=== PATIENT | female | born 1955 | race African-American/Black ===

== ENCOUNTER 2019-01-25 20:52 | Observation (INO) | payer OTHER ==
--- OUTSIDE RECORDS SUMMARY | 2019-01-25 20:55 | XMS REPORT | Clinical Summary ---
:1954 Author Organization [facility] Address [address] [place] [address] Care Team Providers Name Role Phone Yo Carrasco MD Primary Care Provider Allergies Active Allergy Reactions Severity Noted Date Comments Cephalexin Other (See Comments) 07/31/2016 Dry cough Meloxicam Other (See Comments) 07/31/2016 Sick of the stomach Promethazine Itching 07/31/2016 Medications Medication Sig Dispensed Refills Start Date End Date Status bisoprolol-hydrochlorothiazide 0 07/21/2016 Active (ZIAC) 5-6.25 mg per tablet losartan (COZAAR) 50 MG tablet 0 07/21/2016 Active mycophenolate (CELLCEPT) 500 mg 0 06/27/2016 Active tablet gabapentin (NEURONTIN) 400 MG 0 07/14/2016 Active capsule Active Problems No known active problems Social History Tobacco Use Types Packs/Day Years Used Date Current Every Day Smoker Cigarettes Smokeless Tobacco: Never Used Comments: a pack every 2 days Alcohol Use Drinks/Week oz/Week Comments Yes Sex Assigned at Date Recorded Not on file Job Start Date Occupation Industry Not on file Not on file Not on file Travel History Travel Start Travel End No recent travel history available. Last Filed Vital Signs Not on file Plan of Treatment Health Maintenance Due Date Last Done Comments CERVICAL CANCER SCREENING 1976 BREAST CANCER SCREENING 2005 COLON CANCER SCREENING 2005 SHINGLES VACCINES (#1) 2005 INFLUENZA VACCINE 04/22/2019 Results Not on fileafter 01/24/2018 Insurance Payer Benefit Plan / Group Subscriber ID Type Phone Address [facility] CHOICE/CHOICE + xxxxxxxxx HMO/PPO Advance Directives Patient has advance care planning documents on file. For more information, please contact:Mauricio Chino[address] [place] [address]
[2019-01-25 22:32] LABS: Absolute Lymphocytes (CBC) 2.1 K/uL (0.7-4.9); Absolute Monocytes 0.7 K/uL (0.1-1.3); Absolute Neutrophil 2.3 K/uL (1.8-8.0); Basophils % 0.6 % (0-1.3); Eosinophils % 2.3 % (0-4.4); Hematocrit 37.3 % (36.0-45.0); MPV 8.6 fL (7.6-11.3); Monocytes % 12.6 % (3.3-12.3); Protime INR 1.13; RBC Red Blood Cell Count 3.85 M/uL (3.86-4.86)
[2019-01-25] MEDS ORDERED: LIDOCAINE VISCOUS 2% SOLN 15 ML UDC ONE (22:33)
[2019-01-25] MEDS ORDERED: MAGNE/ALUM HYDROXD 30 ML UCUP ONE (22:33)
[2019-01-25 22:55] LABS: ALT/SGPT 36 U/L (12-78); AST/SGOT 45 U/L (15-37); Albumin 3.1 g/dL (3.4-5.0); Alkaline Phosphatase 71 U/L (45-117); BUN Blood Urea Nitrogen 22 mg/dL (7-18); Bicarbonate 24 mmol/L (21-32); Bilirubin Direct 0.2 mg/dL (0-0.2); Bilirubin Total 0.6 mg/dL (0.2-1.0); Glucose Level 81 mg/dL (74-106); NT PRO-BNP 179 pg/mL (<125); Potassium 3.3 mmol/L (3.5-5.1); Protein, Total 7.7 g/dL (6.4-8.2); Sodium Level 142 mmol/L (136-145); Troponin (Emerg Dept Use Only) < 0.02 ng/mL (0.0-0.045)
[2019-01-25 22:56] LABS: Magnesium 0.7 mg/dL (1.8-2.4)
[2019-01-25] MEDS ORDERED: FENTANYL CITR 100 MCG/2 ML ONE (23:43)
[2019-01-25] MEDS ORDERED: Magnesium Sulfate 2gm IVPB 2 G/50 ML BAG IV ONE (23:43)
--- NOTE | 2019-01-26 00:11 | ER ---
Nurse's Notes [facility] Name: Brandy Perez Age: 63 yrs Sex: Female : 1955 Arrival Date: 01/25/2019 Time: 20:56 Bed 17 Private MD: Yo Carrasco V Diagnosis: Chest pain, unspecified;Hypomagnesemia Presentation: 01/25 21:18 Presenting complaint: Patient states: she had just finished dinner and began to have aa1 indigestion and then she could physically palpate a knot on her chest so she was concerned. States, "I feel like if I could just belch it would feel better.". Transition of care: patient was not received from another setting of care. Onset of symptoms was January 25, 2019. Risk Assessment: Do you want to hurt yourself or someone else? Patient reports no desire to harm self or others. Initial Sepsis Screen: Does the patient meet any 2 criteria? No. Patient's initial sepsis screen is negative. Does the patient have a suspected source of infection? No. Patient's initial sepsis screen is negative. Care prior to arrival: None. 21:18 Method Of Arrival: Ambulatory aa1 21:18 Acuity: LEONARDO 3 aa1 Triage Assessment: 21:23 General: Appears in no apparent distress. comfortable, Behavior is calm, cooperative, aa1 appropriate for age. Historical: - Allergies: 21:23 Keflex; aa1 21:23 Mobic; aa1 21:23 Phenergan; aa1 - Home Meds: 21:23 acetaminophen-codeine 300-30 mg Oral tab as needed [Active]; aspirin 81 mg Oral TbEC 1 aa1 tab once daily [Active]; CellCept 500 mg Oral tab daily [Active]; Centrum Oral daily [Active]; losartan 100 mg oral tab 1 tab once daily [Active]; Plaquenil 200 mg Oral tab once daily [Active]; Protonix 40 mg Oral TbEC 1 tab once daily [Active]; carvedilol 25 mg oral tab 1 tab 2 times per day [Active]; nifedipine 30 mg Oral tr24 1 tab once daily [Active]; - PMHx: 21:23 Arthritis; GERD; Hypertension; Lupus; Osteoporosis; RIGHT LEG NERVE PAIN; SCOLEOSIS; aa1 - PSHx: 21:23 R nephrectomy; aa1 - Immunization history:: Flu vaccine is not up to date. - Social history:: Smoking status: Patient uses tobacco products, smokes one-half pack cigarettes per day, Patient uses. - Ebola Screening: : No symptoms or risks identified at this time. Screenin:42 Abuse screen: Denies threats or abuse. Nutritional screening: No deficits noted. jd3 Tuberculosis screening: No symptoms or risk factors identified. Fall Risk Ambulatory Aid- None/Bed Rest/Nurse Assist (0 pts). Gait- Normal/Bed Rest/Wheelchair (0 pts) Mental Status- Oriented to own ability (0 pts). Total Baez Fall Scale indicates No Risk (0-24 pts). Assessment: 21:40 General: Appears in no apparent distress. uncomfortable, Behavior is calm, cooperative, jd3 appropriate for age. Pain: Complains of pain in chest Quality of pain is described as aching, pressure. Neuro: Level of Consciousness is awake, alert, obeys commands, Oriented to person, place, time, situation, Appropriate for age. Cardiovascular: Heart tones present Capillary refill < 3 seconds Patient's skin is warm and dry. Respiratory: Airway is patent Respiratory effort is even, unlabored, Respiratory pattern is regular, symmetrical, Breath sounds are clear bilaterally. Denies shortness of breath. GI: Abdomen is non-distended, Bowel sounds present X 4 quads. Abd is soft and non tender X 4 quads. Patient currently denies diarrhea, nausea, vomiting. : No signs and/or symptoms were reported regarding the genitourinary system. EENT: No signs and/or symptoms were reported regarding the EENT system. Derm: Skin is intact, Skin is dry, Skin is normal, Skin temperature is warm. Musculoskeletal: Circulation, motion, and sensation intact. Range of motion: intact in all extremities. 23:03 Reassessment: Patient appears in no apparent distress at this time. Patient and/or jd3 family updated on plan of care and expected duration. Pain level reassessed. Patient is alert, oriented x 3, equal unlabored respirations, skin warm/dry/pink. 01/26 00:20 Reassessment: Patient appears in no apparent distress at this time. Patient and/or jd3 family updated on plan of care and expected duration. Pain level reassessed. Patient is alert, oriented x 3, equal unlabored respirations, skin warm/dry/pink. Patient states feeling better. 01:30 Reassessment: Patient appears in no apparent distress at this time. Patient and/or jd3 family updated on plan of care and expected duration. Pain level reassessed. Patient is alert, oriented x 3, equal unlabored respirations, skin warm/dry/pink. Vital Signs: 01/25 21:23 BP 134 / 83; Pulse 70; Resp 18; Temp 97.0; Pulse Ox 98% on R/A; Weight 70.76 kg (R); aa1 Height 5 ft. 3 in. (160.02 cm); Pain 8/10; 23:03 BP 154 / 98; Pulse 64; Resp 17 S; Pulse Ox 98% on R/A; Pain 5/10; jd3 01/26 00:20 BP 140 / 94; Pulse 70; Resp 17 S; Pulse Ox 95% on R/A; jd3 01:29 BP 140 / 95; Pulse 79; Resp 17 S; Pulse Ox 95% on R/A; Pain 3/10; jd3 01/25 21:23 Body Mass Index 27.63 (70.76 kg, 160.02 cm) aa1 ED Course: 01/25 20:56 Patient arrived in ED. ds1 20:56 Yo Carrasco MD is Private Physician. ds1 21:20 Triage completed. aa1 21:23 Arm band placed on left wrist. aa1 21:40 Oz Jha, LENARD is Primary Nurse. jd3 21:42 Patient has correct armband on for positive identification. Placed in gown. Bed in low jd3 position. Call light in reach. Side rails up X 1. Adult w/ patient. 21:44 Marcus Lau PA is PHCP. jr8 21:44 Esteban Rae MD is Attending Physician. jr8 22:15 Inserted saline lock: 20 gauge in right antecubital area, using aseptic technique. jd3 Blood collected. 22:36 XRAY Chest (1 view) In Process Unspecified. EDMS 01/26 00:10 Yo Carrasco MD is Hospitalizing Provider. jr8 01:31 No provider procedures requiring assistance completed. Patient admitted, IV remains in jd3 place. Administered Medications: 01/25 22:24 Drug: GI Cocktail without - (Maalox Suspension 30 ml, Lidocaine Liquid 2 % 15 jd3 ml) Route: PO; 23:20 Follow up: Response: No adverse reaction jd3 23:37 Drug: Magnesium Sulfate 2 grams Route: IVPB; Infused Over: 2 hrs; Site: right jd3 antecubital; 01/26 01:09 Follow up: Response: No adverse reaction; IV Status: Completed infusion; IV Intake: [id number] 01/25 23:37 Drug: fentaNYL (PF) 25 mcg Route: IVP; Site: right antecubital; jd3 01/26 00:21 Follow up: Response: No adverse reaction jd3 Intake: 01:09 IV: 50ml; Total: 50ml. jd3 Outcome: 00:10 Decision to Hospitalize by Provider. jrDoug 01:31 Admitted to Tele accompanied by tech, via wheelchair, room 219, with chart, Report jd3 called to Amber WEINBERG 01:31 Condition: stable 01:31 Instructed on the need for admit, Demonstrated understanding of instructions. 01:41 Patient left the ED. jd3 Signatures: Dispatcher [employer] EDMS Aixa Mahajan, RN RN aa1 Carlene Brown ds1 Marcus Lau PA PA jr8 Oz Jha RN RN jd3 Corrections: (The following items were deleted from the chart) 01/25 23:07 23:03 BP 154 / 98; Pulse 64bpm; Resp 17bpm; Spontaneous; Pulse Ox 98% RA; jd3 jd3
--- NOTE | 2019-01-26 00:12 | EDPHYS ---
Physician Documentation [facility] Name: Brandy Perez Age: 63 yrs Sex: Female : 1955 Arrival Date: 01/25/2019 Time: 20:56 Bed 17 Private MD: Yo Carrasco V ED Physician Esteban Rae HPI: 01/26 00:13 This 63 yrs old Black Female presents to ER via Ambulatory with complaints of jr8 Indigestion. 00:13 The patient or guardian reports chest pain that is located primarily in the substernal jr8 area. Onset: acutely, today. The pain does not radiate. Associated signs and symptoms: The patient has no apparent associated signs or symptoms. The chest pain is described as causing indigestion, knot like feeling. Duration: The patient or guardian reports a single episode, that is still ongoing. Modifying factors: The symptoms are alleviated by nothing. the symptoms are aggravated by nothing. Severity of pain: At its worst the pain was moderate in the emergency department the pain is unchanged. The patient has not experienced similar symptoms in the past. The patient has not recently seen a physician. Patient stated that she has history of indigestion. On Protonix twice daily. Stated that after eating tonight started to feel indigestion but with a knot substernally in chest which she has not had in past. Historical: - Allergies: 01/25 21:23 Keflex; aa1 21:23 Mobic; aa1 21:23 Phenergan; aa1 - Home Meds: 21:23 acetaminophen-codeine 300-30 mg Oral tab as needed [Active]; aspirin 81 mg Oral TbEC 1 aa1 tab once daily [Active]; CellCept 500 mg Oral tab daily [Active]; Centrum Oral daily [Active]; losartan 100 mg oral tab 1 tab once daily [Active]; Plaquenil 200 mg Oral tab once daily [Active]; Protonix 40 mg Oral TbEC 1 tab once daily [Active]; carvedilol 25 mg oral tab 1 tab 2 times per day [Active]; nifedipine 30 mg Oral tr24 1 tab once daily [Active]; - PMHx: 21:23 Arthritis; GERD; Hypertension; Lupus; Osteoporosis; RIGHT LEG NERVE PAIN; SCOLEOSIS; aa1 - PSHx: 21:23 R nephrectomy; aa1 - Immunization history:: Flu vaccine is not up to date. - Social history:: Smoking status: Patient uses tobacco products, smokes one-half pack cigarettes per day, Patient uses. - Ebola Screening: : No symptoms or risks identified at this time. ROS: 01/26 00:13 Eyes: Negative for injury, pain, redness, and discharge, ENT: Negative for injury, jr8 pain, and discharge, Neck: Negative for injury, pain, and swelling, Respiratory: Negative for shortness of breath, cough, wheezing, and pleuritic chest pain, Abdomen/GI: Negative for abdominal pain, nausea, vomiting, diarrhea, and constipation, Back: Negative for injury and pain, MS/Extremity: Negative for injury and deformity, Skin: Negative for injury, rash, and discoloration, Neuro: Negative for headache, weakness, numbness, tingling, and seizure. Cardiovascular: Positive for chest pain, Negative for edema, orthopnea, palpitations, paroxysmal nocturnal dyspnea. Exam: 00:13 Eyes: Pupils equal round and reactive to light, extra-ocular motions intact. Lids and jr8 lashes normal. Conjunctiva and sclera are non-icteric and not injected. Cornea within normal limits. Periorbital areas with no swelling, redness, or edema. ENT: Nares patent. No nasal discharge, no septal abnormalities noted. Tympanic membranes are normal and external auditory canals are clear. Oropharynx with no redness, swelling, or masses, exudates, or evidence of obstruction, uvula midline. Mucous membranes moist. Neck: Trachea midline, no thyromegaly or masses palpated, and no cervical lymphadenopathy. Supple, full range of motion without nuchal rigidity, or vertebral point tenderness. No Meningismus. Cardiovascular: Regular rate and rhythm with a normal S1 and S2. No gallops, murmurs, or rubs. Normal PMI, no JVD. No pulse deficits. Respiratory: Lungs have equal breath sounds bilaterally, clear to auscultation and percussion. No rales, rhonchi or wheezes noted. No increased work of breathing, no retractions or nasal flaring. Abdomen/GI: Soft, non-tender, with normal bowel sounds. No distension or tympany. No guarding or rebound. No evidence of tenderness throughout. Back: No spinal tenderness. No costovertebral tenderness. Full range of motion. Skin: Warm, dry with normal turgor. Normal color with no rashes, no lesions, and no evidence of cellulitis. MS/ Extremity: Pulses equal, no cyanosis. Neurovascular intact. Full, normal range of motion. Neuro: Awake and alert, GCS 15, oriented to person, place, time, and situation. Cranial nerves II-XII grossly intact. Motor strength 5/5 in all extremities. Sensory grossly intact. Cerebellar exam normal. Normal gait. 02:00 ECG was reviewed by the Attending Physician. [facility] Vital Signs: 01/25 21:23 BP 134 / 83; Pulse 70; Resp 18; Temp 97.0; Pulse Ox 98% on R/A; Weight 70.76 kg (R); aa1 Height 5 ft. 3 in. (160.02 cm); Pain 8/10; 23:03 BP 154 / 98; Pulse 64; Resp 17 S; Pulse Ox 98% on R/A; Pain 5/10; jd3 01/26 00:20 BP 140 / 94; Pulse 70; Resp 17 S; Pulse Ox 95% on R/A; jd3 01:29 BP 140 / 95; Pulse 79; Resp 17 S; Pulse Ox 95% on R/A; Pain 3/10; jd3 01/25 21:23 Body Mass Index 27.63 (70.76 kg, 160.02 cm) aa1 MDM: 01/25 21:51 Patient medically screened. [facility] 23:58 Data reviewed: vital signs, nurses notes, lab test result(s), EKG. Data interpreted: [facility] Pulse oximetry: on room air is 98 %. Interpretation: normal. Counseling: I had a detailed discussion with the patient and/or guardian regarding: the historical points, exam findings, and any diagnostic results supporting the discharge/admit diagnosis, lab results, radiology results, the need for further work-up and treatment in the hospital. 01/26 00:10 Physician consultation: Yo Carrasco MD was called at 00:10, was contacted at 00:10, jr8 regarding admission, to the telemetry unit. consult, patient's condition, and will see patient. 01/25 22:05 Order name: Basic Metabolic Panel; Complete Time: 23:17 [facility] 01/25 22:05 Order name: CBC with Diff; Complete Time: 23:17 01/25 22:05 Order name: LFT's; Complete Time: 23:17 01/25 22:05 Order name: Magnesium; Complete Time: 23:17 01/25 22:05 Order name: NT PRO-BNP; Complete Time: 23:17 01/25 22:05 Order name: PT-INR; Complete Time: 23:17 01/25 22:05 Order name: Troponin (emerg Dept Use Only); Complete Time: 23:17 01/25 22:05 Order name: XRAY Chest (1 view) 01/25 22:05 Order name: EKG; Complete Time: 22:06 01/25 22:05 Order name: Cardiac monitoring; Complete Time: 22:42 01/25 22:05 Order name: EKG - Nurse/Tech; Complete Time: 22:42 01/25 22:05 Order name: IV Saline Lock; Complete Time: 22:18 01/25 22:05 Order name: Labs collected and sent; Complete Time: 22:18 01/25 22:05 Order name: O2 Per Protocol; Complete Time: 22:18 01/25 22:05 Order name: O2 Sat Monitoring; Complete Time: 22:18 EC:00 Rate is 71 beats/min. Rhythm is regular, Normal Sinus Rhythm. QRS [place] is Normal. [place] jr8 interval is normal at 130 msec. QRS interval is normal at 74 msec. QT interval is normal at 439 msec. No Q waves. T waves are Normal. No ST changes noted. Clinical impression: Normal ECG and No evidence of ischemia. Interpreted by me. Reviewed by me. Administered Medications: 01/25 22:24 Drug: GI Cocktail without - (Maalox Suspension 30 ml, Lidocaine Liquid 2 % 15 jd3 ml) Route: PO; 23:20 Follow up: Response: No adverse reaction jd3 23:37 Drug: Magnesium Sulfate 2 grams Route: IVPB; Infused Over: 2 hrs; Site: right jd3 antecubital; 01/26 01:09 Follow up: Response: No adverse reaction; IV Status: Completed infusion; IV Intake: [id number] 01/25 23:37 Drug: fentaNYL (PF) 25 mcg Route: IVP; Site: right antecubital; jd3 01/26 00:21 Follow up: Response: No adverse reaction jd3 Disposition: 10:29 Co-signature as Attending Physician, Esteban Rae MD. Disposition: 01/26/19 00:10 Hospitalization ordered by Yo Carrasco for Observation. Preliminary diagnosis are Chest pain, unspecified, Hypomagnesemia. - Bed requested for Telemetry/MedSurg (observation). - Status is Observation. jd3 - Condition is Stable. - Problem is new. - Symptoms have improved. UTI on Admission? No Signatures: Dispatcher [employer] EDMS Aixa Mahajan RN RN aa1 Marcus Lau PA PA jr8 Jie Sauceda RN RN Esteban Rae MD MD gs Davies, Jonathon, RN RN jd3 Corrections: (The following items were deleted from the chart) 01:00 00:10 Hospitalization Ordered by Yo Carrasco MD for Observation. Preliminary diagnosis cg is Chest pain, unspecified; Hypomagnesemia. Bed requested for Telemetry/MedSurg (observation). Status is Observation. Condition is Stable. Problem is new. Symptoms have improved. UTI on Admission? No. jr8 01:41 01:00 01/26/2019 00:10 Hospitalization Ordered by Yo Carrasco MD for Observation. jd3 Preliminary diagnosis is Chest pain, unspecified; Hypomagnesemia. Bed requested for Telemetry/MedSurg (observation). Status is Observation. Condition is Stable. Problem is new. Symptoms have improved. UTI on Admission? No. cg
[2019-01-26] MEDS ORDERED: MORPHINE 4 MG/ML SYR IV PRN (01:25)
[2019-01-26] MEDS ORDERED: ONDANSETRON 4 MG/2 ML VIAL IV PRN (01:25)
[2019-01-26 02:19] VITALS: BMI 27.0
--- NOTE | 2019-01-26 06:06 | EKG ---
Test Date: 2019-01-25 Test Time: 22:39:03 Shipping And Receiving Material Handler: [id number] MEASUREMENT RESULTS: Intervals: Rate: 71 KS: 130 QRSD: 74 QT: 404 QTc: 439 Jackman: P: 72 KS: 130 QRS: 70 T: 77 INTERPRETIVE STATEMENTS: Normal sinus rhythm Normal ECG Compared to ECG 05/25/2013 02:36:31 No significant changes Electronically Signed On 01-26-19 06:05:30 CDT by Harrison Adan
--- NOTE | 2019-01-26 07:13 | RAD REPORT ---
EXAM DESCRIPTION: RAD - Chest Single View - 01/25/2019 10:35 pm CLINICAL HISTORY: Chest pain COMPARISON: November 2016 TECHNIQUE: AP portable chest image was obtained 2230 hours . FINDINGS: No new mass, infiltrate or failure finding. Patient has prominent emphysematous changes wi th bullous cavities in the upper lung diop. Lung parenchymal findings are stable. Heart and vascula ture are normal. No measurable pleural effusion and no pneumothorax. No acute bony abnormality seen. Scoliosis juan remains in place. No acute aortic finding. IMPRESSION: No acute cardiopulmonary process. 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
--- NOTE | 2019-01-26 08:26 | RAD REPORT ---
EXAM DESCRIPTION: US - Abdomen Exam Complete - 01/26/2019 8:09 am CLINICAL HISTORY: Abdominal pain, abdominal distention COMPARISON: Ultrasound July 2017 FINDINGS: Gallbladder size is normal. No gallstones, wall thickening or pericholecystic fluid. Commo n bile duct is upper normal at 7-8 mm with no common duct stone identified. Liver is 14 cm in maximum dimension. No focal liver parenchymal lesions seen. Capsule has a slight nodular contour. This can b e indirect evidence for cirrhosis or hepatic parenchymal disease. Spleen is 7 cm in maximum dimension with no focal splenic finding. The pancreas is normal. No hydronephrosis or suspicious mass of the left kidney. Patient is status post right nephrectomy. Mi ld left-sided hydronephrosis matches the 2017 study. Small cyst of the left kidney measures slightly smaller than 2017. Aorta and IVC show no suspicious findings. No ascites or bulky lymphadenopathy. IMPRESSION: No gallbladder abnormality. Biliary tree is upper normal in size without stone or other focal abnormality. Liver is normal size with no focal parenchymal lesion. Capsule does show slight nodular contour which can be indirect evidence for hepatic parenchymal disease. Mild left-sided hydronephrosis similar to 2017. Patient is status post right nephrectomy.
[2019-01-26] MEDS ORDERED: ASPIRIN EC 81 MG TAB PO SCH (09:00)
[2019-01-26] MEDS ORDERED: POTASSIUM CL SA 10 MEQ TAB PO ONE (09:00)
[2019-01-26] MEDS ORDERED: LOSARTAN POTASSIUM 200 MG PO SCH (09:00)
[2019-01-26] MEDS: MYCOPHENOLATE MOFETIL PO SCH (09:00)
[2019-01-26] MEDS: CARVEDILOL 25 MG TAB PO SCH ×2 (10:01→20:49)
[2019-01-26] MEDS: ASPIRIN EC 81 MG TAB PO SCH (10:01)
[2019-01-26] MEDS: PANTOPRAZOLE 40MG TABLET PO SCH ×2 (10:01→20:49)
[2019-01-26] MEDS: HYDROXYCHLOROQUINE 200MG TAB PO SCH (10:02)
[2019-01-26] MEDS: NIFEDIPINE XL 30 MG TABLET PO SCH (10:02)
[2019-01-26] MEDS ORDERED: MAGNESIUM SULFATE 1 gm IVPB 1 GM/100 ML BAG IV ONE (11:00)
--- NOTE | 2019-01-26 12:46 | P.HP ---
Certification for Inpatient Patient admitted to: Observation With expected LOS: <2 Midnights Practitioner: I am a practitioner with admitting privileges, knowledge of patient current condition, hospital course, and medical plan of care. Services: Services provided to patient in accordance with Admission requirements found in Title 42 Section 412.3 of the Code of Federal Regulations Patient History Date of Service: 01/27/19 Reason for admission: CHEST PAIN History of Present Illness: MS. MCMANUS HAS HTN, SARCOIDOSIS AND LUPUS. SHE COMES WITH CHEST PAIN TODAY. MORE THAN CHEST PAIN IT IS DYSPHAGIA. SHE SAYS FOOD GETS STUCK. I ASKED IF DR WANG DID EGD. SHE SAID SHE IS ONCE AGAIN POSITIVE FOR HEP C, THEY CAN'T DO EGD FOR NOW. I CALLED DR. WANG AND HE SAYS HE WILL DO EGD INPATIENT. Allergies promethazine HCl [From Phenergan] Allergy (Mild, Verified 03/02/13 12:46) ITCH meloxicam [From Mobic] Adverse Reaction (Intermediate, Verified 03/02/13 12:46) NAUSEA cephalexin monohydrate [From Keflex] Adverse Reaction (Mild, Verified 03/02/13 12:46) DRY COUGH Home Medications: Aspirin [Aspir-Low] 1 tab PO DAILY 01/26/19 Carvedilol 1 tab PO BID 01/26/19 Hydroxychloroquine [Plaquenil*] 1 tab PO DAILY 01/26/19 Losartan Potassium 100 mg PO DAILY 01/26/19 Mycophenolate Mofetil 1 tab PO DAILY 01/26/19 Nifedipine [Nifedipine ER] 1 tab PO DAILY 01/26/19 Pantoprazole [Protonix Tab*] 1 tab PO BID 01/26/19 - Past Medical/Surgical History Has patient received pneumonia vaccine in the past: No Diabetic: No -: HTN -: Scoliosis -: lupus -: osteoporosis -: kidney cancer -: Back -Barbara Adolfo -: R Kidney removal -: Bone spur R foot - Family History Mother -: Heart disease, Kidney disease - Social History Smoking Status: Current every day smoker Alcohol use: No CD- Drugs: Yes Caffeine use: Yes Place of Residence: Home Review of Systems 10-point ROS is otherwise unremarkable Respiratory: Pleuritic Pain, As per HPI Physical Examination - Vital Signs Temperature: 97.1 F Blood Pressure: 139/90 Pulse: 71 Respirations: 15 Pulse Ox (%): 98 - Physical Exam General: Alert, Mild distress HEENT: Atraumatic, PERRLA, Mucous membr. moist/pink, EOMI, Sclerae nonicteric Neck: Supple, 2+ carotid pulse no bruit, No LAD, Without JVD or thyroid abnormality Respiratory: Clear to auscultation bilaterally, Normal air movement Cardiovascular: Regular rate/rhythm, Normal S1 S2 Gastrointestinal: Normal bowel sounds, No tenderness Musculoskeletal: No tenderness Integumentary: No rashes Neurological: Normal gait, Normal speech, Normal strength at 5/5 x4 extr, Normal tone, Normal affect Lymphatics: No axilla or inguinal lymphadenopathy - Studies Laboratory Data (last 24 hrs) 01/25/19 22:15: PT 13.3 H, INR 1.13 01/25/19 22:15: WBC 5.2, Hgb 13.1, Hct 37.3, Plt Count 202 01/25/19 22:15: Sodium 142, Potassium 3.3 L, BUN 22 H, Creatinine 1.79 H, Glucose 81, Magnesium 0.7 L*, Total Bilirubin 0.6, AST 45 H, ALT 36, Alkaline Phosphatase 71 Assessment and Plan - Problems (Diagnosis) (1) Chest pain Current Visit: Yes Status: Acute Plan: EGD TO BE DONE WHILE HERE. PROTONIX IV DIALUDID IV PAIN SEEMS NONCARDIAC IN ORIGIN. CHECK FOR COMPLEMENT AND SED RATE. (2) HTN (hypertension) Current Visit: Yes Status: Chronic Qualifiers: Hypertension type: essential hypertension Qualified Code(s): I10 - Essential (primary) hypertension (3) SLE (systemic lupus erythematosus related syndrome) Current Visit: Yes Status: Chronic Plan: STABLE FOR YEARS. HAS BEEN TO DR. CHEN LOCALLY NOW. - Advance Directives Does patient have a Living Will: No Does patient have a Durable POA for Healthcare: No
[2019-01-26 13:11] LABS: MPV 9.2 fL (7.6-11.3)
[2019-01-26 13:24] LABS: Platelet Estimate ADEQ
[2019-01-26 13:42] LABS: Potassium 4.1 mmol/L (3.5-5.1)
--- NOTE | 2019-01-26 14:49 | RAD REPORT ---
EXAM DESCRIPTION: CT - Chest Angio - 01/26/2019 2:39 pm CLINICAL HISTORY: Chest pain, shortness of breath COMPARISON: Chest film January 25 TECHNIQUE: Dynamically enhanced 3 mm thick images of the chest were obtained during administration o f approximately 150mL Isovue 370 IV contrast. Coronal and oblique MIP reconstruction images were gene rated and reviewed. Exam utilizes a protocol to evaluate the pulmonary arterial tree. All CT scans are performed using dose optimization technique as appropriate and may include automated exposure control or mA/KV adjustment according to patient size. FINDINGS: No pulmonary emboli are identified. The aorta as imaged shows no acute or suspicious finding. No pericardial thickening or effusion. Patient has prominent emphysematous lung change. Numerous large bulla and bleb noted in the upper josé g diop. No pleural effusion or pleural thickening. In the medial right apex (image 16/102) there is a 2.2 centimeter pleural abutting soft tissue mass. Scattered scarring changes are present elsewhere in the lung diop. No additional suspicious mass or nodularity. No mediastinal or hilar suspicious masses. No chest wall masses or abnormal axillary lymphadenopathy. IMPRESSION: No pulmonary emboli identified. A 2.2 centimeter pleural abutting mass in the medial right apex is identified. No comparable imaging to allow all assessment of stability. Severe fibroemphysematous lung change matching prior imaging. The medial right apex mass cannot be excluded as a malignant process. No comparable study for compara tive purposes. PET-CT imaging may be helpful to assess metabolic activity.
[2019-01-26] MEDS ORDERED: PROMETHAZINE 25 MG/ML VIAL IV PRN (15:12)
[2019-01-26] MEDS: LOSARTAN POTASSIUM 50 MG TABLET PO SCH (16:16)
[2019-01-26] MEDS ORDERED: HYDROMORPHONE HCL 1 MG/ML INJ IV ONE (16:30)
[2019-01-27 06:08] LABS: Absolute Lymphocytes (CBC) 1.7 K/uL (0.7-4.9); Absolute Monocytes 0.5 K/uL (0.1-1.3); Basophils % 0.7 % (0-1.3); Eosinophils % 2.7 % (0-4.4); Hematocrit 37.1 % (36.0-45.0); Lymphocytes % 37.9 % (15.3-44.8); MPV 8.9 fL (7.6-11.3); Monocytes % 12.4 % (3.3-12.3)
[2019-01-27 06:12] LABS: Magnesium 1.8 mg/dL (1.8-2.4); Potassium 4.1 mmol/L (3.5-5.1)
--- NOTE | 2019-01-27 08:53 | P.CNS ---
Date of Consult: 01/27/19 Chief Complaint: Right upper lobe lung mass History of Present Illness: Patient is 63 years of age admitted with chest pain patient is an active smoker he smokes 1 pack every 2 days does have some shortness of breath on exertion denies any fever chills history of kidney cancer that was resected in 2003 and was found to have a right upper lobe paraspinal lung mass denies any fever chills no chest pain now schedule for endoscopy history of GERD. Allergies promethazine HCl [From Phenergan] Allergy (Mild, Verified 03/02/13 12:46) ITCH meloxicam [From Mobic] Adverse Reaction (Intermediate, Verified 03/02/13 12:46) NAUSEA cephalexin monohydrate [From Keflex] Adverse Reaction (Mild, Verified 03/02/13 12:46) DRY COUGH Home Medications: Aspirin [Aspir-Low] 1 tab PO DAILY 01/26/19 Carvedilol 1 tab PO BID 01/26/19 Hydroxychloroquine [Plaquenil*] 1 tab PO DAILY 01/26/19 Losartan Potassium 100 mg PO DAILY 01/26/19 Mycophenolate Mofetil 1 tab PO DAILY 01/26/19 Nifedipine [Nifedipine ER] 1 tab PO DAILY 01/26/19 Pantoprazole [Protonix Tab*] 1 tab PO BID 01/26/19 Fluticasone/Salmeterol [Advair 250-50 Diskus] 1 each IH BID #1 blst.w.dev - Past Medical/Surgical History Diabetic: No -: HTN -: Scoliosis -: lupus -: osteoporosis -: kidney cancer -: Back -Barbara Adolfo -: R Kidney removal -: Bone spur R foot - Family History Mother Medical History: Heart disease, Kidney disease - Social History Smoking Status: Current every day smoker Alcohol use: No CD- Drugs: Yes Caffeine use: Yes Place of Residence: Home Review of Systems 10-point ROS is otherwise unremarkable Physical Examination Temp Pulse Resp BP Pulse Ox 97.1 F 71 15 139/90 98 01/27/19 06:37 01/27/19 06:37 01/27/19 06:37 01/27/19 06:37 01/27/19 06:37 General: Alert, Oriented x3 HEENT: Normocephalic Neck: Supple Respiratory: Clear to auscultation bilaterally Cardiovascular: No edema, Regular rate/rhythm, Normal S1 S2 Gastrointestinal: Soft and benign - Problems (1) Lung mass Current Visit: Yes Status: Acute Plan: Patient is 63 years of age admitted with chest pain incidentally was found to have a right upper lobe apical paraspinal 2.2 cm mass with paraseptal emphysema does changes patient is an active smoker prior history of renal cancer that was resected in 2003 complains of dyspnea on exertion I suspect that she has underlying COPD patient is scheduled for endoscopy chemistries unremarkable patient will need a bronchodilator outpatient follow up with pulmonary function testing possible PET scan console to stops smoking I have informed the patient to follow with me in a couple of weeks
[2019-01-27] MEDS ORDERED: MAGNESIUM SULFATE 1 gm IVPB 1 GM/100 ML BAG IV ONE (09:00)
[2019-01-27] MEDS: MYCOPHENOLATE MOFETIL PO SCH (09:00)
[2019-01-27] MEDS ORDERED: ENOXAPARIN 30 MG/0.3 ML SQ SCH (09:00)
[2019-01-27] MEDS: ASPIRIN EC 81 MG TAB PO SCH (09:34)
[2019-01-27] MEDS ORDERED: Ringers Lactate 1,000 ML IV ONE (10:24)
[2019-01-27] MEDS ORDERED: LIDOCAINE 1% MPF 2 ML AMPULE ONE (10:30)
[2019-01-27] MEDS ORDERED: PROPOFOL 200 MG/20 ML VIAL IV ONE (10:30)
--- NOTE | 2019-01-27 10:39 | EKG ---
Test Date: 2019-01-27 Test Time: 07:33:04 Architectural Drafter: KAYLYNN MEASUREMENT RESULTS: Intervals: Rate: 61 WA: 114 QRSD: 68 QT: 426 QTc: 428 [place]: P: 72 WA: 114 QRS: 75 T: 76 INTERPRETIVE STATEMENTS: Normal sinus rhythm Normal ECG Compared to ECG 01/25/2019 22:39:03 No significant changes Electronically Signed On 01-27-19 10:39:01 CDT by Kvng Guerra
--- NOTE | 2019-01-27 11:05 | ENDO RPT ---
[address], [address] EGD WITH DILATION PROCEDURE REPORT EXAM DATE: 01/27/2019 PATIENT NAME: Brandy Perez MR#: [id number] BIRTHDATE: 1955 ATTENDING: Roberto Armstrong Dr STATUS: inpatient - 7 OUTSIDE CONTRACTOR SALES: Niels Chen RN, Christi Mitchell RN, and Alyse Devlin INDICATIONS: The patient is a 63 yr old Female here for an EGD with dilation due to GERD and dysphagia PROCEDURE PERFORMED: EGD with biopsy MEDICATIONS: Per Anesthesia. TOPICAL ANESTHETIC: none CONSENT: The patient understands the risks and benefits of the procedure and understands that these risks include, but are not limited to: sedation, allergic reaction, infection, perforation and/or bleeding. Alternative means of evaluation and treatment include, among others: physical exam, x-rays, and/or surgical intervention. The patient elects to proceed with this endoscopic procedure. DESCRIPTION OF PROCEDURE: During intra-op preparation period all mechanical medical equipment was checked for proper function. Hand hygiene and appropriate measures for infection prevention was taken. After the risks, benefits and alternatives of the procedure were thoroughly explained, Informed consent was verified, confirmed and timeout was successfully executed by the treatment team. The patient was anesthetized with topical anesthesia and the Pentax EG-[id number] ([id number]) endoscope was introduced through the mouth and advanced to the third portion of the duodenum. The instrument was slowly withdrawn as the mucosa was fully examined. A moderate sized hiatal hernia was found Mild gastritis was found in the body and the antrum of the stomach. Multiple biopsies were obtained and sent to pathology. Dilation was performed at upper esophagus. DILATOR: SIZE(S): RESISTANCE: HEME: APPEARANCE: Dilator: Savary over guidewire Size(s): 14,15,16 mm Resistance: minimal Heme: none Appearance: adequate COMMENT: subsequent esophageal biopsies to rule out eosinophilic esophagitis Retroflexed views revealed a moderate sized hiatal hernia. ADVERSE EVENTS: There were no complications. IMPRESSIONS: 1. Non-obstructive dysphagia, s/p 14/15/16 mm Savary esophagitis 2. Moderate sized hiatal hernia 3. Mild gastritis in the body and the antrum of the stomach, s/p biopsies RECOMMENDATIONS: 1. await biopsy results 2. acid suppression therapy REPEAT EXAM: Roberto Armstrong Dr eSigned: Roberto Armstrong Dr 01/27/2019 11:04 AM cc: Yo Carrasco CPT CODES: ICD9 CODES: PATIENT NAME: Brandy PerezAlireza MR#: [id number]
[2019-01-27] MEDS: CARVEDILOL 25 MG TAB PO SCH (11:56)
[2019-01-27] MEDS: PANTOPRAZOLE 40MG TABLET PO SCH (11:57)
[2019-01-27] MEDS: HYDROXYCHLOROQUINE 200MG TAB PO SCH (11:57)
[2019-01-27] MEDS: LOSARTAN POTASSIUM 50 MG TABLET PO SCH (11:57)
[2019-01-27] MEDS: NIFEDIPINE XL 30 MG TABLET PO SCH (11:57)
[2019-01-27 14:17] VITALS: O2SAT 98
[2019-01-27 14:25] VITALS: BP 160/82; TEMP 97.9
--- NOTE | 2019-01-27 14:29 | RAD REPORT ---
EXAM DESCRIPTION: RAD - Barium Swallow Modified - 01/27/2019 2:21 pm CLINICAL HISTORY: Coughing and choking FINDINGS: No aspiration. No supraglottic penetration No pooling of contrast within the valleculae/piriform sinus Oropharyngeal phase of swallowing is normal ILD ESOPHAGEAL STASIS WITH PUREE , CLEARED WITH LIQUID WASH Fluoroscopy time 1.4 minutes. Nine fluoroscopic spot series obtained
--- NOTE | 2019-01-27 14:56 | RAD REPORT ---
EXAM DESCRIPTION: RAD - Esophagram Only - 01/27/2019 2:21 pm CLINICAL HISTORY: Dysphagia, coughing COMPARISON: None FINDINGS: Twelve fluoroscopic spot images obtained. Fluoroscopy time 0.4 minutes Mucosal folds of the esophagus appear normal. No permanent filling defects, obstructing or constricting lesions seen. GE reflux was not visualized IMPRESSION: Unremarkable exam
--- NOTE | 2019-01-27 21:39 | P.DS ---
Admission Date: 01/26/19 Discharge Date: 01/27/19 Disposition: ROUTINE DISCHARGE Reason for Admission: Right upper lobe lung mass - Problems (1) Chest pain Status: Acute (2) HTN (hypertension) Status: Chronic Qualifiers: Hypertension type: essential hypertension Qualified Code(s): I10 - Essential (primary) hypertension (3) SLE (systemic lupus erythematosus related syndrome) Status: Chronic Brief History of Present Illness: MS. MCMANUS HAS HTN, SARCOIDOSIS AND LUPUS. SHE COMES WITH CHEST PAIN TODAY. MORE THAN CHEST PAIN IT IS DYSPHAGIA. SHE SAYS FOOD GETS STUCK. I ASKED IF DR WANG DID EGD. SHE SAID SHE IS ONCE AGAIN POSITIVE FOR HEP C, THEY CAN'T DO EGD FOR NOW. I CALLED DR. WANG AND HE SAYS HE WILL DO EGD INPATIENT. MRS. MCMANUS HAD DYSPHAGIA MORE THAN PAIN. SHE HAD EGD BY DR WANG AND FOUND TO HAVE HIATLA HERNIA. SHE WILL CONTINUE PROTONIX. GO TO DR GUERRA, DR. ANDERSON AND DR WANG FOR FU. Vital Signs/Physical Exam: Temp Pulse Resp BP Pulse Ox 97.9 F 62 18 160/82 H 97 01/27/19 12:00 01/27/19 12:00 01/27/19 12:00 01/27/19 12:00 01/27/19 12:00 Laboratory Data at Discharge: WBC 4.4 K/uL (4.3-10.9) D 01/27/19 05:16 Hgb 13.1 g/dL (12.0-15.0) 01/27/19 05:16 Hct 37.1 % (36.0-45.0) 01/27/19 05:16 Plt Count 197 K/uL (152-406) 01/27/19 05:16 PT 13.3 SECONDS (9.5-12.5) H 01/25/19 22:15 INR 1.13 01/25/19 22:15 Sodium 145 mmol/L (136-145) 01/27/19 05:16 Potassium 4.1 mmol/L (3.5-5.1) 01/27/19 05:16 BUN 15 mg/dL (7-18) 01/27/19 05:16 Creatinine 1.20 mg/dL (0.55-1.3) 01/27/19 05:16 Glucose 88 mg/dL (74-106) 01/27/19 05:16 Magnesium 1.8 mg/dL (1.8-2.4) 01/27/19 05:16 Total Bilirubin 0.6 mg/dL (0.2-1.0) 01/25/19 22:15 AST 45 U/L (15-37) H 01/25/19 22:15 ALT 36 U/L (12-78) 01/25/19 22:15 Alkaline Phosphatase 71 U/L (45-117) 01/25/19 22:15 Troponin I < 0.02 ng/mL (0.0-0.045) 01/26/19 07:25 Home Medications: Aspirin [Aspir-Low] 1 tab PO DAILY 01/26/19 Carvedilol 1 tab PO BID 01/26/19 Hydroxychloroquine [Plaquenil*] 1 tab PO DAILY 01/26/19 Losartan Potassium 100 mg PO DAILY 01/26/19 Mycophenolate Mofetil 1 tab PO DAILY 01/26/19 Nifedipine [Nifedipine ER] 1 tab PO DAILY 01/26/19 Pantoprazole [Protonix Tab*] 1 tab PO BID 01/26/19 Fluticasone/Salmeterol [Advair 250-50 Diskus] 1 each IH BID #1 blst.w.dev New Medications: Fluticasone/Salmeterol [Advair 250-50 Diskus] 1 each IH BID #1 blst.w.dev Patient Discharge Instructions: VISIT DR. TAYLOR FOR NODULE. DR. CARRASCO RTN VISIT. DR. GUERRA FOR FOLLOW UP. Followup: Keenan Boo MD [ACTIVE - CAN ADMIT] - Yo Carrasco MD [Primary Care Provider] - Kvng Guerra MD [ACTIVE - CAN ADMIT] -
[2019-01-30 10:52] LABS: Complement (CH50), Total 11 U/mL (31-60)
== END 2019-01-27 17:00 | disposition home or self-care (01) ==
LOC: ER 20:52 → ERHOLD 01-26 01:04 → 2ND 01-26 01:31
PROVIDERS: ADMIT Internal Medicine; ATTEND Internal Medicine
PROC: 0DB68ZX Excision of Stomach, Via Natural or Artificial Opening Endoscopic, Diagnostic (ICD-10-PCS; 2019-01-27)
PROC: 0D718ZZ Dilation of Upper Esophagus, Via Natural or Artificial Opening Endoscopic (ICD-10-PCS; 2019-01-27)
PROC: 0DB58ZX Excision of Esophagus, Via Natural or Artificial Opening Endoscopic, Diagnostic (ICD-10-PCS; principal; 2019-01-27 11:00)
DX: K44.9 Diaphragmatic hernia without obstruction or gangrene (principal); R13.10 Dysphagia, unspecified; M32.9 Systemic lupus erythematosus, unspecified; K29.70 Gastritis, unspecified, without bleeding; I10 Essential (primary) hypertension; R91.8 Other nonspecific abnormal finding of lung field; F17.210 Nicotine dependence, cigarettes, uncomplicated; Z85.528 Personal history of other malignant neoplasm of kidney; D86.9 Sarcoidosis, unspecified
CPT/HCPCS: 36415; 71045; 71275; 74220; 74230; 76700; 80048; 80076; 83735; 83880; 84484; 85025; 85049; 85610; 85652; 86140; 86160; 86162; 88305; 88312; 88313; 92611; 93005; 96365; 96366; 96375; 99285; G0378; J1170; J1650; J2001; J2405; J2550; J2704; J3010; J3475; Q9967

== ENCOUNTER 2019-02-28 14:01 | Emergency (ER) | payer OTHER ==
--- OUTSIDE RECORDS SUMMARY | 2019-02-28 14:04 | XMS REPORT | Clinical Summary ---
:1954 Author Organization [facility] Address [address] [place] [address] Care Team Providers Name Role Phone Yo [...] Health Maintenance Due Date Last Done Comments BREAST CANCER SCREENING 2005 COLON CANCER SCREENING 2005 SHINGLES VACCINES (#1) 2005 INFLUENZA VACCINE 04/22/2019 Results Not on fileafter 02/27/2018 Advance Directives Patient has advance care planning documents on file. For more information, please contact:Mauricio Vance[address] [place] [address]
[2019-02-28 15:20] LABS: Absolute Lymphocytes (CBC) 1.4 K/uL (0.7-4.9); Absolute Monocytes 0.4 K/uL (0.1-1.3); Absolute Neutrophil 3.3 K/uL (1.8-8.0); Basophils % 0.7 % (0-1.3); Eosinophils % 1.6 % (0-4.4); Hematocrit 39.8 % (36.0-45.0); MPV 8.2 fL (7.6-11.3); Monocytes % 7.5 % (3.3-12.3); RBC Red Blood Cell Count 4.15 M/uL (3.86-4.86)
[2019-02-28] MEDS ORDERED: NA CHLORIDE 0.9% 1,000 ML ONE (15:39)
[2019-02-28 15:40] LABS: ALT/SGPT 35 U/L (12-78); AST/SGOT 43 U/L (15-37); Albumin 2.9 g/dL (3.4-5.0); Alkaline Phosphatase 63 U/L (45-117); BUN Blood Urea Nitrogen 17 mg/dL (7-18); Bicarbonate 23 mmol/L (21-32); Bilirubin Direct 0.3 mg/dL (0-0.2); Bilirubin Total 0.6 mg/dL (0.2-1.0); Glucose Level 114 mg/dL (74-106); Lipase 449 U/L (73-393); Potassium 3.4 mmol/L (3.5-5.1); Protein, Total 8.4 g/dL (6.4-8.2); Sodium Level 146 mmol/L (136-145); Troponin (Emerg Dept Use Only) < 0.02 ng/mL (0.0-0.045)
[2019-02-28 15:44] LABS: Magnesium 0.4 mg/dL (1.8-2.4)
[2019-02-28] MEDS ORDERED: POTASSIUM 25 MEQ EFFERV TAB ONE (16:25)
[2019-02-28] MEDS ORDERED: Magnesium Sulfate 2gm IVPB 2 G/50 ML BAG IV ONE (16:25)
[2019-02-28] MEDS ORDERED: CALCIUM GLUCONATE 1gm/100 ML NS (4.65 mEq/100mL) IV ONE ×2 (17:00)
[2019-02-28 17:09] LABS: Urine Bacteria >50 /HPF (<20); Urine RBC <5 /HPF (NONE SEEN)
[2019-02-28 17:10] LABS: Urine Culture Reflex Order REFLEXED
[2019-02-28 17:12] LABS: Urine Blood TRACE (NEG); Urine Glucose NEGATIVE (NEG); Urine Protein 2+ (NEG); Urine Specific Gravity 1.015 (1.005-1.030)
--- NOTE | 2019-02-28 17:13 | RAD REPORT ---
EXAM DESCRIPTION: US - Abdomen Exam Limited - 02/28/2019 5:09 pm CLINICAL HISTORY: Right upper quadrant pain COMPARISON: None. FINDINGS: No gallstones, sludge or other abnormalities within the gallbladder lumen. There is no wal l thickening or pericholecystic fluid. No common duct stone or biliary tree dilatation identified. IMPRESSION: Normal gallbladder and biliary tree ultrasound.
--- NOTE | 2019-02-28 18:01 | ER ---
Nurse's Notes [facility] Name: Brandy Perez Age: 63 yrs Sex: Female : 1955 Arrival Date: 02/28/2019 Time: 14:04 Bed 25 Private MD: Yo Carrasco V Diagnosis: Nausea;Hypomagnesemia;Hypocalcemia;Urinary tract infection, site not specified Presentation: 02/28 14:13 Presenting complaint: Nausea today, vomit x 1 in triage. Denies pain/fever/cough. hb Transition of care: patient was not received from another setting of care. Onset of symptoms was February 28, 2019. Risk Assessment: Do you want to hurt yourself or someone else? Patient reports no desire to harm self or others. Care prior to arrival: None. 14:13 Method Of Arrival: Ambulatory hb 14:13 Acuity: LEONARDO 3 hb 15:51 Initial Sepsis Screen: Does the patient meet any 2 criteria? No. Patient's initial rv sepsis screen is negative. Does the patient have a suspected source of infection? No. Patient's initial sepsis screen is negative. Triage Assessment: 15:51 General: Appears in no apparent distress. comfortable. GI: Reports lower abdominal pain.rv Historical: - Allergies: 14:14 Keflex; hb 14:14 Mobic; hb 14:14 Phenergan; hb - PMHx: 14:14 GERD; Lupus; Osteoporosis; RIGHT LEG NERVE PAIN; Hypertension; SCOLEOSIS; Arthritis; hb - PSHx: 14:14 R nephrectomy; hb - Immunization history:: Adult Immunizations up to date. - Social history:: Smoking status: Patient/guardian denies using tobacco. - Ebola Screening: : No symptoms or risks identified at this time. Screenin:50 Abuse screen: Denies threats or abuse. Denies injuries from another. Nutritional rv screening: No deficits noted. Tuberculosis screening: No symptoms or risk factors identified. Fall Risk None identified. Assessment: 15:49 General: Appears in no apparent distress. comfortable, Behavior is calm, cooperative. rv Pain: Complains of pain in abdomen Quality of pain is described as crampy, Is intermittent. Neuro: Level of Consciousness is awake, alert, obeys commands, Oriented to person, place, time, situation. Cardiovascular: Patient's skin is warm and dry. Respiratory: Airway is patent. GI: Abdomen is round. : No signs and/or symptoms were reported regarding the genitourinary system. EENT: No signs and/or symptoms were reported regarding the EENT system. Derm: Skin is intact. Musculoskeletal: No signs and/or symptoms reported regarding the musculoskeletal system. Vital Signs: 14:14 BP 106 / 81; Pulse 89; Resp 20; Temp 97.4; Pulse Ox 100% on R/A; Weight 70.31 kg; hb Height 5 ft. 3 in. (160.02 cm); Pain 4/10; 15:24 BP 120 / 89 LA (auto/reg); Pulse 82; Resp 14 S; Temp 98.9; Pulse Ox 98% on R/A; jp3 16:27 BP 126 / 88; Pulse 77; Resp 20; Temp 98.2; Pulse Ox 99% ; rv 17:00 BP 132 / 89; Pulse 73; Resp 19; Pulse Ox 99% ; rv 18:00 BP 124 / 85; Pulse 80; Resp 15; Temp 97.9; Pulse Ox 100% ; rv 14:14 Body Mass Index 27.46 (70.31 kg, 160.02 cm) hb ED Course: 14:04 Patient arrived in ED. mr 14:04 Yo Carrasco MD is Private Physician. mr 14:14 Triage completed. hb 14:14 Arm band placed on. hb 14:45 Papito Rivera PA is PHCP. cp 14:45 Castillo Pastrana MD is Attending Physician. cp 14:50 Edgar Soliz RN is Primary Nurse. rv 15:10 Inserted saline lock: 22 gauge in right antecubital area, using aseptic technique. jp3 Blood collected. 15:10 Initial lab(s) drawn, by co, sent to lab. EKG done, by ED staff, reviewed by Papito Rivera jp3 PA. Patient maintains SpO2 saturation greater than 95% on room air. 15:29 Lipase Sent. jp3 15:29 Basic Metabolic Panel Sent. jp3 15:29 Troponin (emerg Dept Use Only) Sent. jp3 15:29 Magnesium Sent. jp3 15:29 LFT's Sent. jp3 15:30 Placed in gown. Bed in low position. Call light in reach. Side rails up X 1. Side rails jp3 up X2. Warm blanket given. Pillow given. Verbal reassurance given. sales engagement manager on. Pulse ox on. NIBP on. 15:30 Basic Metabolic Panel Sent. jp3 15:30 CBC with Diff Sent. jp3 16:35 Ultrasound completed. Patient tolerated well. Notified BUSINESS MANAGEMENT MANAGER/PA page. sg3 17:09 US Abdomen Limited: RUQ/epigastric In Process Unspecified. EDMS 18:06 No provider procedures requiring assistance completed. IV discontinued, intact, rv bleeding controlled, No redness/swelling at site. Pressure dressing applied. Administered Medications: 15:43 Drug: NS 0.9% 500 ml Route: IV; Rate: bolus; Site: right antecubital; rv 16:26 Follow up: IV Status: Completed infusion; IV Intake: 500ml rv 16:26 Drug: Magnesium Sulfate 2 grams Route: IVPB; Infused Over: 2 hrs; Site: right rv antecubital; 17:53 Follow up: IV Status: Completed infusion; IV Intake: 50ml rv 16:26 Drug: Calcium Gluconate 1 grams Route: IVPB; Infused Over: 60 mins; Site: right rv antecubital; 17:53 Follow up: IV Status: Completed infusion; IV Intake: 100ml rv 16:26 Drug: NS 0.9% 500 ml Route: IV; Rate: bolus; Site: right antecubital; rv 17:53 Follow up: IV Status: Completed infusion; IV Intake: 500ml rv 16:26 Drug: Potassium Effervescent Tablet 25 mEq Route: PO; rv 17:19 Follow up: Response: No adverse reaction rv Intake: 16:26 IV: 500ml; Total: 500ml. rv 17:53 IV: 50ml; Total: 550ml. rv 17:53 IV: 100ml; Total: 650ml. rv 17:53 IV: 500ml; Total: 1150ml. rv Outcome: 17:59 Discharge ordered by . cp 18:07 Discharged to home ambulatory. rv 18:07 Condition: good 18:07 Discharge instructions given to patient, family, Instructed on discharge instructions, follow up and referral plans. medication usage, Demonstrated understanding of instructions, follow-up care, medications, Prescriptions given X 1. 18:10 Patient left the ED. rv Addendum: 03/02/2019 17:20 Addendum: Culture Results: Positive urine culture. Bacteria is resistant to, has i w intermediate sensitivity, or is not tested against prescribed antibiotics. Report given to ADRIANO for further evaluation and then to high school social studies teacher for follow up with patient. Phone call Attempt #1 pt symptoms improved, has f/u appt with PCP on . Signatures: Dispatcher [employer] NANCYEmily LaiTootie, RN RN iw Papito Rivera PA PA cp Baxter, Heather, LENARD RN Saira Aquino sg3 Edgar Soliz, RN RN rv Nirmal Preciado jp3
--- NOTE | 2019-02-28 18:02 | EDPHYS ---
Physician Documentation [facility] Name: Brandy Perez Age: 63 yrs Sex: Female : 1955 Arrival Date: 02/28/2019 Time: 14:04 Bed 25 Private MD: Yo Carrasco V ED Physician Castillo Pastrana HPI: 02/28 15:00 This 63 yrs old Black Female presents to ER via Ambulatory with complaints of Nausea. cp 15:00 The patient presents to the emergency department with nausea, that is mild, vomiting, 1 cp times today. 15:00 Onset: The symptoms/episode began/occurred today. Possible causes: bad food exposure, cp started after eating 2 sausage croissants from local donut shop. 15:00 Associated signs and symptoms: Pertinent negatives: constipation, diarrhea, fever, GI cp bleeding. Severity of symptoms: in the emergency department the symptoms have improved mildly. 15:05 Patient reports history of low magnesia levels in the past and reports not taking cp prescribed magnesium supplement. Historical: - Allergies: 14:14 Keflex; hb 14:14 Mobic; hb 14:14 Phenergan; hb - PMHx: 14:14 GERD; Lupus; Osteoporosis; RIGHT LEG NERVE PAIN; Hypertension; SCOLEOSIS; Arthritis; hb - PSHx: 14:14 R nephrectomy; hb - Immunization history:: Adult Immunizations up to date. - Social history:: Smoking status: Patient/guardian denies using tobacco. - Ebola Screening: : No symptoms or risks identified at this time. ROS: 15:10 Constitutional: Negative for body aches, chills, fever, poor PO intake. cp 15:10 Eyes: Negative for injury, pain, redness, and discharge. cp 15:10 ENT: Negative for drainage from ear(s), ear pain, sore throat, difficulty swallowing, difficulty handling secretions. 15:10 Cardiovascular: Negative for chest pain, edema, palpitations. 15:10 Respiratory: Negative for cough, dyspnea on exertion, shortness of breath, wheezing. 15:10 Abdomen/GI: Positive for nausea, vomiting, Negative for abdominal pain, diarrhea, constipation, anorexia, black/tarry stool, rectal bleeding. 15:10 Back: Negative for pain at rest, pain with movement. 15:10 : Negative for urinary symptoms, vaginal bleeding. 15:10 Skin: Negative for cellulitis, rash. 15:10 Neuro: Negative for altered mental status, dizziness, headache, weakness. 15:10 All other systems are negative. Exam: 15:17 Constitutional: The patient appears in no acute distress, alert, awake, cp non-diaphoretic, non-toxic, well developed, well nourished. 15:17 Head/Face: Normocephalic, atraumatic. cp 15:17 Eyes: Periorbital structures: appear normal, Conjunctiva: normal, Sclera: no appreciated abnormality, Lids and lashes: appear normal, bilaterally. 15:17 ENT: External ear(s): are unremarkable, Nose: is normal, Mouth: Lips: moist, Oral mucosa: pink and intact, moist, Posterior pharynx: is normal, airway is patent, no erythema, no exudate. 15:17 Neck: ROM/movement: is normal, is supple, without pain, no range of motions limitations, no nuchal rigidity. 15:17 Chest/axilla: Inspection: normal, Palpation: is normal, no crepitus, no tenderness. 15:17 Cardiovascular: Rate: normal, Rhythm: regular. 15:17 Respiratory: the patient does not display signs of respiratory distress, Respirations: normal, no use of accessory muscles, no retractions, no splinting, no tachypnea, labored breathing, is not present, Breath sounds: are clear throughout, no decreased breath sounds, no stridor, no wheezing. 15:17 Abdomen/GI: Inspection: abdomen appears normal, Bowel sounds: active, all quadrants, Palpation: soft, in all quadrants, mild abdominal tenderness, in the epigastric area and left upper quadrant, rebound tenderness, is not appreciated, voluntary guarding, is not appreciated, involuntary guarding, is not appreciated. 15:17 Back: pain, is absent, ROM is normal. 15:17 Skin: no rash present. 15:17 Neuro: Orientation: to person, place \T\ time. Mentation: is normal, Cerebellar function: is grossly normal, Motor: moves all fours, strength is normal, Sensation: is normal. 15:29 ECG was reviewed by the Attending Physician. cp Vital Signs: 14:14 BP 106 / 81; Pulse 89; Resp 20; Temp 97.4; Pulse Ox 100% on R/A; Weight 70.31 kg; hb Height 5 ft. 3 in. (160.02 cm); Pain 4/10; 15:24 BP 120 / 89 LA (auto/reg); Pulse 82; Resp 14 S; Temp 98.9; Pulse Ox 98% on R/A; jp3 16:27 BP 126 / 88; Pulse 77; Resp 20; Temp 98.2; Pulse Ox 99% ; rv 17:00 BP 132 / 89; Pulse 73; Resp 19; Pulse Ox 99% ; rv 18:00 BP 124 / 85; Pulse 80; Resp 15; Temp 97.9; Pulse Ox 100% ; rv 14:14 Body Mass Index 27.46 (70.31 kg, 160.02 cm) hb MDM: 14:50 Patient medically screened. cp 15:00 Differential diagnosis: gastritis, cholecystitis, pancreatitis, viral gastroenteritis, cp gastroenteritis. 17:58 Data reviewed: vital signs, nurses notes, lab test result(s), EKG, radiologic studies, cp ultrasound. 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 Response to treatment: the patient's symptoms have markedly improved after treatment, VSS. Nausea improved. No vomiting observed in ED. Patient reports feeling better. Discussed need for magnesium supplement and f/u with primary care physician. Will discharge to home for continued monitoring. 02/28 14:57 Order name: Basic Metabolic Panel cp 02/28 14:57 Order name: CBC with Diff cp 02/28 14:57 Order name: LFT's cp 02/28 14:57 Order name: Magnesium; Complete Time: 15:48 cp 02/28 14:57 Order name: Troponin (emerg Dept Use Only); Complete Time: 15:48 cp 02/28 14:57 Order name: Lipase; Complete Time: 15:48 cp 02/28 15:48 Interpretation: Abnormal: LIP 449. cp 02/28 14:57 Order name: Urine Microscopic Only; Complete Time: 17:32 cp 02/28 17:32 Interpretation: Normal except: UWBC >50; UBACT >50; SQEPI 5-10. cp 02/28 14:58 Order name: Basic Metabolic Panel; Complete Time: 15:48 EDMS 02/28 17:52 Interpretation: Normal except: NA 146; K 3.4; CL 112; GLUC 114; CRE 1.43; GFR 45; CA cp 6.8. 02/28 14:58 Order name: CBC with Automated Diff; Complete Time: 15:48 EDMS 02/28 14:58 Order name: Liver (Hepatic) Function; Complete Time: 15:48 EDMS 02/28 15:49 Order name: US Abdomen Limited: RUQ/epigastric; Complete Time: 17:32 cp 02/28 17:32 Interpretation: Report reviewed. cp 02/28 16:48 Order name: Urine Dipstick--Ancillary (enter results) ag 02/28 17:13 Order name: Urine Culture EDKY 02/28 14:57 Order name: EKG; Complete Time: 14:59 cp 02/28 14:57 Order name: Cardiac monitoring; Complete Time: 15:29 cp 02/28 14:57 Order name: EKG - Nurse/Tech; Complete Time: 15:29 cp 02/28 14:57 Order name: IV Saline Lock; Complete Time: 15:30 cp 02/28 14:57 Order name: Labs collected and sent; Complete Time: 15:30 cp 02/28 14:57 Order name: O2 Per Protocol; Complete Time: 15:30 cp 02/28 14:57 Order name: O2 Sat Monitoring; Complete Time: 15:30 cp 02/28 14:57 Order name: Urine Dipstick-Ancillary (obtain specimen); Complete Time: 17:54 cp 02/28 17:32 Order name: PO challenge; Complete Time: 17:44 cp EC:29 Rate is 75 beats/min. Rhythm is regular. WA interval is normal. QRS interval is normal. cp QT interval is normal. Interpreted by me. Administered Medications: 15:43 Drug: NS 0.9% 500 ml Route: IV; Rate: bolus; Site: right antecubital; rv 16:26 Follow up: IV Status: Completed infusion; IV Intake: 500ml rv 16:26 Drug: Magnesium Sulfate 2 grams Route: IVPB; Infused Over: 2 hrs; Site: right rv antecubital; 17:53 Follow up: IV Status: Completed infusion; IV Intake: 50ml rv 16:26 Drug: Calcium Gluconate 1 grams Route: IVPB; Infused Over: 60 mins; Site: right rv antecubital; 17:53 Follow up: IV Status: Completed infusion; IV Intake: 100ml rv 16:26 Drug: NS 0.9% 500 ml Route: IV; Rate: bolus; Site: right antecubital; rv 17:53 Follow up: IV Status: Completed infusion; IV Intake: 500ml rv 16:26 Drug: Potassium Effervescent Tablet 25 mEq Route: PO; rv 17:19 Follow up: Response: No adverse reaction rv Disposition: 18:36 Co-signature as Attending Physician, Castillo Pastrana MD. rn Disposition: 02/28/19 17:59 Discharged to Home. Impression: Nausea, Hypomagnesemia, Hypocalcemia, Urinary tract infection, site not specified. - Condition is Stable. - Discharge Instructions: Hypomagnesemia, Nausea, Adult, Urinary Tract Infection, Adult, Hypocalcemia, Adult. - Prescriptions for Augmentin 875- 125 mg Oral Tablet - take 1 tablet by ORAL route every 12 hours for 7 days; 14 tablet. - Medication Reconciliation Form, Thank You Letter, Antibiotic Education, Prescription Opioid Use form. - Follow up: Private Physician; When: 1 - 2 days; Reason: Recheck today's complaints. - Problem is an ongoing problem. - Symptoms have improved. - Notes: take multivitamin daily Signatures: Dispatcher [employer] EDMS aCstillo Pastrana MD MD rn Page, Corey, PA PA cp Raissa Olivares RN RN hb Vicente, Ronaldo, RN RN rv Corrections: (The following items were deleted from the chart) 18:02 17:59 02/28/2019 17:59 Discharged to Home. Impression: Nausea; Hypomagnesemia; cp Hypocalcemia. Condition is Stable. Forms are Medication Reconciliation Form, Thank You Letter, Antibiotic Education, Prescription Opioid Use. Follow up: Private Physician; When: 1 - 2 days; Reason: Recheck today's complaints. Problem is an ongoing problem. Symptoms have improved. cp 18:10 18:02 02/28/2019 17:59 Discharged to Home. Impression: Nausea; Hypomagnesemia; rv Hypocalcemia; Urinary tract infection, site not specified. Condition is Stable. Discharge Instructions: Hypomagnesemia, Nausea, Adult, Hypocalcemia, Adult. Forms are Medication Reconciliation Form, Thank You Letter, Antibiotic Education, Prescription Opioid Use. Follow up: Private Physician; When: 1 - 2 days; Reason: Recheck today's complaints. Problem is an ongoing problem. Symptoms have improved. cp
[2019-02-28 18:29] VITALS: BP 124/85; TEMP 97.9; O2SAT 100
--- NOTE | 2019-03-01 09:55 | EKG ---
Test Date: 2019-02-28 Test Time: 15:20:15 Watermaster: ORALIA MEASUREMENT RESULTS: Intervals: Rate: 75 WV: 106 QRSD: 70 QT: 386 QTc: 431 Calvin: P: 79 WV: 106 QRS: 52 T: 64 INTERPRETIVE STATEMENTS: Sinus rhythm with short WV Otherwise normal ECG Compared to ECG 01/27/2019 07:33:04 Short WV interval now present Electronically Signed On 03-01-19 09:54:49 CDT by Kvng Guerra
== END 2019-02-28 18:10 | disposition home or self-care (01) ==
LOC: ER 14:01
DX: N39.0 Urinary tract infection, site not specified (principal); E83.42 Hypomagnesemia; E83.51 Hypocalcemia; I10 Essential (primary) hypertension; Z88.5 Allergy status to narcotic agent; Z88.8 Allergy status to other drugs, medicaments and biological substances
CPT/HCPCS: 36415; 76705; 80048; 80076; 81003; 81015; 83690; 83735; 84484; 85025; 87077; 87086; 87088; 87186; 93005; 96361; 96365; 96368; 99285; J0610; J3475; J7030

== ENCOUNTER 2020-11-10 09:42 | Emergency (ER) | payer BC ==
[2020-11-10] MEDS ORDERED: CYCLOBENZAPRINE 10 MG TAB ONE (10:44)
[2020-11-10] MEDS ORDERED: HYDROCODONE/APAP 7.5/325 MG TAB ONE (10:44)
--- NOTE | 2020-11-10 11:05 | EDPHYS ---
Physician Documentation [facility] Name: Brandy Perez Age: 65 yrs Sex: Female : 1955 Arrival Date: 11/10/2020 Time: 09:44 Bed 16 Private MD: Yo Carrasco V ED Physician Henry Dc HPI: 11/10 10:13 This 65 yrs old Black Female presents to ER via Ambulatory with complaints of Shoulder kb Pain, Arm Pain. 10:13 The patient or guardian complains of pain, that is chronic, tenderness. right kb trapezius. Onset: The symptoms/episode began/occurred 5 day(s) ago, and became worse 5 day(s) ago. Associated signs and symptoms: Pertinent positives: severe pain, Pertinent negatives: Numbness in right arm tingling. The patient has experienced a previous episode, last month. The patient has been recently seen by a physician: Dr. Carrasco 1 month(s) ago, with similar presenting complaints, and apparently given a diagnosis of pinched nerve. Patient reports scoliosis and spinal juan placement surgery in 1970s. No complaints or follow up with specialist since then. Was seen by her PCP last month for same issue and was told it was a pinched nerve, f/u with ortho, and order specialized pillow. Denies limitations of ADLs, CP, worsening SOB, or dizziness. . 10:57 Context: The problem was sustained at home, resulted from an unknown reason, The kb patient reports no decreased range of motion. The patient reports no obvious deformity. Modifying factors: the symptoms are alleviated by laying on back . Severity of symptoms: At their worst the symptoms were moderate, in the emergency department the symptoms are unchanged. Treatment prior to arrival includes: prescription medications, codeine. Historical: - Allergies: 10:08 Keflex; aa5 10:08 Mobic; aa5 10:08 Phenergan; aa5 - PMHx: 10:08 Arthritis; GERD; Hypertension; Lupus; Osteoporosis; RIGHT LEG NERVE PAIN; SCOLEOSIS; aa5 10:09 COPD; Scoliosis; aa5 - PSHx: 10:08 R nephrectomy; aa5 - Immunization history:: Adult Immunizations up to date. - Social history:: Smoking status: Patient denies any tobacco usage or history of. ROS: 10:18 Cardiovascular: Negative for chest pain, palpitations, and edema, Abdomen/GI: Negative kb for abdominal pain, nausea, vomiting, diarrhea, and constipation, MS/Extremity: Negative for injury and deformity, Skin: Negative for injury, rash, and discoloration, Neuro: Negative for headache, weakness, numbness, tingling, and seizure. 10:18 Respiratory: Positive for Hx of SOB and is at baseline SOB. 10:18 Back: Positive for injury or acute deformity, Hx of scoliosis. 10:18 MS/extremity: Positive for Numbness along right arm. Exam: 10:19 Cardiovascular: Regular rate and rhythm with a normal S1 and S2. No gallops, murmurs, kb or rubs. Normal PMI, no JVD. No pulse deficits. Respiratory: Lungs have equal breath sounds bilaterally, clear to auscultation and percussion. No rales, rhonchi or wheezes noted. No increased work of breathing, no retractions or nasal flaring. Skin: Warm, dry with normal turgor. Normal color with no rashes, no lesions, and no evidence of cellulitis. MS/ Extremity: Pulses equal, no cyanosis. Neurovascular intact. Full, normal range of motion. 10:19 Neuro: Awake and alert, GCS 15, oriented to person, place, time, and situation. Cranial nerves II-XII grossly intact. Motor strength 5/5 in all extremities. Sensory grossly intact. Cerebellar exam normal. Normal gait. 10:19 Back: Point tenderness present on R trapezius. Vertical scar along spine present along right side of spinal cord from surgery. . Vital Signs: 09:55 BP 93 / 65; Pulse 75; Resp 16; Temp 98; Pulse Ox 98% ; bp 11:55 BP 105 / 74; Pulse 56; Resp 17; Temp 98; Pulse Ox 97% ; bp MDM: 09:55 Patient medically screened. kb 10:21 Data reviewed: vital signs, nurses notes, Subjective response to pain meds. . Special kb discussion: Requested she contact for transport home. . ED course: Pain addressed in ED. Patient educated to use warm compressor heating pad in 15 min intervals and do not sleep on heating pad. Gentle ROM exercises advised. F/u with other and lupus MD that prescribes pain meds. Patient advised to return to ED if worsening pain, immobility, CP with dizziness, or loss of function of right side. Prescriptions provided for home:Steroids and muscle relaxers. . 10:58 Data interpreted: Pulse oximetry: on room air is 98 %. Interpretation: normal. kb Counseling: I had a detailed discussion with the patient and/or guardian regarding: the historical points, exam findings, and any diagnostic results supporting the discharge/admit diagnosis, the need for outpatient follow up, a family practitioner, to return to the emergency department if symptoms worsen or persist or if there are any questions or concerns that arise at home. ED course: Pt states she has muscle spasms frequently and normally takes flexeril, but has been out. Pt cannot take NSAIDS for inflammation. Will prescribe prednisone and flexeril for management. Discussed nonpharmacological symptom treatment as well. . 11:01 Response to treatment: the patient's symptoms have markedly improved after treatment. kb Administered Medications: 10:20 Drug: [place] (7.5 mg-325 mg) 1 tabs Route: PO; bp 11:56 Follow up: Response: Pain is decreased bp 10:20 Drug: Flexeril 10 mg Route: PO; bp 11:56 Follow up: Response: No adverse reaction; Pain is decreased bp Disposition: 12:26 Co-signature as Attending Physician, Henry Dc MD I agree with the assessment and kdr plan of care. Disposition: 11/10/20 11:05 Discharged to Home. Impression: Radiculopathy. - Condition is Stable. - Discharge Instructions: Radicular Pain. - Prescriptions for Prednisone 20 mg Oral Tablet - take 1 tablet by ORAL route once daily for 5 days; 5 tablet. Cyclobenzaprine 10 mg Oral Tablet - take 1 tablet by ORAL route every 8 hours As needed; 30 tablet. - Medication Reconciliation Form, Thank You Letter, Antibiotic Education, Prescription Opioid Use form. - Follow up: Emergency Department; When: As needed; Reason: Worsening of condition. Follow up: Yo Carrasco MD; When: 2 - 3 days; Reason: Recheck today's complaints, Continuance of care, Re-evaluation by your physician. Signatures: Muriel Fowler, AT RISK PARAPROFESSIONAL-C GARY-Henry Zamora MD MD kdr Yary Harmon, RN RN aa5 Arsalan Potter RN RN bp Corrections: (The following items were deleted from the chart) 10:58 10:13 Associated signs and symptoms: Pertinent positives: Numbness in right arm severe kb pain, tingling, kb 10:58 10:13 The patient has been recently seen by a physician: Dr. rashid 11:57 11:05 11/10/2020 11:05 Discharged to Home. Impression: Radiculopathy. Condition is bp Stable. Forms are Medication Reconciliation Form, Thank You Letter, Antibiotic Education, Prescription Opioid Use. Follow up: Emergency Department; When: As needed; Reason: Worsening of condition. Follow up: Yo Carrasco; When: 2 - 3 days; Reason: Recheck today's complaints, Continuance of care, Re-evaluation by your physician. kb
--- NOTE | 2020-11-10 11:05 | ER ---
Nurse's Notes [facility] Name: Brandy Perez Age: 65 yrs Sex: Female : 1955 Arrival Date: 11/10/2020 Time: 09:44 Bed 16 Private MD: Yo Carrasco V Diagnosis: Radiculopathy Presentation: 11/10 09:52 Chief complaint: Patient states: pain to right trapezius radiating down right arm that aa5 began September. Pt reports being seen by Dr. Carrasco in September and diagnosed with " a pinched nerve". Pt reports increased pain since Friday. 09:52 Onset of symptoms was September 2020. aa5 09:52 Acuity: LEONARDO 4 aa5 09:52 Method Of Arrival: Ambulatory aa5 09:55 Coronavirus screen: At this time, the client does not indicate any symptoms associated bp with coronavirus-19. Ebola Screen: No symptoms or risks identified at this time. Initial Sepsis Screen: Does the patient meet any 2 criteria? No. Patient's initial sepsis screen is negative. Does the patient have a suspected source of infection? No. Patient's initial sepsis screen is negative. Risk Assessment: Do you want to hurt yourself or someone else? Patient reports no desire to harm self or others. Triage Assessment: 09:55 General: Appears in no apparent distress. uncomfortable, Behavior is cooperative, bp appropriate for age, anxious. Pain: Complains of pain in right arm and right trapezius. EENT: No deficits noted. Neuro: No deficits noted. Cardiovascular: No deficits noted. Respiratory: No deficits noted. GI: No signs and/or symptoms were reported involving the gastrointestinal system. : No signs and/or symptoms were reported regarding the genitourinary system. Derm: No deficits noted. Musculoskeletal: No deficits noted. Historical: - Allergies: 10:08 Keflex; aa5 10:08 Mobic; aa5 10:08 Phenergan; aa5 - PMHx: 10:08 Arthritis; GERD; Hypertension; Lupus; Osteoporosis; RIGHT LEG NERVE PAIN; SCOLEOSIS; aa5 10:09 COPD; Scoliosis; aa5 - PSHx: 10:08 R nephrectomy; aa5 - Immunization history:: Adult Immunizations up to date. - Social history:: Smoking status: Patient denies any tobacco usage or history of. Screenin:55 Abuse screen: Denies threats or abuse. Denies injuries from another. Nutritional bp screening: No deficits noted. Tuberculosis screening: No symptoms or risk factors identified. Fall Risk None identified. Assessment: 09:55 General: SEE TRIAGE NOTE. bp 11:55 Reassessment: PT D/C HOME AMBULATORY, DX WITH RADICULOPATHY. bp Vital Signs: 09:55 BP 93 / 65; Pulse 75; Resp 16; Temp 98; Pulse Ox 98% ; bp 11:55 BP 105 / 74; Pulse 56; Resp 17; Temp 98; Pulse Ox 97% ; bp ED Course: 09:44 Patient arrived in ED. ag5 09:45 Yo Carrasco MD is Private Physician. ag5 09:52 Arm band placed on Patient placed in an exam room, on a stretcher. aa5 09:54 Muriel Fowler F[facility]-C [facility]. kb 09:55 Henry Dc MD is Attending Physician. kb 09:55 Patient has correct armband on for positive identification. Bed in low position. Call bp light in reach. Side rails up X2. 10:06 Arsalan Potter, RN is Primary Nurse. bp 10:08 Triage completed. aa5 11:02 Yo Carrasco MD is Referral Physician. kb 11:55 No provider procedures requiring assistance completed. Patient did not have IV access bp during this emergency room visit. Administered Medications: 10:20 Drug: [place] (7.5 mg-325 mg) 1 tabs Route: PO; bp 11:56 Follow up: Response: Pain is decreased bp 10:20 Drug: Flexeril 10 mg Route: PO; bp 11:56 Follow up: Response: No adverse reaction; Pain is decreased bp Outcome: 11:05 Discharge ordered by MD. kb 11:55 Discharged to home ambulatory. bp 11:55 Condition: stable 11:55 Discharge instructions given to patient, Instructed on discharge instructions, follow up and referral plans. medication usage, Demonstrated understanding of instructions, follow-up care, medications, Prescriptions given X 2. 11:57 Patient left the ED. bp Signatures: Muriel Fowler FNP-C FNP-Yary Luis RN RN aa Arsalan Potter, RN RN Charleen Rodgers ag5
[2020-11-10 12:01] VITALS: TEMP 98
[2020-11-10 12:02] VITALS: BP 105/74; O2SAT 97
== END 2020-11-10 11:57 | disposition home or self-care (01) ==
LOC: ER 09:42
DX: M54.10 Radiculopathy, site unspecified (principal); M41.9 Scoliosis, unspecified; Z88.1 Allergy status to other antibiotic agents; Z88.8 Allergy status to other drugs, medicaments and biological substances
CPT/HCPCS: 99283

== ENCOUNTER 2020-12-13 09:23 | Emergency (ER) | payer BC ==
--- OUTSIDE RECORDS SUMMARY | 2020-12-13 09:25 | XMS REPORT | Continuity of Care Document ---
:[address] [facility] t Address [address] [place] [address] Care Team Providers Name Role Phone Danilo GRACIA Primary Care Physician Negrito GRACIA, Sarah Attending Clinician Problems This patient has no known problems. Allergies, Adverse Reactions, Alerts Allergy Allergy Status Severity Reaction(s) Onset Inactive Treating Comm ents Source Name Type Date Date Clinician Cephalex Propensi Active Other (See 2015-09 Dry cough [place] in ty to Comments) 09-30 [facility] adverse 00:00: st reaction 00 s to drug Meloxica Propensi Active Other (See 2015-09 Sick of H molly cervantes ty to Comments) 09-30 the [facility] adverse 00:00: stomach st reaction 00 s to drug Prometha Propensi Active Itching 2015-09 [place] ty to 09-30 [facility] adverse 00:00: st reaction 00 s to drug Social History Social Habit Start Date Stop Date Quantity Comments Source History of Cigarette Smoker [facility] tobacco use Tobacco Comment 2016-07-31 2016-07-31 a pack every 2 [place] [facility] 00:00:00 00:00:00 days Tobacco use and 2016-07-31 2016-07-31 Never used [facility] exposure 00:00:00 00:00:00 Alcohol intake 2016-07-31 2016-07-31 Current drinker [place] [facility] 00:00:00 00:00:00 of alcohol (finding) Sex [birth year] Martínez M ethodist 00:00:00 00:00:00 Smoking Status Start Date Stop Date Source Current every day smoker 2016-07-31 00:00:00 [facility] Medications Ordered Filled Start Stop Current Ordering Indication Dosage Frequency Signature Comments Components Source Medication Medication Date Date Medication? Clinician (SIG) Name Name losartan 2015-09 Yes Mauricio (COZAAR) 50 0-30 [facility] MG tablet 00:00: st 00 bisoprolol- 2015-09 Yes Yemi armijo hydrochloro 0-30 [facility] thiazide 00:00: st (ZIAC) 00 5-6.25 mg per tablet gabapentin 2015-09 Yes Martínez (NEURONTIN) 0-23 [facility] 400 MG 00:00: st capsule 00 mycophenola 2015-09 Yes Yemi armijo te 0-06 [facility] (CELLCEPT) 00:00: st 500 mg 00 tablet Procedures This patient has no known procedures. Plan of Care Planned Activity Planned Date Details Comments Source Future Scheduled 2020-04-22 INFLUENZA VACCINE [facility] Test 00:00:00 [code = INFLUENZA VACCINE] Future Scheduled 2020 65+ PNEUMOCOCCAL [place] [facility] Test 00:00:00 VACCINE (1 of 1 - PPSV23) [code = 65+ PNEUMOCOCCAL VACCINE (1 of 1 - PPSV23)] Future Scheduled 2005 [facility] S[facility]ENING [code = BREAST CANCER SCREENING] Future Scheduled 2005 COLONOSCOPY SCREENING [facility] Test 00:00:00 [code = COLONOSCOPY SCREENING] Future Scheduled 2005 SHINGLES VACCINES (#1) [facility] Test 00:00:00 [code = SHINGLES VACCINES (#1)] Future Scheduled 1976 [facility]:00 malignant neoplasm of cervix (procedure) [code = 569285623] Future Scheduled 1971 COVID-19 VACCINE (1 of H ouisela [facility] Test 00:00:00 2) [code = COVID-19 VACCINE (1 of 2)] Encounters Start End Encounter Admission Attending Care Care Encounter Source Date/Time Date/Time Type Type Clinicians Facility Department ID 2020-10-04 2020-10-04 [facility] [id number] 13:26:02 23:59:00 Encounter Ricardo Smith [place] [id number] Surgical [id number] Special[facility] [id number] es 809 [place] 2020-10-04 2020-10-04 Office Negrito [facility] [id number] 13:02:43 13:37:47 Visit Ricardo Smith [place] [id number] Surgical [id number] Special[facility] [id number] es 198 [place] Results This patient has no known results.
--- NOTE | 2020-12-13 10:00 | ER ---
Nurse's Notes [facility] Name: Brandy Perez Age: 65 yrs Sex: Female : 1955 Arrival Date: 12/13/2020 Time: 09:27 Bed 25 Private MD: Diagnosis: Radiculopathy Presentation: 12/13 09:32 Chief complaint: Patient states: R shoulder pain x 1 month. Pt was told she has a ss pinched nerve and is supposed to see Dr. Mendenhall, but is waiting on a referral from her PCP. Pt states that she is needing help with pain relief now because the muscle relaxer she had does not help enough. Coronavirus screen: Client denies travel out of the [place] in the last 14 days. Ebola Screen: Patient denies exposure to infectious person. Patient denies travel to an Ebola-affected area in the 21 days before illness onset. Initial Sepsis Screen: Does the patient meet any 2 criteria? No. Patient's initial sepsis screen is negative. Does the patient have a suspected source of infection? No. Patient's initial sepsis screen is negative. Risk Assessment: Do you want to hurt yourself or someone else? Patient reports no desire to harm self or others. Onset of symptoms was November 14, 2020. 09:32 Method Of Arrival: Ambulatory 09:32 Acuity: LEONARDO 4 ss Historical: - Allergies: 09:35 Keflex; ss 09:35 Mobic; ss 09:35 Phenergan; ss - PMHx: 09:35 Arthritis; COPD; GERD; Hypertension; Lupus; Osteoporosis; RIGHT LEG NERVE PAIN; ss scoliosis; - PSHx: 09:35 R nephrectomy; ss - Immunization history:: Adult Immunizations up to date, Flu vaccine is not up to date. - Social history:: Smoking status: Patient denies any tobacco usage or history of. Screenin:32 Abuse screen: Denies threats or abuse. Denies injuries from another. Nutritional ss screening: No deficits noted. Tuberculosis screening: Never had TB. Fall Risk None identified. Assessment: 09:32 General: Appears uncomfortable, Behavior is calm, cooperative, Denies fever, feeling ss ill, fatigue, chills. Pain: Complains of pain in right arm and left scapular area and right shoulder Pain currently is 10 out of 10 on a pain scale. Quality of pain is described as aching, Pain began x 1 month Is continuous. Neuro: Level of Consciousness is awake, alert, obeys commands, Oriented to person, place, time, situation, Speech is normal, Facial symmetry appears normal. Cardiovascular: Capillary refill < 3 seconds is brisk in bilateral fingers Patient's skin is warm and dry. Pulses are palpable in right radial artery and left radial artery. Respiratory: Airway is patent Trachea midline Respiratory effort is even, unlabored, Respiratory pattern is regular, symmetrical. GI: No signs and/or symptoms were reported involving the gastrointestinal system. Patient currently denies nausea. EENT: Nares are clear Oral mucosa is moist. Derm: Skin is intact, is healthy with good turgor, Skin is dry, Skin is pink, warm \T\ dry. normal. Musculoskeletal: Circulation, motion, and sensation intact. Range of motion: intact in all extremities, Swelling absent. 10:00 Reassessment: Pt was able to maneuver with ease to take off jacket from affected ss shoulder. Vital Signs: 09:32 BP 108 / 74; Pulse 89; Resp 16; Temp 97.3(TE); Pulse Ox 95% on R/A; Weight 70.31 kg; ss Height 5 ft. 3 in. (160.02 cm); Pain 10; 09:32 Body Mass Index 27.46 (70.31 kg, 160.02 cm) ss ED Course: 09:27 Patient arrived in ED. as 09:32 Patient has correct armband on for positive identification. Bed in low position. Call ss light in reach. 09:34 Triage completed. ss 09:35 Arm band placed on right wrist. ss 09:37 Muriel Fowler FNP-C is PHCP. kb 09:37 Henry Dc MD is Attending Physician. kb 10:14 Diana Escamilla RN is Primary Nurse. ss 10:16 No provider procedures requiring assistance completed. Patient did not have IV access ss during this emergency room visit. Administered Medications: No medications were administered Outcome: 09:59 Discharge ordered by . kb 10:16 Discharged to home ambulatory. ss 10:16 Condition: good 10:16 Discharge instructions given to patient, Instructed on discharge instructions, follow up and referral plans. medication usage, Demonstrated understanding of instructions, follow-up care, medications, Prescriptions given X 1. 10:18 Patient left the ED. ss Signatures: Muriel Fowler, GARY-C GUITAR MAKER HAND-Beckie Doll Shelby, RN RN ss
--- NOTE | 2020-12-13 10:00 | EDPHYS ---
Physician Documentation [facility] Name: Brandy Perez Age: 65 yrs Sex: Female : 1955 Arrival Date: 12/13/2020 Time: 09:27 Bed 25 Private MD: ED Physician Henry Dc HPI: 12/13 10:09 This 65 yrs old Black Female presents to ER via Ambulatory with complaints of Shoulder kb Pain. 10:09 The patient or guardian complains of pain. right shoulder. Context: The problem was kb sustained at home, resulted from an unknown reason, The patient reports no decreased range of motion. The patient reports no obvious deformity. Onset: The symptoms/episode began/occurred 1 month(s) ago. Modifying factors: the symptoms are alleviated by The symptoms are aggravated by movement. Associated signs and symptoms: Pertinent positives: severe pain. Severity of symptoms: At their worst the symptoms were moderate, in the emergency department the symptoms are unchanged. Treatment prior to arrival includes: no previous treatment. The patient has not experienced similar symptoms in the past. The patient has been recently seen by a physician: the patient's primary care provider, 1 month(s) ago, with similar presenting complaints, The patient has been recently seen at the [facility] Emergency Department, a couple of weeks ago, for similar complaints. Pt states she has had pain to right scapular area that radiates to right shoulder and down right arm. States she was diagnosed with a pinched nerve one month ago. Pt has tylenol #3 and muscle relaxers at home that help the pain, but the pain comes back. Has tried two courses of steroids that helped, but the pain returned. Pt is waiting for referral to go through so she can see the neurologist. . Historical: - Allergies: 09:35 Keflex; ss 09:35 Mobic; ss 09:35 Phenergan; ss - PMHx: 09:35 Arthritis; COPD; GERD; Hypertension; Lupus; Osteoporosis; RIGHT LEG NERVE PAIN; ss scoliosis; - PSHx: 09:35 R nephrectomy; ss - Immunization history:: Adult Immunizations up to date, Flu vaccine is not up to date. - Social history:: Smoking status: Patient denies any tobacco usage or history of. ROS: 10:12 Constitutional: Negative for fever, chills, and weight loss, Cardiovascular: Negative kb for chest pain, palpitations, and edema, Respiratory: Negative for shortness of breath, cough, wheezing, and pleuritic chest pain, Abdomen/GI: Negative for abdominal pain, nausea, vomiting, diarrhea, and constipation, Skin: Negative for injury, rash, and discoloration, Neuro: Negative for headache, weakness, numbness, tingling, and seizure. 10:12 MS/extremity: Positive for pain. Exam: 10:11 Constitutional: This is a well developed, well nourished patient who is awake, alert, kb and in no acute distress. Head/Face: Normocephalic, atraumatic. Respiratory: Respirations even and unlabored. No increased work of breathing, no retractions or nasal flaring. Neuro: Awake and alert, GCS 15, oriented to person, place, time, and situation. Moves all extremities. Normal gait. 10:11 Back: pain, that is moderate, of the left scapular area, ROM is painful, raising right arm. normal spinal alignment noted, vertebral tenderness, is not appreciated. Vital Signs: 09:32 BP 108 / 74; Pulse 89; Resp 16; Temp 97.3(TE); Pulse Ox 95% on R/A; Weight 70.31 kg; ss Height 5 ft. 3 in. (160.02 cm); Pain 10; 09:32 Body Mass Index 27.46 (70.31 kg, 160.02 cm) ss MDM: 09:38 Patient medically screened. kb 10:08 Data reviewed: vital signs, nurses notes. Data interpreted: Pulse oximetry: on room air kb is 95 %. Interpretation: normal. Counseling: I had a detailed discussion with the patient and/or guardian regarding: the historical points, exam findings, and any diagnostic results supporting the discharge/admit diagnosis, the need for outpatient follow up, a family practitioner, a neurologist, to return to the emergency department if symptoms worsen or persist or if there are any questions or concerns that arise at home. 10:13 ED course: Discussed stretching and massage for pain relief. 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 Pt has tried gabapentin for neuropathy in the past without relief. Pt agrees to try gabapentin for this pain and see Dr Mendenhall. . Administered Medications: No medications were administered Disposition: 11:55 Co-signature as Attending Physician, Henry Dc MD I agree with the assessment and kdr plan of care. Disposition: 12/13/20 09:59 Discharged to Home. Impression: Radiculopathy. - Condition is Stable. - Discharge Instructions: Radicular Pain. - Prescriptions for Neurontin 300 mg Oral Capsule - take 1 capsule by ORAL route every 8 hours As needed; 21 capsule. - Medication Reconciliation Form, Thank You Letter, Antibiotic Education, Prescription Opioid Use form. - Follow up: Emergency Department; When: As needed; Reason: Worsening of condition. Follow up: Private Physician; When: 2 - 3 days; Reason: Recheck today's complaints, Continuance of care, Re-evaluation by your physician. Signatures: Muriel Fowler, GRAIN II FARMWORKER-C GRAIN II FARMWORKER-Henry Zamora MD MD [facility] Diana Escamilla RN RN ss Corrections: (The following items were deleted from the chart) 10:18 09:59 12/13/2020 09:59 Discharged to Home. Impression: Radiculopathy. Condition is ss Stable. Forms are Medication Reconciliation Form, Thank You Letter, Antibiotic Education, Prescription Opioid Use. Follow up: Emergency Department; When: As needed; Reason: Worsening of condition. Follow up: Private Physician; When: 2 - 3 days; Reason: Recheck today's complaints, Continuance of care, Re-evaluation by your physician. kb
[2020-12-13 10:21] VITALS: BP 108/74; TEMP 97.3; O2SAT 95
== END 2020-12-13 10:18 | disposition home or self-care (01) ==
LOC: ER 09:23
DX: M54.10 Radiculopathy, site unspecified (principal); M19.90 Unspecified osteoarthritis, unspecified site; J44.9 Chronic obstructive pulmonary disease, unspecified; K21.9 Gastro-esophageal reflux disease without esophagitis; I10 Essential (primary) hypertension; M32.9 Systemic lupus erythematosus, unspecified; M81.0 Age-related osteoporosis without current pathological fracture; M41.9 Scoliosis, unspecified
CPT/HCPCS: 99282

== ENCOUNTER 2021-07-19 08:32 | Emergency (ER) | payer BC ==
[2021-07-19] MEDS ORDERED: HYDROCODONE/APAP 5/325 MG TAB ONE (09:35)
[2021-07-19] MEDS ORDERED: dexAMETHasone 10 MG/ML VIAL ONE (09:35)
--- NOTE | 2021-07-19 11:04 | EDPHYS ---
Physician Documentation [facility] Name: Brandy Perez Age: 66 yrs Sex: Female : 1955 Arrival Date: 07/19/2021 Time: 08:35 Bed 13 Private MD: Yo Carrasco V ED Physician Castillo Pastrana HPI: 07/19 08:59 This 66 yrs old Black Female presents to ER via Ambulatory with complaints of Headache, pm1 Body Aches. 08:59 Presenting to the ER with complaints of headache, low back pain, body aches, and joint pm1 pain. Onset: The symptoms/episode began/occurred yesterday. Severity of symptoms: in the emergency department the symptoms are worse. The patient has experienced similar episodes in the past, multiple times, and the symptoms today are exactly the same, to previous Flare up of arthritic pain with weather changes, That happens usually once a year around this time of the year. The patient has not recently seen a physician. Patient reports onset of pain last night. She took Tylenol 3 at home with relief and went to bed. And woke up this morning with the same pain to her low back joints and headache. - Immunization history:: Adult Immunizations up to date, Client reports receiving the 2nd dose of the Covid vaccine. - Social history:: Smoking status: Patient denies any tobacco usage or history of. ROS: 08:59 Constitutional: Negative for fever, chills, and weight loss. pm1 08:59 Cardiovascular: Negative for chest pain, palpitations, and edema, Respiratory: Negative pm1 for shortness of breath, cough, wheezing, and pleuritic chest pain, Abdomen/GI: Negative for abdominal pain, nausea, vomiting, diarrhea, and constipation. 08:59 : Negative for injury, bleeding, discharge, and swelling. 08:59 Skin: Negative for injury, rash, and discoloration. 08:59 Back: Positive for Chronic low back pain due to scoliosis. 08:59 MS/extremity: Positive for pain, Joint pain to all extremities, Negative for decreased range of motion. 08:59 Neuro: Positive for headache, Negative for numbness, tingling, weakness. 08:59 All other systems are negative. Exam: 08:59 Constitutional: This is a well developed, well nourished patient who is awake, alert, pm1 and in no acute distress. Head/Face: Normocephalic, atraumatic. 08:59 Back: No spinal tenderness. No costovertebral tenderness. Full range of motion. Skin: Warm, dry with normal turgor. Normal color with no rashes, no lesions, and no evidence of cellulitis. MS/ Extremity: Pulses equal, no cyanosis. Neurovascular intact. Full, normal range of motion. 08:59 Eyes: Exam is negative for acute changes, Extraocular movements: no acute changes, Sclera: no acute changes, icterus, is not appreciated. 08:59 ENT: Exam is negative for acute changes, Mouth: no acute changes, Lips: normal, moist, Oral mucosa: normal, pink and intact, moist. 08:59 Neck: Exam negative for acute changes, External neck: no acute changes, C-spine: vertebral tenderness, is not appreciated, ROM/movement: no acute changes. 08:59 Cardiovascular: Exam negative for acute changes, Rate: normal, Rhythm: regular, Pulses: no pulse deficits are appreciated, Heart sounds: normal, normal S1and S2. 08:59 Respiratory: Exam negative for acute changes, respiratory distress, shortness of breath, Breath sounds: are clear throughout. 08:59 Abdomen/GI: Inspection: abdomen appears normal, Palpation: abdomen is soft and non-tender, in all quadrants. 08:59 Neuro: Exam negative for acute changes, Orientation: is normal, Motor: is normal, moves all fours, Sensation: no obvious gross deficits. Vital Signs: 08:36 BP 128 / 87; Pulse 105; Resp 20; Temp 98.8(TE); Pulse Ox 96% on R/A; Weight 70.76 kg; ch5 Height 5 ft. 3 in. (160.02 cm); Pain 10/10; 09:20 BP 131 / 98; Pulse 91; Resp 18; Pulse Ox 100% on R/A; jd3 11:04 BP 120 / 88; Pulse 82; Resp 17; Pulse Ox 96% on R/A; jd3 08:36 Body Mass Index 27.63 (70.76 kg, 160.02 cm) [facility] MDM: 08:44 Patient medically screened. pm1 09:16 Differential Diagnosis Headache, migraines, arthritis, SLE. pm1 10:48 Data reviewed: vital signs. Data interpreted: Pulse oximetry: on room air is 100 %. pm1 Interpretation: normal. Counseling: I had a detailed discussion with the patient and/or guardian regarding: the historical points, exam findings, and any diagnostic results supporting the discharge/admit diagnosis, the need for outpatient follow up, to return to the emergency department if symptoms worsen or persist or if there are any questions or concerns that arise at home. 07/19 08:57 Order name: IV Saline Lock; Complete Time: 09:16 pm1 Administered Medications: 09:16 Drug: Decadron - Dexamethasone 10 mg Route: IVP; Site: right antecubital; jd3 10:15 Follow up: Response: No adverse reaction jd3 09:16 Drug: HYDROcodone-acetaminophen 5 mg-325 mg 1 tabs Route: PO; jd3 10:15 Follow up: Response: Pain is decreased; RASS: Alert and Calm (0) jd3 Disposition: 18:33 Co-signature as Attending Physician, Castillo Pastrana MD I agree with the assessment and rn plan of care. Attestation: The patient's history, exam findings, diagnostics, and a summary of any interventions or procedures was reviewed in detail with Lázaro Richey NP. Disposition Summary: 07/19/21 11:03 Discharge Ordered Location: Home pm1 Problem: new pm1 Symptoms: have improved pm1 Condition: Stable pm1 Diagnosis - Pain in unspecified joint - athralgia, Lupus pm1 - Headache pm1 Followup: pm1 - With: Emergency Department - When: As needed - Reason: Worsening of condition Followup: pm1 - With: Private Physician - When: 2 - 3 days - Reason: Recheck today's complaints, Continuance of care, Re-evaluation by your physician Discharge Instructions: - Discharge Summary Sheet pm1 - Joint Pain pm1 - General Headache Without Cause pm1 - Systemic Lupus Erythematosus, Adult pm1 Forms: - Medication Reconciliation Form pm1 - Thank You Letter pm1 - Antibiotic Education pm1 - Prescription Opioid Use pm1 Prescriptions: - Prednisone 20 mg Oral Tablet - take 3 tablets by ORAL route once daily for 5 days; 15 tablet; Refills: 0, pm1 Product Selection Permitted Signatures: Castillo Pastrana MD MD rn Marinas, Patrick, NP LAND SURVEY TECHNICIAN pm1 Oz Jha RN RN jd3 Rohit Villatoro RN RN ch5
--- NOTE | 2021-07-19 11:04 | ER ---
Nurse's Notes [facility] Name: Brandy Perez Age: 66 yrs Sex: Female : 1955 Arrival Date: 07/19/2021 Time: 08:35 Bed 13 Private MD: Yo Carrasco V Diagnosis: Pain in unspecified joint-athralgia, Lupus;Headache Presentation: 07/19 08:36 Chief complaint: Patient states: Body aches and DIEZ with pain in lower part of back ch5 starting last night. Hx of Lupus. Coronavirus screen: Vaccine status: Patient reports receiving the 2nd dose of the covid vaccine. Client denies travel out of the [place] in the last 14 days. At this time, the client does not indicate any symptoms associated with coronavirus-19. Ebola Screen: Patient negative for fever greater than or equal to 101.5 degrees Fahrenheit, and additional compatible Ebola Virus Disease symptoms Patient denies exposure to infectious person. Patient denies travel to an Ebola-affected area in the 21 days before illness onset. No symptoms or risks identified at this time. Initial Sepsis Screen: Does the patient meet any 2 criteria? No. Patient's initial sepsis screen is negative. Does the patient have a suspected source of infection? No. Patient's initial sepsis screen is negative. Risk Assessment: Do you want to hurt yourself or someone else? Patient reports no desire to harm self or others. Onset of symptoms was July 18, 2021. 08:36 Method Of Arrival: Ambulatory 5 08:36 Acuity: LEONARDO 3 ch5 Triage Assessment: 08:40 Headache History: The patient has had previous headaches. General: Appears in no ch5 apparent distress. uncomfortable, Behavior is cooperative. Pain: Pain currently is 10 out of 10 on a pain scale. Pain began 1 day ago. Also complains of. - Immunization history:: Adult Immunizations up to date, Client reports receiving the 2nd dose of the Covid vaccine. - Social history:: Smoking status: Patient denies any tobacco usage or history of. Screenin:41 Abuse screen: Denies threats or abuse. Denies injuries from another. Nutritional ch5 screening: No deficits noted. Tuberculosis screening: No symptoms or risk factors identified. Fall Risk None identified. Assessment: 08:41 Reassessment: No changes from previously documented assessment. ch5 09:18 General: Appears in no apparent distress. uncomfortable, well nourished. Pain: jd3 Complains of pain in generalized pain. Neuro: Level of Consciousness is awake, alert, obeys commands, Oriented to person, place, time, situation, Reports headache. Cardiovascular: No deficits noted. Respiratory: No deficits noted. Airway is patent Respiratory effort is even, unlabored, Respiratory pattern is regular, symmetrical. 10:35 Reassessment: Patient and/or family updated on plan of care and expected duration. Pain jd3 level reassessed. Patient is alert, oriented x 3, equal unlabored respirations, skin warm/dry/pink. Patient states feeling better. Vital Signs: 08:36 BP 128 / 87; Pulse 105; Resp 20; Temp 98.8(TE); Pulse Ox 96% on R/A; Weight 70.76 kg; ch5 Height 5 ft. 3 in. (160.02 cm); Pain 10/10; 09:20 BP 131 / 98; Pulse 91; Resp 18; Pulse Ox 100% on R/A; jd3 11:04 BP 120 / 88; Pulse 82; Resp 17; Pulse Ox 96% on R/A; jd3 08:36 Body Mass Index 27.63 (70.76 kg, 160.02 cm) 5 ED Course: 08:35 Patient arrived in ED. mr 08:36 Yo Carrasco MD is Private Physician. mr 08:39 Lázaro Richey, BALTAZAR is PHCP. pm1 08:39 Castillo Pastrana MD is Attending Physician. pm1 08:40 Triage completed. ch5 08:41 Patient has correct armband on for positive identification. ch5 08:49 Oz Jha, LENARD is Primary Nurse. jd3 09:17 Inserted saline lock: 20 gauge in right antecubital area, using aseptic technique. jd3 11:12 No provider procedures requiring assistance completed. IV discontinued, intact, jd3 bleeding controlled, No redness/swelling at site. Pressure dressing applied. 11:15 Arm band placed on. jd3 Administered Medications: 09:16 Drug: Decadron - Dexamethasone 10 mg Route: IVP; Site: right antecubital; jd3 10:15 Follow up: Response: No adverse reaction jd3 09:16 Drug: HYDROcodone-acetaminophen 5 mg-325 mg 1 tabs Route: PO; jd3 10:15 Follow up: Response: Pain is decreased; RASS: Alert and Calm (0) jd3 Outcome: 11:03 Discharge ordered by . pm1 11:12 Discharged to home ambulatory, with family. jd3 11:12 Condition: stable 11:12 Discharge instructions given to patient, Instructed on discharge instructions, follow up and referral plans. medication usage, Demonstrated understanding of instructions, follow-up care, medications, Prescriptions given X 1. 11:18 Patient left the ED. jd3 Signatures: Emily Robert RossiLázaro, TIE LAYER TIE LAYER pm1 Oz Jha RN RN jd3 Rohit Villatoro RN RN ch5 Corrections: (The following items were deleted from the chart) 11:15 11:12 Discharged to home ambulatory, jd3 jd3 11:17 11:16 Response: Pain is decreased; RASS: Alert and Calm (0) jd3 jd3
[2021-07-19 11:24] VITALS: TEMP 98.8
[2021-07-19 11:27] VITALS: BP 120/88; O2SAT 96
== END 2021-07-19 11:18 | disposition home or self-care (01) ==
LOC: ER 08:32
DX: M25.50 Pain in unspecified joint (principal); M32.9 Systemic lupus erythematosus, unspecified
CPT/HCPCS: 96374; 99283; J1100

== ENCOUNTER 2021-07-23 10:35 | Inpatient (IN) | payer BC, OTHER ==
[2021-07-23 12:03] LABS: Protime INR 1.13
[2021-07-23 12:07] LABS: Absolute Lymphocytes (CBC) 0.8 K/uL (0.7-4.9); Basophils % 0.4 % (0-1.3); Hematocrit 42.7 % (36.0-45.0); Lymphocytes % 3.9 % (15.3-44.8); MPV 9.3 fL (7.6-11.3); RBC Red Blood Cell Count 4.43 M/uL (3.86-4.86)
[2021-07-23] MEDS ORDERED: NA CHLORIDE 0.9% 1,000 ML ONE ×2 (12:18→13:11)
[2021-07-23 12:30] LABS: Albumin 2.5 g/dL (3.4-5.0); Bilirubin Direct 0.9 mg/dL (0-0.2); Bilirubin Total 1.3 mg/dL (0.2-1.0); C-Reactive Protein 29.3 mg/L (<3.00); Potassium 3.5 mmol/L (3.5-5.1); Protein, Total 7.3 g/dL (6.4-8.2); Troponin (Emerg Dept Use Only) 0.02 ng/mL (0.0-0.045)
--- NOTE | 2021-07-23 12:31 | RAD REPORT ---
EXAM DESCRIPTION: RAD - Chest Single View - 07/23/2021 12:24 pm CLINICAL HISTORY: SOB COMPARISON: Chest Single View dated 01/25/2019; Chest Pa And Lat (2 Views) dated 12/10/2016; CHEST SING LE VIEW dated 06/19/2015; CHEST PA AND LAT 2 VIEW dated 12/23/2013 FINDINGS: Lines: None. Lungs: Linear opacities in the mid lung and lung bases bilaterally. This is chronic. Emphysema. Pleural: No significant pleural effusions or pneumothorax. Cardiac: The heart size is within normal limits. Bones: No acute fractures. Scoliosis with Hay juan. Other: IMPRESSION: Chronic changes without superimposed acute process identified.
[2021-07-23 12:33] LABS: Magnesium 1.1 mg/dL (1.8-2.4)
[2021-07-23 12:40] LABS: Blood Morphology Comment NOT SEEN (NOT SEEN); Platelet Estimate ADEQ
[2021-07-23] MEDS ORDERED: HYDROCORTISONE SUC 100 MG INJ ONE (13:11)
[2021-07-23] MEDS ORDERED: FAMOTIDINE 20 MG/2 ML VIAL IV ONE ×2 (13:11→13:50)
[2021-07-23] MEDS ORDERED: Levofloxacin500mg IV 500 MG/100 ML BAG IV ONE (13:12)
--- NOTE | 2021-07-23 13:23 | RAD REPORT ---
EXAM DESCRIPTION: CTChest Abd Pelvis Wo Con - 07/23/2021 1:00 pm CLINICAL HISTORY: Cough;Abdominal distention COMPARISON: Chest Angio dated 01/26/2019 TECHNIQUE: CT of the chest, abdomen, and pelvis was performed. All CT scans are performed using dose optimization technique as appropriate and may include automated exposure control or mA/KV adjustment according to patient size. FINDINGS: Thorax: Chest Wall: Enlarging low-density left thyroid nodule measuring 2.1 cm. Lungs: Advanced emphysema. Mass medially within the right lung apex measuring 3.4 cm, previously 2.2 cm has increased in size. The lesion may also extend into the adjacent neural foramen. Pleura: No effusions or pneumothorax. Jane/Mediastinum: No lymphadenopathy. Aorta/Pulmonary Arteries: Unremarkable Heart: Normal size. Small pericardial effusion. Coronary artery calcifications and/or stents. Abdomen/Pelvis: Liver: Low-density lesion in the right hepatic lobe measuring 8 mm is unchanged since 2019 and likely benign. Biliary: No biliary ductal dilatation. Stomach: Circumferential gastric wall thickening versus underdistention. Duodenum: No significant focal abnormality. Pancreas: No significant abnormality. Spleen: No significant abnormality. Adrenal: No suspicious lesions. Kidney/ureter: No hydronephrosis. Right nephrectomy Retroperitoneum: No retroperitoneal adenopathy. Vascular: No aneurysm. Atherosclerosis . Bowel: No significant focal abnormality. Peritoneum: No ascites or free air. Small fat containing inguinal hernias. Nonspecific thickening in the pelvis along the peritoneal reflection. See image 102, series 201. Bladder: Grossly unremarkable. Reproductive: No adnexal masses. Bones: No acute fracture. Scoliosis with Hay juan. Increased sclerosis of the T2 vertebral body . Other: n/a IMPRESSION: 1. No acute findings within the chest, abdomen, or pelvis. 2. Increasing soft tissue medially within the right upper lung as well as sclerosis of the adjacent T 2 vertebral bodies concerning for neoplastic process. This would be amenable to percutaneous biopsy. 3. Nonspecific soft tissue thickening in the pelvis along the left aspect of the peritoneal reflectio n. This may not be of clinical significance however given that the adjacent colon comes into close pr oximity, suggest nonemergent colonoscopy if 1 has not recently been obtained for further evaluation. 4. Enlarging left thyroid nodule which can be further evaluated with ultrasound if clinically indicat ed.
--- NOTE | 2021-07-23 14:01 | ER ---
Nurse's Notes [facility] Name: Brandy Perez Age: 66 yrs Sex: Female : 1955 Arrival Date: 07/23/2021 Time: 10:41 Bed 6 Private MD: Diagnosis: Weakness;Dehydration;Acute kidney failure, unspecified-on chronic;Bandemia;Hypomagnesemia;Elevated white blood cell count;Influenza due to identified novel influenza A virus with other respiratory manifestations Presentation: 07/23 10:43 Chief complaint: Patient states: Was seen in ED on 07/19/21 for shortness of vg1 breath and back pain. States was given prednisone and a pain medication. States was working but not anymore. Went to Dr Carrasco's office this morning for shortness of breath and back pain and pt states that Dr Carrasco was going to admit pt. Pt states NVD; Denies cough. Pt also states fell leaving doctors office. Denies hitting head or LOC. Coronavirus screen: Vaccine status: Patient reports receiving the 2nd dose of the covid vaccine. Client denies travel out of the [place] in the last 14 days. Ebola Screen: Patient negative for fever greater than or equal to 101.5 degrees Fahrenheit, and additional compatible Ebola Virus Disease symptoms. Initial Sepsis Screen: Does the patient meet any 2 criteria? Systolic BP < 90 mmHg. HR > 90 bpm. Does the patient have a suspected source of infection?. Risk Assessment: Do you want to hurt yourself or someone else? Patient reports no desire to harm self or others. Onset of symptoms was July 19, 2021. 10:43 Method Of Arrival: Wheelchair vg1 10:43 Acuity: LEONARDO 2 vg1 Triage Assessment: 10:52 General: Appears in no apparent distress. uncomfortable, Behavior is calm, cooperative. vg1 Pain: Complains of pain in back and right leg. Respiratory: Reports shortness of breath at rest Onset: The symptoms/episode began/occurred 07/19/21, the patient has moderate shortness of breath. Historical: - Allergies: 10:52 Keflex; vg1 10:52 Mobic; vg1 10:52 Phenergan; vg1 - Home Meds: 10:52 Aspirin Oral [Active]; CellCept Oral [Active]; Plaquenil Oral [Active]; vg1 - PMHx: 10:52 Arthritis; COPD; GERD; Hypertension; Lupus; Osteoporosis; RIGHT LEG NERVE PAIN; vg1 SCOLEOSIS; scoliosis; - Immunization history:: Adult Immunizations up to date, Client reports receiving the 2nd dose of the Covid vaccine. - Social history:: Smoking status: Patient denies any tobacco usage or history of. Screenin:10 Abuse screen: Denies threats or abuse. Denies injuries from another. Nutritional jl7 screening: No deficits noted. Tuberculosis screening: No symptoms or risk factors identified. Fall Risk IV access (20 points). Assessment: 11:00 General: Appears in no apparent distress. uncomfortable, Behavior is calm, cooperative, jl7 appropriate for age. Pain: Complains of pain in back Pain currently is 10 out of 10 on a pain scale. Neuro: Level of Consciousness is awake, alert, obeys commands, Oriented to person, place, time, situation. Cardiovascular: Denies chest pain, Patient's skin is warm and dry. Rhythm is sinus rhythm. Respiratory: Reports shortness of breath at rest Airway is patent Respiratory effort is even, unlabored, Respiratory pattern is symmetrical, tachypnea not auscultated. Derm: Skin is pink, warm \T\ dry. 12:00 Reassessment: Patient appears in no apparent distress at this time. No changes from jl7 previously documented assessment. Patient and/or family updated on plan of care and expected duration. Pain level reassessed. Patient is alert, oriented x 3, equal unlabored respirations, skin warm/dry/pink. 13:00 Reassessment: Patient appears in no apparent distress at this time. No changes from jl7 previously documented assessment. Patient and/or family updated on plan of care and expected duration. Pain level reassessed. Patient is alert, oriented x 3, equal unlabored respirations, skin warm/dry/pink. 14:00 Reassessment: Patient appears in no apparent distress at this time. No changes from jl7 previously documented assessment. Patient and/or family updated on plan of care and expected duration. Pain level reassessed. Patient is alert, oriented x 3, equal unlabored respirations, skin warm/dry/pink. 14:45 Reassessment: Pt reports back pain rated 10/10, requesting pain medicated, Dr. Shah jl7 notified, VO for 25 mcg Fentanyl IVP, pt medicated as ordered. 16:00 Reassessment: Patient appears in no apparent distress at this time. Patient and/or jl7 family updated on plan of care and expected duration. Pain level reassessed. Patient is alert, oriented x 3, equal unlabored respirations, skin warm/dry/pink. Patient states feeling better. Patient states symptoms have improved. 17:00 Reassessment: Patient appears in no apparent distress at this time. No changes from [facility] previously documented assessment. Patient and/or family updated on plan of care and expected duration. Pain level reassessed. Patient is alert, oriented x 3, equal unlabored respirations, skin warm/dry/pink. Vital Signs: 10:43 BP 74 / 55; Pulse 106; Resp 24; Temp 98.2(O); Pulse Ox 98% ; Weight 70.31 kg; Height 5 vg1 ft. 3 in. (160.02 cm); Pain 10/10; 11:17 BP 81 / 64; Pulse 102; Resp 19; Pulse Ox 99% ; jl7 12:08 BP 101 / 71; Pulse 100; Resp 22; Pulse Ox 100% ; 7 12:30 BP 94 / 73; Pulse 93; Resp 22; Pulse Ox 99% ; 7 13:00 BP 96 / 75; Pulse 81; Resp 21; Pulse Ox 98% ; 7 13:30 BP 91 / 70; Pulse 89; Resp 22; Pulse Ox 98% ; 7 14:00 BP 107 / 78; Pulse 84; Resp 20; Pulse Ox 99% ; 7 14:30 BP 104 / 77; Pulse 80; Resp 21; Pulse Ox 98% ; 7 15:00 BP 110 / 75; Pulse 80; Resp 21; Pulse Ox 98% ; 7 15:30 BP 122 / 81; Pulse 77; Resp 19; Pulse Ox 98% ; 7 16:30 BP 113 / 83; Pulse 78; Resp 15; Pulse Ox 99% ; 7 17:00 BP 119 / 93; Pulse 76; Resp 15; Pulse Ox 99% ; 7 19:16 BP 122 / 81; Pulse 71; Resp 19; Pulse Ox 99% on R/A; jt3 20:51 BP 122 / 83; Pulse 75; Resp 18; Temp 98.6; Pulse Ox 98% ; Pain 3/10; bs2 10:43 Body Mass Index 27.46 (70.31 kg, 160.02 cm) vg1 ED Course: 10:41 Patient arrived in ED. ds1 10:52 Triage completed. vg1 10:52 Arm band placed on. vg1 11:03 Jarad Izaguirre, RN is Primary Nurse. jl7 11:10 Patient has correct armband on for positive identification. Placed in gown. Bed in low jl7 position. Call light in reach. Side rails up X2. monitoring tech on. Pulse ox on. NIBP on. Warm blanket given. 11:13 Papito Shah MD is Attending Physician. cesario 11:20 Inserted saline lock: 20 gauge in right antecubital area, using aseptic technique. jl7 Blood collected. 11:20 Initial lab(s) drawn, sent to lab. First set of blood cultures drawn by me. jl7 11:37 Second set of blood cultures drawn by me, EKG done, by ED staff, reviewed by Papito Shah MD COVID swab sent to lab. Flu and/or RSV swab sent to lab. Inserted saline lock: 22 gauge in left antecubital area, using aseptic technique. Blood collected. 12:24 XRAY Chest (1 view) In Process Unspecified. EDMS 13:00 Chest Abdomen Pelvis Wo Con CT In Process Unspecified. EDMS 13:58 Yo Carrasco MD is Hospitalizing Provider. cesario 15:56 No provider procedures requiring assistance completed. Patient admitted, IV remains in jl7 place. intact, No redness/swelling at site. Administered Medications: 11:20 Drug: NS 0.9% 1000 ml Route: IV; Rate: 1 bolus; Site: right antecubital; jl7 12:20 Follow up: Response: No adverse reaction; IV Status: Completed infusion; IV Intake: jl7 1000ml 12:40 Drug: NS 0.9% 1000 ml Route: IV; Rate: 125 ml/hr; Site: right antecubital; jl7 14:11 Follow up: IV Status: Infusion continued upon admission jl7 12:42 Drug: Solu-CORTEF (hyrdoCORTISONE) 100 mg Route: IVP; Site: right antecubital; jl7 14:10 Follow up: Response: No adverse reaction jl7 12:45 Drug: levofloxacin 500 mg Volume: 100 ml; Route: IVPB; Infused Over: 60 mins; Site: jl7 right antecubital; 13:45 Follow up: Response: No adverse reaction; IV Status: Completed infusion jl7 12:50 Drug: Pepcid (famotidine) 20 mg Route: IVP; Site: right antecubital; jl7 14:11 Follow up: Response: No adverse reaction jl7 13:26 Drug: Magnesium Sulfate 1 grams Route: IVPB; Infused Over: 1 hrs; Site: Other; ll1 14:26 Follow up: Response: No adverse reaction; IV Status: Completed infusion jl7 13:48 Drug: Tamiflu (oseltamivir) 75 mg Route: PO; ll1 14:37 Follow up: Response: No adverse reaction jl7 14:45 Drug: fentaNYL (PF) 25 mcg Route: IVP; Site: left antecubital; jl7 15:00 Follow up: Response: No adverse reaction; Pain is decreased jl7 16:44 Drug: Lovenox (enoxaparin) 40 mg Route: Sub-Q; Site: abdomen; jl7 17:00 Follow up: Response: No adverse reaction jl7 19:29 Drug: fentaNYL (PF) 25 mcg Route: IVP; Site: right antecubital; bs2 20:47 Follow up: Response: No adverse reaction bs2 Intake: 12:20 IV: 1000ml; Total: 1000ml. jl7 Outcome: 14:00 Decision to Hospitalize by Provider. cesario 20:50 Admitted to Med/surg accompanied by nurse, via wheelchair, room 223, with chart, Report bs2 called to Floor nurse for 223 20:50 Condition: improved 20:50 Instructed on the need for admit. 20:51 Patient left the ED. bs2 Signatures: Dispatcher [employer] [facility]SC Papito Shah MD MD cha Sanford, Demi ds1 Jarad Izaguirre RN RN jl7 Christin Sauceda RN RN vg1 Otoniel Sinha RN RN ll1 Leticia Chappell RN RN bs2 Ed Chapa RN RN jt3 Corrections: (The following items were deleted from the chart) 10:55 10:43 Chief complaint: Patient states: Was seen in ED on 07/19/21 for vg1 shortness of breath and back pain. States was given prednisone and a pain medication. States was working but not anymore. Went to Dr Carrasco's office this morning for shortness of breath and back pain and pt states that Dr Carrasco was going to admit pt. Pt states NVD. Pt also states fell leaving doctors office. Denies hitting head or LOC. vg1 13:10 11:45 Pepcid (famotidine) 20 mg IVP in right antecubital [place] [id number] 13:10 11:40 NS 0.9% 1000 ml IV at 125 ml/hr in right antecubital [place] [id number] 13:10 11:45 levofloxacin 500 mg 100 ml IVPB in right antecubital over 60 mins 100 ml [place] [id number] 13:10 11:42 Solu-CORTEF (hyrdoCORTISONE) 100 mg IVP in right antecubital [place] [id number]
--- NOTE | 2021-07-23 14:01 | EDPHYS ---
Physician Documentation [facility] Name: Brandy Perez Age: 66 yrs Sex: Female : 1955 Arrival Date: 07/23/2021 Time: 10:41 Bed 6 Private MD: NANCY Physician Papito Shah HPI: 07/23 13:50 This 66 yrs old Black Female presents to ER via Wheelchair with complaints of Shortness cesario Of Breath, Fall. 13:50 The patient has shortness of breath at rest, with light activity. Onset: The cesario symptoms/episode began/occurred this morning, today. Duration: The symptoms are continuous, and are steadily getting worse. The patient's shortness of breath is aggravated by nothing. Associated signs and symptoms: Pertinent positives: non-productive cough, nausea. Severity of symptoms: At their worst the symptoms were moderate in the emergency department the symptoms are unchanged. The patient has not experienced similar symptoms in the past. Historical: - Allergies: 10:52 Keflex; vg1 10:52 Mobic; vg1 10:52 Phenergan; vg1 - Home Meds: 10:52 Aspirin Oral [Active]; CellCept Oral [Active]; Plaquenil Oral [Active]; vg1 - PMHx: 10:52 Arthritis; COPD; GERD; Hypertension; Lupus; Osteoporosis; RIGHT LEG NERVE PAIN; vg1 SCOLEOSIS; scoliosis; - Immunization history:: Adult Immunizations up to date, Client reports receiving the 2nd dose of the Covid vaccine. - Social history:: Smoking status: Patient denies any tobacco usage or history of. ROS: 13:53 Constitutional: Negative for fever, chills, and weight loss, Eyes: Negative for injury, cesario pain, redness, and discharge, ENT: Negative for injury, pain, and discharge, Neck: Negative for injury, pain, and swelling, Cardiovascular: Negative for chest pain, palpitations, and edema. Exam: 14:09 Constitutional: This is a well developed, well nourished patient who is awake, alert, cesario and in no acute distress. Head/Face: Normocephalic, atraumatic. Eyes: Pupils equal round and reactive to light, extra-ocular motions intact. Lids and lashes normal. Conjunctiva and sclera are non-icteric and not injected. Cornea within normal limits. Periorbital areas with no swelling, redness, or edema. ENT: Nares patent. No nasal discharge, no septal abnormalities noted. Tympanic membranes are normal and external auditory canals are clear. Oropharynx with no redness, swelling, or masses, exudates, or evidence of obstruction, uvula midline. Mucous membranes moist. Neck: Trachea midline, no thyromegaly or masses palpated, and no cervical lymphadenopathy. Supple, full range of motion without nuchal rigidity, or vertebral point tenderness. No Meningismus. Chest/axilla: Normal chest wall appearance and motion. Nontender with no deformity. No lesions are appreciated. Respiratory: Lungs have equal breath sounds bilaterally, clear to auscultation and percussion. No rales, rhonchi or wheezes noted. No increased work of breathing, no retractions or nasal flaring. Abdomen/GI: Soft, non-tender, with normal bowel sounds. No distension or tympany. No guarding or rebound. No evidence of tenderness throughout. Back: No spinal tenderness. No costovertebral tenderness. Full range of motion. Female : Normal external genitalia. Skin: Warm, dry with normal turgor. Normal color with no rashes, no lesions, and no evidence of cellulitis. MS/ Extremity: Pulses equal, no cyanosis. Neurovascular intact. Full, normal range of motion. Neuro: Awake and alert, GCS 15, oriented to person, place, time, and situation. Cranial nerves II-XII grossly intact. Motor strength 5/5 in all extremities. Sensory grossly intact. Cerebellar exam normal. Normal gait. Psych: Awake, alert, with orientation to person, place and time. Behavior, mood, and affect are within normal limits. 14:09 Cardiovascular: Rate: tachycardic, Rhythm: regular, Pulses: Pulses are 4+ in bilateral radial, brachial, femoral, popliteal, posterior tibial and and dorsalis pedis arteries.. Heart sounds: normal, Edema: is not appreciated, JVD: is not appreciated. 14:09 ECG was reviewed by the Attending Physician. Vital Signs: 10:43 BP 74 / 55; Pulse 106; Resp 24; Temp 98.2(O); Pulse Ox 98% ; Weight 70.31 kg; Height 5 vg1 ft. 3 in. (160.02 cm); Pain 10/10; 11:17 BP 81 / 64; Pulse 102; Resp 19; Pulse Ox 99% ; jl7 12:08 BP 101 / 71; Pulse 100; Resp 22; Pulse Ox 100% ; jl7 12:30 BP 94 / 73; Pulse 93; Resp 22; Pulse Ox 99% ; jl7 13:00 BP 96 / 75; Pulse 81; Resp 21; Pulse Ox 98% ; jl7 13:30 BP 91 / 70; Pulse 89; Resp 22; Pulse Ox 98% ; jl7 14:00 BP 107 / 78; Pulse 84; Resp 20; Pulse Ox 99% ; jl7 14:30 BP 104 / 77; Pulse 80; Resp 21; Pulse Ox 98% ; jl7 15:00 BP 110 / 75; Pulse 80; Resp 21; Pulse Ox 98% ; jl7 15:30 BP 122 / 81; Pulse 77; Resp 19; Pulse Ox 98% ; jl7 16:30 BP 113 / 83; Pulse 78; Resp 15; Pulse Ox 99% ; jl7 17:00 BP 119 / 93; Pulse 76; Resp 15; Pulse Ox 99% ; jl7 19:16 BP 122 / 81; Pulse 71; Resp 19; Pulse Ox 99% on R/A; jt3 20:51 BP 122 / 83; Pulse 75; Resp 18; Temp 98.6; Pulse Ox 98% ; Pain 3/10; bs2 10:43 Body Mass Index 27.46 (70.31 kg, 160.02 cm) vg1 MDM: 11:21 Patient medically screened. cesario 14:13 Differential diagnosis: Anemia Bronchitis CHF exacerbation, Chronic Obstructive cesario Pulmonary Disease pneumonia, Pneumothorax pulmonary edema, Pulmonary Embolism reactive airway disease, Sepsis Unstable Angina. Antibiotic administration: Levaquin given. Differential Diagnosis sepsis, flu. The patient's Wells Deep Vein Thrombosis Score was calculated as follows: Total Score: 0-2 Pts- Low Risk. The patient's pulmonary embolism risk score was calculated as follows: Total Score: 0-2 points. This patient was found to be at low risk for a pulmonary embolism by using the Well's assessment criteria. Immunization status: Pneumococcal vaccine: Influenza vaccine: Data reviewed: vital signs, nurses notes, EMS record, lab test result(s), EKG, radiologic studies, CT scan, plain films. Data interpreted: bus driver/monitor: rate is 84 beats/min, rhythm is regular, Pulse oximetry: on room air is 99 %. Test interpretation: by ED physician or midlevel provider: ECG, plain radiologic studies. Counseling: I had a detailed discussion with the patient and/or guardian regarding: the historical points, exam findings, and any diagnostic results supporting the discharge/admit diagnosis, lab results, radiology results, the need for further work-up and treatment in the hospital. 07/23 11:16 Order name: Basic Metabolic Panel [facility] 07/23 11:16 Order name: CBC with Diff [facility] 07/23 11:16 Order name: LFT's [facility] 07/23 11:16 Order name: Magnesium [facility] 07/23 11:16 Order name: NT PRO-BNP [facility] 07/23 11:16 Order name: PT-INR [facility] 07/23 11:16 Order name: Troponin (emerg Dept Use Only) [facility] 07/23 11:17 Order name: Basic Metabolic Panel [facility] 07/23 11:18 Order name: Basic Metabolic Panel [facility] 07/23 11:18 Order name: CBC with Diff [facility] 07/23 11:18 Order name: LFT's [facility] 07/23 11:18 Order name: Magnesium [facility] 07/23 11:18 Order name: NT PRO-BNP; Complete Time: 12:34 [facility] 07/23 11:18 Order name: PT-INR; Complete Time: 12:33 [facility] 07/23 11:16 Order name: XRAY Chest (1 view); Complete Time: 12:33 [facility] 07/23 11:18 Order name: Troponin (emerg Dept Use Only); Complete Time: 12:34 [facility] 07/23 11:18 Order name: Lipase; Complete Time: 12:34 [facility] 07/23 11:18 Order name: Blood Culture Adult (2) [facility] 07/23 11:18 Order name: Lactate; Complete Time: 12:33 [facility] 07/23 11:18 Order name: CRP; Complete Time: 12:34 [facility] 07/23 11:18 Order name: Urine Culture [facility] 07/23 11:19 Order name: Basic Metabolic Panel; Complete Time: 12:34 [facility] 07/23 11:19 Order name: CBC with Automated Diff; Complete Time: 13:42 [facility] 07/23 11:19 Order name: Liver (Hepatic) Function; Complete Time: 12:34 [facility] 07/23 11:19 Order name: Magnesium; Complete Time: 12:34 [facility] 07/23 11:20 Order name: Flu; Complete Time: 13:42 [facility] 07/23 11:20 Order name: SARS-COV-2 RT PCR (Document "Date of Onset" if Symptomatic); Complete Time: [facility] 13:42 07/23 12:40 Order name: Manual Differential; Complete Time: 13:42 [facility] 07/23 14:08 Order name: Troponin I [facility] 07/23 18:41 Order name: Lactate Sepsis 2 HR Follow-up [facility] 07/23 11:16 Order name: EKG; Complete Time: 11:17 [facility] 07/23 11:16 Order name: Cardiac monitoring; Complete Time: 11:17 [facility] 07/23 11:16 Order name: EKG - Nurse/Tech; Complete Time: 11:17 [facility] 07/23 11:16 Order name: IV Saline Lock; Complete Time: 11:17 [facility] 07/23 11:16 Order name: Labs collected and sent; Complete Time: 11:17 [facility] 07/23 11:16 Order name: O2 Per Protocol; Complete Time: 11: [facility] 07/23 11:16 Order name: O2 Sat Monitoring; Complete Time: 11:17 [facility] 07/23 11:18 Order name: EKG; Complete Time: 11:19 [facility] 07/23 11:18 Order name: Cardiac monitoring; Complete Time: 11:19 [facility] 07/23 11:18 Order name: EKG - Nurse/Tech; Complete Time: 11:19 [facility] 07/23 11:18 Order name: IV Saline Lock; Complete Time: 11:28 [facility] 07/23 11:18 Order name: Labs collected and sent; Complete Time: 11:28 [facility] 07/23 11:18 Order name: O2 Per Protocol; Complete Time: 11:19 [facility] 07/23 11:18 Order name: O2 Sat Monitoring; Complete Time: 11:20 [facility] 07/23 12:34 Order name: Chest Abdomen Pelvis Wo Con CT; Complete Time: 13:42 [facility] 07/23 14:08 Order name: EKG Electrocardiogram [facility] 07/23 14:08 Order name: EKG Electrocardiogram [facility] 07/23 14:08 Order name: EKG Electrocardiogram [facility] 07/23 14:08 Order name: EKG Electrocardiogram [facility] EC:09 Rate is 100 beats/min. Rhythm is regular. QRS [place] is Normal. UT interval is shortened cesario at 102 msec. QRS interval is normal. QT interval is normal. No Q waves. T waves are Normal. No ST changes noted. Clinical impression: NSR w/ Non-specific ST/T Changes and No evidence of ischemia. Interpreted by me. Reviewed by me. Administered Medications: 11:20 Drug: NS 0.9% 1000 ml Route: IV; Rate: 1 bolus; Site: right antecubital; jl7 12:20 Follow up: Response: No adverse reaction; IV Status: Completed infusion; IV Intake: jl7 1000ml 12:40 Drug: NS 0.9% 1000 ml Route: IV; Rate: 125 ml/hr; Site: right antecubital; jl7 14:11 Follow up: IV Status: Infusion continued upon admission jl7 12:42 Drug: Solu-CORTEF (hyrdoCORTISONE) 100 mg Route: IVP; Site: right antecubital; jl7 14:10 Follow up: Response: No adverse reaction jl7 12:45 Drug: levofloxacin 500 mg Volume: 100 ml; Route: IVPB; Infused Over: 60 mins; Site: jl7 right antecubital; 13:45 Follow up: Response: No adverse reaction; IV Status: Completed infusion jl7 12:50 Drug: Pepcid (famotidine) 20 mg Route: IVP; Site: right antecubital; jl7 14:11 Follow up: Response: No adverse reaction jl7 13:26 Drug: Magnesium Sulfate 1 grams Route: IVPB; Infused Over: 1 hrs; Site: Other; ll1 14:26 Follow up: Response: No adverse reaction; IV Status: Completed infusion jl7 13:48 Drug: Tamiflu (oseltamivir) 75 mg Route: PO; ll1 14:37 Follow up: Response: No adverse reaction jl7 14:45 Drug: fentaNYL (PF) 25 mcg Route: IVP; Site: left antecubital; jl7 15:00 Follow up: Response: No adverse reaction; Pain is decreased jl7 16:44 Drug: Lovenox (enoxaparin) 40 mg Route: Sub-Q; Site: abdomen; jl7 17:00 Follow up: Response: No adverse reaction jl7 19:29 Drug: fentaNYL (PF) 25 mcg Route: IVP; Site: right antecubital; bs2 20:47 Follow up: Response: No adverse reaction bs2 Disposition Summary: 07/23/21 14:00 Hospitalization Ordered Hospitalization Status: Observation cesario Provider: Yo Carrasco cha Condition: Fair cesario Problem: new cesario Symptoms: have improved cesario Bed/Room Type: Standard cesario Location: Telemetry/MedSurg (observation)(07/23/21 17:32) bd Room Assignment: 223(07/23/21 17:32) bd Diagnosis - Weakness cesario - Dehydration cesario - Acute kidney failure, unspecified - on chronic cesario - Bandemia cesario - Hypomagnesemia cesario - Elevated white blood cell count cesario - Influenza due to identified novel influenza A virus with other respiratory cesario manifestations Forms: - Medication Reconciliation Form cesario - SBAR form cesario Signatures: Dispatcher [employer] EDMS Roseann Mar Corey, MD MD cha Leal, Jahala, RN RN jl7 Christin Sauceda, RN RN vg1 Otoniel Sinha, RN RN ll1 Leticia Chappell, RN RN bs2 Corrections: (The following items were deleted from the chart) 11:57 11:19 Chest Single View+[email or web address] ordered. EDMS EDMS 17:07 14:00 Telemetry/MedSurg (observation) cesario bd 17:07 14:00 cesario bd 17:32 17:07 [facility] ER HOLD bd bd 17:32 17:07 ERHOLD- bd bd
[2021-07-23] MEDS ORDERED: MAGNESIUM SULFATE 1 gm IVPB 1 GM/100 ML BAG IV ONE (14:03)
[2021-07-23] MEDS ORDERED: ONDANSETRON 4 MG/2 ML VIAL IV PRN (14:04)
[2021-07-23] MEDS ORDERED: OSELTAMIVIR 75 MG CAP ONE (14:44)
[2021-07-23] MEDS ORDERED: ASPIRIN EC 81 MG TAB PO SCH (15:00)
[2021-07-23] MEDS: NA CHLORIDE 0.9% 1,000 ML IV SCH ×2 (15:00→23:00)
[2021-07-23] MEDS ORDERED: FENTANYL CITR 100 MCG/2 ML ONE ×2 (15:43→20:24)
[2021-07-23] MEDS ORDERED: ENOXAPARIN 40 MG/0.4 ML SQ ONE (15:44)
[2021-07-23] MEDS: LEVALBUTEROL 1.25 MG/3 ML NEB NEB SCH (20:00)
[2021-07-23] MEDS ORDERED: LEVALBUTEROL 1.25 MG/3 ML NEB ONE (21:04)
--- NOTE | 2021-07-23 21:26 | P.HP ---
Certification for Inpatient Patient admitted to: Inpatient With expected LOS: >2 Midnights Practitioner: I am a practitioner with admitting privileges, knowledge of patient current condition, hospital course, and medical plan of care. Services: Services provided to patient in accordance with Admission requirements found in Title 42 Section 412.3 of the Code of Federal Regulations Patient History Date of Service: 07/23/21 Reason for admission: WEAKNESS, FATIGUE, ACHES History of Present Illness: MAGDY CAME TO OFFICE TODAY BROUGHT BY FOR WEAKNESS, FATIGUE, ACHES AND WAS FOUND TO BE SEPTIC WITH BP OF 80 SYSTOLIC. I SENT HER TO ER AND CALLED TO HAVE HER SEEN URGENTLY. HE DID AND FOUND HER TO BE HAVING FLU , LEUKOCYTOSIS AND SEPSIS WITH ACUTE RENAL FAILURE. HER CT CHEST SHOWS ABNORMAL SHADOW NEAR THE SPINE THAT CAN BE INFECTION. PATIENT WAS SEEN BY ER PA ABOUT 3 DAYS AGO FOR THE SAME ISSUES AND SUGGESTED IT WAS LUPUS AND GAVE HER A HIGH DOSE OF DEXAMETHASONE 10 MG IV BEFORE SHE WENT HOME. SHE DID NOT HAVE ANY LAB THAT DAY. Allergies promethazine HCl [From Phenergan] Allergy (Mild, Verified 03/02/13 12:46) ITCH meloxicam [From Mobic] Adverse Reaction (Intermediate, Verified 03/02/13 12:46) NAUSEA cephalexin monohydrate [From Keflex] Adverse Reaction (Mild, Verified 03/02/13 12:46) DRY COUGH Home Medications: Aspirin [Aspir-Low] 1 tab PO DAILY 01/26/19 Hydroxychloroquine [Plaquenil*] 1 tab PO DAILY 01/26/19 Losartan Potassium 100 mg PO DAILY 01/26/19 Nifedipine [Nifedipine ER] 1 tab PO DAILY 01/26/19 Pantoprazole [Protonix Tab*] 1 tab PO BID 01/26/19 carvediloL [Carvedilol] 1 tab PO BID 01/26/19 mycophenolate mofetiL [Mycophenolate Mofetil] 1 tab PO DAILY 01/26/19 Fluticasone/Salmeterol [Advair 250-50 Diskus] 1 each IH BID #1 blst.w.dev 01/27/19 - Past Medical/Surgical History Diabetic: No -: HTN -: Scoliosis -: lupus -: osteoporosis -: kidney cancer -: Back -Barbara Adolfo -: R Kidney removal -: Bone spur R foot - Family History Mother -: Heart disease, Kidney disease - Social History Alcohol use: No CD- Drugs: Yes Caffeine use: Yes Review of Systems 10-point ROS is otherwise unremarkable General: Weakness, Malaise Eyes: As per HPI Physical Examination - Physical Exam General: Alert, Moderate distress HEENT: Atraumatic, PERRLA, Mucous membr. moist/pink, EOMI, Sclerae nonicteric Neck: Supple, 2+ carotid pulse no bruit, No LAD, Without JVD or thyroid abnormality Respiratory: Clear to auscultation bilaterally, Normal air movement Cardiovascular: Regular rate/rhythm, Normal S1 S2 Gastrointestinal: Normal bowel sounds, No tenderness Musculoskeletal: No tenderness Integumentary: No rashes Neurological: Normal gait, Normal speech, Normal strength at 5/5 x4 extr, Normal tone, Normal affect Lymphatics: No axilla or inguinal lymphadenopathy - Studies Laboratory Data (last 24 hrs) 07/23/21 11:37: Sodium 143, Potassium 3.5, BUN 34 H, Creatinine 2.11 H, Glucose 118 H, Magnesium 1.1 L* D, Total Bilirubin 1.3 H, AST 54 H, ALT 53, Alkaline Phosphatase 94, Lipase 140 07/23/21 11:20: PT 13.0 H, INR 1.13 07/23/21 11:20: WBC 19.90 H, Hgb 14.1, Hct 42.7, Plt Count 158 07/23/21 11:17: PT Cancelled, INR Cancelled 07/23/21 11:17: WBC Cancelled, Hgb Cancelled, Hct Cancelled, Plt Count Cancelled 07/23/21 11:17: Sodium Cancelled, Potassium Cancelled, BUN Cancelled, Creatinine Cancelled, Glucose Cancelled, Magnesium Cancelled, Total Bilirubin Cancelled, AST Cancelled, ALT Cancelled, Alkaline Phosphatase Cancelled Microbiology Data (last 24 hrs): 07/23/21 11:20 Nasopharnyx Influenza Type A Antigen Screen - Final 07/23/21 11:20 Nasopharnyx Influenza Type B Antigen Screen - Final Assessment and Plan - Problems (Diagnosis) (1) Influenza Current Visit: Yes Status: Acute Plan: AGREE WITH TAMIFLU BID. (2) Septic shock Current Visit: Yes Status: Acute Plan: AGREE WITH IV ABX. IV FLUIDS. CULTURES PENDING. CT WAS DONE WITHOUT CONTRAST. MAY NEED ONE MORE WITH LATER MAY NEED MRI OF SPINE TO EVALUATE FOR LESION EVIDEDNT ON CT SCAN. (3) Bacterial pneumonia Current Visit: Yes Status: Acute Plan: ABOVE NO CLINICAL SS CONTINUE LEVAQUIN MAY HAVE TO MODIFY ABX IF CULTURE GROWS ANYTHING OR SHE DOES NOT RESPOND. (4) Lesion of vertebra Current Visit: Yes Status: Acute (5) Prerenal acute renal failure Current Visit: Yes Status: Acute (6) SLE (systemic lupus erythematosus related syndrome) Current Visit: No Status: Chronic Plan: HER CURRENT SYMPTOMS ARE OF SEPSIS AND NOT LUPUS ACTIVITY. MAY NEED STRESS DOSE BUT I WILL WAIT SHE JUST GOT A HIGH DOSE OF DEXAMETHASONE. HER GETTING STEROID WILL CONFUSE THE CLINICAL EVIDENCE WBC WILL RISE. - Advance Directives Does patient have a Living Will: No Does patient have a Durable POA for Healthcare: No
[2021-07-23] MEDS: OSELTAMIVIR 75 MG CAP PO SCH (21:40)
[2021-07-23] MEDS: ACETAMINOPHEN 325 MG TABLET PO PRN (21:40)
[2021-07-23] MEDS: FAMOTIDINE 20 MG/2 ML VIAL IV SCH (21:40)
[2021-07-23 22:27] VITALS: BMI 27.6
[2021-07-24] MEDS: LEVALBUTEROL 1.25 MG/3 ML NEB NEB SCH ×4 (02:15→20:00)
[2021-07-24] MEDS: NA CHLORIDE 0.9% 1,000 ML IV SCH ×3 (05:07→19:32)
[2021-07-24] MEDS: ACETAMINOPHEN 325 MG TABLET PO PRN ×2 (05:07→15:23)
[2021-07-24 06:17] LABS: Absolute Lymphocytes (CBC) 1.5 K/uL (0.7-4.9); Basophils % 0.2 % (0-1.3); Hematocrit 35.9 % (36.0-45.0); Lymphocytes % 7.9 % (15.3-44.8); MPV 9.1 fL (7.6-11.3); RBC Red Blood Cell Count 3.69 M/uL (3.86-4.86)
[2021-07-24 06:34] LABS: Magnesium 1.8 mg/dL (1.8-2.4); Potassium 3.8 mmol/L (3.5-5.1)
[2021-07-24] MEDS: PANTOPRAZOLE 40MG TABLET PO SCH (07:30)
[2021-07-24] MEDS: FAMOTIDINE 20 MG/2 ML VIAL IV SCH (09:00)
[2021-07-24] MEDS: carvediloL 25 MG TAB PO SCH (09:00)
[2021-07-24] MEDS: OSELTAMIVIR 75 MG CAP PO SCH ×2 (09:00→19:31)
[2021-07-24] MEDS: HYDROXYCHLOROQUINE 200MG TAB PO SCH (09:00)
[2021-07-24] MEDS: ASPIRIN EC 81 MG TAB PO SCH (09:00)
[2021-07-24 09:52] LABS: Urine Appearance CLEAR (Clear); Urine Bilirubin NEGATIVE (Negative); Urine Blood 3+ (Negative); Urine Color YELLOW (Yellow); Urine Glucose NEGATIVE (Negative); Urine Protein NEGATIVE (Negative); Urine Specific Gravity 1.015 (1.005-1.030)
[2021-07-24 10:18] LABS: Urine Bacteria 20-50 /HPF (<20); Urine RBC LOADED /HPF (NONE SEEN)
--- NOTE | 2021-07-24 11:47 | EKG ---
Test Date: 2021-07-24 Test Time: 05:02:23 Manager Medical Device: RT MEASUREMENT RESULTS: Intervals: Rate: 61 RI: 116 QRSD: 76 QT: 412 QTc: 414 [place]: P: 74 RI: 116 QRS: 49 T: 55 INTERPRETIVE STATEMENTS: Sinus rhythm with premature atrial complexes Otherwise normal ECG Compared to ECG 07/23/2021 11:08:23 Atrial premature complex(es) now present Short RI interval no longer present Electronically Signed On 07-24-21 11:46:00 CDT by Harrison Adan
--- NOTE | 2021-07-24 11:50 | EKG ---
Test Date: 2021-07-23 Test Time: 11:08:23 Bank Appraiser: MAYCO MEASUREMENT RESULTS: Intervals: Rate: 100 CT: 102 QRSD: 68 QT: 322 QTc: 415 [place]: P: 74 CT: 102 QRS: 47 T: 51 INTERPRETIVE STATEMENTS: Sinus rhythm with short CT Otherwise normal ECG Compared to ECG 02/28/2019 15:20:15 No significant changes Electronically Signed On 07-24-21 11:46:26 CDT by Harrison Adan
--- NOTE | 2021-07-24 12:50 | P.PN ---
Subjective Date of Service: 07/24/21 Chief Complaint: WEAKNESS, FATIGUE, ACHES Subjective: Improving SHE IS DOING A LOT BETTER. SHE IS WALKING AROUND IN THE ROOM.DENIES ANY CHEST PAIN COUGH, UTI SS. Physical Examination - Vital Signs Temperature: 96.8 F Blood Pressure: 148/92 Pulse: 62 Respirations: 16 Pulse Ox (%): 97 - Physical Exam General: Oriented x3, Mild distress HEENT: Atraumatic, PERRLA, EOMI Neck: Supple, JVD not distended Respiratory: Clear to auscultation bilaterally, Normal air movement Cardiovascular: Regular rate/rhythm, Normal S1 S2 Gastrointestinal: Normal bowel sounds, No tenderness Musculoskeletal: No tenderness Integumentary: No rashes Neurological: Normal speech, Normal tone, Normal affect Lymphatics: No axilla or inguinal lymphadenopathy - Studies Laboratory Data (last 24 hrs) 07/23/21 11:17: PT Cancelled, INR Cancelled 07/23/21 11:17: WBC Cancelled, Hgb Cancelled, Hct Cancelled, Plt Count Cancelled 07/23/21 11:17: Sodium Cancelled, Potassium Cancelled, BUN Cancelled, Creatinine Cancelled, Glucose Cancelled, Magnesium Cancelled, Total Bilirubin Cancelled, AST Cancelled, ALT Cancelled, Alkaline Phosphatase Cancelled Microbiology Data (last 24 hrs): 07/23/21 11:37 Blood - Blood Blood Culture Gram Stain - Final 07/23/21 11:37 Blood - Blood Gram Stain - Final 07/23/21 11:20 Blood - Blood Blood Culture Gram Stain - Final 07/23/21 11:20 Blood - Blood Gram Stain - Final 07/23/21 11:20 Nasopharnyx Influenza Type A Antigen Screen - Final 07/23/21 11:20 Nasopharnyx Influenza Type B Antigen Screen - Final Medications List Reviewed: Yes Assessment And Plan - Current Problems (Diagnosis) (1) Influenza Current Visit: Yes Status: Acute Plan: AGREE WITH TAMIFLU BID. (2) Septic shock Current Visit: Yes Status: Acute Plan: AGREE WITH IV ABX. IV FLUIDS. CULTURES PENDING. CT WAS DONE WITHOUT CONTRAST. MAY NEED ONE MORE WITH LATER MAY NEED MRI OF SPINE TO EVALUATE FOR LESION EVIDEDNT ON CT SCAN. SOURCE CAN BE URINE . SHE HAS GRAM NEG BACILLI IN THE BLOOD 12/24. ID PENDING. CONTINUE LEVAQUIN. THAT SHOULD COVER MOST GRAM NEG BACILLI. (3) Lesion of vertebra Current Visit: Yes Status: Acute (4) Prerenal acute renal failure Current Visit: Yes Status: Acute (5) SLE (systemic lupus erythematosus related syndrome) Current Visit: No Status: Chronic Plan: HER CURRENT SYMPTOMS ARE OF SEPSIS AND NOT LUPUS ACTIVITY. MAY NEED STRESS DOSE BUT I WILL WAIT SHE JUST GOT A HIGH DOSE OF DEXAME THASONE. HER GETTING STEROID WILL CONFUSE THE CLINICAL EVIDENCE WBC WILL RISE. THIS MAY HAVE INVADED THE BONE. BIOPSY IS NOT DONE. SHE WILL NEED THIS AFTER SHE IS STABLE AND INFECTION IS CLEARED.
[2021-07-24] MEDS ORDERED: Levofloxacin 250mg IV 250 MG/50 ML BAG IV SCH (13:00)
[2021-07-24] MEDS ORDERED: levoFLOXacin 500 MG TAB PO SCH (13:00)
[2021-07-25] MEDS: LEVALBUTEROL 1.25 MG/3 ML NEB NEB SCH ×4 (02:00→19:30)
[2021-07-25] MEDS: NA CHLORIDE 0.9% 1,000 ML IV SCH (03:52)
[2021-07-25 07:33] LABS: MPV 8.8 fL (7.6-11.3)
[2021-07-25 07:34] LABS: Absolute Lymphocytes (CBC) 1.8 K/uL (0.7-4.9); Basophils % 0.1 % (0-1.3); Hematocrit 37.5 % (36.0-45.0); Lymphocytes % 13.5 % (15.3-44.8); MPV 8.6 fL (7.6-11.3); RBC Red Blood Cell Count 3.86 M/uL (3.86-4.86)
[2021-07-25 07:44] LABS: Magnesium 1.5 mg/dL (1.8-2.4); Potassium 3.9 mmol/L (3.5-5.1)
[2021-07-25] MEDS ORDERED: Magnesium Sulfate 2gm IVPB 2 G/50 ML BAG IV ONE (09:00)
[2021-07-25] MEDS: OSELTAMIVIR 75 MG CAP PO SCH ×2 (09:23→19:42)
[2021-07-25] MEDS: NACHLORIDE 0.45% 1,000 ML IV SCH (09:23)
[2021-07-25] MEDS: FAMOTIDINE 20 MG TAB PO SCH (09:23)
[2021-07-25] MEDS: carvediloL 25 MG TAB PO SCH (09:23)
[2021-07-25] MEDS: PANTOPRAZOLE 40MG TABLET PO SCH (09:23)
[2021-07-25] MEDS: ASPIRIN EC 81 MG TAB PO SCH (09:24)
[2021-07-25] MEDS: ENOXAPARIN 40 MG/0.4 ML SQ SCH (09:24)
[2021-07-25] MEDS: HYDROXYCHLOROQUINE 200MG TAB PO SCH (09:24)
--- NOTE | 2021-07-25 12:55 | P.PN ---
Subjective Date of Service: 07/25/21 Chief Complaint: WEAKNESS, FATIGUE, ACHES Subjective: Improving SHE IS DOING A LOT BETTER. SHE IS WALKING AROUND IN THE ROOM.DENIES ANY CHEST PAIN COUGH, UTI SS. DOING GOOD. STABLE. Review of Systems 10-point ROS is otherwise unremarkable Physical Examination - Vital Signs Temperature: 97.9 F Blood Pressure: 122/68 Pulse: 69 Respirations: 18 Pulse Ox (%): 98 - Physical Exam General: Alert, In no apparent distress HEENT: Atraumatic, PERRLA, EOMI Neck: Supple, JVD not distended Respiratory: Clear to auscultation bilaterally, Normal air movement Cardiovascular: Regular rate/rhythm, Normal S1 S2 Gastrointestinal: Normal bowel sounds, No tenderness Musculoskeletal: No tenderness Integumentary: No rashes Neurological: Normal speech, Normal tone, Normal affect Lymphatics: No axilla or inguinal lymphadenopathy - Studies Microbiology Data (last 24 hrs): 07/23/21 11:37 Blood - Blood Blood Culture Gram Stain - Final 07/23/21 11:37 Blood - Blood Gram Stain - Final 07/23/21 11:20 Blood - Blood Blood Culture Gram Stain - Final 07/23/21 11:20 Blood - Blood Gram Stain - Final Medications List Reviewed: Yes Assessment And Plan - Current Problems (Diagnosis) (1) Influenza Current Visit: Yes Status: Acute Plan: AGREE WITH TAMIFLU BID. (2) Septic shock Current Visit: Yes Status: Acute Plan: AGREE WITH IV ABX. IV FLUIDS. CULTURES PENDING. CT WAS DONE WITHOUT CONTRAST. MAY NEED ONE MORE WITH LATER MAY NEED MRI OF SPINE TO EVALUATE FOR LESION EVIDEDNT ON CT SCAN. SOURCE CAN BE URINE . SHE HAS GRAM NEG BACILLI IN THE BLOOD 12/24. ID PENDING. CONTINUE LEVAQUIN. THAT SHOULD COVER MOST GRAM NEG BACILLI. CREAT DOWN CHLORIDE IS UP. WILL CHANGE TO HALF NORMAL SALINE IV. (3) Lesion of vertebra Current Visit: Yes Status: Acute Plan: LUNG AND SPINE LESION NEEDS BIOPSY I WILL TALK TO HER ABOUT IT TO BE DONE AFTER DISCHARGE (4) Prerenal acute renal failure Current Visit: Yes Status: Acute (5) SLE (systemic lupus erythematosus related syndrome) Current Visit: No Status: Chronic Plan: HER CURRENT SYMPTOMS ARE OF SEPSIS AND NOT LUPUS ACTIVITY. MAY NEED STRESS DOSE BUT I WILL WAIT SHE JUST GOT A HIGH DOSE OF DEXAMETHASONE. HER GETTING STEROID WILL CONFUSE THE CLINICAL EVIDENCE WBC WILL RISE. THIS MAY HAVE INVADED THE BONE. BIOPSY IS NOT DONE. SHE WILL NEED THIS AFTER SHE IS STABLE AND INFECTION IS CLEARED.
[2021-07-25] MEDS: ACETAMINOPHEN 325 MG TABLET PO PRN (16:38)
--- NOTE | 2021-07-25 20:57 | RAD REPORT ---
EXAM DESCRIPTION: US - Thyroid Para Parotid Gland - 07/24/2021 8:49 am CLINICAL HISTORY: weakness COMPARISON: THYROID PARA PAROTID GLAND dated 05/22/2010; Chest Abd Pelvis Wo Con dated 07/23/2021 FINDINGS: The right lobe of the thyroid measures 4.3 x 1.6 x 2.1 cm with volume of 7.3 cc. The left lobe of the thyroid measures 4.9 x 2.1 x 2.1 cm with volume of 11.1 cc. The isthmus measures 3 millim eters. There are several thyroid nodules bilaterally. Largest nodule in the left lobe of the thyroid measure s 2.2 cm in maximal dimension and is predominantly cystic. A smaller left thyroid nodule measures 8 m illimeters and is solid. The largest nodule in the right lobe of the thyroid measures 1.4 cm in maxim al dimension and is more solid/ spongiform appearance. The most recent comparison is 05/22/2010. The nodules are either new or increased in size since then which is not an uncommon finding. IMPRESSION: Bilateral thyroid nodules. The largest nodule which is in the left lobe measures 2.2 cm in maximal dimension. The largest on the right measures 1.4 cm in maximal dimension. These nodules ar e probably benign. Suggest either 12 month follow-up ultrasound versus ultrasound-guided fine-needle aspiration.
[2021-07-25 21:24] LABS: Protime INR 1.15
[2021-07-26] MEDS: LEVALBUTEROL 1.25 MG/3 ML NEB NEB SCH ×2 (01:40→07:44)
[2021-07-26] MEDS: NACHLORIDE 0.45% 1,000 ML IV SCH (05:29)
[2021-07-26 06:10] LABS: Absolute Lymphocytes (CBC) 2.1 K/uL (0.7-4.9); Basophils % 0.1 % (0-1.3); Hematocrit 37.2 % (36.0-45.0); Lymphocytes % 22.7 % (15.3-44.8); MPV 9.2 fL (7.6-11.3); RBC Red Blood Cell Count 3.88 M/uL (3.86-4.86)
[2021-07-26 06:37] LABS: Blood Morphology Comment NOT SEEN (NOT SEEN); Platelet Estimate DECR; White Blood Cell Scan OK (OK)
[2021-07-26 08:05] VITALS: BP 153/82; TEMP 97.5
[2021-07-26] MEDS: PANTOPRAZOLE 40MG TABLET PO SCH (08:50)
[2021-07-26] MEDS: carvediloL 25 MG TAB PO SCH (08:50)
[2021-07-26] MEDS: ENOXAPARIN 40 MG/0.4 ML SQ SCH (08:53)
[2021-07-26] MEDS: FAMOTIDINE 20 MG TAB PO SCH (08:53)
[2021-07-26] MEDS: HYDROXYCHLOROQUINE 200MG TAB PO SCH (08:53)
[2021-07-26] MEDS: OSELTAMIVIR 75 MG CAP PO SCH (08:53)
[2021-07-26 09:07] VITALS: O2SAT 98
--- NOTE | 2021-07-26 10:49 | P.DS ---
Admission Date: 07/23/21 Discharge Date: 07/26/21 Disposition: ROUTINE DISCHARGE Discharge Condition: FAIR Reason for Admission: WEAKNESS, FATIGUE, ACHES - Problems (1) Influenza Current Visit: Yes Status: Acute (2) Septic shock Current Visit: Yes Status: Acute (3) Lesion of vertebra Current Visit: Yes Status: Acute (4) Prerenal acute renal failure Current Visit: Yes Status: Acute (5) SLE (systemic lupus erythematosus related syndrome) Current Visit: No Status: Chronic Brief History of Present Illness: MAGDY CAME TO OFFICE TODAY BROUGHT BY FOR WEAKNESS, FATIGUE, ACHES AND WAS FOUND TO BE SEPTIC WITH BP OF 80 SYSTOLIC. I SENT HER TO ER AND CALLED TO HAVE HER SEEN URGENTLY. HE DID AND FOUND HER TO BE HAVING FLU , LEUKOCYTOSIS AND SEPSIS WITH ACUTE RENAL FAILURE. HER CT CHEST SHOWS ABNORMAL SHADOW NEAR THE SPINE THAT CAN BE INFECTION. PATIENT WAS SEEN BY ER PA ABOUT 3 DAYS AGO FOR THE SAME ISSUES AND SUGGESTED IT WAS LUPUS AND GAVE HER A HIGH DOSE OF DEXAMETHASONE 10 MG IV BEFORE SHE WENT HOME. SHE DID NOT HAVE ANY LAB THAT DAY. Hospital Course: MAGDY COMES WITH FEVER, WEAKNESS, DEHYDRATION, ACUTE PRERENAL FAILURE, WAS FOUND TO HAVE FLU, GRAM NEGATIVE SEPTICEMIA WITH E COLI, IMPROVED ON LEVAQUIN, IV HYDRATION AND TAMIFLU. SHE IS FEELING GOOD TO GO HOME. SHE WILL CONTINUE CIPRO ORALLY FOR 10 DAYS. I TRIED TO GET LUNG MASS BIOPSY DONE DETAILED ON CT SCAN. DR. MCKINNEY CAN'T ACCESS THIS ARE BY NEEDLE. SHE WILL GO TO [facility]. Vital Signs/Physical Exam: Temp Pulse Resp BP Pulse Ox 97.5 F 55 18 153/82 H 98 07/26/21 08:00 07/26/21 08:50 07/26/21 08:00 07/26/21 08:50 07/26/21 08:00 Laboratory Data at Discharge: WBC 9.20 K/uL (4.3-10.9) D 07/26/21 05:43 Hgb 12.3 g/dL (12.0-15.0) 07/26/21 05:43 Hct 37.2 % (36.0-45.0) 07/26/21 05:43 Plt Count 142 K/uL (152-406) L 07/26/21 05:43 PT 13.3 SECONDS (9.5-12.5) H 07/25/21 21:04 INR 1.15 07/25/21 21:04 Sodium 146 mmol/L (136-145) H 07/26/21 05:43 Potassium 4.0 mmol/L (3.5-5.1) 07/26/21 05:43 BUN 18 mg/dL (7-18) 07/26/21 05:43 Creatinine 1.41 mg/dL (0.55-1.3) H 07/26/21 05:43 Glucose 102 mg/dL (74-106) 07/26/21 05:43 Magnesium 2.2 mg/dL (1.8-2.4) D 07/25/21 16:19 Total Bilirubin 1.3 mg/dL (0.2-1.0) H 07/23/21 11:37 AST 54 U/L (15-37) H 07/23/21 11:37 ALT 53 U/L (12-78) 07/23/21 11:37 Alkaline Phosphatase 94 U/L (45-117) 07/23/21 11:37 Troponin I < 0.02 ng/mL (0.0-0.045) 07/23/21 22:35 Lipase 140 U/L (73-393) 07/23/21 11:37 Home Medications: Aspirin [Aspir-Low] 1 tab PO DAILY 01/26/19 Hydroxychloroquine [Plaquenil*] 1 tab PO DAILY 01/26/19 Pantoprazole [Protonix Tab*] 0.5 tab PO DAILY 01/26/19 carvediloL [Carvedilol] 1 tab PO DAILY 01/26/19 mycophenolate mofetiL [Mycophenolate Mofetil] 500 mg PO DAILY 01/26/19 Ciprofloxacin HCl [Cipro 250 MG Tablet*] 250 mg PO BID #20 tab 07/26/21 Famotidine [Pepcid*] 20 mg PO DAILY tab 07/26/21 New Medications: Ciprofloxacin HCl [Cipro 250 MG Tablet*] 250 mg PO BID #20 tab Followup: Yo Carrasco MD [Primary Care Provider] -
== END 2021-07-26 11:37 | disposition home or self-care (01) | DRG 871 ==
LOC: ER 10:35 → ERHOLD 14:02 → 2ND 19:25
PROVIDERS: ADMIT Internal Medicine; ATTEND Internal Medicine
DX: A41.51 Sepsis due to Escherichia coli [E. coli] (principal); R65.21 Severe sepsis with septic shock; N17.9 Acute kidney failure, unspecified; J10.1 Influenza due to other identified influenza virus with other respiratory manifestations; M32.9 Systemic lupus erythematosus, unspecified; E86.0 Dehydration; R91.8 Other nonspecific abnormal finding of lung field; M89.9 Disorder of bone, unspecified; I10 Essential (primary) hypertension; Z85.528 Personal history of other malignant neoplasm of kidney; Z20.822 Contact with and (suspected) exposure to COVID-19
CPT/HCPCS: 36415; 71045; 71250; 74176; 76536; 80048; 80076; 81001; 83605; 83690; 83735; 83880; 84484; 85025; 85049; 85610; 86140; 87040; 87077; 87086; 87088; 87186; 87205; 87804; 93005; 94640; 94660; 96372; 99285; J1650; J1720; J3010; J3475; J7030; U0003

== ENCOUNTER 2021-10-05 21:42 | Emergency (ER) | payer BC, OTHER ==
--- OUTSIDE RECORDS SUMMARY | 2021-10-05 21:45 | XMS REPORT | Continuity of Care Document ---
:1955 Author Organization [facility] t Address [address] [place] [address] Care Team Providers Name Role Phone Pcp, Does Not Have A Primary Care Physician LYNNETTE Attending Clinician Unavailable Negrito GRACIA L Attending Clinician Payers Payer Name Policy Type Policy Number Effective Date Expiration Date S ource Problems Condition Condition Condition Status Onset Resolution Last Treating Co mments Source Name Details Category Date Date Treatment Clinician Date Total knee Total knee Disease Active U nivers replacemen replacemen 6 it y of t status t status 00:00: [place] 00 Medical Branch Primary Primary Disease Active Overview: Univ ers osteoarthr osteoarthr 5-21 Formattin ity of itis of itis of 00:00: g of this [place] left knee left knee 00 note Medi lisa might be Branch different from the original. Added automatic ally from request for surgery [id number] Left hand Left hand Disease Active 2015-09 Uni vers pain pain 2-16 ity of 00:00: [place] 00 Medical Branch Allergies, Adverse Reactions, Alerts Allergy Allergy Status Severity Reaction(s) Onset Inactive Treating Comm ents Source Name Type Date Date Clinician Phenerga Propensi Active Itching 2015-09 Unive rs n Dm ty to 2-16 ity of adverse 00:00: [place] reaction 00 Medical s Branch K-Flex Propensi Active Cough 2015-09 Univers ty to 2-16 ity of adverse 00:00: [place] reaction Medical s Branch Meloxica Propensi Active Nausea 2015-09 Univer s m ty to and/or 2-16 ity of adverse Vomiting 00:00: [place] reaction 00 Medical s Branch Social History Social Habit Start Date Stop Date Quantity Comments Source Alcohol intake 2021-06-22 2021-06-22 0 /d [facility] 00:00:00 00:00:00 Medical Branch Tobacco use and 2019-10-01 2019-10-01 Never used [facility] exposure 00:00:00 00:00:00 Medical Branch Sex [birth year] [facility] 00:00:00 00:00:00 Medical Branch Smoking Status Start Date Stop Date Source Former smoker 2019-10-01 00:00:00 2019-10-01 00:00:00 [facility] Medical Branch Medications Ordered Filled Start Stop Current Ordering Indication Dosage Frequency Signature Comments Components Source Medication Medication Date Date Medication? Clinician (SIG) Name Name methylPREDN 2020-09 Yes [id number] 84mg Take 21 Univers ISolone 0-01 tablets by ity of (MEDROL, 00:00: mouth [place] PASCUAL,) 4 mg 00 SEE-INSTRU Med ical tablets CTIONS. Branch follow package directions gabapentin Yes 200mg Take 2 Univ ers 100 mg 4-13 capsules ity of capsule 00:00[place] mouth 3 [place] (three) Medical times Branch daily. methylPREDN 2019-09 Yes [id number] 84mg Take 21 Univers ISolone 0-09 tablets by ity of (MEDROL, 00:00: mouth [place] PASCUAL,) 4 mg 00 SEE-INSTRU Med ical tablets CTIONS. Branch follow package directions acetaminoph Yes [id number] 1 by mouth Univers en-codeine 7-28 every 4-6 ity of (TYLENOL-CO 00:00: hours prn [place] DEINE #3) 00 pain Medical 300-30 mg Indication Bran ch tablet s: acute pain, S/P LT TKR esomeprazol Yes 20mg Take 20 mg Univers e (NEXIUM) 6-02 by mouth ity o f 20 mg 16:29: daily [place] capsule 01 before a Medical meal. Branch CLINT Yes Take by Univers ASPIRIN 6-02 mouth. ity of ORAL 16:29: [place] 01 Medical Branch losartan Yes 100mg Take 100 Univ ers 100 mg 6-02 mg by ity of tablet 16:29: mouth [place] 01 daily. Medical Branch acetaminoph Yes [id number] 1{tbl} Take 1 Univers en-codeine 6-02 05 tablet by ity of (TYLENOL-CO 00:00: mouth [place] DEINE #3) 00 every 4 Medical 300-30 mg (four) Branch tablet hours as needed for Pain (scale 4-6) or Pain (scale 7-10). BEVESPI 2018-09 Yes Univers AEROSPHERE 2-31 ity of 9-4.8 mcg 00:00: [place] HFAA 00 Medical Branch carvedilol 2018-09 Yes Univers 25 mg 1-21 ity of tablet 00:00: [place] 00 Medical Branch triamcinolo 2018-09 Yes Univer s ne 1-01 ity of acetonide 00:00: [place] 0.1 % 00 Medical ointment Branch methylPREDN 2018-09 Yes Univer s ISolone 4 0-30 ity of mg tablets 00:00: [place] 00 Medical Branch NIFEdipine 2018-09 Yes Univers ER 30 mg 0-26 ity of tablet 00:00: [place] 00 Medical Branch cyclobenzap 2018-09 Yes Univer s rine 5 mg 0-16 ity of tablet 00:00: [place] 00 Medical Branch bisoprolol- 2015-09 Yes Univer s hydrochloro 1-29 ity of thiazide 00:00: [place] (ZIAC) 00 Medical 5-6.25 mg Branch per tablet losartan 2015-09 Yes Univers (COZAAR) 50 1-29 ity of mg tablet 00:00: [place] 00 Medical Branch acetaminoph 2015-09 Yes TAKE BY Uni vers en-codeine 1-11 MOUTH 1 ity of (TYLENOL 00:00: TABLET [place] #3) 300-30 00 ONCE A DAY Med ical mg tablet NEEDED Bran h hydroxychlo 2015-09 Yes 200mg Take 200 U nivers roquine 1-11 mg by ity of (PLAQUENIL) 00:00: mouth [place] 200 mg 00 daily. Medical tablet Branch mycophenola 2015-09 Yes Univer s te mofetil 1-11 ity of (CELLCEPT) 00:00: [place] 500 mg 00 Medical tablet Branch Immunizations Ordered Filled Immunization Date Status Comments Sour e Immunization Name Name Pneumococcal 2010-05-07 Completed University o f Polysaccharide, 00:00:00 [place] Med ical PPSV23 (PNEUMOVAX) Branch Procedures This patient has no known procedures. Encounters Start End Encounter Admission Attending Care Care Encounter Source Date/Time Date/Time Type Type Clinicians Facility Department ID 2021-10-04 2021-10-04 Outpatient [facility] [id number] [address] [place] 00:00:00 00:00:[address] [facility] [address] 2021-10-04 2021-10-04 Outpatient [facility]NNETTE [facility] [id number] [place] 00:00:00 00:00:00 [facility] [address] 2021-10-03 2021-10-03 Telephone [facility] [id number] [facility] 00:00:00 00:00:[address] [facility] [id number] it y of [place]UM[place] [id number] Pete as HANK?BLEA [id number] [place] [address] MEDICAL OFFICE BUILDING 2020-10-04 2020-10-04 [facility] [id number] 13:26:02 23:59:00 Encounter Ricardo Smith [employer] [id number] Surgical [id number] Specialti [id number] es [address] 2020-10-04 2020-10-04 [facility] [id number] 13:02:43 13:37:47 Visit Ricardo Smith [employer] [id number] Surgical [id number] Specialti [id number] es [address] [place] Results This patient has no known results.
--- NOTE | 2021-10-05 22:07 | ER ---
Nurse's Notes [facility] Name: Brandy Perez Age: 66 yrs Sex: Female : 1955 Arrival Date: 10/05/2021 Time: 21:43 Bed Waiting Private MD: Diagnosis: ED Course: 10/05 21:43 Patient arrived in ED. kc5 Administered Medications: No medications were administered Outcome: 22:07 Patient left the ED. ld1 Signatures: Regina Gonzales RN RN ld1 Celi Martinez kc5
== END 2021-10-05 22:07 | disposition left against medical advice (07) ==
LOC: ER 21:42
DX: Z02.9 Encounter for administrative examinations, unspecified (principal)

== ENCOUNTER 2022-05-18 01:14 | Emergency (ER) | payer OTHER ==
--- OUTSIDE RECORDS SUMMARY | 2022-05-18 01:18 | XMS REPORT | Continuity of Care Document ---
:1955 Author Organization [facility] t Address [address] [place] [address] Care Team Providers Name Role Phone Pcp, Patient Does Not Have A Primary Care Physician [id number] Doctor Unassigned, [place] Attending Clinician Unavailable Jeffery GRACIA, Mata Cook Attending Clinician Vaughn Prasad Attending Clinician Unavailable Lucille Alvarado MD Attending Clinician Simran Brown MA Attending Clinician Unavailable Vincenzo Bernal RN Attending Clinician Unavailable Bebeto Smith LMSW Attending Clinician Unavailable Provider Solitario GRACIA Attending Clinician Ricardo Mahan MD Attending Clinician Rhonda Wills MA Attending Clinician Unavailable Irma Ward MA Attending Clinician Unavailable Payers Payer Name Policy Type Policy Number Effective Date Expiration Date S ource Problems Condition Condition Condition Status Onset Resolution Last Treating Co mments Source Name Details Category Date Date Treatment Clinician Date Total knee Total knee Disease Active U nivers replacemen replacemen 02-20 it y of t status t status 00:00: [place] 00 Medical Branch Primary Primary Disease Active Overview: Univ ers osteoarthr osteoarthr 5-21 Formattin ity of itis of itis of 00:00: g of this [place] left knee left knee 00 note Medi lisa might be Branch different from the original. Added automatic ally from request for surgery [id number] Left hand Left hand Disease Active 2015-09 Uni vers pain pain 16 ity of 00:00: [place] 00 Medical Branch No known No known Disease Metho di active active st problems problems Hospit a l Allergies, Adverse Reactions, Alerts Allergy Allergy Status Severity Reaction(s) Onset Inactive Treating Comm ents Source Name Type Date Date Clinician K-Flex Propensi Active Cough 2015-09 Univers ty to 11-07 ity of adverse 00:00: [place] reaction 00 Medical s Branch Meloxica Propensi Active Nausea 2015-09 Univer s m ty to and/or 11-07 ity of adverse Vomiting 00:00: [place] reaction 00 Medical s Branch Phenerga Propensi Active Itching 2015-09 Unive rs n Dm ty to 11-07 ity of adverse 00:00: [place] reaction 00 Medical s Branch Cephalex Propensi Active Other (See 2015-09 Dry cough Methodi in ty to Comments) 09-30 st adverse 00:00: Hospita reaction 00 l s to drug Meloxica Propensi Active Other (See 2015-09 Sick of M ethodi m ty to Comments) 09-[address] adverse 00:00: stomach Hospita reaction 00 l s to drug Prometha Propensi Active Itching 2015-09 Metho di zine ty to 09-30 st adverse 00:00: Hospita reaction 00 l s to drug Social History Social Habit Start Date Stop Date Quantity Comments Source History of Current smoker [facility] tobacco use Hospital Alcohol intake 2021-12-14 2021-12-14 Current drinker [facility]o dist 00:00:00 00:00:00 of alcohol Hospital (finding) Tobacco use and 2021-10-04 2021-10-04 Smokeless tobacco Me [facility] exposure 00:00:00 00:00:00 non-user Hospital Sex Ass[birth year] At [birth year] [facility] 00:00:00 00:00:00 Hospital Smoking Status Start Date Stop Date Source Ex-smoker 2021-10-04 00:00:00 2021-10-04 00:00:00 [facility] Medications Ordered Filled Start Stop Current Ordering Indication Dosage Frequency Signature Comments Components Source Medication Medication Date Date Medication? Clinician (SIG) Name Name aspirin 81 Yes 1{tbl} Chew 1 Met hodi mg chewable 3-[address] tablet 10:07: Hospita 29 l pantoprazol Yes 10mg Take 10 mg Methodi e 3-[address] (PROTONIX) 10:07: Hospita 20 MG EC 29 l tablet multivit-mi Yes 1{capsu Take 1 M ethodi n/iron/foli 3-23 le} capsule by st c/lutein 10:07: mouth. Hospita (CENTRUM 29 l SILVER WOMEN ORAL) carvediloL 2020-09 Yes Methodi (COREG) 1 st 12.5 MG 00:00: Hospita tablet 00 l cyclobenzap 2020-09 Yes Method i rine 11 st (FLEXERIL) 00:00: Hospita 5 mg tablet 00 l NIFEdipine 2020-09 Yes Methodi CC (ADALAT 011 st CC) 30 MG 00:00: Hospita 24 hr 00 l tablet methylPREDN 2020-09 Yes [id number] 84mg Take 21 Univers ISolone 0-01 tablets by ity of (MEDROL, 00:00: mouth [place] PASCUAL,) 4 mg 00 SEE-INSTRU Med ical tablets CTIONS. Branch follow package directions methylPREDN 2020-09 Yes [id number] 84mg Take 21 Univers ISolone 0-01 tablets by ity of (MEDROL, 00:00: mouth [place] PASCUAL,) 4 mg 00 SEE-INSTRU Med ical tablets CTIONS. Branch follow package directions gabapentin Yes 200mg Take 2 Univ ers 100 mg 4-13 capsules ity of capsule 00:00: [place] mouth 3 [place] (three) Medical times Branch daily. gabapentin Yes 200mg Take 2 Univ ers 100 mg 4-13 capsules ity of capsule 00:00: [place] 3 [place] ([place] Medical times Branch daily. methylPREDN 2019-09 Yes [id number] 84mg Take 21 Univers ISolone 0-09 tablets by ity of (MEDROL, 00:00: mouth [place] PASCUAL,) 4 mg 00 SEE-INSTRU Med ical tablets CTIONS. Branch follow package directions methylPREDN 2019-09 Yes [id number] 84mg Take 21 Univers ISolone 0-09 tablets by ity of (MEDROL, 00:00: mouth [place] PASCUAL,) 4 mg 00 SEE-INSTRU Med ical tablets CTIONS. Branch follow package directions acetaminoph 2019-0 Yes [id number] 1 by mouth Univers en-codeine 7-28 every 4-6 ity of (TYLENOL-CO 00:00: hours prn [place] DEINE #3) 00 pain Medical 300-30 mg Indication Bran ch tablet s: acute pain, S/P LT TKR acetaminoph 2019-0 Yes [id number] 1 by mouth Univers en-codeine 7-28 every 4-6 ity of (TYLENOL-CO 00:00: hours prn [place] DEINE #3) 00 pain Medical 300-30 mg Indication Bran ch tablet s: acute pain, S/P LT TKR esomeprazol 2019-0 Yes 20mg Take 20 mg Univers e (NEXIUM) 6-02 by mouth ity o f 20 mg 16:29: daily [place] capsule before a Medical meal. Branch CLINT Yes Take by Univers ASPIRIN 6-02 mouth. ity of ORAL 16:29: [place] [facility] losartan 2019-0 Yes 100mg Take 100 Univ ers 100 mg 6-02 mg by ity of tablet 16:29: mouth [place] daily. Medical Branch esomeprazol 2019-0 Yes 20mg Take 20 mg Univers e (NEXIUM) 6-02 by mouth ity o f 20 mg 16:29: daily [place] capsule before a Medical meal. Branch CLINT 2019-0 Yes Take by Univers ASPIRIN 6-02 mouth. ity of ORAL 16:29: [place] 01 Medical Branch losartan 2020-0 Yes 100mg Take 100 Univ ers 100 mg 6-02 mg by ity of tablet 16:29: mouth [place] daily. Medical Branch acetaminoph 2020-0 Yes [id number] 1{tbl} Take 1 Univers en-codeine 6-02 05 tablet by ity of (TYLENOL-CO 00:00: mouth [place] DEINE #3) 00 every 4 Medical 300-30 mg (four) Branch tablet hours as needed for Pain (scale 4-6) or Pain (scale 7-10). acetaminoph 2020-0 Yes [id number] 1{tbl} Take 1 Univers en-codeine 6-02 05 tablet by ity of (TYLENOL-CO 00:00: mouth [place] DEINE #3) 00 every 4 Medical 300-30 mg (four) Branch tablet hours as needed for Pain (scale 4-6) or Pain (scale 7-10). BEVESPI 2018-09 Yes Univers AEROSPHERE 2-31 ity of 9-4.8 mcg 00:00: [place] HF 00 Medical Branch BEVESPI 2018-09 Yes Univers AEROSPHERE 2-31 ity of 9-4.8 mcg 00:00: [place] [facility] Medical Branch carvedilol 2018-09 Yes Univers 25 mg 1-21 ity of tablet 00:00: [place] [facility] carvedilol 2018-09 Yes Univers 25 mg 1-21 ity of tablet 00:00: [place] [facility] triamcinolo 2018-09 Yes Method i ne 09-22 st (KENALOG) 00:00: Hospita 0.1 % 00 l ointment [facility] 2018-09 Yes Sharon gomez ne 09-22 ity of acetonide 00:00: [place] 0.1 % 00 Medical ointment Branch triamcinolo 2018-09 Yes Sharon gomez ne 09-22 ity of acetonide 00:00: [place] 0.1 % 00 Medical ointment Branch methylPREDN 2018-09 Yes Univedward s ISolone 4 0-30 ity of mg tablets 00:00: [place] [facility] methylPREDN 2018-09 Yes Univedward s ISolone 4 0-30 ity of mg tablets 00:00: [place] [facility] NIFEdipine 2018-09 Yes Univers ER 30 mg 0-26 ity of tablet 00:00: [place] [facility] NIFEdipine 2018-09 Yes Univers ER 30 mg 0-26 ity of tablet 00:00: [place] [facility] cyclobenzap 2018-09 Yes Univer s rine 5 mg 0-16 ity of tablet 00:00: [place] [facility] cyclobenzap 2018-09 Yes Univer s rine 5 mg 0-16 ity of tablet 00:00: [place] 00 Medical Branch bisoprolol- 2015-09 Yes Sharon s hydrochloro 1-29 ity of thiazide 00:00: [place] (ZIAC) 00 Medical 5-6.25 mg Branch per tablet losartan 2015-09 Yes Univers (COZAAR) 50 1-29 ity of mg tablet 00:00: [place] [facility] bisoprolol- 2015-09 Yes Sharon s hydrochloro 1-29 ity of thiazide 00:00: [place] (ZIAC) 00 Medical 5-6.25 mg Branch per tablet losartan 2015-09 Yes Univers (COZAAR) 50 1-29 ity of mg tablet 00:00: [place] 00 Medical Branch hydrOXYchlo 2015-09 Yes 1{tbl} Take 1 Me thodi roQUINE 1-[address] (PLAQUENIL) 00:00: mouth. Hosp birgit 200 mg 00 l tablet acetaminoph 2015-09 Yes 1{tbl} Take 1 Me thodi en-codeine 1-[address] (TYLENOL 00:00: mouth. Hospita WITH 00 l CODEINE #3) 300-30 mg per tablet acetaminoph 2015-09 Yes TAKE BY Uni vers [...] [place] 500 mg 00 Medical tablet Branch acetaminoph 2015-09 Yes TAKE BY Uni [...] [place] 500 mg 00 Medical tablet Branch bisoprolol- 2015-09 Yes Method i hydrochloro 0-30 st thiazide 00:00: Hospita (ZIAC) 00 l 5-6.25 mg per tablet losartan 2015-09- No Methodi (COZAAR) 50 0-30 01-12 st MG tablet 00:00: 00:00 Hospita 00 :00 l gabapentin 2015-09- No Method i (NEURONTIN) 0-23 -12 st 400 MG 00:00: 00:00 Hospita capsule 00 :00 l mycophenola 2016-1 Yes Method i te 0-06 st (CELLCEPT) 00:00: Hospita 500 mg 00 l tablet Immunizations Ordered Filled Immunization Date Status Comments [facility] e Immunization Name Name Pneumococcal 2010-05-07 Completed [place] o f Polysaccharide, 00:00:00 [place] Med ical PPSV23 (PNEUMOVAX) Branch Pneumococcal 2010-05-07 Completed [place] o f Polysaccharide, 00:00:00 [place] Med ical PPSV23 (PNEUMOVAX) Branch Vital Signs Vital Name Observation Time Observation Value Comments Source Systolic blood 2021-12-12 15:05:00 131 mm[Hg] [facility] pressure Diastolic blood 2021-12-12 15:05:00 79 mm[Hg] [facility] pressure Heart rate 2021-12-12 15:05:00 74 /min [facility] Body temperature 2021-12-12 15:05:00 36.61 [facility] Body height 2021-12-12 15:05:00 160 cm [facility] Body weight 2021-12-12 15:05:00 68.675 kg [facility] BMI 2021-12-12 15:05:00 26.82 kg/m2 [facility] Oxygen saturation in 2021-12-12 15:05:00 90 /min [facility] Arterial blood by Pulse oximetry Respiratory rate 2021-10-04 16:04:00 18 /min [facility] Procedures Procedure Date / Time Performed Performing Clinician [facility] e DISABILITY/FMLA 2022-04-18 05:01:00 Doctor Unassigned, No Univer sity of [facility] Medical Branch NC FINE NEEDLE 2021-12-12 17:23:29 Lucille Alvarado Ho spital ASPIRATION BX W/US GDN 1ST LESION NC FINE NEEDLE 2021-12-12 17:23:29 Lucille Alvarado Ho spital ASPIRATION BX W/US GDN EA ADDL CYTOLOGY 2021-12-12 16:33:00 Lucille Alvarado Ho spital (NON-GYNECOLOGICAL) REQUEST PULMONARY FUNCTION 2021-10-11 00:00:00 Provider, Historical [facility] TEST US THYROID EXTERNAL 2021-07-24 00:00:00 Provider, Historical [facility] STUDY CT CHEST ABD PEL 2021-07-23 17:59:[address] [facility] EXTERNAL STUDY CT CHEST WO CONTRAST 2021-07-23 00:00:00 Provider, Historical [facility] ABDOMEN WO CONTRAST PELVIS WO CONTRAST Plan of Care Planned Activity Planned Date Details Comments Source Future Scheduled 2022-05-16 HEPATITIS B VACCINES [facility] Test 22:22:08 (1 of 3 - 3-dose series) [code = HEPATITIS B VACCINES (1 of 3 - 3-dose series)] Future Scheduled 2022-05-16 Hepatitis C screening [facility] Test 22:22:08 (procedure) [code = 706615715] Future Scheduled 2022-05-16 SHINGLES VACCINES (1 [facility] Test 22:22:08 of 2) [code = SHINGLES VACCINES (1 of 2)] Future Scheduled 2022-05-[address] [facility] Test 22:22:08 SCREENING [code = BREAST CANCER SCREENING] Future Scheduled 2022-05-16 COLONOSCOPY SCREENING [facility] Test 22:22:08 [code = COLONOSCOPY SCREENING] Future Scheduled 2022-05-16 65+ PNEUMOCOCCAL [facility] Test 22:22:08 VACCINE (2 - PCV) [code = 65+ PNEUMOCOCCAL VACCINE (2 - PCV)] Future Scheduled 2022-05-16 COVID-19 VACCINE (4 - [facility] Test 22:22:08 Booster for Moderna series) [code = COVID-19 VACCINE (4 - Booster for Moderna series)] Future Scheduled 2022-05-16 INFLUENZA VACCINE Method [facility] Test 22:22:08 [code = INFLUENZA VACCINE] Encounters Start End Encounter Admission Attending Care Care Encounter Source Date/Time Date/Time Type Type Clinicians Facility Department ID 2022-04-18 2022-04-18 Orders Doctor FATOUMATA [id number] Univers 00:00:00 00:00:00 Only Unassigned, NETTIE 350.1.13.10 ity of [place] 4.2.7.2.686 Pete as [phone] Medi lisa 009 Branch 2022-01-24 2022-01-24 Telephone Elinor Gil2.840.2 [id number] Method 00:00:00 00:00:00 Mata Cook 86433.1.[address] 3.430.2.7 Hospit a .3.350209 l .8 2021-12-21 2021-12-21 Telephone Osmar, 1.2.840.5 [id number] Methodi 00:00:00 00:00:[address] 3.430.2.7 Hospit a .3.060994 l .8 2021-12-19 2021-12-19 Telephone Darnell, 1.2.840.8 [id number] Methodi 00:00:00 00:00:00 Lucille Gomez 91510.1.[address] 3.430.2.7 Hospit a .3.672535 l .8 2021-12-17 2021-12-17 Telephone Kevin, 1.2.840.1 [id number] Methodi 00:00:00 00:00:[address] 3.430.2.7 Hospit a .3.361229 l .8 2021-12-14 2021-12-14 Telephone Kevin, 1.2.840.1 [id number] [id number] Methodi 00:00:00 00:00:[address] 3.430.2.7 Hospit a .3.730437 l .8 2021-12-14 2021-12-14 Abstract Kevin, 1.2.840.1 [id number] 2099 [id number] Methodi 00:00:00 00:00:[address] 3.430.2.7 Hospit a .3.703295 l .8 2021-12-13 2021-12-13 Oncology Bernal, 1.2.840.1 [id number] 2099 [id number] Methodi 00:00:00 00:00:00 [facility] Vincenzo 16338.1.1 802 s t ip 3.430.2.7 Hospit a .3.044931 l .8 2021-12-12 2021-12-12 Office Darnell, 1.2.840.3 [id number] Methodi 10:00:00 12:33:16 Visit Helmi S 43409.1.[address] 3.430.2.7 Hospit a .3.818093 l .8 2021-12-12 2021-12-12 Lab Darnell, 1.2.840.1 [id number] Methodi 00:15:00 00:20:00 Helally S [address]75.1.[address] 3.430.2.7 Hospit a .3.559620 l .8 2021-12-12 2021-12-12 [facility] [id number] [place] 00:00:00 00:00:[address] HELMI [address] 2021-12-12 2021-12-12 [facility] [id number] [place] 00:00:00 00:00:00 HELMI [address] 2021-12-12 2021-12-12 Travel 1.2.840.1 1.2.076.349 [id number] Methodi 00:00:00 00:00:[address] 3.430.2.7 0.2.7.3.698 Ho spita .3.953448 084.8 l .8 2021-12-10 2021-12-10 Social Sarah, 1.2.840.1 [id number] 2099 [id number] Methodi 00:00:00 00:00:00 Work Elemert R [address]68.1.[address] 3.430.2.7 Hospit a .3.242787 l .8 2021-12-07 2021-12-07 Oncology Gabe, 1.2.840.1 [id number] 2099 [id number] Methodi 00:00:00 00:00:00 [facility] Vincenzo 87584.1.1 303 s t ip 3.430.2.7 Hospit a .3.335485 l .8 2021-12-05 2021-12-05 Telephone Jeffery, 1.2.840.2 [id number] 689 [id number] Methodi 00:00:00 00:00:00 Edward Y.H. 48234.1.[address] 3.430.2.7 Hospit a .3.515345 l .8 2021-11-12 2021-11-12 Travel 1.2.840.1 1.2.773.441 [id number] Methodi 00:00:00 00:00:[address] 3.430.2.7 0.2.7.3.698 Ho spita .3.803432 084.8 l .8 2021-11-08 2021-11-08 Telephone Gil, 1.2.840.4 [id number] 706 [id number] Methodi 00:00:00 00:00:00 Eds[facility] Y.H. [address]98[address] 3.430.2.7 Hospit a .3.769036 l .8 2021-10-12 2021-10-12 Orders Provider, 1.2.840.1 [id number] 2099 [id number] Methodi 00:00:00 00:00:00 Only Historical 73680.1.1 529 s t 3.430.2.7 Hospit a .3.179094 l .8 2021-10-11 2021-10-11 Telephone Gil, 1.2.840.3 [id number] 745 [id number] Methodi 00:00:00 00:00:00 [facility] Y.H. 40440.1.[address] 3.430.2.7 Hospit a .3.821704 l .8 2021-10-04 2021-10-04 Hospital Gil, 1.2.840.1 [id number] Methodi 10:31:20 23:59:00 Encounter [facility] Y.H. 89678.1.[address] 3.430.2.7 Hospit a .3.842331 l .8 2021-10-04 2021-10-04 Office Gil, 1.2.840.1 [id number] Methodi 10:00:00 11:17:24 Visit Edserge Benoit.H. 17389.1.[address] 3.430.2.7 Hospit a .3.663590 l .8 2021-10-04 2021-10-04 Outpatient [facility] [id number] [place] 00:00:00 00:00:00 EDWARD [address] 2021-10-04 2021-10-04 Outpatient [facility] [id number] [place] 00:00:00 00:00:00 EDWARD [address] 2021-10-04 2021-10-04 Orders Provider, 1.2.840.1 [id number] 2099 [id number] Methodi 00:00:00 00:00:00 Only Historical 87738.1.1 858 s t 3.430.2.7 Hospit a .3.897278 l .8 2021-10-04 2021-10-04 Travel 1.2.840.1 1.2.136.727 3899 [id number] Methodi 00:00:00 00:00:[address] 3.430.2.7 0.2.7.3.698 Ho spita .3.879545 084.8 l .8 2021-10-03 2021-10-03 Telephone Negrito NVOLIVIA 1.2.840.114 [id number] [facility] [place] [facility] 00:00:00 00:00:00 [facility] 350.1.13.10 it y of [place] 4.2.7.2.686 Pete as HANK?BLEA [id number] [address] MEDICAL OFFICE BUILDING 2021-10-03 2021-10-03 Orders Provider, 1.2.840.1 [id number] 2099 [id number] Methodi 00:00:00 00:00:00 Only Historical 36343.1.1 589 s t 3.430.2.7 Hospit a .3.478194 l .8 2021-10-03 2021-10-03 Abstract Kevin, 1.2.840.1 [id number] 2099 [id number] Methodi 00:00:00 00:00:[address] 3.430.2.7 Hospit a .3.157144 l .8 2021-09-04 2021-09-04 Telephone Johann, 1.2.840.1 [id number] [id number] Methodi 00:00:00 00:00:[address] 3.430.2.7 Hospit a .3.115344 l .8 2021-08-06 2021-08-06 Telephone Ed, 1.2.840.1 [id number] [id number] Methodi 00:00:00 00:00:[address] 3.430.2.7 Hospit a .3.748032 l .8 2020-10-04 2020-10-04 [facility] 1.2.840.114 [id number] 13:26:02 23:59:00 Encounter [facility] 350.1.13.10 Surgical 4.2.7.2.686 Specialti [id number] es [address] [place] 2020-10-04 2020-10-04 Office [facility] 1.2.097.569 [id number] 1787 13:02:43 13:37:47 Visit [facility] 350.1.13.10 Surgical 4.2.7.2.686 Specialti [id number] es 198 [place] Results Test Description Test Time Test Comments Results Result Comments Source Cytology (non-gynecological) request 2021-12-13 19:07:52 Test Item Value Reference Range Interpretation Comme nts Case number (test code = [id number]) [id number] Cytology (non-gynecological) report (test See link below for PDF La b Report code = 1178) Result status (test code = 7649875) This is Final Report for [id number] [facility]
[2022-05-18 01:48] LABS: Absolute Lymphocytes (CBC) 1.9 K/uL (0.7-4.9); Hematocrit 40.9 % (36.0-45.0); Lymphocytes % 39.4 % (15.3-44.8); MCV 93.8 fL (80-100); MPV 8.3 fL (7.6-11.3); RBC Red Blood Cell Count 4.36 M/uL (3.86-4.86)
[2022-05-18 01:52] LABS: Urine Blood Negative (Negative); Urine Glucose Negative (Negative); Urine Protein Negative (Negative); Urine pH 5.5 (5.0-7.0)
[2022-05-18 02:03] LABS: Bilirubin Total 0.5 mg/dL (0.2-1.0)
[2022-05-18 02:15] LABS: Urine Bacteria <20 /HPF (<20); Urine RBC <5 /HPF (None Seen)
[2022-05-18] MEDS ORDERED: NA CHLORIDE 0.9% 1,000 ML ONE (02:31)
[2022-05-18] MEDS ORDERED: MORPHINE 4 MG/ML SYR ONE (02:31)
[2022-05-18] MEDS ORDERED: HYDROMORPHONE HCL 0.5 MG/0.5 ML INJ ONE (04:22)
--- NOTE | 2022-05-18 05:19 | EDPHYS ---
Physician Documentation [facility] Name: Brandy Perez Age: 67 yrs Sex: Female : 1955 Arrival Date: 05/18/2022 Time: 01:18 Bed 13 Private MD: ED Physician Saw Lombardi HPI: 05/18 02:57 This 67 yrs old Black Female presents to ER via Ambulatory with complaints of Abdominal ms3 Pain. 02:57 The patient presents with abdominal pain in the right upper quadrant, in the left upper ms3 quadrant. Onset: The symptoms/episode began/occurred acutely, 5 hour(s) ago. The symptoms do not radiate. Associated signs and symptoms: Pertinent negatives: nausea, vomiting, and diarrhea. The symptoms are described as crampy. Modifying factors: The symptoms are alleviated by nothing, the symptoms are aggravated by nothing. Severity of pain: At its worst the pain was severe in the emergency department the pain is unchanged. Historical: - Allergies: 01:34 Keflex; bb 01:34 Mobic; bb 01:34 Phenergan; bb - Home Meds: 08:41 Aspirin Oral [Active]; CellCept Oral [Active]; Plaquenil Oral [Active]; jg9 09:23 carvedilol 12.5 mg oral tab 1 tab 2 times per day [Active]; jg9 - PMHx: 01:34 Arthritis; COPD; GERD; Hypertension; Lupus; Osteoporosis; RIGHT LEG NERVE PAIN; bb SCOLEOSIS; 08:41 scoliosis; jg9 - PSHx: 01:34 nephrectomy; bb - Immunization history:: Adult Immunizations up to date. - Social history:: Smoking status: unknown. ROS: 02:57 Constitutional: Negative for fever, and chills. ENT: Negative for injury, pain, and ms3 discharge, Neck: Negative for injury, pain, and swelling, Cardiovascular: Negative for chest pain, and palpitations. Respiratory: Negative for shortness of breath, cough, wheezing, and pleuritic chest pain, MS/Extremity: Negative for injury and deformity, Skin: Negative for injury, rash, and discoloration, Neuro: Negative for headache, weakness, numbness, tingling. 02:57 Abdomen/GI: Positive for abdominal pain. Exam: 02:57 Constitutional: This is a well developed, well nourished patient who is awake, alert, ms3 and in no acute distress. Neck: Trachea midline, no cervical lymphadenopathy. Supple, full range of motion without nuchal rigidity, or vertebral point tenderness. No Meningismus. Chest/axilla: Normal chest wall appearance and motion. Nontender with no deformity. Cardiovascular: Regular rate and rhythm with a normal S1 and S2. No gallops, murmurs, or rubs. Normal PMI, no JVD. No pulse deficits. Respiratory: Lungs have equal breath sounds bilaterally, clear to auscultation and percussion. No rales, rhonchi or wheezes noted. No increased work of breathing, no retractions or nasal flaring. Skin: Warm, dry with normal turgor. Normal color with no rashes, no lesions, and no evidence of cellulitis. MS/ Extremity: Pulses equal, no cyanosis. Neurovascular intact. Full, normal range of motion. Psych: Awake, alert, with orientation to person, place and time. Behavior, mood, and affect are within normal limits. 02:57 Abdomen/GI: Inspection: abdomen appears normal, Bowel sounds: normal, Palpation: moderate abdominal tenderness, in the right upper quadrant and left upper quadrant. 03:42 ECG was reviewed by the Attending Physician. ms3 Vital Signs: 01:31 BP 148 / 95; Pulse 71; Resp 18 S; Temp 98.9(O); Pulse Ox 99% on R/A; Weight 68.49 kg bb (R); Height 5 ft. 3 in. (160.02 cm) (R); Pain 10/10; 07:30 BP 165 / 101; Pulse 77; Resp 15 S; Pulse Ox 93% ; Pain 4/10; jg9 08:40 BP 162 / 100; Pulse 81; Resp 15 S; Pulse Ox 94% on R/A; Pain 4/10; jg9 10:00 BP 152 / 100; Pulse 82; Resp 17 S; Pulse Ox 97% ; Pain 2/10; jg9 01:31 Body Mass Index 26.75 (68.49 kg, 160.02 cm) bb MDM: 01:28 Patient medically screened. ms3 02:57 Differential diagnosis: bowel obstruction, cholecystitis, Cholelithiasis, non-specific ms3 abd pain, pancreatitis. 05:17 Physician consultation: Manan Hancock MD was called at 05:17, was contacted at 05:17, ms3 regarding consult, Patient will need transfer for ERCP. 05:19 Data reviewed: vital signs, nurses notes, lab test result(s), radiologic studies. ms3 Counseling: I had a detailed discussion with the patient and/or guardian regarding: the historical points, exam findings, and any diagnostic results supporting the discharge/admit diagnosis, lab results, radiology results, the need to transfer to another facility, for higher level of care, [facility] does not immediately have the required specialist. 07:19 ED course: Discussed case with Dr Moran at [facility] and he accepts patient.. ms3 05/18 01:29 Order name: CBC with Diff; Complete Time: 01:51 ms3 05/18 01:29 Order name: CMP; Complete Time: 02:34 ms3 05/18 01:29 Order name: Lipase; Complete Time: 02:34 ms3 05/18 01:29 Order name: Urine Microscopic Only; Complete Time: 02:34 ms3 05/18 01:52 Order name: Urine Dipstick-Ancillary; Complete Time: 02:34 EDMS 05/18 05:22 Order name: SARS RAPID; Complete Time: 07:16 wm 05/18 01:29 Order name: CT Abd/Pelvis - Without Contrast ms3 05/18 03:19 Order name: US Abdomen Limited ms3 05/18 01:29 Order name: IV Saline Lock; Complete Time: 01:44 ms3 05/18 01:29 Order name: Labs collected and sent; Complete Time: 01:44 ms3 05/18 01:29 Order name: Urine Dipstick-Ancillary (obtain specimen); Complete Time: 01:44 ms3 EC:42 Rate is 86 beats/min. Rhythm is regular. QRS [place] is Normal. VT interval is normal. No ms3 ST changes noted. Clinical impression: Normal ECG. Interpreted by me. Reviewed by me. Administered Medications: Drug: NS 0.9% 1000 ml Route: IV; Rate: 1 bolus; Site: right antecubital; ll3 07:00 Follow up: IV Status: Completed infusion; IV Intake: 1000ml jg9 : Drug: morphine 4 mg Route: IVP; Infused Over: 4 mins; Site: right antecubital; ll3 07:00 Follow up: Response: No adverse reaction; Pain is decreased jg9 04:15 Drug: Dilaudid (HYDROmorphone) 0.5 mg Route: IVP; Site: right antecubital; ja4 07:00 Follow up: Response: No adverse reaction; Pain is decreased jg9 05:33 Drug: LevaQUIN (levofloxacin) 750 mg Route: IVPB; Site: left antecubital; 4 07:00 Follow up: IV Status: Completed infusion; IV Intake: 100ml jg9 05:54 Drug: Zofran (Ondansetron) 4 mg Route: IVP; Site: right antecubital; 4 07:00 Follow up: Response: No adverse reaction jg9 09:22 Drug: carvedilol 6.25 mg Route: PO; jg9 10:00 Follow up: Response: No adverse reaction; Blood pressure is lowered jg9 Disposition Summary: 05/18/22 05:18 Transfer Ordered Transfer Location: [facility] ms3 Reason: Higher level of care ms3 Condition: Stable ms3 Problem: new ms3 Symptoms: are unchanged ms3 Accepting Physician: Dr Moran(05/18/22 10:08) jg9 Diagnosis - Acute cholecystitis ms3 - Elevated lipase ms3 - Essential (primary) hypertension ms3 Forms: - Medication Reconciliation Form ms3 - SBAR form ms3 Signatures: Dispatcher [employer] EDHayley Miramontes RN RN bb Sims, Marcus, DO DO ms3 Valery Clifton RN RN ll3 Josefina Degroot RN RN jg9 Bridgette Yu PA PA sb3 Javier Sanchez RN RN ja4 Corrections: (The following items were deleted from the chart) 07:33 05:18 Dr willard ms3 10:08 07:33 Dr Moran ms3 jg9
--- NOTE | 2022-05-18 05:19 | ER ---
Nurse's Notes [facility] Name: Brandy Perez Age: 67 yrs Sex: Female : 1955 Arrival Date: 05/18/2022 Time: 01:18 Bed 13 Private MD: Diagnosis: Acute cholecystitis;Elevated lipase;Essential (primary) hypertension Presentation: 05/18 01:31 Chief complaint: Patient states: she started having really bad abdominal cramping all bb over since around 2014 denies nausea, vomiting, diarrhea, chills or fever. Coronavirus screen: At this time, the client does not indicate any symptoms associated with coronavirus-19. Ebola Screen: No symptoms or risks identified at this time. Initial Sepsis Screen: Does the patient meet any 2 criteria? No. Patient's initial sepsis screen is negative. Does the patient have a suspected source of infection? No. Patient's initial sepsis screen is negative. Risk Assessment: Do you want to hurt yourself or someone else? Patient reports no desire to harm self or others. Onset of symptoms was May 17, 2022. 01:31 Method Of Arrival: Ambulatory bb 01:31 Acuity: LEONARDO 3 bb Historical: - Allergies: 01:34 Keflex; bb 01:34 Mobic; bb 01:34 Phenergan; bb - Home Meds: 08:41 Aspirin Oral [Active]; CellCept Oral [Active]; Plaquenil Oral [Active]; jg9 09:23 carvedilol 12.5 mg oral tab 1 tab 2 times per day [Active]; jg9 - PMHx: 01:34 Arthritis; COPD; GERD; Hypertension; Lupus; Osteoporosis; RIGHT LEG NERVE PAIN; bb SCOLEOSIS; 08:41 scoliosis; jg9 - PSHx: 01:34 nephrectomy; bb - Immunization history:: Adult Immunizations up to date. - Social history:: Smoking status: unknown. Screenin:44 Abuse screen: Denies threats or abuse. Nutritional screening: No deficits noted. ja4 Tuberculosis screening: No symptoms or risk factors identified. Fall Risk IV access (20 points). Assessment: 02:44 General: Appears distressed, uncomfortable, Behavior is cooperative, appropriate for 5 age. Pain: Complains of pain in abdomen Pain currently is 10 out of 10 on a pain scale. GI: Abd is soft Abdomen is tender to palpation X 4 quads. Reports. 07:00 Reassessment: Patient and/or family updated on plan of care and expected duration. Pain jg9 level reassessed. Patient is alert, oriented x 3, equal unlabored respirations, skin warm/dry/pink. Patient states feeling better. Patient states symptoms have improved. GI: Bowel sounds present X 4 quads. Parent/caregiver reports the patient having improvement in discomfort. Vital Signs: 01:31 BP 148 / 95; Pulse 71; Resp 18 S; Temp 98.9(O); Pulse Ox 99% on R/A; Weight 68.49 kg bb (R); Height 5 ft. 3 in. (160.02 cm) (R); Pain 10/10; 07:30 BP 165 / 101; Pulse 77; Resp 15 S; Pulse Ox 93% ; Pain 4/10; jg9 08:40 BP 162 / 100; Pulse 81; Resp 15 S; Pulse Ox 94% on R/A; Pain 4/10; jg9 10:00 BP 152 / 100; Pulse 82; Resp 17 S; Pulse Ox 97% ; Pain 2/10; jg9 01:31 Body Mass Index 26.75 (68.49 kg, 160.02 cm) ED Course: 01:18 Patient arrived in ED. ja2 01:22 Saw Lombardi DO is Attending Physician. ms3 01:34 Triage completed. bb 01:34 Arm band placed on Patient placed in an exam room, on a stretcher, on pulse oximetry. bb Family accompanied patient. 01:44 Initial lab(s) drawn, by me, sent to lab. Urine collected: clean catch specimen, mh5 cloudy. Inserted saline lock: 22 gauge in right antecubital area, using aseptic technique. Blood collected. 01:52 Urine Microscopic Only Sent. mh5 01:52 Lipase Sent. mh5 01:52 CMP Sent. mh5 01:53 Patient has correct armband on for positive identification. Placed in gown. Bed in low mh5 position. Call light in reach. Side rails up X2. Adult w/ patient. Warm blanket given. Pulse ox on. NIBP on. 02:12 Valery Clifton RN is Primary Nurse. ll3 02:27 CT Abd/Pelvis - Without Contrast In Process Unspecified. EDMS 02:44 No provider procedures requiring assistance completed. ja4 04:01 US Abdomen Limited In Process Unspecified. EDMS 05:28 Initiated transfer to [facility] and spoke with Maribel, she stated that she is going to try wm to place Pt at [facility]. 05:30 COVID swab sent to lab. fu 07:16 connected the hospitalist distance education teacher for [facility] with Dr. Lombardi for patient eb transfer consultation. 07:55 administrative approval given by Inga Mckenzie/ patient has been accepted to [facility] [id number]/ Dr. Moran has accepted the patient in transfer/ report to be called to [phone]. 10:07 Patient transferred, IV remains in place. jg9 Administered Medications: 02:27 Drug: NS 0.9% 1000 ml Route: IV; Rate: 1 bolus; Site: right antecubital; 3 07:00 Follow up: IV Status: Completed infusion; IV Intake: 1000ml jg9 02:27 Drug: morphine 4 mg Route: IVP; Infused Over: 4 mins; Site: right antecubital; 3 07:00 Follow up: Response: No adverse reaction; Pain is decreased jg9 04:15 Drug: Dilaudid (HYDROmorphone) 0.5 mg Route: IVP; Site: right antecubital; ja4 07:00 Follow up: Response: No adverse reaction; Pain is decreased jg9 05:33 Drug: LevaQUIN (levofloxacin) 750 mg Route: IVPB; Site: left antecubital; ja4 07:00 Follow up: IV Status: Completed infusion; IV Intake: 100ml jg9 05:54 Drug: Zofran (Ondansetron) 4 mg Route: IVP; Site: right antecubital; ja4 07:00 Follow up: Response: No adverse reaction jg9 09:22 Drug: carvedilol 6.25 mg Route: PO; jg9 10:00 Follow up: Response: No adverse reaction; Blood pressure is lowered jg9 Medication: 02:44 VIS not applicable for this client. ja4 Intake: 07:00 IV: 100ml; Total: 100ml. jg9 07:00 IV: 1000ml; Total: 1100ml. jg9 Outcome: 05:18 ER care complete, transfer ordered by . ms3 10:07 Transferred by ground EMS to [facility], Transfer form completed. jg9 10:07 Transferred Note: report called to LENARD Kramer 10:07 Condition: stable 10:08 Patient left the ED. jg9 Signatures: Dispatcher [employer] EDMS Hayley Wheeler, Leanna Hall RN [facility] Niels Benito, RN Inga Bourgeois Marcus, DO DO ms3 Ping Oglesby Jessica ja2 Valery Clifton RN RN 3 Josefina Degroot RN RN jg9 Javier Sanchez RN RN ja4 Corrections: (The following items were deleted from the chart) 08:37 08:35 BP 131 / 85; Pulse 96bpm; Resp 15bpm; Spontaneous; Pulse Ox 93% RA; Pain 4/10; [id number]
[2022-05-18] MEDS ORDERED: Levofloxacin 750mg IV 750 MG/150 ML BAG IV ONE (05:43)
[2022-05-18] MEDS ORDERED: ONDANSETRON 4 MG/2 ML VIAL ONE (05:59)
[2022-05-18 06:18] LABS: SARS-CoV-2 Antigen Rapid Res Negative (Negative)
[2022-05-18] MEDS ORDERED: carvediloL 6.25 MG TAB ONE (09:26)
[2022-05-18 10:43] VITALS: TEMP 98.9
[2022-05-18 11:04] VITALS: BP 152/100; O2SAT 97
--- NOTE | 2022-05-18 17:55 | RAD REPORT ---
EXAM DESCRIPTION: CT - Abdomen Pelvis Wo Contrast - 05/18/2022 6:20 am CLINICAL HISTORY: Generalized abdominal pain TECHNIQUE: Axial computed tomography images of the abdomen and pelvis without intravenous contrast. Sagittal and coronal reformatted images were created and reviewed. This CT exam was performed usi ng one or more of the following dose reduction techniques: automated exposure control, adjustment o f the mA and/or kV according to patient size, and/or use of iterative reconstruction technique. COMPARISON: Abdomen pelvis CT dated 07/23/2021 FINDINGS: Lung bases: Bibasilar paraseptal and centrilobular emphysema and pleural parenchymal scar. ABDOMEN: Liver: The liver is enlarged. Stable 7 mm left hepatic hypodensity which cannot be fully characteri ze. No follow-up imaging is necessary. Gallbladder and bile ducts: The gallbladder is contracted. Biliary dilatation mildly progressed. The common duct measures 13 mm in maximum diameter (previously 10 mm). No calcified stones. Pancreas: Unremarkable. No ductal dilation. Spleen: Splenic parenchymal calcifications compatible with remote granulomatous exposure. Adrenals: Unremarkable. No mass. 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 Compensatory hypertrophy of the left ki dney. No calculi. No hydronephrosis. Scattered hyperdense cysts on the left. No follow-up imaging is necessary. Stomach and bowel: Moderate stool. No bowel obstruction. Colonic diverticula without adjacent infla mmatory change. No mucosal thickening. PELVIS: Appendix: The appendix is not definitively visualized. No findings to suggest acute appendicitis. Bladder: Unremarkable. No stones. Reproductive: There has been a hysterectomy. No adnexal cysts or masses are identified. ABDOMEN and PELVIS: Intraperitoneal space: Unremarkable. No free air. No significant fluid collection. Bones/joints: Thoracolumbar S-shaped scoliosis and multilevel spondylosis. Partially visualized lef t thoracic Hay juan. No acute fracture. No dislocation. Soft tissues: Tiny fat-containing umbilical hernia. Small bilateral fat-containing inguinal hernias . Vasculature: Mild to moderate atherosclerotic disease. No abdominal aortic aneurysm. Lymph nodes: Unremarkable. No enlarged lymph nodes. IMPRESSION: 1. No acute inflammatory process identified within the abdomen and pelvis. 2. Mild interval progression of biliary dilatation. 3. Other findings as above. Electronically signed by: Ahmet White MD 05/18/2022 3:05 AM CDT Due to temporary technical issues with the PACS/Fluency reporting system, reports are being signed by the in house radiologists without review as a courtesy to insure prompt reporting. The interpreting radiologist is fully responsible for the content of the report.
--- NOTE | 2022-05-20 12:11 | RAD REPORT ---
EXAM DESCRIPTION: US - Abdomen Exam Limited - 05/18/2022 4:07 am CLINICAL HISTORY: The patient is 67 years old and is Female; ABD PAIN nausea TECHNIQUE: Real-time ultrasound of the right upper quadrant with image documentation. COMPARISON: CT abdomen pelvis May 18, 2022. FINDINGS: Gallbladder: Small non-mobile stone in the gallbladder neck. Gallbladder wall thickness 3. 6 mm. Positive sonographic Blevins sign. Common bile duct: Common bile duct 9.6 mm in diameter. No choledocholithiasis visualized. Pancreas: Pancreas is not well evaluated. IMPRESSION: Findings are consistent with cholecystitis. Dilated common bile duct. Electronically signed by: Maribel Larry MD 05/18/2022 4:45 AM CDT Due to temporary technical issues with the PACS/Fluency reporting system, reports are being signed by the in house radiologists without review as a courtesy to insure prompt reporting. The interpreting radiologist is fully responsible for the content of the report.
== END 2022-05-18 10:08 | disposition short-term general hospital (02) ==
LOC: ER 01:14
DX: K81.0 Acute cholecystitis (principal); R79.89 Other specified abnormal findings of blood chemistry; I10 Essential (primary) hypertension; J44.9 Chronic obstructive pulmonary disease, unspecified; Z20.822 Contact with and (suspected) exposure to COVID-19; Z79.82 Long term (current) use of aspirin; Z88.5 Allergy status to narcotic agent; Z88.6 Allergy status to analgesic agent; Z88.8 Allergy status to other drugs, medicaments and biological substances
CPT/HCPCS: 96365; 96361; 85025; 36415; 83690; 80053; 74176; 76705; 96375; 99285; 87811; J1170; J7030; J2405; 81003; 81015

== ENCOUNTER 2023-04-02 08:50 | Emergency (ER) | payer OTHER ==
--- OUTSIDE RECORDS SUMMARY | 2023-04-02 08:56 | XMS REPORT | Continuity of Care Document ---
:1955 Author Organization [facility] t Address [address] [place] [address] [place] [id number] Care Team Providers Name Role Phone MARISELA LYONS Primary Care Physician Unavailabl e Lab, Ang - Db Attending Clinician Unavailable Venessa Bob MD Attending Clinician VENESSA BOB Attending Clinician Unavailable Doctor Unassigned, Benavides Attending Clinician Unavailable NELLY VASQUEZ Attending Clinician Unavailable Mukesh العلي MD Attending Clinician [phone] MISBAH MORAN Attending Clinician Unavailable Misbah Moran MD Attending Clinician Henry Jarrell MD Attending Clinician Abdiel Vela CRNA Attending Clinician Mata Gil MD Attending Clinician Vaughn Prasad Attending Clinician Unavailable Lucille Alvarado MD Attending Clinician Simran Brown MA Attending Clinician Unavailable Vincenzo Bernal RN Attending Clinician Unavailable Bebeto Smith LMSW Attending Clinician Unavailable Solitario Spear MD Attending Clinician Rhonda Wills MA Attending Clinician Unavailable Irma Ward MA Attending Clinician Unavailable Doe Gonzalez MD Attending Clinician DOE GONZALEZ Attending Clinician Unavailable DOE GONZALEZ Attending Clinician Unavailable Only, Adc Test Attending Clinician Unavailable MISBAH MORAN Admitting Clinician Unavailable VENESSA BOB Admitting Clinician Unavailable Payers Payer Name Policy Type Policy Number Effective Date Expiration Date S chi [place] - [id number] 2019 OUT OF STATE 00:00:00 MEDICARE PART A [id number] 2014 00:00:00 [facility] [id number] 2022 00:00:00 MEDICARE PART A [id number] 2014 00:00:00 Problems Condition Condition Condition Status Onset Resolution Last Treating Co mments Source Name Details Category Date Date Treatment Clinician Date Acute Acute Disease Active [facility] cholecysti cholecysti 05-18 Gina kes tis tis 00:00: Medical 00 [place] Acute Acute Disease Active [facility] pancreatit pancreatit 05-18 Gina kes is is 00:00: Medical 00 [place] Total knee Total knee Disease Active U nivers replacemen replacemen 02-20 it y of t status t status 00:00: [place] [address] Medical Branch Primary Primary Disease Active Overview: Univ ers osteoarthr osteoarthr 5-21 Formattin ity of itis of itis of 00:00: g of this [place] left knee left knee 00 note Medi lisa might be Branch different from the original. Added automatic ally from request for surgery [id number] Left hand Left hand Disease Active 2015-09 Uni vers pain pain 2-16 ity of 00:00: [place] [address] Medical Branch No known No known Disease Metho di active active st problems problems Hospit a l Allergies, Adverse Reactions, Alerts Allergy Allergy Status Severity Reaction(s) Onset Inactive Treating Comm ents Source Name Type Date Date Clinician Cephalex Propensi Active Hives [facility]: Medical reaction 00 Center s Meloxica Propensi Active Rash [facility] 827 [facility] adverse 00:[facility]: Medical reaction 00 Center s Prometha Propensi Active Shortness Of [facility] zine ty to Breath 05-18 [facility] adverse 00:00: Medical reaction 00 Center s CEPHALEX Allergy Active High Hives 0 [facility] IN 05-18 00:00: 00 PROMETHA Allergy Active High Sob 0 [facility] ZINE 05-18 00:00: 00 MELOXICA Allergy Active Low Rash 0 [facility] M 05-18 00:00: 00 K-FLEX DRUG Active COUGH 2015-09 Univers 2-16 ity of 00:00: [place] 00 Medical Branch MELOXICA DRUG Active N/V 2015-09 Univers M INGREDI 2-16 ity of 00:00: [place] 00 Medical Branch PHENERGA DRUG Active ITCHING 2015-09 Univers N DM 2-16 ity of 00:00: [place] 00 Medical Branch K-Flex Propensi Active Cough 2015-09 Univers ty to 2-16 ity of adverse 00:00: [place] reaction 00 Medical s Branch Meloxica Propensi Active Nausea 2015-09 Univer s m ty to and/or 216 ity of adverse Vomiting 00:00: [place] reaction [...] Propensi Active Other (See 2015-09 Sick of [facility] heredia m ty to Comments) 09-[address] adverse 00:00: stomach Hospita reaction 00 l s to drug Prometha Propensi Active Itching 2015-09 Metho di zine ty to 09-30 st adverse 00:00: Hospita reaction 00 l s to drug Social History Social Habit Start Date Stop Date Quantity Comments Source History SDFL [facility] History of tobacco Current smoker Un iversity of use [facility] Gender identity [facility] Sexual orientation [facility] Exposure to 2022-10-22 2022-11-01 Not sure University of SARS-CoV-2 (event) 00:00:00 08:52:00 [place] [facility] History SDOH 2022-05-18 2022-05-[address] [facility] Transport Med 00:00:00 00:00:[address] History SDOH 2022-05-18 2022-05-18 [address] [facility] [address] [facility] Housing Unable to 00:00:00 00:00:00 Medical Center Pay History [facility] 2022-05-18 2022-05-18 1 [facility] Housing Places 00:00:00 00:00:00 Medical Ce nter Lived History [facility] 2022-05-18 2022-05-18 2 [facility] Housing Homeless 00:00:00 00:00:00 Medical Center Last Year History of Social 2021-12-14 2021-12-[address] function 00:00:00 00:00:00 Hospital Alcohol intake 2021-12-14 2021-12-14 Current drinker Metho dist 00:00:00 00:00:00 of alcohol Hospital (finding) Tobacco use and 2021-10-04 2021-10-04 Smokeless [facility] exposure 00:00:00 00:00:00 tobacco non-user Hospital Sex Ass[birth year] At [birth year] [facility] 00:00:00 00:00:00 Hospital Smoking Status Start Date Stop Date Source Never smoked tobacco [facility] Ex-smoker 2021-10-04 00:00:00 2021-10-04 00:00:00 [facility] Medications Ordered Filled Start Stop Current Ordering Indication Dosage Frequency Signature Comments Components Source Medication Medication Date Date Medication? Clinician (SIG) Name Name methylPREDN Yes Take by Uni vers ISolone 2-10 mouth ity of (MEDROL, 00:00: SEE-INSTRU Pete as PACSUAL,) 4 mg 00 CTIONS. Medica l tablets follow Branch package directions methylPREDN Yes Take by Uni vers ISolone 2-10 mouth ity of (MEDROL, 00:00: SEE-INSTRU [place] PASCUAL,) 4 mg 00 CTIONS. Medica l tablets follow Branch package directions methylPREDN Yes Take by Uni vers ISolone 2-10 mouth ity of (MEDROL, 00:00: SEE-INSTRU [place] as PASCUAL,) 4 mg 00 CTIONS. Medica l tablets follow Branch package directions acetaminoph Yes 1{tbl} Take [address] en-codeine 9-14 tablet by Romeo gomez (TYLENOL 11:20: mouth. Medical #3) 300-30 02 Center mg per tablet carvediloL Yes 12.5mg Take 12.[address] (COREG) 9-14 mg by [facility] 12.5 MG 11:19: mouth 2 Medical tablet 42 (two) Center times daily with breakfast and dinner. NIFEdipine Yes 30mg QD Take [address] (ADALAT CC) 9-14 by mouth Luke s 30 MG 24 hr 11:19: daily. Medi lisa tablet 42 Center aspirin 81 Yes 81mg QD Take [address] MG EC 9-14 by mouth [facility] tablet 11:19: daily. Medical 42 Center hydrOXYchlo 0 Yes 200mg QD Take [address] roQUINE 9-14 mg by [facility] (PLAQUENIL) 11:19: mouth Medic al 200 mg 42 daily. Center tablet mycophenola Yes 500mg QD Take [address] 9-14 mg by [facility] (CELLCEPT) 11:19: mouth Medica l 500 mg 42 daily. Center tablet HYDROcodone 2021- No 1{tbl} Take [address] -acetaminop 8-29 09-08 tablet by Gina rosales (NORCO 00:00: 23:59 mouth Medic al 10-325) 00 :00 every 4 Center 10-325 mg (four) per tablet hours as needed for up to 10 days. Max Daily Amount: 6 tablets aspirin 81 0 Yes 1{tbl} Chew 1 Met hodi mg chewable 3-[address] tablet 10:07: Hospita 29 l pantoprazol Yes 10mg Take 10 mg Methodi e 3-[address] (PROTONIX) 10:07: Hospita 20 MG EC 29 l tablet multivit-mi Yes 1{capsu Take 1 M ethodi n/iron/foli 3-23 le} capsule by st c/lutein 10:07: mouth. Hospita (CENTRUM 29 l SILVER WOMEN ORAL) aspirin 81 2021-0 Yes 1{tbl} Chew 1 Met hodi mg chewable 3-[address] tablet 10:07: Hospita 29 l pantoprazol Yes 10mg Take 10 mg Methodi e 3-[address] (PROTONIX) 10:07: Hospita 20 MG EC 29 l tablet multivit-mi Yes 1{capsu Take 1 M ethodi n/iron/foli 3-23 le} capsule by st c/lutein 10:07: mouth. Hospita (CENTRUM 29 l SILVER WOMEN ORAL) aspirin 81 Yes 1{tbl} Chew 1 Met [...] WOMEN ORAL) carvediloL 2020-09 Yes Methodi (COREG) 1-22 st 12.5 MG 00:00: Hospita tablet 00 l carvediloL 2020-09 Yes Methodi (COREG) 1-22 st 12.5 MG 00:00: Hospita tablet 00 l carvediloL 2020-09 Yes Methodi (COREG) 1-22 st 12.5 MG 00:00: Hospita tablet 00 l cyclobenzap 2020-09 Yes Method i rine 1-11 st (FLEXERIL) 00:00: Hospita 5 mg tablet 00 l cyclobenzap 2020-09 Yes Method i rine 1-11 st (FLEXERIL) 00:00: Hospita 5 mg tablet 00 l cyclobenzap 2020-09 Yes Method i rine 1-11 st (FLEXERIL) 00:00: Hospita 5 mg tablet 00 l NIFEdipine 2020-09 Yes Methodi CC (ADALAT 0-11 st CC) 30 MG 00:00: Hospita 24 hr 00 l tablet NIFEdipine 2020-09 Yes [facility] (ADALAT 0-11 st CC) 30 MG 00:00: Hospita 24 hr 00 l tablet NIFEdipine 2020-09 Yes Methodi CC (ADALAT 0-11 st CC) 30 MG 00:00: Hospita 24 hr 00 l tablet methylPREDN 2020-09 Yes [id number] 84mg Take 21 Univers ISolone 0-01 tablets by ity of (MEDROL, 00:00: mouth [place] PASCUAL,) 4 mg 00 SEE-INSTRU Med ical tablets CTIONS. Branch follow package directions methylPREDN 2020- Yes [id number] 84mg Take 21 Univers ISolone 0-01 tablets by ity of (MEDROL, 00:00: mouth [place] PASCUAL,) 4 mg 00 SEE-INSTRU Med ical tablets CTIONS. Branch follow package directions methylPREDN 2020-09 Yes [id number] 84mg Take 21 Univers ISolone 0-01 tablets by ity of (MEDROL, 00:00: mouth [place] PASCUAL,) 4 mg 00 SEE-INSTRU Med ical tablets CTIONS. Branch follow package directions methylPREDN 2020-09 Yes [id number] 84mg Take 21 Univers ISolone 0-01 tablets by ity of (MEDROL, 00:00: mouth [place] PASCUAL,) 4 mg 00 SEE-INSTRU Med ical tablets CTIONS. Branch follow package directions methylPREDN 2020-09 Yes [id number] 84mg Take 21 Univers ISolone 0-01 tablets by ity of (MEDROL, 00:00: mouth [place] PASCUAL,) 4 mg 00 SEE-INSTRU Med ical tablets CTIONS. Branch follow package directions methylPREDN 2020- Yes [id number] 84mg Take 21 Univers ISolone 0-01 tablets by ity of (MEDROL, 00:00: mouth [place] PASCUAL,) 4 mg 00 SEE-INSTRU Med ical tablets CTIONS. Branch follow package directions gabapentin 2021-0 Yes 200mg Take 2 Univ ers 100 mg 4-13 capsules ity of capsule 00:00: [place] mouth 3 [place] ([place]) Medical times Branch daily. gabapentin 2021-0 Yes 200mg Take 2 Univ ers 100 mg 4-13 capsules ity of capsule 00:00: [place] mouth 3 [place] (three) Medical times Branch daily. gabapentin 2021-0 Yes 200mg Take 2 Univ ers 100 mg 4-13 capsules ity of capsule 00:00: [place] mouth 3 [place] 00 (three) Medical times Branch daily. gabapentin 2021-0 Yes 200mg Take 2 Univ ers 100 mg 4-13 capsules ity of capsule 00:00: [place] mouth 3 [place] (three) Medical times Branch daily. gabapentin 2021-0 Yes 200mg Take 2 Univ ers 100 mg 4-13 capsules ity of capsule 00:00: [place] mouth 3 [place] (three) Medical times Branch daily. gabapentin 2020-0 Yes 200mg Take 2 Univ ers 100 mg 4-13 capsules ity of capsule 00:00: [place] mouth 3 [place] 00 (three) Medical times Branch daily. methylPREDN 2020-1 Yes [id number] 84mg Take 21 Univers ISolone 0-09 tablets by ity of (MEDROL, 00:00: mouth [place] PASCUAL,) 4 mg 00 SEE-INSTRU Med ical tablets CTIONS. Branch follow package directions methylPREDN 2020-1 Yes [id number] 84mg Take 21 Univers ISolone 0-09 tablets by ity of (MEDROL, 00:00: mouth [place] PASCUAL,) 4 mg 00 SEE-INSTRU Med ical tablets CTIONS. Branch follow package directions methylPREDN 2020- Yes [id number] 84mg Take 21 Univers ISolone 0-09 tablets by ity of (MEDROL, 00:00: mouth [place] PASCUAL,) 4 mg 00 SEE-INSTRU Med ical tablets CTIONS. Branch follow package directions methylPREDN 2020- Yes [id number] 84mg Take 21 Univers ISolone 0-09 tablets by ity of (MEDROL, 00:00: mouth [place] PASCUAL,) 4 mg 00 SEE-INSTRU Med ical tablets CTIONS. Branch follow package directions methylPREDN 2020- Yes [id number] 84mg Take 21 Univers ISolone 0-09 tablets by ity of (MEDROL, 00:00: mouth [place] PASCUAL,) 4 mg 00 SEE-INSTRU Med ical tablets CTIONS. Branch follow package directions methylPREDN 2020- Yes [id number] 84mg Take 21 Univers ISolone 0-09 tablets [...] s: acute pain, S/P LT TKR acetaminoph 2020-0 Yes [id number] 1 by mouth Univers en-codeine 7-28 every 4-6 ity of (TYLENOL-CO 00:00: [place]n [place] DEINE #3) 00 pain Medical 300-30 mg Indication Bran ch tablet s: acute pain, S/P LT TKR acetaminoph 2020-0 Yes [id number] 1 by mouth Univers en-codeine 7-28 every 4-6 ity of (TYLENOL-CO 00:00: hours prn [place] DEINE #3) 00 pain Medical 300-30 mg Indication Bran ch tablet s: acute pain, S/P LT TKR acetaminoph 2020-0 Yes [id number] 1 by mouth Univers en-codeine 7-28 every 4-6 ity of (TYLENOL-CO 00:00: hours prn [place] DEINE #3) 00 pain Medical 300-30 mg Indication Bran ch tablet s: acute pain, S/P LT TKR acetaminoph 2020-0 Yes [id number] 1 by mouth Univers en-codeine 7-28 every 4-6 ity of (TYLENOL-CO 00:00: hours prn [place] DEINE #3) 00 pain Medical 300-30 mg Indication Bran ch tablet s: acute pain, S/P LT TKR acetaminoph 2020-0 Yes [id number] 1 by mouth Univers en-codeine 7-28 every 4-6 ity of (TYLENOL-CO 00:00: hours prn [place] DEINE #3) 00 pain Medical 300-30 mg Indication Bran ch tablet s: acute pain, S/P LT TKR esomeprazol 2020-0 Yes 20mg Take 20 mg Univers e (NEXIUM) 6-02 by mouth ity o f 20 mg 16:29: daily [place] capsule 01 before a Medical meal. Branch CLINT 2019-0 Yes Take by Univers ASPIRIN 6-02 mouth. ity of ORAL 16:29: [place] [facility] losartan 2020-0 Yes 100mg Take 100 Univ ers 100 mg 6-02 mg by ity of tablet 16:29: mouth [place] daily. Medical Branch esomeprazol 2020-0 Yes 20mg Take 20 mg Univers e (NEXIUM) 6-02 by mouth ity o f 20 mg 16:29: daily [place] capsule 01 before a Medical meal. Branch CLINT 2019-0 Yes Take by Univers ASPIRIN 6-02 mouth. ity of ORAL 16:29: [place] [facility] losartan 2019-0 Yes 100mg Take 100 Univ ers 100 mg 6-02 mg by ity of tablet 16:29: mouth [place] 01 daily. Medical Branch esomeprazol 2020-0 Yes 20mg Take 20 mg Univers e (NEXIUM) 6-02 by mouth ity o f 20 mg 16:29: daily [place] capsule 01 before a Medical meal. Branch CLINT 2020-0 Yes Take by Univers ASPIRIN 6-02 mouth. ity of ORAL 16:29: [place] 01 Medical Branch losartan 2020-0 Yes 100mg Take 100 Univ ers 100 mg 6-02 mg by ity of tablet 16:29: mouth [place] 01 daily. Medical Branch esomeprazol 2020-0 Yes 20mg Take 20 mg Univers e (NEXIUM) 6-02 by mouth ity o f 20 mg 16:29: daily [place] capsule 01 before a Medical meal. Branch CLINT 2019-0 Yes Take by Univers ASPIRIN 6-02 mouth. ity of ORAL 16:29: [place] 01 Medical Branch losartan 2020-0 Yes 100mg Take 100 Univ ers 100 mg 6-02 mg by ity of tablet 16:29: mouth [place] daily. Medical Branch esomeprazol 2020-0 Yes 20mg Take 20 mg Univers e (NEXIUM) 6-02 by mouth ity o f 20 mg 16:29: daily [place] capsule 01 before a Medical meal. Branch CLINT 2019-0 Yes Take by Univers ASPIRIN 6-02 mouth. ity of ORAL 16:29: [place] 01 Medical Branch losartan 2020-0 Yes 100mg Take 100 Univ ers 100 mg 6-02 mg by ity of tablet 16:29: mouth [place] 01 daily. Medical Branch esomeprazol 2020-0 Yes 20mg Take 20 mg Univers e (NEXIUM) 6-02 by mouth ity o f 20 mg 16:29: daily [place] capsule 01 before a Medical meal. Branch CLINT 2020-0 Yes Take by Univers ASPIRIN 6-02 mouth. ity of ORAL 16:29: [place] 01 Medical Branch losartan 2020-0 Yes 100mg Take 100 Univ ers 100 mg 6-02 mg by ity of tablet 16:29: mouth [place] 01 daily. Medical Branch acetaminoph 2020-0 Yes [id number] 1{tbl} Take 1 Univers en-codeine 6-02 05 tablet by ity of (TYLENOL-CO 00:00: mouth [place] DEINE #3) 00 every 4 Medical 300-30 mg (four) Branch tablet hours as needed for Pain (scale 4-6) or Pain (scale 7-10). acetaminoph 2020-0 Yes [id number] 1{tbl} Take 1 Univers en-codeine 6-02 05 tablet by ity of (TYLENOL-CO 00:00: mouth [place] DEINE #3) 00 every 4 Medical 300-30 mg (four) Branch tablet hours as needed for Pain (scale 4-6) or Pain (scale 7-10). acetaminoph 2020-0 Yes [id number] 1{tbl} Take 1 Univers en-codeine 6-02 05 tablet by ity of (TYLENOL-CO 00:00: mouth [place] DEINE #3) 00 every 4 Medical 300-30 mg (four) Branch tablet hours as needed for Pain (scale 4-6) or Pain (scale 7-10). acetaminoph 2020-0 Yes [id number] 1{tbl} Take 1 Univers en-codeine 6-02 05 tablet by ity of (TYLENOL-CO 00:00: mouth [place] DEINE #3) 00 every 4 Medical 300-30 mg (four) Branch tablet hours as needed for Pain (scale 4-6) or Pain (scale 7-10). acetaminoph 2020-0 Yes [id number] 1{tbl} Take 1 Univers en-codeine 6-02 05 tablet by ity of (TYLENOL-CO 00:00: mouth [place] DEINE #3) 00 every 4 Medical 300-30 mg (four) Branch tablet hours as needed for Pain (scale 4-6) or Pain (scale 7-10). acetaminoph 2020-0 Yes [id number] 1{tbl} Take 1 Univers en-codeine 6-02 05 tablet by ity of (TYLENOL-CO 00:00: mouth [place] DEINE #3) 00 every 4 Medical 300-30 mg (four) Branch tablet hours as needed for Pain (scale 4-6) or Pain (scale 7-10). BEVESPI 2018-09 Yes Univers AEROSPHERE 2-31 ity of 9-4.8 mcg 00:00: [place] HFAA 00 Medical Branch BEVESPI 2019- Yes Univers AEROSPHERE 2-31 ity of 9-4.8 mcg 00:00: [place] HFAA 00 Medical Branch BEVESPI 2019 Yes Univers AEROSPHERE 2-31 ity of 9-4.8 mcg 00:00: [place] [facility] Medical [facility] 2019- Yes Univers AEROSPHERE 2-31 ity of 9-4.8 mcg 00:00: [facility] [place] Medical [facility] 2018- Yes Univers AEROSPHERE 2-31 ity of 9-4.8 mcg 00:00: [facility] [place] [facility] 2018- Yes Univers AEROSPHERE 2-31 ity of 9-4.8 mcg 00:00: [facility] [place] [place] [facility] carvedilol 2018-09 Yes Univers 25 mg 1-21 ity of tablet 00:00: [place] [facility] carvedilol 2018- Yes Univers 25 mg 1-21 ity of tablet 00:00: [place] [facility] carvedilol 2018- Yes Univers 25 mg 1-21 ity of tablet 00:00: [place] [facility] carvedilol 2018-09 Yes Univers 25 mg 1-21 ity of tablet 00:00: [place] [facility] carvedilol 2018- Yes Univers 25 mg 1-21 ity of tablet 00:00: [place] [facility] carvedilol 2018-09 Yes Univers 25 mg 1-21 ity of tablet 00:00: [place] [facility] 2018-09 Yes Univer s ne 09-22 ity of acetonide 00:00: [place] 0.1 % 00 [facility] ointment [facility] 2018-09 Yes Univer s ne 09-22 ity of acetonide 00:00: [place] 0.1 % 00 [facility] [place] [facility] 2018-09 Yes Univer s ne 09-22 ity of acetonide 00:00: [place] 0.1 % 00 [facility] [place] [facility] 2018-09 Yes Univer s ne 09-22 ity of acetonide 00:00: [place] 0.1 % 00 [facility] ointment [facility] 2018-09 Yes Univer s ne 09-22 ity of acetonide 00:00: [place] 0.1 % 00 [facility] [place] [facility] 2018-09 Yes Univer s ne 09-22 ity of acetonide 00:00: [place] 0.1 % 00 [facility] ointment [facility] 2018-09 Yes Method i ne 09-22 st (KENALOG) 00:00: Hospita 0.1 % 00 l ointment triamcinolo 2018-09 Yes Method i ne 09-22 st (KENALOG) 00:00: Hospita 0.1 % 00 l ointment triamcinolo 2018-09 Yes Method i ne 09-22 st (KENALOG) 00:00: Hospita 0.1 % 00 l ointment methylPREDN 2018-09 Yes Univer s ISolone 4 0-30 ity of mg tablets 00:00: [place] [facility] methylPREDN 2018- Yes Univer s ISolone 4 0-30 ity of mg tablets 00:00: [place] [facility] Branch methylPREDN 2018- Yes Univer s ISolone 4 0-30 ity of mg tablets 00:00: [place] [facility] Branch methylPREDN 2018- Yes Univer s ISolone 4 0-30 ity of mg tablets 00:00: [address] Branch methylPREDN 2018- Yes Univer s ISolone 4 0-30 ity of mg tablets 00:00: [address] Branch methylPREDN 2018- Yes Univer s ISolone 4 0-30 ity of mg tablets 00:00: [address] Branch NIFEdipine 2018- Yes Univers ER 30 mg 0-26 ity of tablet 00:00: [place] [facility] NIFEdipine 2019- Yes Univers ER 30 mg 0-26 ity of tablet 00:00: [address] NIFEdipine 2018- Yes Univers ER 30 mg 0-26 ity of tablet 00:00: [place] [address] Medical Branch NIFEdipine 2019-1 Yes Univers ER 30 mg 0-26 ity of tablet 00:00: [place] [facility] NIFEdipine 2019- Yes Univers ER 30 mg 0-26 ity of tablet 00:00: [place] [facility] NIFEdipine 2018- Yes Univers ER 30 mg 0-26 ity of tablet 00:00: [place] [facility] Branch cyclobenzap 2019- Yes Univer s rine 5 mg 0-16 ity of tablet 00:00: [place] [facility] cyclobenzap 2018- Yes Univer s rine 5 mg 0-16 ity of tablet 00:00: [place] [address] Medical Branch cyclobenzap 2018- Yes Univer s rine 5 mg 0-16 ity of tablet 00:00: [place] [facility] cyclobenzap 2018- Yes Univer s rine 5 mg 0-16 ity of tablet 00:00: [place] 00 [facility] cyclobenzap 2018-09 Yes Univer s rine 5 mg 0-16 ity of tablet 00:00: [place] [facility] cyclobenzap 2018-09 Yes Univer s rine 5 mg 0-16 ity of tablet 00:00: [place] [facility] bisoprolol- 2015-09 Yes Univer s hydrochloro 1-29 ity of thiazide 00:00: [place] (ZIAC) 00 Medical 5-6.25 mg Branch per tablet losartan 2015-09 Yes Univers (COZAAR) 50 1-29 ity of mg tablet 00:00: [place] [facility] [place] bisoprolol- 2015-09 Yes Univer s hydrochloro 1-29 ity of thiazide 00:00: [place] (ZIAC) 00 Medical 5-6.25 mg Branch per tablet losartan 2015-09 Yes Univers (COZAAR) 50 1-29 ity of mg tablet 00:00: [place] [facility] bisoprolol- 2015-09 Yes Univer s hydrochloro 1-29 ity of thiazide 00:00: [place] (ZIAC) 00 Medical 5-6.25 mg Branch per tablet losartan 2015-09 Yes Univers (COZAAR) 50 1-29 ity of mg tablet 00:00: [place] [facility] bisoprolol- 2015-09 Yes Univer s hydrochloro 1-29 ity of thiazide 00:00: [place] (ZIAC) 00 Medical 5-6.25 mg Branch per tablet losartan 2015-09 Yes Univers (COZAAR) 50 1-29 ity of mg tablet 00:00: [place] [facility] bisoprolol- 2015-09 Yes Univer s hydrochloro 1-29 ity of thiazide 00:00: [place] (ZIAC) 00 Medical 5-6.25 mg Branch per tablet losartan 2015-09 Yes Univers (COZAAR) 50 1-29 ity of mg tablet 00:00: [place] [facility] bisoprolol- 2015-09 Yes Univer s hydrochloro 1-29 ity of thiazide 00:00: [place] (ZIAC) 00 Medical 5-6.25 mg Branch per tablet losartan 2015-09 Yes Univers (COZAAR) 50 1-29 ity of mg tablet 00:00: [place] [facility] acetaminoph 2015-09 Yes TAKE BY Uni vers [...] A DAY Med ical mg tablet NEEDED [facility] h hydroxychlo 2015-09 Yes 200mg Take 200 [...] [place] 500 mg 00 Medical tablet Branch hydrOXYchlo 2015-09 Yes 1{tbl} Take 1 Me thodi roQUINE 1-[address] (PLAQUENIL) 00:00: mouth. Hosp birgit 200 mg 00 l tablet acetaminoph 2015-09 Yes 1{tbl} Take 1 Me thodi en-codeine 1-[address] (TYLENOL 00:00: mouth. Hospita WITH 00 l CODEINE #3) 300-30 mg per tablet hydrOXYchlo 2015-09 Yes 1{tbl} Take 1 Me thodi roQUINE 1-[address] (PLAQUENIL) 00:00: mouth. Hosp birgit 200 mg 00 l tablet acetaminoph 2015-09 Yes 1{tbl} Take 1 Me thodi en-codeine 1-[address] (TYLENOL 00:00: mouth. Hospita WITH 00 l CODEINE #3) 300-30 mg per tablet hydrOXYchlo 2015-09 Yes 1{tbl} Take 1 Me thodi roQUINE 1-[address] (PLAQUENIL) 00:00: mouth. Hosp birgit 200 mg 00 l tablet acetaminoph 2015-09 Yes 1{tbl} Take 1 Me thodi en-codeine 1-[address] (TYLENOL 00:00: mouth. Hospita WITH 00 l CODEINE #3) 300-30 mg per tablet bisoprolol- 2015-09 Yes Method i hydrochloro 0-30 st thiazide 00:00: Hospita (ZIAC) 00 l 5-6.25 mg per tablet bisoprolol- 2015-09 Yes Method i hydrochloro 0-30 st thiazide 00:00: Hospita (ZIAC) 00 l 5-6.25 mg per tablet bisoprolol- 2015-09 Yes Method i hydrochloro 0-30 st thiazide 00:00: Hospita (ZIAC) 00 l 5-6.25 mg per tablet losartan 2015-09- No Methodi (COZAAR) 50 0-30 01-12 st MG tablet 00:00: 00:00 Hospita 00 :00 l gabapentin 2015-09- No Method i (NEURONTIN) 0-23 01-12 st 400 MG 00:00: 00:00 Hospita capsule 00 :00 l mycophenola 2015-09 Yes Method i te 0-06 st (CELLCEPT) 00:00: Hospita 500 mg 00 l tablet mycophenola 2015-09 Yes Method i te 0-06 st (CELLCEPT) 00:00: Hospita 500 mg 00 l tablet mycophenola 2015-09 Yes [facility]-06 st (CELLCEPT) 00:00: Hospita 500 mg 00 l tablet Immunizations Ordered Filled Immunization Date Status Comments [facility] e Immunization Name Name Pneumococcal 2010-05-07 Completed [facility] Pol[facility], 00[facility]00 [place] [facility] PPSV23 (PNEUMOVAX) Branch Pneumococcal 2010-05-07 Completed University o f Polysaccharide, 00:00:00 [place] [facility] PPSV23 (PNEUMOVAX) Branch Pneumococcal 2010-05-07 Completed University o [facility] Polysaccharide, 00:00:00 [place] [facility] PPSV23 (PNEUMOVAX) Branch Pneumococcal 2010-05-07 Completed University o f Polysaccharide, 00:00:00 [place] [facility] PPSV23 (PNEUMOVAX) Branch Pneumococcal 2010-05-07 Completed University o f Polysaccharide, 00:00:00 [place] [facility] PPSV23 (PNEUMOVAX) Branch Pneumococcal 2010-05-07 Completed University o f Polysaccharide, 00:00:00 [facility] ica PPSV23 (PNEUMOVAX) Branch Vital Signs Vital Name Observation Time Observation Value Comments Source Body weight 2022-11-01 14:54:00 69.4 kg [facility] BMI 2022-11-01 14:54:00 27.10 kg/m2 [facility] HEIGHT 2022-06-05 11:18:00 162.6 cm WEIGHT 2022-06-05 11:18:00 66.951 kg HEIGHT 2022-05-18 23:30:00 162.6 cm WEIGHT 2022-05-18 23:30:00 85.276 kg HEIGHT 2022-05-18 23:30:00 162.6 cm WEIGHT 2022-05-18 23:30:00 85.276 kg Systolic blood 2022-06-05 11:18:00 107 mm[Hg] [facility] Diastolic blood 2022-06-05 11:18:00 73 mm[Hg] [facility] Heart rate 2022-06-05 11:18:00 76 /min [facility] Body temperature 2022-06-05 11:18:00 36.5 Lynette [facility] Body height 2022-06-05 11:18:[address] [facility] Body weight 2022-06-05 11:18:[address] [facility] BMI 2022-06-05 11:18:00 25.34 kg/m2 [facility] Respiratory rate 2022-05-20 12:00:00 18 /min [facility] Oxygen saturation in 2022-05-20 12:00:00 92 /min [facility] Arterial blood by Medical Ce nter Pulse oximetry Systolic blood 2021-12-12 15:05:00 131 mm[Hg] [facility] pressure Diastolic blood 2021-12-12 15:05:00 79 mm[Hg[facility] pressure Heart rate 2021-12-12 15:05:00 74 /min [facility] Body temperature 2021-12-12 15:05:00 36.61 Lynette [facility] Body height 2021-12-12 15:05:00 160 cm [facility] Body weight 2021-12-12 15:05:00 68.675 kg [facility] BMI 2021-12-12 15:05:00 26.82 kg/m2 [facility] Oxygen saturation in 2021-12-12 15:05:00 90 /min [facility] Arterial blood by Pulse oximetry Respiratory rate 2021-10-04 16:04:00 18 /min Meth [facility] Procedures Procedure Date / Time Performing Clinician Source Performed ASSIGNMENT OF BENEFITS 2022-11-01 14:53:55 Doctor Unassigned, [facility] CBC W/PLT COUNT & AUTO 2022-05-20 04:34:00 [facility] DIFFERENTIAL An [place] CBC W/PLT COUNT & AUTO 2022-05-20 04:34:00 [facility] DIFFERENTIAL An [place] BASIC METABOLIC PANEL 2022-05-20 04:33:00 [facility] MAGNESIUM 2022-05-20 04:33:00 [facility] An [place] PHOSPHORUS 2022-05-20 04:33:00 [facility] HEPATIC FUNCTION PANEL 2022-05-20 04:33:00 [facility] TISSUE EXAM 2022-05-19 17:14:00 [facility] CHOLECYSTECTOMY, 2022-05-19 16:38:00 [facility] LAPAROSCOPIC [facility] BASIC METABOLIC PANEL 2022-05-19 04:55:00 [facility] An Center MAGNESIUM 2022-05-19 04:55:00 [facility] An Center PHOSPHORUS 2022-05-19 04:55:00 [facility] CBC W/PLT COUNT & AUTO 2022-05-19 04:55:00 [facility] DIFFERENTIAL An Center LIPASE 2022-05-19 04:55:00 [facility] CBC W/PLT COUNT & AUTO 2022-05-19 04:55:00 [facility] DIFFERENTIAL An Center POCT-GLUCOSE METER 2022-05-19 00:06:00 Misbah [facility] BASIC METABOLIC PANEL 2022-05-18 16:17:00 [facility] [place] [facility] HEPATIC FUNCTION PANEL 2022-05-18 16:17:00 [facility] [place] [facility] An Center MAGNESIUM 2022-05-18 16:17:00 [facility] [place] [facility] An Center PHOSPHORUS 2022-05-18 16:17:00 [facility] [place] [facility] PROTHROMBIN TIME/INR 2022-05-18 16:17:00 [facility] CenterVikas armijo Pis C [facility] CBC W/PLT COUNT & AUTO 2022-05-18 16:17:00 [facility] arm[facility]ille P[facility] DIFFERENTIAL An Center CBC W/PLT COUNT & AUTO 2022-05-18 16:17:00 [facility] Center[facility]as armijo Pis [facility] DIFFERENTIAL An Center MR ABDOMEN WITHOUT IV 2022-05-18 15:35:00 Mukesh العلي [facility] DISABILITY/FMLA 2022-04-18 05:01:00 Doctor Unassigned, No [facility] [place] FINE NEEDLE 2021-12-12 17:23:29 Lucille Alvarado Ho spital ASPIRATION BX W/US GDN 1ST LESION [place] FINE NEEDLE 2021-12-12 17:23:29 Lucille Alvarado Ho spital ASPIRATION BX W/US GDN EA ADDL CYTOLOGY 2021-12-12 16:33:00 Lucille Alvarado Ho spital (NON-GYNECOLOGICAL) REQUEST PULMONARY FUNCTION TEST 2021-10-11 00:00:00 Provider, Historical [facility] US THYROID EXTERNAL 2021-07-24 00:00:00 Provider, Historical [facility] STUDY CT CHEST ABD PEL 2021-07-23 17:59:00 Mata Gil [facility] EXTERNAL STUDY CT CHEST WO CONTRAST 2021-07-23 00:00:00 Provider, Historical [facility] ABDOMEN WO CONTRAST PELVIS WO CONTRAST Plan of Care Planned Activity Planned Date Details Comments Source Future Scheduled 2023-06-[address] [facility] Test 00:00:00 [facility] r Screening (12+) [code = Tobacco Cessation Counseling and Screening (12+)] Future Scheduled 2023-03-07 [facility] Test 03:27:49 malignant neoplasm of colon (procedure) [code = 100792924] Future Scheduled 2023-03-07 [facility] Test 03:27:49 malignant neoplasm of colon (procedure) [code = 257601586] Future Scheduled 2023-03-07 [facility] Test 03:27:49 malignant neoplasm of colon (procedure) [code = 424108287] Future Scheduled 2023-03-07 Hepatitis C screening [facility] Test 03:27:49 (procedure) [code = 041175163] Future Scheduled 2023-03-07 SHINGLES VACCINES ([address] [facility] Test 03:27:49 of 2) [code = SHINGLES VACCINES (1 of 2)] Future Scheduled 2023-03-07 BREAST CANCER [facility] Test 03:27:49 SCREENING [code = BREAST CANCER SCREENING] Future Scheduled 2023-03-07 Screening for [facility] Test 03:27:49 malignant neoplasm of colon (procedure) [code = 306537074] Future Scheduled 2023-03-07 Screening for [facility] Test 03:27:49 malignant neoplasm of colon (procedure) [code = 423187489] Future Scheduled 2023-03-07 65+ [facility]OCOCCAL [facility] Test 03:27:49 VACCINE (2 - PCV) [code = 65+ PNEUMOCOCCAL VACCINE (2 - PCV)] Future Scheduled 2023-03-07 COVID-19 VACCINE (4 - [facility] Test 03:27:49 Booster for Moderna series) [code = COVID-19 VACCINE (4 - Booster for Moderna series)] Future Scheduled 2023-03-07 INFLUENZA VACCINE [facility] Test 03:27:49 [code = INFLUENZA VACCINE] Future Scheduled 2022-09-[address] [facility] Test 00:00:00 (12+) [code = Medical Center DEPRESSION SCREENING (12+)] Future Scheduled 2022-09-22 FALLS RISK SCREENING [facility] Test 00:00:00 [code = FALLS RISK Medical C enter SCREENING] Future Scheduled 2022-09-06 BREAST CANCER [facility] Test 05:45:37 SCREENING [code = BREAST CANCER SCREENING] Future Scheduled 2022-09-06 COLONOSCOPY SCREENING [facility] Test 05:45:37 [code = COLONOSCOPY SCREENING] Future Scheduled 2022-09-06 65+ [facility]OCOCCAL [facility] Test 05:45:37 VACCINE (2 - PCV) [code = 65+ PNEUMOCOCCAL VACCINE (2 - PCV)] Future Scheduled 2022-09-06 COVID-19 VACCINE (4 - [facility] Test 05:45:37 Booster for Moderna series) [code = COVID-19 VACCINE (4 - Booster for Moderna series)] Future Scheduled 2022-09-06 INFLUENZA VACCINE Method [facility] Test 05:45:37 [code = INFLUENZA VACCINE] Future Scheduled 2022-09-06 Hepatitis C screening [facility] Test 05:45:37 (procedure) [code = 047484914] Future Scheduled 2022-09-06 SHINGLES VACCINES ([address] [facility] Test 05:45:37 of 2) [code = SHINGLES VACCINES (1 of 2)] Future Scheduled 2022-05-23 INFLUENZA VACCINE (#1) [facility] 00:00[facility]00 [code = INFLUENZA Medical Ce nter VACCINE (#1)] Future Scheduled 2022-05-16 HEPATITIS B VACCINES Met [facility] Test 22:22:08 (1 of 3 - 3-dose series) [code = HEPATITIS B VACCINES (1 of 3 - 3-dose series)] Future Scheduled 2022-05-16 Hepatitis C screening [facility] Test 22:22:08 (procedure) [code = 830741643] Future Scheduled 2022-05-16 SHINGLES VACCINES ([address] [facility] Test 22:22:08 of 2) [code = SHINGLES VACCINES (1 of 2)] Future Scheduled 2022-05-16 BREAST CANCER [facility] Test 22:22:08 SCREENING [code = BREAST CANCER SCREENING] Future Scheduled 2022-05-16 COLONOSCOPY SCREENING [facility] Test 22:22:08 [code = COLONOSCOPY SCREENING] Future Scheduled 2022-05-16 65+ [facility]OCOCCAL [facility] Test 22:22:08 VACCINE (2 - PCV) [code = 65+ PNEUMOCOCCAL VACCINE (2 - PCV)] Future Scheduled 2022-05-16 COVID-19 VACCINE (4 - [facility] Test 22:22:08 Booster for Moderna series) [code = COVID-19 VACCINE (4 - Booster for Moderna series)] Future Scheduled 2022-05-16 INFLUENZA VACCINE [facility] Test 22:22:08 [code = INFLUENZA VACCINE] Future Scheduled 1975 DTAP/TDAP/TD [facility]ACCINES [facility] 00:00:00 (1 - Tdap) [code = Medical C enter DTAP/TDAP/TD VACCINES (1 - Tdap)] Future Scheduled 1975 SHINGLES VACCINES ([address] [facility] Test 00:00:00 of 2) [code = SHINGLES Medic al Center VACCINES (1 of 2)] Future Scheduled 1974 HEPATITIS C [facility]CREENING [facility] 00:00:00 [code = HEPATITIS C Medical Center SCREENING] Future Scheduled 1956 COVID-19 VACCINE (#1) [facility] 00:00:00 [code = COVID-[address] VACCINE (#1)] Future Scheduled [address] [facility] Test 00:00:00 malignant neoplasm of Medica l Center breast (procedure) [code = 943700482] Future Scheduled [address] [facility] Test 00:00:00 (combo) [code = CT Medical C enter Colonography (combo)] Future Scheduled [address] [facility] Test 00:00:00 malignant neoplasm of Medica l Center colon (procedure) [code = 627386382] Future Scheduled [address] [facility] Test 00:00:00 malignant neoplasm of Medica l Center colon (procedure) [code = 614067027] Future Scheduled 1956 DXA SCAN [code = DXA [facility] Test 00:00:00 SCAN] Medical Center Future Scheduled [address] [facility] Test 00:00:00 malignant neoplasm of Medica l Center colon (procedure) [code = 034229488] Future Scheduled [address] [facility] Test 00:00:00 malignant neoplasm of [facility] colon (procedure) [code = 021213243] Future Scheduled 1956 Sigmoidoscopy [code = [facility] Sigmoidoscopy] [facility] En[facility] Start End Encounter Admission Attending Care Care Encounter Source Date/Time Date/Time Type Type Clinicians Facility Department ID 2022-11-01 2022-11-01 Reference Library Assistant Lab, Ang - [facility] 1.2.840.1 [id number] [facility] 09:30:00 09:45:00 Visit Venessa Bob [facility] 350.1.13.10 ity of [place] 4.2.7.2.686 Pete as JARAD?BLEA [phone] [facility] [address] [facility] OFFICE [facility] 2022-11-01 2022-11-01 Outpatient [facility] [id number] [facility] 09:15:00 09:23:34 [facility] 2022-11-01 2022-11-01 Office [facility] [id number] [facility] 09:15:00 09:23:34 [facility] 350.1.13.10 it y of [place] 4.2.7.2.686 Pete as JARAD?BLEA [phone] [facility] [address] [facility] OFFICE [facility] 2022-11-01 2022-11-01 Outpatient [facility] [id number] Univers 09:15:00 09:15:[address] [facility] 2022-11-01 2022-11-01 Orders Doctor HAM 1.2.840.114 [id number] Univers 00:00:00 00:00:00 Only Unassigned, NETTIE 350.1.13.10 ity of [place] [facility] 4.2.7.2.686 Pete as [phone] [address] 2022-07-24 2022-07-24 Outpatient RAUDEL VASQUEZ [facility] [id number] [facility] 00:00:00 00:00:00 [facility] 2022-06-05 2022-06-[address] [id number] 11:30:00 11:34:22 Visit [facility] 2022-05-18 2022-05-20 Inpatient ER CAREN MORAN General Med [id number] [facility] 11:16:00 13:31:00 [facility] 2022-05-18 2022-05-20 Hospital ER Dean [facility] [id number] 11:16:00 13:31:00 Encounter [facility] 2022-05-19 2022-05-19 Anesthesia Henry Jarrell [facility] [id number] 16:38:00 18:11:00 Event MirianAbdiel [facility] 2022-05-19 2022-05-19 Surgery Severiano [facility] [id number] 14:00:00 15:10:00 [facility] 2022-04-18 2022-04-18 Orders Doctor FATOUMATA 1.2.840.114 [id number] Univers 00:00:00 00:00:00 Only Unassigned, NETTIE 350.1.13.10 ity of [place] [facility] 4.2.7.2.686 Pete as [phone] [place] [address] [facility] 2022-01-24 2022-01-24 Telephone Jeffery, 1.2.840.0 [id number] Methodi 00:00:00 00:00:00 Mata Cook [address]375.1.[address] 3.430.2.7 Hospit a .3.651366 l .8 2021-12-21 2021-12-21 Telephone Osmar 1.2.840.3 [id number] Methodi 00:00:00 00:00:[address] 3.430.2.7 Hospit a .3.356534 l .8 2021-12-19 2021-12-19 Telephone Jenny 1.2.840.7 [id number] Methodi 00:00:00 00:00:00 Helmi S [address]192.1.[address] 3.430.2.7 Hospit a .3.761360 l .8 2021-12-17 2021-12-17 Telephone Kevin, 1.2.840.1 [id number] Methodi 00:00:00 00:00:[address] 3.430.2.7 Hospit a .3.609360 l .8 2021-12-14 2021-12-14 Telephone Kevin, 1.2.840.1 [id number] [id number] Methodi 00:00:00 00:00:[address] 3.430.2.7 Hospit a .3.818450 l .8 2021-12-14 2021-12-14 Abstract Kevin, 1.2.840.1 [id number] [id number] Methodi 00:00:00 00:00:[address] 3.430.2.7 Hospit a .3.702302 l .8 2021-12-13 2021-12-13 Oncology Bernal, 1.2.840.1 [id number] 2099 [id number] Methodi 00:00:00 00:00:00 [facility] Vincenzo 18086.1.1 802 s t ip 3.430.2.7 Hospit a .3.693729 l .8 2021-12-12 2021-12-12 Office Jenny, 1.2.840.0 [id number] Methodi 10:00:00 12:33:16 Visit Helmi S 66257.1.[address] 3.430.2.7 Hospit a .3.630282 l .8 2021-12-12 2021-12-12 Lab Jenny, 1.2.840.1 [id number] Methodi 00:15:00 00:20:00 Helmi S [address]2405.1.[address] 3.430.2.7 Hospit a .3.956663 l .8 2021-12-12 2021-12-12 Travel 1.2.840.1 1.2.192.534 [id number] Methodi 00:00:00 00:00:[address] 3.430.2.7 0.2.7.3.698 Ho spita .3.369549 084.8 l .8 2021-12-10 2021-12-10 Social Sarah, 1.2.840.1 [id number] 2100 [id number] Methodi 00:00:00 00:00:00 Work Bebeto Vu 71738.1.[address] 3.430.2.7 Hospit a .3.956441 l .8 2021-12-07 2021-12-07 Oncology Gabe, 1.2.840.1 [id number] Methodi 00:00:00 00:00:00 [facility] Vincenzo 32914.1.1 303 s t ip 3.430.2.7 Hospit a .3.455114 l .8 2021-12-05 2021-12-05 Telephone Jeffery 1.2.840.9 [id number] Methodi 00:00:00 00:00:00 Mata PartidaHAlireza 01110.1.[address] 3.430.2.7 Hospit a .3.406078 l .8 2021-11-12 2021-11-12 Travel 1.2.840.1 1.2.756.680 [id number] [id number] Methodi 00:00:00 00:00:[address] 3.430.2.7 0.2.7.3.698 Ho spita .3.436541 084.8 l .8 2021-11-08 2021-11-08 Telephone Jeffery, 1.2.840.8 [id number] Methodi 00:00:00 00:00:00 Edserge Benoit.H. [address]24.1.[address] 3.430.2.7 Hospit a .3.671306 l .8 2021-10-12 2021-10-12 Orders Provider, 1.2.840.1 [id number] [id number] Methodi 00:00:00 00:00:00 Only Historical 28139.1.1 529 s t 3.430.2.7 Hospit a .3.873346 l .8 2021-10-11 2021-10-11 Telephone Gil, 1.2.840.7 [id number] [id number] Methodi 00:00:00 00:00:00 [address]ds[address] 3.430.2.7 Hospit a .3.493677 l .8 2021-10-04 2021-10-04 [facility], 1.2.840.1 [id number] [id number] Methodi 10:31:20 23:59:00 Encounter Mata Dumont. 63891.1.[address] 3.430.2.7 Hospit a .3.038474 l .8 2021-10-04 2021-10-04 Office Gil, 1.2.840.1 [id number] Methodi 10:00:00 11:17:24 Visit Mata Dumont. 45517.1.[address] 3.430.2.7 Hospit a .3.948753 l .8 2021-10-04 2021-10-04 Orders Provider, 1.2.840.1 [id number] 2100 [id number] Methodi 00:00:00 00:00:00 Only Historical 18476.1.1 858 s t 3.430.2.7 Hospit a .3.459055 l .8 2021-10-04 2021-10-04 Travel 1.2.840.1 1.2.762.969 [id number] Methodi 00:00:00 00:00:[address] 3.430.2.7 0.2.7.3.698 Ho spita .3.125826 084.8 l .8 2021-10-03 2021-10-03 Telephone AIDA Bob 1.2.840.114 [id number] Univers 00:00:00 00:00:00 [facility] 350.1.13.10 it y of [place] 4.2.7.2.686 Pete as JARAD?BLEA [phone] Ia rock WILSON [address] [place] [address] MEDICAL OFFICE BUILDING 2021-10-03 2021-10-03 Orders Provider, 1.2.840.1 [id number] 2100 [id number] Methodi 00:00:00 00:00:00 Only Historical 56292.1.1 589 s t 3.430.2.7 Hospit a .3.465434 l .8 2021-10-03 2021-10-03 Abstract Kevin, 1.2.840.1 [id number] 2100 [id number] Methodi 00:00:00 00:00:[address] 3.430.2.7 Hospit a .3.920644 l .8 2021-09-04 2021-09-04 Telephone Johann, 1.2.840.1 [id number] Methodi 00:00:00 00:00:[address] 3.430.2.7 Hospit a .3.001533 l .8 2021-08-06 2021-08-06 Telephone Ed, 1.2.840.1 [id number] 2099 [id number] Methodi 00:00:00 00:00:[address] 3.430.2.7 Hospit a .3.660557 l .8 2021-06-22 2021-06-22 [facility] 1.2.029.552 [id number] Univers 08:06:42 08:39:39 Visit Venessa Smith [facility] 350.1.13.10 it y of [place] 4.2.7.2.686 Pete as Jarad?Blea [phone] Ia rock fariba [address] [place] [address] Office [facility] 2021-06-22 2021-06-22 Outpatient [facility] [id number] Univers 08:15:00 08:15:00 VENESSAMORALES torres [facility] 2021-02-01 2021-02-01 Outpatient R [facility] [id number] Univers 11:00:00 11:00:00 ity of [facility] 2021-01-08 2021-01-08 Telephone [facility] 1.2.840.114 [id number] Univers 00:00:00 00:00:00 Doe Oseguera 350.1.13.10 ity of [place] [phone] Ia dicwv nal [address] [place] [address] 2020-12-27 2020-12-27 Telephone [facility] 1.2.840.114 [id number] Univers 00:00:00 00:00:00 Doe Mick Oseguera 350.1.13.10 ity of [place].2.[place] [id number] [address] 2020-12-18 2020-12-18 [facility] 1.2.236.590 [id number] Univers 09:10:42 23:59:00 Encounter Doe Oseguera 350.1.13.10 ity of [place]2.7.2.[place] [id number] [facility] [address] [place] 2020-12-18 2020-12-18 [facility] 1.2.710.753 [id number] Univers 09:00:00 09:09:00 Encounter Doe Oseguera 350.1.13.10 ity of [place].2.[place] [phone] [address] 2020-12-18 2020-12-18 Outpatient R DOE GONZALEZ [facility] [id number] Univers 00:00:00 00:00:00 DOE GONZALEZ ity of [facility] 2020-12-15 2020-12-15 Office [facility] 1.2.840.114 [id number] Univers 13:31:44 14:22:04 Visit Doe Oseguera 350.1.13.10 ity of [place].2.[place] [phone] Ia dicwv nal [address] [place] [address] 2020-12-15 2020-12-15 Outpatient R DOE GONZALEZ [facility] [id number] Univers 13:40:00 13:40:00 DOE GONZALEZ ta [facility] 2020-12-13 2020-12-13 Orders Doctor FATOUMATA 1.2.840.114 [id number] Univers 00:00:00 00:00:00 Only Unassigned, NETTIE 350.1.13.10 ity of [place] [facility] 4.2.7.2.686 Pete as [id number] [address] 2020-10-04 2020-10-04 [facility] 1.2.840.114 [id number] Univers 13:26:02 23:59:00 Encounter [facility] 350.1.13.10 ity of Surgical 4.2.7.2.686 Pete as Specialti [id number] Me dical es [address] [facility] 2020-10-04 2020-10-04 Outpatient R [facility] [id number] Univers 13:26:02 23:59:00 VENESSA ta [facility] 2020-10-04 2020-10-04 [facility] 1.2.840.114 [id number] 13:26:02 23:59:00 Encounter [facility]enessa [facility] 350.1.13.10 Surgical 4.2.7.2.686 Specialti [phone] es [address] [place] 2020-10-04 2020-10-04 Office [facility] 1.2.020.429 [id number] Univers 13:02:43 13:37:47 Visit Venessa [facility] 350.1.13.10 it y of Surgical 4.2.7.2.686 Pete as Specialti [phone] Me dical es [address] [facility] 2020-10-04 2020-10-04 Office [facility] 1.2.914.008 [id number] 1787 13:02:43 13:37:47 Visit Venessa [facility] 350.1.13.10 Surgical 4.2.7.2.686 Specialti [id number] es [address] [place] 2020-06-30 2020-06-30 [facility] 1.2.840.114 [id number] Univers 09:40:22 23:59:00 Encounter Venessa Gaytan 350.1.13.10 ity of Surgical 4.2.7.2.686 Pete as Specialti [phone] Ia dical es [address] [facility] 2020-06-30 2020-06-30 Office [facility] [id number] Univers 09:15:24 09:49:51 Visit Venessa Gaytan 350.1.13.10 it y of Surgical 4.2.7.2.686 Pete as Specialti [phone] Ia dical es [address] [facility] 2020-06-30 2020-06-30 Outpatient [facility] [id number] Univers 09:30:00 09:30:00 VENESSA ity [facility] 2020-04-27 2020-04-27 Orders Doctor FATOUMATA [id number] Univers 00:00:00 00:00:00 Only Unassigned, NETTIE 350.1.13.10 ity of [place] [facility] 4.2.7.2.686 Pete as [id number] [address] 2020-04-20 2020-04-20 Telephone [facility] 1.2.840.114 [id number] Univers 00:00:00 00:00:00 Venessa Gaytan 350.1.13.10 it y of Surgical 4.2.7.2.686 Pete as Specialti [phone] Ia dical es [address] [facility] 2020-04-17 2020-04-17 Letter [facility] [id number] Univers 00:00:00 00:00:00 (Out) [facility] 350.1.13.10 it y of Surgical 4.2.7.2.686 Pete as Specialti [phone] Ia dicwv es [address] [facility] 2020-04-17 2020-04-17 Telephone [facility] 1.2.840.114 [id number] Univers 00:00:00 00:00:00 [facility] 350.1.13.10 it y of Surgical 4.2.7.2.686 [place] as Specialti [phone] Me dical es [address] [facility] 2020-04-13 2020-04-13 [facility]phone [facility] 1.2.840.114 [id number] Univers 00:00:00 00:00:00 Venessa Smith [employer] 350.1.13.10 it y of Surgical 4.2.7.2.686 [place] as Specialti [phone] Me dical es [address] [facility] 2020-04-13 2020-04-13 Orders Doctor FATOUMATA 1.2.840.114 [id number] Univers 00:00:00 00:00:00 Only Unassigned, NETTIE 350.1.13.10 ity of [place] [facility] 4.2.7.2.686 Pete as [phone] [address] 2020-04-12 2020-04-12 [facility]phone [facility] 1.2.840.114 [id number] Univers 00:00:00 00:00:00 Venessa Smith [place] 350.1.13.10 i ty of [place].7.2.[place] [phone] Ia dical nal 198 [facility] 2020-04-03 2020-04-03 Office [facility] [id number] Univers 13:48:56 14:01:54 Visit Venessa Smith [employer] 350.1.13.10 it y of Surgical 4.2.7.2.686 [place] as Specialti [phone] Ia dical es [address] [facility] 2020-04-03 2020-04-03 Outpatient [facility] [id number] Univers 13:30:00 13:30:00 VENESSA ity [facility] 2020-03-29 2020-03-29 [facility]phone [facility] 1.2.840.114 [id number] Univers 00:00:00 00:00:00 Venessa Smith [employer] 350.1.13.10 it y of Surgical 4.2.7.2.686 [place] as Specialti [phone] Me dical es [address] [facility] 2020-03-06 2020-03-06 Outpatient [facility] [id number] Univers 12:43:49 23:59:00 VENESSA ity [facility] 2020-03-06 2020-03-06 Hospital [facility] 1.2.840.114 [id number] Univers 12:43:00 23:59:00 Encounter Venessa Oseguera 350.1.13.10 ity [place].2.[place] [phone] [facility] [address] 2020-03-06 2020-03-06 [facility] [id number] Univers 13:10:02 13:43:52 Visit Venessa Gaytan 350.1.13.10 it y of Surgical 4.2.7.2.686 [place] as Specialti [phone] Ia dical es [address] [facility] 2020-03-02 2020-03-02 Telephone [facility] 1.2.840.114 [id number] Univers 00:00:00 00:00:00 Venessa Gaytan 350.1.13.10 it y of Surgical 4.2.7.2.686 [place] as Specialti [phone] Ia dical es [address] [facility] 2020-02-28 2020-02-28 Orders Doctor FATOUMATA 1.2.840.114 [id number] Univers 00:00:00 00:00:00 Only Unassigned, NETTIE 350.1.13.10 ity of [place] [facility] 4.2.7.2.686 Pete as [phone] [address] 2020-02-24 2020-02-24 Orders Doctor FATOUMATA 1.2.840.114 [id number] Univers 00:00:00 00:00:00 Only Unassigned, NETTIE 350.1.13.10 ity of [place] [facility] 4.2.7.2.686 Pete as [phone] [address] 2020-02-23 2020-02-23 Telephone [facility] 1.2.840.114 [id number] Univers 00:00:00 00:00:00 Venessa Gaytan 350.1.13.10 it y of Surgical 4.2.7.2.686 [place] as Specialti [phone] Ia dical es [address] [facility] 2020-02-21 2020-02-22 Outpatient R PAULINO [facility] SOR [id number] Univers 06:30:00 16:27:00 VENESSA torres [facility] 2020-02-18 2020-02-18 Outpatient R PAULINO [facility] [id number] Univers 10:30:00 10:30:00 VENESSA torres [facility] 2020-02-18 2020-02-18 Laboratory Only, Adc Test [facility] 1.2.840. 114 [id number] Univers 10:08:16 10:23:16 Only Venessa Bob 350.1.13.10 ity of [place].2.[place] [phone] Me dical [address] 2020-02-18 2020-02-18 Telephone Paulino [facility] 1.2.840.114 [id number] Univers 00:00:00 00:00:00 [facility] 350.1.13.10 it y of Surgical 4.2.7.2.686 [place] as Specialti [phone] Me dical es [address] [facility] 2020-02-10 2020-02-10 Prep [facility] 1.2.840.114 [id number] Univers 00:00:00 00:00:00 Surgery Venessa Gaytan 350.1.13.10 it y of Surgical 4.2.7.2.686 [place] as Specialti [phone] Me dical es [address] [facility] 2020-02-09 2020-02-09 Office Paulino [facility] 1.2.092.803 [id number] Univers 13:46:22 14:21:52 Visit [facility] 350.1.13.10 it y of Surgical 4.2.7.2.686 [place] as Specialti [phone] Ia dical es [address] [facility] 2020-02-09 2020-02-09 Outpatient R PAULINO [facility] [id number] Univers 14:00:00 14:00:00 VENESSA torres [facility] 2020-02-02 2020-02-02 Telephone Paulino [facility] 1.2.840.114 [id number] Univers 00:00:00 00:00:00 [facility] 350.1.13.10 it y of Surgical 4.2.7.2.686 [place] as Specialti [phone] Ia dical es [address] [facility] 2019-12-29 2019-12-29 Orders Doctor FATOUMATA 1.2.840.114 [id number] Univers 00:00:00 00:00:00 Only Unassigned, NETTIE 350.1.13.10 ity of [place] [facility] 4.2.7.2.686 Pete as [phone] [address] 2019-12-23 2019-12-23 Telephone [facility] 1.2.840.114 [id number] Univers 00:00:00 00:00:00 [facility] 350.1.13.10 it y of Surgical 4.2.7.2.686 [place] as Specialti [phone] Ia dical es [address] [facility] 2019-12-06 2019-12-06 Office [facility] [id number] Univers 15:30:06 15:50:04 Visit [facility] 350.1.13.10 it y of Surgical 4.2.7.2.686 [place] as Specialti [phone] Ia dical es [address] [facility] 2019-12-06 2019-12-06 [facility] [id number] Univers 15:30:00 15:30:00 [facility] 2019-10-01 2019-10-[address] [facility] [id number] Univers 09:05:21 23:59:00 [facility] Results Test Description Test Time Test Comments Results Result Comments Source Tissue Exam 2022-06-12 12:01:22 Test Item Value Reference Range Interpretation Comme nts Case Report (test code = 104) Surgical Pathology Report Case: [id number] Authorizing Provider: Mukesh العلي MD Collected: 05/19/2022 05:14 PM Ordering Location: [address] Med/Surg Received: 05/20/2022 09:06 AM Pathologist: Shakira Bonner MD Specimen: Gallbladder ADDENDUM (test code = 3381) m1pqeYOdVOQshVN6QcDhDVBaa2xij5KpoMTyiHK hVCzmsGNlqcOutn00vKW6nM96JZ4mBSPlSkZ0NL WekvY9Dah0WNQwDYTmhOEnM861b6mpc3mkesHnb DC4cPmiJLMumapxYcY5JMibNIYuewogRIl9TUwc KJRuiQA4KZEbbBRpE4BaBSVsNT8jtxu8GET4PDn hGGEnMqT0SOObvYVyFPOtdJfmKUede890RXB4Ji CzRCGecrZwiAtmdU3lXvQjXJQTkRxeHLXiQPHxO MXvYSwoESglx6TvGXG1ezVcRSTgnsMidLqtSTOs f2GviVJqHeSsaIBcnGAlMYA9JDgrzhZdhlMyuA0 8ryIhRLDalsXyMH69IHazK99sn0PebTA9rV2iZB 8eFDWbPGSqhUZtY1ixPAEpgPFkdkO3tLWnrMF0E PheTHUnW7JFJXHXHOCPVOLvJ4vSVEECZGwMGG2Y YqqiFUlNSSQwYXRNL0jOY7aGDQJSMX0MABYkH28 DF9NKQNXAMhMKDGSXYuospARcFG3aVOcOFDJdA5 lSIGOUY90qW5MON0aGRMEyV8vCT33YQcGGC5CZM VzdQS4UZGVEDAMPMX9VQJRWFQYiN66NPCBPPJvw CUYjLSOTC2DYNpVWFZOOLRDERH5UKFFXJx5DYEX KHELRDJDGX9ZKIRVfOLOQFDZSC69BSJ0AKVJoki taBWEuC90VPPWMKBqlMOxds2AxLohmDTnbE4UrW MBaDT3rly9jeZQczYVyBkTvycSeF8ZqHLKaDJOd TN9yMCTgYFNuXPOmxd0ivYSkI7xeeKFemMH3rOD jkkmyYSTqI7zftrdvCArkjGBcaYXgzGWfq7BjYO 0pZSqmmpYdVTtzsi7azrGrJX48RIxutYtezUH8d LClrMklOGwwr8Jpjojmg9QlH7oGBRMkjGyiQNW0 GLGtzJMcaXFnwX8wj9vfRUZ1FFBquMovXCslXbx xjD8lfYbvwyYyoJKpwO8rD0pscXKvmRZ2pIKuuv HmSRGpmeYie7h2CPRyPZ5rLDEsQyttbIAtYBKgX KL8mpXdSN6wASR8iK7weN99ylSdtEKyCHVuvTmk EF9uSZQhrA4hqgpoCxulmIMxhKUnoB6wCS1ykOK odlCqx5CaCR7luCQpCOYvGGYdnYVlotAaGOWxxq TlwD1nDLJgePIuqxXyxg6hkHzkvlAjbqAzuPYcf iOuGUojdT0sbubxzY6kmEgcYJvhNyudnTOtNOmk zBhdkAOqXFVhSBC5rCZhWCYbziHhLBSnsOZzoZA fs1IrD7vlErAfAU0er9UeLaMhxZErFy6caEArRx WRfWnpqLAieMAzh9XhOTddxPddekHgroOoTGPax O8hzcQkOUX0lAPeVKykOPmhrjosXO3xXE65vWQz SZMofD0lL1MdEZPcezBngcwiUWVwOQAeh6TuaiE gbSMho5Obld9fbDFqHWCawcBQRRTXA8RYZ6PELn HCPSCJRkgEWBjMRekpNYNiq2ovaO8aTIopuZrdw BLgKNFhXFHkh2hfYW6aGMRbXKDlGUUwxMb2LGX0 fWYyGJascQglpz7oEKVvUVXkWhqoITHsuf0vkOJ lpQ3jbIYzWMtzEdmiuC8jfQszuxXkvDP8sPEmdG 3avDPqNITfvTSeLETukKFoyNByMANyItDijC1fq D5yuUGfezUbxdGim59jXTRdKKB7qj5noRzpdv9k TBnkkyCeoIVfnSzukB0stCFagrPrwlPcOVCeRDu fnEV1pLUsil8bYDmmXYXjtNHkGKKzzFQsLACbtL zaAWChyiWigVT2iwdkAVRggrBfnZPfu5UxdkJyA hZKwIHvTAUqayAiwVWkkYGrLRUrkgQle2lkJBpo HZwnQIJxbShqit9eAMtsFFtkPwAuPRAiw7zbqcN bcU8ouFKvIKjpSKVbEKMgEL0yYXJcOHS2LIW4a8 VpkoUwulUiBHvgx00lfF2jSWbbrPJ3h3P3rBPyV cBRmixvgJZvpCXpn5CkpP7uAL0xEQGjiGtukMuo guPnyPHlzcJtdP35ecTbi4S7vUPxDGDvskBsM3y 8eEHmZmB6SSD4lRLkHGJaQNGwcnSldEY1aiczPW EyLDGui5CeOWMnQOG0dENwTPBpmj9ztKZuyW9sw ALkCVmlXfkyvG4duQrdgq4jWl9vu4dapzexwVBi okTxHqgzgm9fqQOlc2Wgfb2sREWXVZFax3IhtL4 ag1vwo0DydKBvbqKryF9hAANrmMjqVRJ1W7UxXm QElj8sXRU3FFqbTKuhEJ2xI9A8iBAsPQCpghQyc mNyZWFzZWQgaXJvblxwYXJccGFyIElOVFJBREVQ QVJUTUVOVEFMIENPTlNVTFRBVElPTjogRHIuIFN wtKdiHVLQLRjlJUDrahxvDNBzD4ALV1pCPJNGUO IQPgX8NKPdmjGlCZPLAdfxXwwvBUABQ6mKZ92UB JDHEOSrVMecQfYLNKHEKIsJDLHngfZZiI19zc6z zBW7l0RiEY3fs9KstXI0QOAthyioDUobfVFudQl rAwK2FQOgdMAyGj9zbNXeWDL0GLTjeXlmcnTGpQ 6eFBMqHJb3MASzMwYrSdrofsJCBQLuQ6VlIWWwv xQrswciCSU3uG8vp2k0UTkfUl5tHPXxnlcjv0gb alHfhPXhu8OsXOZhmgGvm2NaRUJdacWcxBExYVQ kfwElkx9mwiEgNHHnJASxB1GiatlqmNuvtcV7OR XfQBZzrXPkmNzhAZRnQFp4NAdkaiKrr7LsWoZpp gCjqRHyucAoJR5dIFYbiCYxyvGnKAV3ICNiWBPB DxPpZWOfu1LzKX3uKNJdrVisNIZqhM2al5HmUUQ hf65tRKHfSEIBBTGwbJQjRAUtkEXdvIaeEKWbnH cjcDBcrORzTMDzIJYfZX3gJEYpovDbxWEoj7Ita LKfkdAxj3RpqlKgJEAtTQQ0JwBDjFHglSIixWQf reY5n9JaMMIsfiVsiKttiXPiyFJifBSeu2Bfox2 fTBNvg9xcdHnuYH0pzTGlNVSyKBlxhoXkBMUnwj BrtmPwn8XpA1T4pO1xDPvvl6IbXg5yZGRat6Yym mVwLlMWfZgaKInhIt5oYKVceoozaKGgA5LawEcq aWVkIHVuZGVyIHRoZSBDbGluaWNhbCBMYWJvcmF 4v7E0KSkjvORaxsLpNX60IHApMO3ewVPsfUWkn4 JiNDq8QSVcE2fSFM95NXzcXDUvmBBtiQkyeXYvF EAnGIXwwxWzkg1oqUrfhPLxs96ftGM9wWL1MPKm tP5mR6MrRTupOm0nEDFmsazirJKmgBzsRr3tgCY eIX6imBYcCIXYLXZCY3JJWpF3YHLuJqM8NUX9QI x1LhG6QHRejai+IFxwYXJccGFyZFxwYXJ9 DIAGNOSIS (test code = 3220) p5eziJVvAAKtl6jcWALusWTuBlRwMvGxDeEgBl p cdWMxIHtccnRmMVxlcGljOTYwMlxhbnNpXHNwbH AsF9OqsqceSPfvBJ8nIM0tlNhwkMHodYBoIKOnK vMsh8qfb084zZYvp1ugWTCXuogbpHl4fIrrD81u m5V1VujdY95lfNWoTEH2SZDiHGSndLUaPGPaDXS 7ZJQwjLYoR6nlPMRbRU6hjkycAWduXYwoOUTynX X8IDWiiPEtC8RfJZRgEHoqJSVvunu9ArMfAo9su POkkSpxNEscPZWeMTWkOXmmMXAcXrNpE6OHRISZ NABDQUJhKAdOKATOH8GTA5WYMjUVQT9JCDUXE6D OU5OVANx4HYLilhFiJN5mU8uBW13PRkRXNM5VLO JHL8VGLKdEYAKsjdIgNH0mH5cHMTSCVFBRY3iFV 0sXMNTqhbBhQS8rR8sYEElLDHRLB6ZlZSGZL4tV JNDSJdAASRNSL0AUJUZbSTFunrYbKFJcGl4wNCj NNTcVX3hRJY0LUN5WJYjSVrBSF9pqR0ZOErhyEN KeEC8dGRLKPTXPK16KIK1QKRFaojCrSWCbge28O TJ6QnHth3H5GMB6RAPpUKYvs5ibUBVspXRtVoHu NhLzQwKxMqcalJTkDYKsAhUlp2jcz570lQIjp6d pVOBaUtW6dKQfZOFmhOYoY956VMYxDOlxq5rbb3 YqJVTruXXlz6F5BDJTfueowIl7tOjpY21gl4F4M lefF2njQUKgCHQkI6MoVK8dNXNvOma9ENO1GMQ7 LHEjFSDnK7NgUI3tFGCurZTtISv6p0ienUywHFP dKMR1l2vfYKeervKpUJ5vls4laFn6p1xotxYiQF TdGTGqoOETCSUlE1QsnUpoAw2urLb2dGwrFvksZ CM7Rlf4DR4jvc70etj8bUywJVBmbdvsFmV2YVil FTEvzysuLVg7NDycANYddZA7XEAhlBWiY3AnMWE aBG8jaeh6FPS0CTivPJCvSmN5KZLmpAQkGZTqdH tjYWfup524QLE5RtUiSF5pY7Xcc0K6gT5jaUXaD IMjmSHrVhTqSFPmiy5tyYHaDGzeo2TyXND3vlT1 lPEqdCMuDUBxMcZ7IIvzTU8nrr23ECMuMZJ5xk6 mvYFkqCglolImiISjKUltQ5GqXUUhe625QAMaX2 KxHIOko6L5hiEnImYsADBzgCU9xwH6BUFbRY7xg owtc4ddLTrrBSvxGKGaslK8gfB5GTXakLVaK7Tu zS0yPBZhLG9ccgdzf3wxURO1DYorVCFtJNU2LgD lILXbh0Odlaw0DzUhd3PraDYaFJekN41os031GM DxjxMyZ0ipsWMkntgmvKMpmtzrYWphkoD6ZUFzS MsbimrmUVTlVTvmK2fdCyJfMQIowFesNQbce8Hg ESPdWVLiKqUrkIXaEVRbRaf5QZZraBIkCPZgYoE eJ0rthndwQxOYCIHva5vcW5ilsGHRfVTmG1VhDZ gsjyLbQZakMXsdHsusMGOpHc75GDMoSZHvzn90 COMMENT (test code = 3353) d7hhiDBqGMKofBE2BuVtKQXuq4ijg8TmiYXiqZG hNHqhtPXwnkQvxw00cKB6pP77NC0sZVYfAhL2YD PqscY6Iqh3ODCdMMQrpKLfY531k0xfc9acwvAds DL0cBuxDITexjvcVaP6YNflXKGjujwbPNr5IJfh SBExxBQ5EQDgcEIlT6KnHPOxAZ3msmh0ULC2DSw eFNHzOgD7JWRqiTWhYIErcIfrDMaei968YJE5Su BzJKMglmIlnLpruK9qWsNlCFIGbOBwKMUhmqRxX JArLSxuZDDkUEOpWX0rKNtjlqWtJTvcQAHqRMVl rMMluL4dsgwag2BrY2yiiMZasINnnfEsCW8uMVw jjDLqGIYxTZS2lJBklUJvGLGfkiO4sLPioMptff QukiZaYpZspmrmVJ1eERolCX4zVSNyAB5peD8if eTpl8R6NDhfyTiuHm8jiO46QRRdnn8= CPT Code(s) (test code = 2391) s5zinDUeMUWbeUB9VrVjAMYsv7ziq0OxdSMg cGF pKZbwgVPkocCmtx54qDL3oR27JZ0eVUXyUtI1BI FfdyR2Fdn2KPCxPGHppMPrJ758i7mrf2mlceKaf PV8jIrbFZEnxnwmUwC7JYpgTWMqzsfxOJz6HKol BWPffSC0ILTdwAEaZ3GiJIMlEV6yndd4CTH8KBz rSWRqHqP3HLRhlFVeVKTesSrnGTush050PUE3Uc LpCBEafpWhtMtvmS0jIuEqBXO8BQPwOYkoPXH0 CLINICAL HISTORY (test code = 3356) t8vkoUViZYPiyJE7XyEaIDCcj9eeb5F sdHBncGF kVNzntEMfsdQzrk14jWX9jG67DD9oVGDlEqG7AJ QdevE2Kmz7DTQvSQNgzEJpI616h5ofn8uuubHfd SP8qVsgOTZuybscYhS8VQeoRTHylfchEBi4DEzm GUQlgXX8LELaeBFzG1PnZPIuJA6tyyh1KHS4AGp dTGEuBiG1SWKczSSvKDLjyOreWYsgi469UVI7Bk LaKHEfroVvdYyncI2lIhDkTVTBF2R9EXCfiZ5aD QX4f7CwtQtnDInxOAT5 GROSS DESCRIPTION (test code = x6uyvMSwCLXfiXZAEGTyM5fitaUqMLEosSMg Z3B [id number]) nztngQJvcKU1aMM2mpQlysQUoxXVqTA8OMIJvUi EsBYKxyWDwexYuUqOmPYDfjAEgqNG4PWAvQA7zd oxoCNzdLEhzMXRknhN5CFVlsEYaP4BuAYAcTG9b kzyfDBV7WTmzyR7jjrJRAreuFl9kqSSfbDsoNyL wEsFtECAzZAOlQYFkyRrlJWVbPRf6qM8DNunfMX D2LQVWUfovQITkPY2Ns9eqRPYerIKaCGZ1EKuac POoBKGvFRCdVBf1AUGmGLdcaNGbXQ2cmEhxStvs dZzhk8HkzTFiEOfoJTYpCFBzXGxsYVCbPU3RKeN sREF0CdB9ZWFcVIo4FPk1IM8LRpQuCWCuEOj1Hu ZyVHNwQXr1BDtyTE8AQPAnUgOmYDYhWIO4JSW0M IImWLErPsYoYICzLNOtBJqeWTflaHIsNM5boFel tDNyzhNCBoFXTKylZppmGMHffg7dzKFxES3GGEB xnGDETAY3HK6gOTLJPqkhzGAcTHYmiRrlXWjyhA 4dJT4NPOy9wbBhYRLoMbSqVmJzGKh8HWRpkJ8xA c5rhFTuxO0saNQsZIpmXZR4pVIuKAZrYCXsJVWj DD66M8RdiM6id2ItYWFxk11rWN6hZEjnNiOmIPI gImdhbGxibGFkZGVyIiBpcyBhIHNwZWNpbWVuIG 0fNMitkYxbtIHvDFUxSHhxkCqgMYE1KMJuZYWrR H9gTAV0FNPuLILfMNJvgMkbFCS4o6KvFjXwnLI3 QrNFrJMuy1UyF2jxZF3qvZWsv9PvOBOoGwT8BWJ ryRXqXeLhS72pEA8gWJK8e60zkkFvwcXofFIdq5 VpjDBxhpJ8xCGghDErUP6pr4TftZxdPZbdaZols LIvDTReBY9oPMvwEALcCVZrc409TPzxZYZaTRMf ZZUnZKPbj4LcwZPuv03qc3ZjLIDcJAGsS9Mqzk3 8vc3fMHheEVJbCJMrcOAuCGezWU2cQY2aOIE5xw WmLKDyAMifcg7rYfwqYP3wAUmmhyVhfZZkB6gcp UYnxMRgy2hpe6wlINFuZLZugU3bKWBcqM59XtFU sJChy7EasJX9bQwut34mo8PbdPPgKI6qPTSiGeH SkdLvrFP1lXCraDpfjVlnsw7jEEQazmEjQASmdH ukqBDxWdWHFQGeALLdjwSbtVg4TZMvDZY1lO9zi hUvuzUmv4ElhVr2qBWyNDovOIZre1UpkNTsdfTf AUXvmRTvGHNsCRLtSBQGJc1qDQDrD97srMMvfiA lsDkqBSE5e1AgFmAcaXC8JS8ihftjjy3xAbrtFP wOFcvarWMlvvpqwQfoGtMlaOImFeCjyKibqK96A LRzaONrXOE4DV3nRSRwgjhgOOOrVAAcOQH7QUbr kV88wSVtTFOoAUFzdXYdgV8DVXFnOOE8FPxkfV2 1zCPdRW6NJPMfMGF5NJEqwDKnZFG4SE6hjV4DtG == MICROSCOPIC DESCRIPTION (test code = s7brbFHqDNGjxYK2ZnCaNHEpm4rqk0 BsdHBncGF 3371) bXRzkxKYzdeNdfu47mIJ6zT04QL2iUHZiHqH0GO OqycV8Unk3OKUtVFSviOLlS855y8bhz6dwmgAtl FL2xSnzWHUvselnQlO7XCyeAQHzzqdmTFe9WVze HOYkrRZ4UMVyuWEbR5ZwNBBhCB4pmar1MOD2OOp oCSAjPpE4CJOidWSuBIXrxVoqLNhvi862IZR8Mj PhBKNywuYqsWgsyP5yTzZzPMNXJKXRV9UAZVMbc GFyfQ== SPECIAL STUDIES (test code = 3376) i2rjeCSpNWHzd3tvOULyyTAdIcAnIsAd ZnRuYmp ykKOgYWfutuGcTAkfg8VeH4CeFvImCEicpuUkFY BqLvueoamwKADqDCR3mmJcEAJwRDikPBQpIFqwZ k4vkEWqySjjEdNaBAUzy6yovrTTdgtsgEn1e4yy KPUuMlS2xTZfONumX1xzczBxrJNqD5HllEGgcBc 9p6rkVjFdMpJ2tMIpEYptL4slbeTuiMPkIXSkTT w3rE17IZCyeH3qdPCeFBhcapPmHsU2WLfpZOJvZ aF2OMKbuUNfVRZsU2coJGXfBRjfUMEtSIhskXMr BFZ1qVlsb4J1gBOopMGkfHgjTlVtCcEgLjVDz5V eFSq1wIhjX1YqQKZhRmT1iBSiIPInQRdkSZGbUK KjyiJ0iYjhcsXwe73fzMMyFSOzKTQbQsOsiVttE QYtEUBZa6YglLarQHC8zWz6yRydIvuaPPM3Vaz5 IG8scj16gus3vBvcMVPdkvyhQkO0UPhfXTSavkc yWIt8OAnxOXHxkUU0PBLhxWRmP1BeKKFjZT9eyl f8WAH4UOtzULVnNhJ8EFVqkCBoOALbkJooMVbll 010OQY7KjPnVR9fX8Efo6I3dG5kkNRkYABubOTd NrWvYDKifl1hkZUxFFrtq1JhXJO4thJ2oCPjoRS mBOBbNU07Sgete8XgNtutb8PtX66qjJA7SYkgm7 izTR7dJkD7vsNwAOstn2szgS5rMpB9PJgvMV0fE P2oAWNwmI8abulyZNMkFqUpfpedLASlaLbsbxOq Yt1dtMvnBUH4LYjeR9wgmJ8hKdE6FKdfS8vkqQ8 hMFi7QDeqpML4PKXkvG0wIW6jiybct6cpJWjiOZ vvZYFfqaU8spG4PJBliDHpR1OmmA6aKOPkJG8qd wllv1esBOK8LNcvRFKwERO1InUeEBDyp5Bncbp5 JsKsd9IhyKPmPJqyI86oq226ZOUbzmIzS0fqlQL nsgtwbIVvnquwHEjxbnP3XTNnGARsWXlvZQEsKL ZzMjJcbGFuZzEwMzNcaGljaFxmMVxkYmNoXGYxX JxtY3swGtXbR7VvPRXdKfMnDWpzSWkzpUGxfSIo rTI8aN5gNA2xFAEtsZMkE3LbSQJcxhUdfMPjMOF 3qTKtjFLrSJ8eADphvOHjq7dyz7UcH0dclZybnX L1VM1tEGIlFSUcCQerf1ZtsN4sNkgdaKPlrfloU EhjheNzCZfcvgjvSUNoSZzcQ3rsElCmUARzcOxb TLfmu9TfTRIuOLRuIfftzzJeKJs9rzHtTHInmst gSPFrjSaxlL9sXsItQcCzAalmLZ1wTDNgU9qeuO PfTFOoFHEdJ7qbDoUobT4eeIroWMpjOoJyZwTbB lWTj716nd6kIPAycSNesjTQePVflP4aLQdtEGnt QKjakGTaAZvep1pbEOIeh2m4fRSiPUDwxtNau8x nYIzbnrSfZNXinFMhbIOyTFIqf40bWPwdqLarjP whPEJop4SfaWiab0ZxPwPnSTcvk4BuS81wfRRct IRaxRhvGUVdquXeCSKeb69ya9mwMBVsGwP6yDFb xXF2qNChhBZjg0WwzLrtAVYtu8vtMWWldm2tpkh ufNAhv3EseK7lcuxoVUyzdFHobpBnCIAuy7q8pN MaFFZbBXXqWSwjnXx3SXJmb423an7cbzS2bXUdV XS1DEcuHZHoVXPyypLdFUNhpSChnWYwWTIiRWfq XGYxXGZzMjJcbGFuZzEwMzNcaGljaFxmMVxkYmN gOCLnRLgwI7umHePpL8InGUNyXrIdbYInQ5rfuK FyXHBsYWluXGYxXGZzMjJcbGFuZzEwMzNcaGlja DrdEMuvCaBeJXNuKOfcT9luPtYhD1PfBBDlFzPj YAdouYTotiseYDllcpWfMYrsujqsXXAnTErlQ1f oVmZtLBTruZwkLGcdr3AtQNArDYKkQdtwpcZoCM a7ciQiQAUkmounvNYmpkclLFpypaQwRJyapjjkE YPkMCdfQ1rgUoKpGKMcaUsnLIzqe6CaWXBlFCTl OvomphSeIPwylOVfg0vne5OuG5mfaRngcQR0EDW vV0gbqEKnjDX3UPC7iD5rPXbpkvDfANSsx3VdBW MaNLSuGzV4iL2mGYD3JoRVzGkmDKLgEHuyVKBfZ GZzMjJcbGFuZzEwMzNcaGljaFxmMVxkYmNoXGYx NXieJ3pfPcUuJ9UpAIPaNgRuuLduEAsmTAf5Gdi xbDXqhhdxKCtqivGkFHaeieurDOOsRLhoN4ioBx PaHYTsyHmaTZnwx5AsAPUzHTEgBswojrWrZVNkO QNgdUFsyBNMDF31VJDqCGKfzVxjdP7keTCGUHXo zhF8n9I2WTqjJTUlMYp9RWcqziNwYNRznK7iZCG aHI0sIRu6gaFqCPRrc7WmMI1xIJSdfPCzTWK9KH Cyn6NuA7Irh5XmVLFtFADmoy7bcmYzAfOQtXZhB ULjjw91VDTyCN6aG8tqMPFuHOOkoaCkhMLcp3Zg CZAvfKE0sPIsRC4HJmZBu84hYZMoXYJGpkUuGMF ggIuclMH1fvE9zI1lItHPeMAsRnEGBLxftbWpYI Jxvu8nzhVfGMWcVPXpb3QtiMZvzCPydgEkN1Wmh 1IqFLSvar76TQwhpVDmni29EX7yJ6Orq1GdyJ7o FKwpGUQsg3TinUNpfTMoUGOyo7HkX9tbhvxyENr saQKlhL3qARXrXVr0ABTcq6UsOITux5GrCmSnzz ZuJDGpULKfUSJrfN02FVM5nQephVgzmpFmGW5hN PRrqgImHGOzYLDavI2wFQwwebVaHNGykpK4b5X1 MUhhTKXbncNbIwmwZPY6kgAqffF0aGFsV7cgaoj iXFweGFLwh0NrhZ5zuFKFxIAdz5VsbUKdzFVPsQ OrJO3zrxXcQA7gAHH0JHmsTGHWXMFvSEkoILYxX YT2DJncNqlgKRA7ksFvAHDbw3AxZXedN0spF21o wOpprNj4pAUaeZqdiBRciCDwZOTmcoM4d8Q8BTG lb1OvkqggGZEiADzqVXQaAXKzMqYigWJkZzOnAd QumDwvjOejTzyeQaHcOCNeEQzvE0hrSvXlVdBzH lpxUCO5iV== [facility] [id number] 12:01:22Surgical Pathology Report Case: [id number] Authorizing Provider: Mukesh العلي MD Collected: 05/19/2022 05:14 PM Ordering Location: [address] Med/Surg Received: 05/20/2022 09:06 AM Pathologist: Shakira Bonner MD Specimen: Gallbladder This addendum is issued to report the result of special stains and intradepartmental consultation on the attached liver tissue: GALLBLADDER WITH AD JOINING LIVER, CHOLECYSTECTOMY (CONSULT ON LIVER)- LIVER WITH NON-SPECIFIC CHRONIC PORTAL INFLAMMATION, SEE COMMENT- ACCURATE STAGING CANNOT BE PERFORMED, SEE COMMENTCOMMENT: These findings are non-specific and can be seen due to chronic cholecystitis, If clinically suspicious of liver involvement with patient's history of SLE, suggest repeat biopsy,after the inflammation due to cholecystitis has resolved. No definite features of autoimmune hepatitis or primary biliary cholangitis noted.The liver parenchyma appears nodular as it is adjoining to the inflamed gallbladder, therefore accurate staging cannot be performed. Clinical correlation is recommended with imaging and other clinical findings to assess fibrosis.MICROSCOPIC DESCRIPTION: Adjoining gallbladder shows nodular architecture with non-specific chronic portal inflammation at the portal triad comprised of lymphocytes and some neutrophils. There is minimal interphase hepatitis. The bile ducts at the portal triad are preserved. There is diffuse sinusoidal dilatation. The lobules show minimal (less than 5%) steatosis or ballooning hepatocytes. Trichrome stain and reticulin stain shows nodular parenchyma but expanded portal triads associated with chronic portal inflammation. No significant fibrosis seen. PAS-D stain shows maintained bile du cts. Iron stain is negative for increased ironINTRADEPARTMENTAL CONSULTATION: Dr. Anay DuronPECIALSTAINS:- CAROLINA'S, TRICHROME, PAS-D, RETICULINImmunohistochemistry technical testing was performed at [facility], Pathology Laboratory where it was developed and its performance characteristics were determined. It has not been cleared or approved by the U.S. Food and Drug Administration. The FDA has determined that such clearance or approval is not necessary. The test is used for clinical purposes. It should not be regarded as investigational or for research. This laboratory is certified under the Clinical Laboratory Improvement Amendments of 1988 (CLIA-88) as qualified to perform high complexity clinical laboratory testing. CPT CODE: 76792 x 4; 74623 Addendum electronically signed by Shakira Bonner MD on 06/12/2022 at 12:01 PMGALLBLADDER, LAPAROSCOPIC CHOLECYSTECTOMY: - CHRONIC CHOLECYSTITIS - CHOLESTEROLOSIS - CYSTIC DUCT MARGIN, UNREMARKABLE - NO DYSPLASIA OR MALIGNANCY SEEN - SEE COMMENT Signing Pathologist Direct Phone Line: [phone] signed by Shakira Bonner MD on 05/21/2022 at 12:32 PMThere is a small piece of liver in the specimen, special stains and intradepartmental consultation are being done, an addendum report will [id number] cholecystitis A. Gallbladder.Received in formalin labeled with the patient's information andlabeled "gallbladder" is a specimen of gallbladder with attached and stapled at the cystic duct. Thespecimen measures 7 x 3 x 1.5 cm. No stones are present in the lumen of the gallbladder or in the container. The serosa is smooth and scabrous. The specimen is opened to reveal no bile. There is cholesterolosis and blood clot. The wall thickness is 0.3 cm. No cystic lymph node is identified. Body Component Engineer sections are submitted in cassettes labeled A1 and A2. A1 contains the cystic duct margin. BH/ew PERFORMEDThe interpretation of this case included the use of immunohistochemistry or special stains.Control Slides Examined: In-house known positive controls were evaluated along with the test tissue. These control slides run alongside of the patients sample show appropriate staining. Internal positive and negative controls when available are evaluated Immunohistochemistry technical testing was performed at [facility], Pathology Laboratory where it was developed and its performance characteristics were determined. It has not been cleared or approved by the U.S. Food and Drug Ad ministration. The FDA has determined that such clearance or approval is not necessary. The test is used for clinical purposes. It should not be regarded as investigational or for research. This laboratory is certified under the Clinical Laboratory Improvement Amendments of 1988 (CLIA-88) as qualified to perform high complexity clinical laboratory testing.HEPATIC FUNCTION [id number] 09:08:59 Test Item Value Reference Range Interpretation Comments TOTAL PROTEIN (BEAKER) (test code = 7.0 gm/dL 6.0-8.5 770) ALBUMIN (BEAKER) (test code = 1145) 3.1 g/dL 3.5-5.0 L BILIRUBIN TOTAL (BEAKER) (test code 0.9 mg/dL 0.1-1.2 = 377) BILIRUBIN DIRECT (BEAKER) (test 0.7 mg/dL 0.0-0.4 H code = 706) ALKALINE PHOSPHATASE (BEAKER) (test 85 U/L 30-115 code = 346) AST (SGOT) (BEAKER) (test code = 142 U/L 5-40 H 353) ALT (SGPT) (BEAKER) (test code = 55 U/L 5-50 H 347) Public Relations Account Supervisor ID - DSENSONOperator ID - DSENSONOperator ID - DSENSONOperator ID - DSENSONOperator ID - DSENSONOperator ID - DSENSONOperator ID - [id number] 2022-05-20 05:51:40 Test Item Value Reference Range Interpretation Comments MAGNESIUM (BEAKER) (test code = 2.0 mg/dL 1.5-3.0 627) Public Relations Account Supervisor ID - [id number] ID - [id number] ID - [id number] ID - [id number] METABOLIC [id number] 05:50:34 Test Item Value Reference Range Interpretation Comments SODIUM (BEAKER) 137 meq/L 135-148 (test code = 381) POTASSIUM 4.4 meq/L 3.6-5.5 (BEAKER) (test code = 379) CHLORIDE (BEAKER) 105 meq/L 98-106 (test code = 382) CO2 (BEAKER) 20 meq/L 20-29 (test code = 355) BLOOD UREA 15 mg/dL 10-26 NITROGEN (BEAKER) (test code = 354) CREATININE 1.14 mg/dL 0.50-1.20 (BEAKER) (test code = 358) GLUCOSE RANDOM 118 mg/dL 70-110 H (BEAKER) (test code = 652) CALCIUM (BEAKER) 9.0 mg/dL 8.5-10.5 (test code = 697) EGFR (BEAKER) 53 Interpretatio n of eGFR (test code = mL/min/1.73 values Stage De scription 1092) sq m Result G1 Agnes l or high >=90 G2 Mildly decreased 60-89 G3a Mildl y to moderately 45-5 9 G3b Moderately to s everely 30-44 G4 Severl y decreased 15-29 G5 Kidney failure <15Reported eGF R is based on the CKD-EPI 2020 equation that d oes not use a race coefficientEsti mated GFR is not as accur ate as Creatinine Fabby migdalia in predicting glom erular filtration rate . Estimated GFR is not appl icable for dialysis patien ts Public Relations Account Supervisor ID - [id number] ID - [id number] ID - [id number] ID - [id number] ID - [id number] ID - [id number] ID - [id number] ID - [id number] ID - [id number] 05:49:35 Test Item Value Reference Range Interpretation Comments PHOSPHORUS (BEAKER) (test code = 4.1 mg/dL 2.5-4.5 604) Public Relations Account Supervisor ID - [id number] W/PLT COUNT & AUTO [id number] 05:44:16 Test Item Value Reference Range Interpretation Comments WHITE BLOOD CELL COUNT (BEAKER) 6.6 K/ L 4.0-10.0 (test code = 775) RED BLOOD CELL COUNT (BEAKER) 4.12 M/ L 4.00-5.00 (test code = 761) HEMOGLOBIN (BEAKER) (test code = 13.5 GM/DL 12.0-15.5 410) HEMATOCRIT (BEAKER) (test code = 38.5 % 36.0-46.0 411) MEAN CORPUSCULAR VOLUME (BEAKER) 93.4 fL 82.0-99.0 (test code = 753) MEAN CORPUSCULAR HEMOGLOBIN 32.8 pg 27.0-33.0 (BEAKER) (test code = 751) MEAN CORPUSCULAR HEMOGLOBIN CONC 35.1 GM/DL 32.0-36.0 (BEAKER) (test code = 752) RED CELL DISTRIBUTION WIDTH 12.5 % 12.0-15.0 (BEAKER) (test code = 412) PLATELET COUNT (BEAKER) (test 164 K/CU MM 150-430 code = 756) MEAN PLATELET VOLUME (BEAKER) 10.8 fL 6.0-11.5 (test code = 754) NUCLEATED RED BLOOD CELLS 0 /100 WBC 0-0 (BEAKER) (test code = 413) NEUTROPHILS RELATIVE PERCENT 86 % (BEAKER) (test code = 429) LYMPHOCYTES RELATIVE PERCENT 10 % (BEAKER) (test code = 430) MONOCYTES RELATIVE PERCENT 3 % (BEAKER) (test code = 431) EOSINOPHILS RELATIVE PERCENT 0 % (BEAKER) (test code = 432) BASOPHILS RELATIVE PERCENT 0 % (BEAKER) (test code = 437) NEUTROPHILS ABSOLUTE COUNT 5.72 K/ L 1.80-8.00 (BEAKER) (test code = 670) LYMPHOCYTES ABSOLUTE COUNT 0.69 K/ L 1.48-4.50 L (BEAKER) (test code = 414) MONOCYTES ABSOLUTE COUNT (BEAKER) 0.19 K/ L 0.00-1.30 (test code = 415) EOSINOPHILS ABSOLUTE COUNT 0.00 K/ L 0.00-0.50 (BEAKER) (test code = 416) BASOPHILS ABSOLUTE COUNT (BEAKER) 0.00 K/ L 0.00-0.20 (test code = 417) IMMATURE GRANULOCYTES-RELATIVE 0 % 0-0 PERCENT (BEAKER) (test code = 2801) [id number] 06:06:42 Test Item Value Reference Range Interpretation Comments LIPASE (BEAKER) (test code = 749) 49 U/L 6-51 Public Relations Account Supervisor ID - DSENSONOperator ID - DSENSONOperator ID - DSENSONOperator ID - [id number] 06:05:43 Test Item Value Reference Range Interpretation Comments MAGNESIUM (BEAKER) 1.1 mg/dL 1.5-3.0 L Specimen slightly (test code = 627) hemolyzed Public Relations Account Supervisor ID - DSENSONBASIC METABOLIC [id number] 06:04:24 Test Item Value Reference Range Interpretation Comments SODIUM (BEAKER) 139 meq/L 135-148 (test code = 381) POTASSIUM 4.0 meq/L 3.6-5.5 Specimen slight ly (BEAKER) (test hemolyzed code = 379) CHLORIDE (BEAKER) 108 meq/L 98-106 H (test code = 382) CO2 (BEAKER) 23 meq/L 20-29 (test code = 355) BLOOD UREA 11 mg/dL 10-26 NITROGEN (BEAKER) (test code = 354) CREATININE 1.10 mg/dL 0.50-1.20 Specimen slight ly (BEAKER) (test hemolyzed code = 358) GLUCOSE RANDOM 78 mg/dL 70-110 (BEAKER) (test code = 652) CALCIUM (BEAKER) 8.8 mg/dL 8.5-10.5 (test code = 697) EGFR (BEAKER) 55 Interpretatio n of eGFR (test code = mL/min/1.73 values Stage De scription 1092) sq m Result G1 Agnes l or high >=90 G2 Mildly decreased 60-89 G3a Mildl y to moderately 45-5 9 G3b Moderately to s everely 30-44 G4 Severl y decreased 15-29 G5 Kidney failure <15Reported eGF R is based on the CKD-EPI 2020 equation that d oes not use a race coefficientEsti mated GFR is not as accur ate as Creatinine Fabby migdalia in predicting glom erular filtration rate . Estimated GFR is not appl icable for dialysis patien ts Public Relations Account Supervisor ID - DSENSONOperator ID - DSENSONOperator ID - DSENSONOperator ID - DSENSONOperator ID - DSENSONOperator ID - DSENSONOperator ID - DSENSONOperator ID - DSENSONOperator ID - [id number] 06:03:04 Test Item Value Reference Range Interpretation Comments PHOSPHORUS (BEAKER) 2.6 mg/dL 2.5-4.5 Specimen slightly (test code = 604) hemolyzed Public Relations Account Supervisor ID - DSENSONCBC W/PLT COUNT & AUTO [id number] 05:44:18 Test Item Value Reference Range Interpretation Comments WHITE BLOOD CELL COUNT (BEAKER) 4.1 K/ L 4.0-10.0 (test code = 775) RED BLOOD CELL COUNT (BEAKER) 3.74 M/ L 4.00-5.00 L (test code = 761) HEMOGLOBIN (BEAKER) (test code = 12.5 GM/DL 12.0-15.5 410) HEMATOCRIT (BEAKER) (test code = 35.6 % 36.0-46.0 L 411) MEAN CORPUSCULAR VOLUME (BEAKER) 95.2 fL 82.0-99.0 (test code = 753) MEAN CORPUSCULAR HEMOGLOBIN 33.4 pg 27.0-33.0 H (BEAKER) (test code = 751) MEAN CORPUSCULAR HEMOGLOBIN CONC 35.1 GM/DL 32.0-36.0 (BEAKER) (test code = 752) RED CELL DISTRIBUTION WIDTH 12.8 % 12.0-15.0 (BEAKER) (test code = 412) PLATELET COUNT (BEAKER) (test 153 K/CU MM 150-430 code = 756) MEAN PLATELET VOLUME (BEAKER) 11.1 fL 6.0-11.5 (test code = 754) NUCLEATED RED BLOOD CELLS 0 /100 WBC 0-0 (BEAKER) (test code = 413) NEUTROPHILS RELATIVE PERCENT 43 % (BEAKER) (test code = 429) LYMPHOCYTES RELATIVE PERCENT 35 % (BEAKER) (test code = 430) MONOCYTES RELATIVE PERCENT 15 % (BEAKER) (test code = 431) EOSINOPHILS RELATIVE PERCENT 6 % (BEAKER) (test code = 432) BASOPHILS RELATIVE PERCENT 1 % (BEAKER) (test code = 437) NEUTROPHILS ABSOLUTE COUNT 1.75 K/ L 1.80-8.00 L (BEAKER) (test code = 670) LYMPHOCYTES ABSOLUTE COUNT 1.41 K/ L 1.48-4.50 L (BEAKER) (test code = 414) MONOCYTES ABSOLUTE COUNT (BEAKER) 0.62 K/ L 0.00-1.30 (test code = 415) EOSINOPHILS ABSOLUTE COUNT 0.24 K/ L 0.00-0.50 (BEAKER) (test code = 416) BASOPHILS ABSOLUTE COUNT (BEAKER) 0.03 K/ L 0.00-0.20 (test code = 417) IMMATURE GRANULOCYTES-RELATIVE 0 % 0-0 PERCENT (BEAKER) (test code = 2801) POC-Glucose [id number] 00:17:37 Test Item Value Reference Range Interpretation Comments POC-Glucose Meter (test 81 mg/dL 70-110 : TE STED AT [facility] code = 1538) [address] [facility] [id number]: Public Relations Account Supervisor/Techni marie ID = [id number] for Tabitha Chappell Lab Interpretation (test Normal code = 68872-5) [facility] [id number] 00:17:37 Test Item Value Reference Range Interpretation Comments POC-GLUCOSE METER 81 mg/dL 70-110 : TESTED A T SLS 1317 (BEAKER) (test [facility] = [facility] [id number]: Public Relations Account Supervisor/Techni marie ID = [id number] for Tabitha John BASIC METABOLIC [id number] 17:12:52 Test Item Value Reference Range Interpretation Comments SODIUM (BEAKER) 140 meq/L 135-148 (test code = 381) POTASSIUM 4.3 meq/L 3.6-5.5 (BEAKER) (test code = 379) CHLORIDE (BEAKER) 111 meq/L 98-106 H (test code = 382) CO2 (BEAKER) 18 meq/L 20-29 L (test code = 355) BLOOD UREA 15 mg/dL 10-26 NITROGEN (BEAKER) (test code = 354) CREATININE 1.17 mg/dL 0.50-1.20 (BEAKER) (test code = 358) GLUCOSE RANDOM 80 mg/dL 70-110 (BEAKER) (test code = 652) CALCIUM (BEAKER) 8.7 mg/dL 8.5-10.5 (test code = 697) EGFR (BEAKER) 51 Interpretatio n of eGFR (test code = mL/min/1.73 values Stage D escription 1092) sq m Result G1 Agnes l or high >=90 G2 Mildly decreased 60-89 G3a Mildl y to moderately 45-5 9 G3b Moderately to s everely 30-44 G4 Severl y decreased 15-29 G5 Kidney failure <15Reported eGF R is based on the CKD-EPI 2020 equation that d oes not use a race coefficientEsti mated GFR is not as accur ate as Creatinine Fabby negron in predicting glom erular filtration rate . Estimated GFR is not appl icable for dialysis patien ts Public Relations Account Supervisor ID - DSENSONOperator ID - DSENSONOperator ID - DSENSONOperator ID - DSENSONOperator ID - DSENSONOperator ID - DSENSONOperator ID - DSENSONOperator ID - DSENSONOperator ID - DSENSONOperator ID - DSENSONHEPATIC FUNCTION PANEL 2022-05-18 17:11:56 Test Item Value Reference Range Interpretation Comments TOTAL PROTEIN (BEAKER) (test code = 7.5 gm/dL 6.0-8.5 770) ALBUMIN (BEAKER) (test code = 1145) 3.3 g/dL 3.5-5.0 L BILIRUBIN TOTAL (BEAKER) (test code 1.0 mg/dL 0.1-1.2 = 377) BILIRUBIN DIRECT (BEAKER) (test 0.6 mg/dL 0.0-0.4 H code = 706) ALKALINE PHOSPHATASE (BEAKER) (test 108 U/L 30-115 code = 346) AST (SGOT) (BEAKER) (test code = 65 U/L 5-40 H 353) ALT (SGPT) (BEAKER) (test code = 38 U/L 5-50 347) Public Relations Account Supervisor ID - DSENSONOperator ID - DSENSONOperator ID - DSENSONOperator ID - DSENSONOperator ID - DSENSONOperator ID - DSENSONOperator ID - DSENSONMAGNESIUM 2022-05-18 17:11:56 Test Item Value Reference Range Interpretation Comments MAGNESIUM (BEAKER) (test code = 1.1 mg/dL 1.5-3.0 L 627) Public Relations Account Supervisor ID - DSENSONOperator ID - DSENSONOperator ID - DSENSONOperator ID - [id number] 17:08:17 Test Item Value Reference Range Interpretation Comments PHOSPHORUS (BEAKER) (test code = 2.4 mg/dL 2.5-4.5 L 604) Public Relations Account Supervisor ID - DSENSONPROTHROMBIN TIME/[id number] 16:46:10 Test Item Value Reference Range Interpretation Comments PROTIME (BEAKER) 12.5 seconds 9.3-12.0 H Final Infor mation (test code = 759) (Auto Outp ut) INR (BEAKER) (test 1.15 See_Comment Final Inf ormation code = 370) (Auto Output) [Automated mess age] The system [employer] generated this result transmitted ref erence range: <=5.90. The reference range was not used to int erpret this result as normal/abnormal . RECOMMENDED COUMADIN/WARFARIN INR THERAPY RANGESSTANDARD DOSE: 2.0 - 3.0 Includes: PROPHYLAXIS for venous thrombosis, systemic embolization; TREATMENT for venous thrombosis and/or pulmonary embolus.HIGH RISK: Target INR is 2.5-3.5 for patients with mechanical heart valves.CBC W/PLT COUNT & AUTO [id number] 16:24:50 Test Item Value Reference Range Interpretation Comments WHITE BLOOD CELL COUNT (BEAKER) 5.7 K/ L 4.0-10.0 (test code = 775) RED BLOOD CELL COUNT (BEAKER) 4.25 M/ L 4.00-5.00 (test code = 761) HEMOGLOBIN (BEAKER) (test code = 14.0 GM/DL 12.0-15.5 410) HEMATOCRIT (BEAKER) (test code = 40.2 % 36.0-46.0 411) MEAN CORPUSCULAR VOLUME (BEAKER) 94.6 fL 82.0-99.0 (test code = 753) MEAN CORPUSCULAR HEMOGLOBIN 32.9 pg 27.0-33.0 (BEAKER) (test code = 751) MEAN CORPUSCULAR HEMOGLOBIN CONC 34.8 GM/DL 32.0-36.0 (BEAKER) (test code = 752) RED CELL DISTRIBUTION WIDTH 13.0 % 12.0-15.0 (BEAKER) (test code = 412) PLATELET COUNT (BEAKER) (test 182 K/CU MM 150-430 code = 756) MEAN PLATELET VOLUME (BEAKER) 10.2 fL 6.0-11.5 (test code = 754) NUCLEATED RED BLOOD CELLS 0 /100 WBC 0-0 (BEAKER) (test code = 413) NEUTROPHILS RELATIVE PERCENT 53 % (BEAKER) (test code = 429) LYMPHOCYTES RELATIVE PERCENT 30 % (BEAKER) (test code = 430) MONOCYTES RELATIVE PERCENT 13 % (BEAKER) (test code = 431) EOSINOPHILS RELATIVE PERCENT 4 % (BEAKER) (test code = 432) BASOPHILS RELATIVE PERCENT 1 % (BEAKER) (test code = 437) NEUTROPHILS ABSOLUTE COUNT 3.05 K/ L 1.80-8.00 (BEAKER) (test code = 670) LYMPHOCYTES ABSOLUTE COUNT 1.69 K/ L 1.48-4.50 (BEAKER) (test code = 414) MONOCYTES ABSOLUTE COUNT (BEAKER) 0.73 K/ L 0.00-1.30 (test code = 415) EOSINOPHILS ABSOLUTE COUNT 0.21 K/ L 0.00-0.50 (BEAKER) (test code = 416) BASOPHILS ABSOLUTE COUNT (BEAKER) 0.03 K/ L 0.00-0.20 (test code = 417) IMMATURE GRANULOCYTES-RELATIVE 0 % 0-0 PERCENT (BEAKER) (test code = 2801) MR, ABDOMEN, WITHOUT [id number] 16:15:00Unlisted Reason for Exam - Click Yes and Enter Reason Below->No [facility] 1955 Sex: FFINAL REPORT MRCP, MRI of abdomen without contrast Clinical History: Cholelithiasis Technique: Multiplanar and multisequence MR images of the biliary system are obtained, with dedicated MRCP protocol and images. No intravenous contrast is administered. In addition, 3 dimensional reformatted images of the biliary system are obtained to evaluate the biliary anatomy. Comparison: None Discussion: This examination is not dedicated to evaluating masses or parenchymal abnormalities of the abdominal organs. Liver is not cirrhotic in morphology. There is a mild degree of biliary ductal dilatation. The CBD measures approximately 11 mm in diameter. The distal CBD appears to narrow somewhat abruptly. No stone is identified. Gallbladder is slightly distended, no wall thickening or pericholecystic edema. Liver parenchyma demonstrates normal signal. There is a small cyst in segment 4. Pancreatic duct is normal in caliber. No peripancreatic fluid or inflammation. The right kidney is absent. No hydronephrosis on the left. There are several small cysts in the left kidney, as well as a few subcentimeter T1 hyperintense, T2 hypointense foci in the left kidney, likely to represent hemorrhagic or proteinaceous cysts. Note characterization is limited in the absence of intravenous contrast. Visualized bowel is unremarkable. There is no ascites, or lymphadenopathy. Bony structures demonstrate degenerative changes, and scoliosis. Impression: Mild biliary ductal dilatation. No cholelithiasis, or choledocholithiasis is identified. The CBD demonstrates somewhat abrupt narrowing distally. Note the ampullary region is not well evaluated by MRI. If clinically appropriate, consider correlation with ERCP. Signed: Digna Landeros Verified Date/Time: 05/18/2022 16:15:32 Reading Location: [facility] C013X [facility] Consult Reading Room Cytology (non-gynecological) [id number] 19:07:52 Test Item Value Reference Range Interpretation Comments Case number (test code = [id number]) Cytology See link below for (non-gynecological) PDF Lab Report report (test code = 1178) Result status (test code This is Final Report = [id number]) for [id number] [facility]
[2023-04-02] MEDS ORDERED: HYDROMORPHONE HCL 1 MG/ML INJ ONE (09:22)
[2023-04-02] MEDS ORDERED: ONDANSETRON 4 MG/2 ML VIAL ONE (09:22)
--- NOTE | 2023-04-02 09:51 | ER ---
Nurse's Notes [facility] Name: Brandy Perez Age: 67 yrs Sex: Female : 1955 Arrival Date: 04/02/2023 Time: 08:50 Bed 5 Private MD: Diagnosis: Musculoskeletal back pain Presentation: 04/02 09:02 Chief complaint: Patient states: L hip pain and lower back pain for 2 days. No trauma ll1 or falls. Coronavirus screen: Vaccine status: Patient reports receiving the 2nd dose of the covid vaccine. Client denies travel out of the [place] in the last 14 days. At this time, the client does not indicate any symptoms associated with coronavirus-19. Ebola Screen: Patient denies travel to an Ebola-affected area in the 21 days before illness onset. Initial Sepsis Screen: Does the patient meet any 2 criteria? No. Patient's initial sepsis screen is negative. Does the patient have a suspected source of infection? Yes: Bone or joint infection. Risk Assessment: Do you want to hurt yourself or someone else? Patient reports no desire to harm self or others. Onset of symptoms was April 01, 2023. 09:02 Method Of Arrival: Wheelchair ll1 09:02 Acuity: LEONARDO 3 ll1 Triage Assessment: 09:04 General: Appears uncomfortable, Behavior is calm, cooperative, appropriate for age. ll1 Pain: Complains of pain in low back Pain currently is 10 out of 10 on a pain scale. Quality of pain is described as aching. Musculoskeletal: Reports pain in L hip and low back. Historical: - Allergies: 09:02 Keflex; ll1 09:02 Mobic; ll1 09:02 Phenergan; ll1 - PMHx: 09:02 Arthritis; COPD; GERD; HEP C; Hypertension; Lupus; Osteoporosis; RIGHT LEG NERVE PAIN; ll1 scoliosis; - PSHx: 09:02 Nephrectomy; ll1 - Immunization history:: Client reports receiving the 2nd dose of the Covid vaccine. - Social history:: Smoking status: Patient denies any tobacco usage or history of. Screenin:22 [facility] ED Fall Risk Assessment (Adult) History of falling in the last 3 months, iw including since admission Score/Fall Risk Level 0 - 2 = Low Risk. Abuse screen: Denies threats or abuse. Denies injuries from another. Nutritional screening: No deficits noted. Tuberculosis screening: No symptoms or risk factors identified. Assessment: 09:21 General: Appears in no apparent distress. Behavior is calm, cooperative. Pain: iw Complains of pain in left low back Pain radiates to low back area. Neuro: Level of Consciousness is awake, alert, obeys commands, Oriented to person, place, time, situation, Moves all extremities. Full function. Cardiovascular: Patient's skin is warm and dry. Respiratory: Respiratory effort is even, unlabored, Respiratory pattern is regular. Derm: Skin is intact, is healthy with good turgor. 09:42 Reassessment: Patient appears in no apparent distress at this time. Patient and/or iw family updated on plan of care and expected duration. Pain level reassessed. Patient is alert, oriented x 3, equal unlabored respirations, skin warm/dry/pink. pain is now 8/10. Vital Signs: 09:02 BP 151 / 100; Pulse 66; Resp 17; Temp 98.4; Pulse Ox 96% on R/A; Weight 66.68 kg; ll1 Height 5 ft. 3 in. ; Pain 10/10; 09:02 Body Mass Index 26.04 (66.68 kg, 160.02 cm) ll1 09:02 Pain Scale: Adult ll1 ED Course: 08:53 Patient arrived in ED. im 08:54 Thi Cohen MD is Attending Physician. sp3 08:55 Arm band placed on Patient placed in an exam room, on a stretcher. ll1 09:00 Tootie Stuart RN is Primary Nurse. iw 09:04 Triage completed. ll1 09:11 Inserted saline lock: 22 gauge in right antecubital area, using aseptic technique. iw 09:22 Patient has correct armband on for positive identification. Provided Education on: pain.iw 10:20 No provider procedures requiring assistance completed. IV discontinued, intact, iw bleeding controlled, No redness/swelling at site. Pressure dressing applied. Administered Medications: 09:18 Drug: HYDROmorphone IVP 1 mg Route: IVP; Site: right antecubital; iw 10:15 Follow up: Response: No adverse reaction; Pain is decreased iw 09:18 Drug: Ondansetron IVP 4 mg Route: IVP; Site: right antecubital; iw 10:00 Follow up: Response: No adverse reaction iw Medication: 09:44 VIS not applicable for this client. iw Outcome: 09:50 Discharge ordered by . sp3 10:23 Discharged to home ambulatory. iw 10:23 Condition: good 10:23 Discharge instructions given to patient, Instructed on discharge instructions, follow up and referral plans. Demonstrated understanding of instructions, follow-up care. 10:24 Patient left the ED. iw Signatures: Tootie Stuart RN RN iw Otoniel Sinha RN RN ll1 Thi Cohen MD MD sp3 Vinita Rosado Corrections: (The following items were deleted from the chart) 09:02 09:02 PMHx: SCOLEOSIS; ll1 ll1
--- NOTE | 2023-04-02 09:51 | EDPHYS ---
Physician Documentation [facility] Name: Brandy Perez Age: 67 yrs Sex: Female : 1955 Arrival Date: 04/02/2023 Time: 08:50 Bed 5 Private MD: ED Physician Thi Cohen HPI: 04/02 09:06 This 67 yrs old Black Female presents to ER via Wheelchair with complaints of Low Back sp3 Pain. 09:06 67-year-old female with history of COPD, lupus, scoliosis status post juan insertion as sp3 a child, right lower extremity radiculopathy presents to the ED with chief complaint bilateral lower back muscle pain and spasm. Pain is worse when she moves. She denies trauma, bone pain, anterior abdominal pain, chest pain, upper back pain, shortness of breath, or any other signs or symptoms on ROS. Pain is described as spasming and cramping in nature. Patient had a CT scan of the abdomen and pelvis in April 2022 which demonstrated no aortic aneurysm or other vascular pathology. Patient was also seen here 3 months ago for similar symptoms and her symptoms resolved with pain medication at that time. She takes Tylenol 3 at home which has not helped. She denies any genitourinary symptoms, DIETITIAN CONSULTANT symptoms, fever, URI symptoms, rash, known sick contacts, travel history, or any other aspects of history at this time.. Historical: - Allergies: 09:02 Keflex; ll1 09:02 Mobic; ll1 09:02 Phenergan; ll1 - PMHx: 09:02 Arthritis; COPD; GERD; HEP C; Hypertension; Lupus; Osteoporosis; RIGHT LEG NERVE PAIN; ll1 scoliosis; - PSHx: 09:02 Nephrectomy; ll1 - Immunization history:: Client reports receiving the 2nd dose of the Covid vaccine. - Social history:: Smoking status: Patient denies any tobacco usage or history of. ROS: 09:07 Constitutional: Negative for fever, chills, and weight loss, Eyes: Negative for injury, sp3 pain, redness, and discharge, ENT: Negative for injury, pain, and discharge, Neck: Negative for injury, pain, and swelling, Cardiovascular: Negative for chest pain, palpitations, and edema, Respiratory: Negative for shortness of breath, cough, wheezing, and pleuritic chest pain, Abdomen/GI: Negative for abdominal pain, nausea, vomiting, diarrhea, and constipation, MS/Extremity: Negative for injury and deformity, Skin: Negative for injury, rash, and discoloration, Neuro: Negative for headache, weakness, numbness, tingling, and seizure, Psych: Negative for depression, anxiety, suicide ideation, homicidal ideation, and hallucinations, Allergy/Immunology: Negative for hives, rash, and allergies, Endocrine: Negative for neck swelling, polydipsia, polyuria, polyphagia, and marked weight changes, Hematologic/Lymphatic: Negative for swollen nodes, abnormal bleeding, and unusual bruising. 09:07 All other systems are negative. Exam: 09:08 Constitutional: This is a well developed, well nourished patient who is awake, alert, sp3 and in no acute distress. Head/Face: Normocephalic, atraumatic. Eyes: Pupils equal round and reactive to light, extra-ocular motions intact. Lids and lashes normal. Conjunctiva and sclera are non-icteric and not injected. Cornea within normal limits. Periorbital areas with no swelling, redness, or edema. Neck: Trachea midline, no thyromegaly or masses palpated, and no cervical lymphadenopathy. Supple, full range of motion without nuchal rigidity, or vertebral point tenderness. No Meningismus. Chest/axilla: Normal chest wall appearance and motion. Nontender with no deformity. No lesions are appreciated. Cardiovascular: Regular rate and rhythm with a normal S1 and S2. No gallops, murmurs, or rubs. Normal PMI, no JVD. No pulse deficits. Respiratory: Lungs have equal breath sounds bilaterally, clear to auscultation and percussion. No rales, rhonchi or wheezes noted. No increased work of breathing, no retractions or nasal flaring. Abdomen/GI: Soft, non-tender, with normal bowel sounds. No distension or tympany. No guarding or rebound. No evidence of tenderness throughout. Skin: Warm, dry with normal turgor. Normal color with no rashes, no lesions, and no evidence of cellulitis. MS/ Extremity: Pulses equal, no cyanosis. Neurovascular intact. Full, normal range of motion. Neuro: Awake and alert, GCS 15, oriented to person, place, time, and situation. Cranial nerves II-XII grossly intact. Motor strength 5/5 in all extremities. Sensory grossly intact. Cerebellar exam normal. Normal gait. Psych: Awake, alert, with orientation to person, place and time. Behavior, mood, and affect are within normal limits. 09:08 Back: Bilateral lower back muscles tense and mild spasm and noted. They are tender to palpation mildly. No midline bony tenderness, no CVA tenderness, and range of motion is intact. Distal pulses are normal.. Vital Signs: 09:02 BP 151 / 100; Pulse 66; Resp 17; Temp 98.4; Pulse Ox 96% on R/A; Weight 66.68 kg; ll1 Height 5 ft. 3 in. ; Pain 07/01; 09:02 Body Mass Index 26.04 (66.68 kg, 160.02 cm) ll1 09:02 Pain Scale: Adult ll1 MDM: 09:08 Data reviewed: vital signs, nurses notes, old medical records. ED course: 67-year-old sp3 female with PMH above now presents with muscle spasm. I believe this is purely musculoskeletal in origin patient has no prior history of aortic pathology with imaging confirmed less than 11 months ago. I do not believe patient is having intestinal pathology, pathology, DIETITIAN CONSULTANT pathology, or any other concerning symptom process. We will administer Dilaudid and Zofran IV and reassess patient for probable discharge.. 09:10 Patient medically screened. sp3 09:49 ED course: Patient improved with pain medication and we will safely discharge her home sp3 at this time.. 04/02 09:05 Order name: IV; Complete Time: 09:10 sp3 Administered Medications: 09:18 Drug: HYDROmorphone IVP 1 mg Route: IVP; Site: right antecubital; iw 10:15 Follow up: Response: No adverse reaction; Pain is decreased iw 09:18 Drug: Ondansetron IVP 4 mg Route: IVP; Site: right antecubital; iw 10:00 Follow up: Response: No adverse reaction iw Disposition Summary: 04/02/23 09:50 Discharge Ordered Location: Home sp3 Condition: Stable sp3 Diagnosis - Musculoskeletal back pain sp3 Followup: sp3 - With: Private Physician - When: Upon discharge from the Emergency Department - Reason: Continuance of care Discharge Instructions: - Discharge Summary Sheet sp3 - Managing Chronic Back Pain sp3 Forms: - Medication Reconciliation Form sp3 - Thank You Letter sp3 - Antibiotic Education sp3 - Prescription Opioid Use sp3 - Patient Portal Instructions.htm sp3 Signatures: Tootie Stuart RN RN iw Otoniel Sinha RN RN ll1 Thi Cohen MD MD sp3 Corrections: (The following items were deleted from the chart) 09:02 09:02 PMHx: SCOLEOSIS; ll1 ll1
[2023-04-02 10:53] VITALS: BP 151/100; TEMP 98.4; O2SAT 96
== END 2023-04-02 10:24 | disposition home or self-care (01) ==
LOC: ER 08:50
DX: M62.830 Muscle spasm of back (principal); Z88.1 Allergy status to other antibiotic agents; Z88.6 Allergy status to analgesic agent; Z88.8 Allergy status to other drugs, medicaments and biological substances
CPT/HCPCS: J1170; J2405

== ENCOUNTER → 2023-10-13 | Emergency (ER) | payer OTHER ==
[~2023-10-13] MED LIST: HYDROCODONE/APAP 7.5/325 MG TAB ONE; dexAMETHasone 10 MG/ML VIAL ONE
--- NOTE | 2023-10-13 16:27 | ER ---
Nurse's Notes [facility] Name: Brandy Perez Age: 68 yrs Sex: Female : 1955 Arrival Date: 10/13/2023 Time: 14:10 Bed DX1 Private MD: Yo Carrasco V Diagnosis: Radiculopathy, cervical region Presentation: 10/13 14:28 Chief complaint: Patient states: Chronic back pain - right shoulder and right arm pain. ld1 Coronavirus screen: At this time, the client does not indicate any symptoms associated with coronavirus-19. Ebola Screen: No symptoms or risks identified at this time. Initial Sepsis Screen: Does the patient meet any 2 criteria? No. Patient's initial sepsis screen is negative. Does the patient have a suspected source of infection? No. Patient's initial sepsis screen is negative. Risk Assessment: Do you want to hurt yourself or someone else? Patient reports no desire to harm self or others. Onset of symptoms was October 13, 2023 at 14:30. 14:28 Method Of Arrival: Ambulatory ld1 14:28 Acuity: LEONARDO 4 ld1 Triage Assessment: 14:30 General: Appears in no apparent distress. comfortable, Behavior is calm, cooperative, ld1 appropriate for age. Pain: Complains of pain in right clavicle and right arm Pain does not radiate. Pain currently is 10 out of 10 on a pain scale. Quality of pain is described as throbbing, Pain began suddenly. EENT: No signs and/or symptoms were reported regarding the EENT system. Neuro: Level of Consciousness is awake, alert, obeys commands, Oriented to person, place, time, situation. Cardiovascular: Capillary refill < 3 seconds Patient's skin is warm and dry. Respiratory: Airway is patent Respiratory effort is even, unlabored. GI: Abdomen is round non-distended. : No signs and/or symptoms were reported regarding the genitourinary system. Derm: No signs and/or symptoms reported regarding the dermatologic system. Musculoskeletal: Range of motion: intact in all extremities. Historical: - Allergies: 14:30 Keflex; ld1 14:30 Mobic; ld1 14:30 Phenergan; ld1 - PMHx: 14:30 Arthritis; COPD; GERD; HEP C; Hypertension; Lupus; Osteoporosis; RIGHT LEG NERVE PAIN; ld1 scoliosis; - PSHx: 14:30 Nephrectomy; ld1 - Immunization history:: Adult Immunizations up to date. - Social history:: Smoking status: Patient denies any tobacco usage or history of. - Family history:: not pertinent. Screenin:06 [facility] ED Fall Risk Assessment (Adult) History of falling in the last 3 months, ap3 including since admission No falls in past 3 months (0 pts). Abuse screen: Denies threats or abuse. Nutritional screening: No deficits noted. Tuberculosis screening: No symptoms or risk factors identified. Vital Signs: 14:28 Pulse 83; Resp 18; Temp 98.1(TE); Pulse Ox 96% on R/A; Weight 68.04 kg; Height 5 ft. 3 ld1 in. ; Pain 10/10; 14:32 BP 148 / 90; ld1 17:07 Temp 97.8(TE); ap3 14:28 Body Mass Index 26.57 (68.04 kg, 160.02 cm) ld1 14:28 Pain Scale: Adult ld1 ED Course: 14:12 Patient arrived in ED. rg4 14:12 Yo Carrasco MD is Private Physician. rg4 14:19 Parish Villa MD is Attending Physician. rt 14:30 Triage completed. ld1 14:30 Arm band placed on right wrist. ld1 16:24 Yo Carrasco MD is Referral Physician. rt 17:06 Provided Education on: discharge instructions. ap3 17:06 Patient has correct armband on for positive identification. ap3 17:06 No provider procedures requiring assistance completed. Patient did not have IV access ap3 during this emergency room visit. Administered Medications: 17:05 Not Given (Patient Refused): [id number] mg PO once ap3 17:06 Drug: Dexamethasone IM 8 mg IM once Route: IM; Site: left deltoid; ap3 17:06 Not Given (patient drivingg): hydrocodone-acetaminophen(7.5 mg-325 mg) 1 tabs PO once ap3 Medication: 17:06 VIS not applicable for this client. ap3 Outcome: 16:26 Discharge ordered by . rt 17:06 Discharged to home ambulatory, ap3 17:06 Condition: good 17:06 Discharge instructions given to patient, Instructed on discharge instructions, follow up and referral plans. Demonstrated understanding of instructions, follow-up care, 17:07 Patient left the ED. ap3 Signatures: Felipa Sauceda4 Brenda Pedraza RN RN ap3 Regina Lombardi RN RN ld1 Parish Villa MD MD rt
--- NOTE | 2023-10-13 16:27 | EDPHYS ---
Physician Documentation [facility] Name: Brandy Perez Age: 68 yrs Sex: Female : 1955 Arrival Date: 10/13/2023 Time: 14:10 Bed DX1 Private MD: Yo Carrasco V ED Physician Parish Villa HPI: 10/13 19:48 This 68 yrs old Black Female presents to ER via Ambulatory with complaints of Back Pain.rt 19:48 Patient presents to the ED with a right upper back, right shoulder pain has been rt present for several days. States that she has a burning sensation that radiates down her arm. Was told that she had a pinched nerve, her network operations manager reported took her off of gabapentin. Did not take medicines at home generally. She denies other acute complaints this time, symptoms are moderate severity, aching, nonradiating, no other aggravating alleviating factors.. Historical: - Allergies: 14:30 Keflex; ld1 14:30 Mobic; ld1 14:30 Phenergan; ld1 - PMHx: 14:30 Arthritis; COPD; GERD; HEP C; Hypertension; Lupus; Osteoporosis; RIGHT LEG NERVE PAIN; ld1 scoliosis; - PSHx: 14:30 Nephrectomy; ld1 - Immunization history:: Adult Immunizations up to date. - Social history:: Smoking status: Patient denies any tobacco usage or history of. - Family history:: not pertinent. ROS: 19:48 Constitutional: Negative for fever, chills, and weight loss, Cardiovascular: Negative rt for chest pain, palpitations, and edema, Respiratory: Negative for shortness of breath, cough, wheezing, and pleuritic chest pain, Abdomen/GI: Negative for abdominal pain, nausea, vomiting, diarrhea, and constipation, Skin: Negative for injury, rash, and discoloration, Neuro: Negative for headache, weakness, numbness, tingling, and seizure, Psych: Negative for depression, anxiety, suicide ideation, homicidal ideation, and hallucinations, 19:48 Back: Positive for pain at rest, pain with movement, 19:48 MS/extremity: Positive for pain, Negative for injury or acute deformity, Exam: 19:48 Constitutional: This is a well developed, well nourished patient who is awake, alert, rt and in no acute distress. Head/Face: Normocephalic, atraumatic. Neck: Trachea midline, no thyromegaly or masses palpated, and no cervical lymphadenopathy. Supple, full range of motion without nuchal rigidity, or vertebral point tenderness. No Meningismus. Chest/axilla: Normal chest wall appearance and motion. Nontender with no deformity. No lesions are appreciated. Cardiovascular: Regular rate and rhythm with a normal S1 and S2. No gallops, murmurs, or rubs. Normal PMI, no JVD. No pulse deficits. Respiratory: Lungs have equal breath sounds bilaterally, clear to auscultation and percussion. No rales, rhonchi or wheezes noted. No increased work of breathing, no retractions or nasal flaring. Abdomen/GI: Soft, non-tender, with normal bowel sounds. No distension or tympany. No guarding or rebound. No evidence of tenderness throughout. Neuro: Awake and alert, GCS 15, oriented to person, place, time, and situation. Cranial nerves II-XII grossly intact. Motor strength 5/5 in all extremities. Sensory grossly intact. Cerebellar exam normal. Normal gait. Psych: Awake, alert, with orientation to person, place and time. Behavior, mood, and affect are within normal limits. 19:48 Back: No midline tenderness, no stepoffs, 19:48 Musculoskeletal/extremity: Tenderness to the right superior to trapezius region, no deformities,. Vital Signs: 14:28 Pulse 83; Resp 18; Temp 98.1(TE); Pulse Ox 96% on R/A; Weight 68.04 kg; Height 5 ft. 3 ld1 in. ; Pain 10/10; 14:32 BP 148 / 90; ld1 17:07 Temp 97.8(TE); ap3 14:28 Body Mass Index 26.57 (68.04 kg, 160.02 cm) ld1 14:28 Pain Scale: Adult ld1 MDM: 16:20 Patient medically screened. rt 19:48 Differential diagnosis: Cervical radiculopathy, muscle spasm. Data reviewed: vital rt signs, nurses notes. Test considered but Not performed: CT: No trauma, no focal neurodeficits, CT scans not indicated. Care significantly affected by the following chronic conditions: Hypertension. Counseling: I had a detailed discussion with the patient and/or guardian regarding the historical points, exam findings, and any diagnostic results supporting the discharge/admit diagnosis, the need for outpatient follow up, to return to the emergency department if symptoms worsen or persist or if there are any questions or concerns that arise at home. Administered Medications: 17:05 Not Given (Patient Refused): [id number] mg PO once ap3 17:06 Drug: Dexamethasone IM 8 mg IM once Route: IM; Site: left deltoid; ap3 17:06 Not Given (patient drivingg): hydrocodone-acetaminophen(7.5 mg-325 mg) 1 tabs PO once ap3 Disposition Summary: 10/13/23 16:26 Discharge Ordered Notes: Location: Home rt Problem: an ongoing problem rt Symptoms: are unchanged rt Condition: Stable rt Diagnosis - Radiculopathy, cervical region rt Followup: rt - With: Yo Carrasco MD - When: 2 - 3 days - Reason: Discharge Instructions: - Discharge Summary Sheet rt - Cervical Radiculopathy rt Forms: - Medication Reconciliation Form rt - Thank You Letter rt - Antibiotic Education rt - Prescription Opioid Use rt - Patient Portal Instructions rt - Leadership Thank You Letter rt Signatures: Brenda Pedraza, RN RN ap3 Regina Lombardi RN RN ld1 Parish Villa MD MD rt
[2023-10-13 18:21] VITALS: BP 148/90; TEMP 97.8; O2SAT 96
== END ==
LOC: ER 14:10
DX: M54.12 Radiculopathy, cervical region (principal); Z88.1 Allergy status to other antibiotic agents; Z88.8 Allergy status to other drugs, medicaments and biological substances
CPT/HCPCS: 96372; 99284; J1100

== ENCOUNTER → 2023-12-07 | Emergency (ER) | payer OTHER ==
[~2023-12-07] MED LIST changes: -HYDROCODONE/APAP 7.5/325 MG TAB ONE; +MORPHINE 4 MG/ML SYR ONE; +ONDANSETRON 4 MG (ODT) TAB ONE; -dexAMETHasone 10 MG/ML VIAL ONE; +methocarbamoL 500 MG TAB ONE
--- NOTE | 2023-12-07 08:14 | ER ---
Nurse's Notes [facility] Name: Brandy Perez Age: 68 yrs Sex: Female : 1955 Arrival Date: 12/07/2023 Time: 07:37 Bed 14 Private MD: Diagnosis: right shoulder pain;chronic shoulder pain Presentation: 12/06 07:53 Chief complaint: Pain in right shoulder that radiates to right upper back and right hb elbow x 2 months. Recently treated for pinched nerve and bursitis in elbow, pain getting worse. Coronavirus screen: At this time, the client does not indicate any symptoms associated with coronavirus-19. Ebola Screen: No symptoms or risks identified at this time. Initial Sepsis Screen: Does the patient meet any 2 criteria? No. Patient's initial sepsis screen is negative. Does the patient have a suspected source of infection? No. Patient's initial sepsis screen is negative. Risk Assessment: Do you want to hurt yourself or someone else? Patient reports no desire to harm self or others. Onset of symptoms was September 2023. 07:53 Method Of Arrival: Ambulatory hb 07:53 Acuity: LEONARDO 4 hb Triage Assessment: 07:54 General: Appears in no apparent distress. Behavior is calm, cooperative. Pain: Pain hb currently is 8 out of 10 on a pain scale. Neuro: Level of Consciousness is awake, alert, obeys commands, Oriented to person, place, time, situation. Cardiovascular: Patient's skin is warm and dry. Respiratory: Respiratory effort is even, unlabored, Respiratory pattern is regular, symmetrical. Musculoskeletal: Reports right shoulder pain that radiates to right upper neck, right elbow pain. Historical: - Allergies: 07:54 Keflex; hb 07:54 Mobic; hb 07:54 Phenergan; hb - PMHx: 07:54 Arthritis; COPD; GERD; HEP C; Hypertension; Lupus; Osteoporosis; RIGHT LEG NERVE PAIN; hb scoliosis; - PSHx: 07:54 Nephrectomy; hb - Immunization history:: Adult Immunizations up to date. - Social history:: Smoking status: Patient/guardian denies using tobacco, the patient reports quitting approximately 3 years ago. Screenin:56 [facility] ED Fall Risk Assessment (Adult) History of falling in the last 3 months, hb including since admission No falls in past 3 months (0 pts) Confusion or Disorientation No (0 pts) Intoxicated or Sedated No (0 pts) Impaired Gait No (0 pts) Mobility Assist Device Used No (0 pt) Altered Elimination No (0 pt) Score/Fall Risk Level 0 - 2 = Low Risk Oriented to surroundings, Maintained a safe environment, Educated pt \T\ family on fall prevention, incl call for assistance when getting out of bed. Abuse screen: Denies threats or abuse. Denies injuries from another. Nutritional screening: No deficits noted. Tuberculosis screening: No symptoms or risk factors identified. Assessment: 07:56 General: See triage assessment.. hb 08:21 Reassessment: Patient appears in no apparent distress at this time. Patient and/or hb family updated on plan of care and expected duration. Pain level reassessed. Patient is alert, oriented x 3, equal unlabored respirations, skin warm/dry/pink. Vital Signs: 07:53 BP 142 / 107; Pulse 100; Resp 18; Temp 97.7(TE); Pulse Ox 96% on R/A; Weight 67.13 kg; hb Height 5 ft. 3 in. ; Pain 8/10; 08:20 BP 134 / 96; Pulse 88; Resp 16; Pulse Ox 96% on R/A; Pain 9/10; hb 07:53 Body Mass Index 26.22 (67.13 kg, 160.02 cm) hb 07:53 Pain Scale: Adult hb 08:20 Pain Scale: Adult hb ED Course: 07:41 Patient arrived in ED. mg5 07:47 Lc Hernandez MD is Attending Physician. cp3 07:54 Triage completed. hb 07:54 Arm band placed on. hb 07:56 Patient has correct armband on for positive identification. Bed in low position. Call hb light in reach. Provided Education on: use of call light. Client placed on continuous cardiac and pulse oximetry monitoring. NIBP monitoring applied. Pulse ox on. NIBP on. 07:56 Thermoregulation: warm blanket given to patient. hb 08:09 Raissa Olivares, LENARD is Primary Nurse. hb 08:13 Ricardo Henriquez MD is Referral Physician. cp3 08:33 No provider procedures requiring assistance completed. Patient did not have IV access hb during this emergency room visit. Administered Medications: 08:04 CANCELLED (Duplicate Order): morphineor iv 4 mg IVP once over 4 mins cp3 08:20 Drug: Ondansetron PO 4 mg PO once Route: PO; hb 08:33 Follow up: Response: No adverse reaction hb 08:20 Drug: Methocarbamol PO 500 mg PO once Route: PO; hb 08:33 Follow up: Response: No adverse reaction hb 08:20 Drug: morphine IM 4 mg IM once Route: IM; Site: left deltoid; hb 08:33 Follow up: Response: No adverse reaction hb Medication: 07:56 VIS not applicable for this client. hb Outcome: 08:14 Discharge ordered by . cp3 08:33 Discharged to home via wheelchair, with significant other, assisted to vehicle via wheelchair by this RN 08:33 Condition: stable 08:33 Discharge instructions given to patient, Instructed on discharge instructions, follow up and referral plans. medication usage, Demonstrated understanding of instructions, follow-up care, medications, Prescriptions given X 2, 08:34 Patient left the ED. hb Signatures: Lc Hernandez MD MD cp3 Raissa Olivares, RN RN Patricia Hayes mg5
--- NOTE | 2023-12-07 08:14 | EDPHYS ---
Physician Documentation [facility] Name: Brandy Perez Age: 68 yrs Sex: Female : 1955 Arrival Date: 12/07/2023 Time: 07:37 Bed 14 Private MD: ED Physician Lc Hernandez HPI: 12/06 08:04 This 68 yrs old Black Female presents to ER via Ambulatory with complaints of Arm Pain. cp3 08:04 The patient is a 68-year-old female who presents to the ED with an acute exacerbation cp3 right shoulder pain with radiation to the right arm. Patient relates that she has had pain for several months for which she has received injections and a second Tylenol 3. No paresthesias, no fever, no numbness and tingling. Historical: - Allergies: 07:54 Keflex; hb 07:54 Mobic; hb 07:54 Phenergan; hb - PMHx: 07:54 Arthritis; COPD; GERD; HEP C; Hypertension; Lupus; Osteoporosis; RIGHT LEG NERVE PAIN; hb scoliosis; - PSHx: 07:54 Nephrectomy; hb - Immunization history:: Adult Immunizations up to date. - Social history:: Smoking status: Patient/guardian denies using tobacco, the patient reports quitting approximately 3 years ago. ROS: 08:04 Constitutional: Negative for fever, chills, and weight loss, Eyes: Negative for injury, cp3 pain, redness, and discharge, ENT: Negative for injury, pain, and discharge, Neck: Negative for injury, pain, and swelling, Back: Negative for injury and pain, : Negative for injury, bleeding, discharge, and swelling, Skin: Negative for injury, rash, and discoloration, Neuro: Negative for headache, weakness, numbness, tingling, and seizure, 08:04 MS/extremity: Positive for tenderness, Right shoulder pain, Exam: 08:04 Constitutional: This is a well developed, well nourished patient who is awake, alert, cp3 and in no acute distress. Head/Face: Normocephalic, atraumatic. Chest/axilla: Normal chest wall appearance and motion. Nontender with no deformity. No lesions are appreciated. Cardiovascular: Regular rate and rhythm with a normal S1 and S2. No gallops, murmurs, or rubs. Normal PMI, no JVD. No pulse deficits. Respiratory: Lungs have equal breath sounds bilaterally, clear to auscultation and percussion. No rales, rhonchi or wheezes noted. No increased work of breathing, no retractions or nasal flaring. Back: No spinal tenderness. No costovertebral tenderness. Full range of motion. Skin: Warm, dry with normal turgor. Normal color with no rashes, no lesions, and no evidence of cellulitis. Neuro: Awake and alert, GCS 15, oriented to person, place, time, and situation. Cranial nerves II-XII grossly intact. Motor strength 5/5 in all extremities. Sensory grossly intact. Cerebellar exam normal. Normal gait. Psych: Awake, alert, with orientation to person, place and time. Behavior, mood, and affect are within normal limits. 08:04 Musculoskeletal/extremity: Patient with tenderness to the muscles around the shoulder girdle no deformity, range of motion normal, axillary nerve intact. Vital Signs: 07:53 BP 142 / 107; Pulse 100; Resp 18; Temp 97.7(TE); Pulse Ox 96% on R/A; Weight 67.13 kg; hb Height 5 ft. 3 in. ; Pain 8/10; 08:20 BP 134 / 96; Pulse 88; Resp 16; Pulse Ox 96% on R/A; Pain 9/10; hb 07:53 Body Mass Index 26.22 (67.13 kg, 160.02 cm) hb 07:53 Pain Scale: Adult hb 08:20 Pain Scale: Adult hb MDM: 07:47 Patient medically screened. cp3 08:04 Differential diagnosis: Musculoskeletal pain, chronic pain of right shoulder, cp3 tendinitis, nerve impingement, rotator cuff tear. Data reviewed: vital signs, nurses notes. Consideration of Admission/Observation Escalation of care including admission/observation considered. Medication response: robaxin. Administered Medications: 08:04 CANCELLED (Duplicate Order): morphineor iv 4 mg IVP once over 4 mins cp3 08:20 Drug: Ondansetron PO 4 mg PO once Route: PO; hb 08:33 Follow up: Response: No adverse reaction hb 08:20 Drug: Methocarbamol PO 500 mg PO once Route: PO; hb 08:33 Follow up: Response: No adverse reaction hb 08:20 Drug: morphine IM 4 mg IM once Route: IM; Site: left deltoid; hb 08:33 Follow up: Response: No adverse reaction hb Disposition Summary: 12/07/23 08:14 Discharge Ordered Notes: Location: Home cp3 Condition: Stable cp3 Diagnosis - right shoulder pain cp3 - chronic shoulder pain cp3 Followup: cp3 - With: Ricardo Henriquez MD - When: As needed - Reason: Continuance of care Discharge Instructions: - Discharge Summary Sheet cp3 Forms: - Medication Reconciliation Form cp3 - Thank You Letter cp3 - Antibiotic Education cp3 - Prescription Opioid Use cp3 - Patient Portal Instructions cp3 - Leadership Thank You Letter cp3 Prescriptions: - gabapentin 100 mg Oral capsule - take 3 capsule ORAL route 3 times per day; 60 capsule; Refills: 0, Product cp3 Selection Permitted - Zanaflex 4 mg Oral Tablet - take 1 tablet ORAL route every 8 hours As needed; 20 tablet; Refills: 0, cp3 Product Selection Permitted Signatures: Lc Hernandez MD MD cp3 Raissa Olivares RN RN Corrections: (The following items were deleted from the chart) 08:04 08:04 morphine IVP or IV 4 mg IVP once over 4 mins ordered. cp3 cp3
[2023-12-07 08:53] VITALS: BP 134/96; TEMP 97.7; O2SAT 96
== END ==
LOC: ER 07:37
DX: M25.511 Pain in right shoulder (principal); Z88.1 Allergy status to other antibiotic agents; Z88.5 Allergy status to narcotic agent; Z88.8 Allergy status to other drugs, medicaments and biological substances
CPT/HCPCS: 96372; 99285; Q0162

== ENCOUNTER → 2023-12-10 | Emergency (ER) | payer OTHER ==
[~2023-12-10] MED LIST changes: +HYDROCODONE/APAP 5/325 MG TAB ONE; -MORPHINE 4 MG/ML SYR ONE; -ONDANSETRON 4 MG (ODT) TAB ONE; -methocarbamoL 500 MG TAB ONE
--- NOTE | 2023-12-10 11:13 | RAD REPORT ---
EXAM DESCRIPTION: Shoulder Right 2 View - 12/10/2023 11:01 am CLINICAL HISTORY: PAIN COMPARISON: Thorax CT Wo Con dated 12/08/2023 TECHNIQUE: Internal and external rotation views of the right shoulder were obtained. FINDINGS: There is no fracture or dislocation. AC and glenohumeral joint mild degenerative changes. Irregularity along the greater tuberosity, may reflect chronic sequelae of rotator cuff disease. No a cute or suspicious findings. Right apical lung mass resulting in airspace opacification again seen. IMPRESSION: No acute osseous abnormality. Chronic findings as above. Known right apical lung mass.
--- NOTE | 2023-12-10 11:33 | ER ---
Nurse's Notes [facility] Name: Brandy Perez Age: 68 yrs Sex: Female : 1955 Arrival Date: 12/10/2023 Time: 10:17 Bed 10 Private MD: Diagnosis: Chronic pain, right shoulder pain Presentation: 12/09 10:43 Chief complaint: Patient states: Right shoulder pain, denies injury. Seen doctor 4 ld1 times, was told it is nerve pain, received Gabapentin. Pt reports meds not working, "I want a shoulder x ray because I think something is wrong.". Coronavirus screen: At this time, the client does not indicate any symptoms associated with coronavirus-19. Ebola Screen: No symptoms or risks identified at this time. Initial Sepsis Screen: Does the patient meet any 2 criteria? No. Patient's initial sepsis screen is negative. Does the patient have a suspected source of infection? No. Patient's initial sepsis screen is negative. Risk Assessment: Do you want to hurt yourself or someone else? Patient reports no desire to harm self or others. Onset of symptoms was December 10, 2023. 10:43 Method Of Arrival: Ambulatory ld1 10:43 Acuity: LEONARDO 4 ld1 Triage Assessment: 10:45 General: Appears in no apparent distress. comfortable, Behavior is calm, cooperative, ld1 appropriate for age. Pain: Complains of pain in anterior aspect of right shoulder Pain does not radiate. Pain currently is 10 out of 10 on a pain scale. Quality of pain is described as throbbing, Pain began suddenly, Is continuous. EENT: No signs and/or symptoms were reported regarding the EENT system. Neuro: Level of Consciousness is awake, alert, obeys commands, Oriented to person, place, time, situation. Cardiovascular: Capillary refill < 3 seconds Patient's skin is warm and dry. Respiratory: Airway is patent Respiratory effort is even, unlabored. GI: Abdomen is round non-distended. : No signs and/or symptoms were reported regarding the genitourinary system. Derm: No signs and/or symptoms reported regarding the dermatologic system. Musculoskeletal: No signs and/or symptoms reported regarding the musculoskeletal system. Historical: - Allergies: 10:45 Keflex; ld1 10:45 Mobic; ld1 10:45 Phenergan; ld1 - PMHx: 10:45 Arthritis; COPD; GERD; HEP C; Hypertension; Lupus; Osteoporosis; RIGHT LEG NERVE PAIN; ld1 scoliosis; - PSHx: 10:45 Nephrectomy; ld1 - Immunization history:: Adult Immunizations up to date. - Social history:: Smoking status: Patient denies any tobacco usage or history of. Patient/guardian denies using alcohol. Assessment: 11:08 General: Appears uncomfortable, Behavior is calm, cooperative, appropriate for age. ll1 Pain: Complains of pain in anterior aspect of right shoulder Quality of pain is described as aching. Musculoskeletal: Circulation, motion, and sensation intact. Capillary refill < 3 seconds, Reports pain in anterior aspect of right shoulder. Vital Signs: 10:43 Pulse 75; Resp 18; Temp 97.9(TE); Pulse Ox 98% on R/A; Weight 67.13 kg; Height 5 ft. 3 ld1 in. ; Pain 10/10; 10:46 BP 115 / 72; ld1 10:43 Body Mass Index 26.22 (67.13 kg, 160.02 cm) ld1 10:43 Pain Scale: Adult ld1 ED Course: 10:41 Patient arrived in ED. mg5 10:41 Thi oChen MD is Attending Physician. sp3 10:45 Triage completed. ld1 10:45 Arm band placed on right wrist. ld1 11:02 XRAY Shoulder RIGHT 2 view In Process Unspecified. EDMS 11:08 Otoniel Sinha RN is Primary Nurse. ll1 11:08 Patient placed in an exam room, on a stretcher. ll1 Administered Medications: 11:42 Drug: HYDROcodone-acetaminophen PO 5 mg-325 mg 2 tabs PO once {Note: pain 10/10, RASS ll1 0.} Route: PO; 11:47 Follow up: Response: No adverse reaction; RASS: Alert and Calm (0) ll1 Outcome: 11:32 Discharge ordered by . sp3 11:48 Patient left the ED. ll1 Signatures: Dispatcher [employer] EDMS Otoniel Sinha RN RN ll1 Regina Lombardi RN RN ld1 Thi Cohen MD MD sp3 Patricia Hayes mg5
--- NOTE | 2023-12-10 11:33 | EDPHYS ---
Physician Documentation [facility] Name: Brandy Perez Age: 68 yrs Sex: Female : 1955 Arrival Date: 12/10/2023 Time: 10:17 Bed 10 Private MD: ED Physician Thi Cohen HPI: 12/09 11:25 This 68 yrs old Black Female presents to ER via Ambulatory with complaints of Shoulder sp3 Pain. 11:25 68-year-old female with history of COPD, lupus, scoliosis status post juan insertion as sp3 a child, right lower extremity radiculopathy presents to the ED with chief complaint right shoulder pain. Pain is worse when she moves. She denies trauma, bone pain, anterior abdominal pain, chest pain, upper back pain, shortness of breath, or any other signs or symptoms on ROS. Pain is described as spasming and cramping in nature. Patient had a CT scan of the abdomen and pelvis in April 2022 which demonstrated no aortic aneurysm or other vascular pathology. Patient was also seen here multiple times for similar symptoms and her symptoms resolved with pain medication at that time. She takes Tylenol 3 at home which has not helped. 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 . Historical: - Allergies: 10:45 Keflex; ld1 10:45 Mobic; ld1 10:45 Phenergan; ld1 - PMHx: 10:45 Arthritis; COPD; GERD; HEP C; Hypertension; Lupus; Osteoporosis; RIGHT LEG NERVE PAIN; ld1 scoliosis; - PSHx: 10:45 Nephrectomy; ld1 - Immunization history:: Adult Immunizations up to date. - Social history:: Smoking status: Patient denies any tobacco usage or history of. Patient/guardian denies using alcohol. ROS: 11:30 Constitutional: Negative for fever, chills, and weight loss, Eyes: Negative for injury, sp3 pain, redness, and discharge, ENT: Negative for injury, pain, and discharge, Neck: Negative for injury, pain, and swelling, Cardiovascular: Negative for chest pain, palpitations, and edema, Respiratory: Negative for shortness of breath, cough, wheezing, and pleuritic chest pain, Abdomen/GI: Negative for abdominal pain, nausea, vomiting, diarrhea, and constipation, Back: Negative for injury and pain, Skin: Negative for injury, rash, and discoloration, Neuro: Negative for headache, weakness, numbness, tingling, and seizure, 11:30 All other systems are negative, Exam: 11:30 Constitutional: This is a well developed, well nourished patient who is awake, alert, sp3 and in no acute distress. Head/Face: Normocephalic, atraumatic. Eyes: Pupils equal round and reactive to light, extra-ocular motions intact. Lids and lashes normal. Conjunctiva and sclera are non-icteric and not injected. Cornea within normal limits. Periorbital areas with no swelling, redness, or edema. ENT: Nares patent. No nasal discharge, no septal abnormalities noted. External auditory canals are clear. Oropharynx with no redness, swelling, or masses, exudates, or evidence of obstruction, uvula midline. Mucous membranes moist. Neck: Trachea midline, no thyromegaly or masses palpated, and no cervical lymphadenopathy. Supple, full range of motion without nuchal rigidity, or vertebral point tenderness. No Meningismus. Chest/axilla: Normal chest wall appearance and motion. Nontender with no deformity. No lesions are appreciated. Cardiovascular: Regular rate and rhythm with a normal S1 and S2. No gallops, murmurs, or rubs. Normal PMI, no JVD. No pulse deficits. Respiratory: Lungs have equal breath sounds bilaterally, clear to auscultation and percussion. No rales, rhonchi or wheezes noted. No increased work of breathing, no retractions or nasal flaring. Abdomen/GI: Soft, non-tender, with normal bowel sounds. No distension or tympany. No guarding or rebound. No evidence of tenderness throughout. Back: No spinal tenderness. No costovertebral tenderness. Full range of motion. Skin: Warm, dry with normal turgor. Normal color with no rashes, no lesions, and no evidence of cellulitis. Neuro: Awake and alert, GCS 15, oriented to person, place, time, and situation. Cranial nerves II-XII grossly intact. Motor strength 5/5 in all extremities. Sensory grossly intact. Cerebellar exam normal. Normal gait. Psych: Awake, alert, with orientation to person, place and time. Behavior, mood, and affect are within normal limits. 11:30 Musculoskeletal/extremity: Mild pain on palpation of the musculature. Joint and bone exams are normal. Distal neurovascular exam in the hand is normal.. Vital Signs: 10:43 Pulse 75; Resp 18; Temp 97.9(TE); Pulse Ox 98% on R/A; Weight 67.13 kg; Height 5 ft. 3 ld1 in. ; Pain 10; 10:46 BP 115 / 72; ld1 10:43 Body Mass Index 26.22 (67.13 kg, 160.02 cm) ld1 10:43 Pain Scale: Adult ld1 MDM: 10:50 Patient medically screened. sp3 11:31 Data reviewed: vital signs, nurses notes, old medical records, radiologic studies. ED sp3 course: X-ray of the right shoulder is negative. We will administer [place] 2 tabs and discharged home. I have advised that she does follow-up with chronic pain management as the ED is not appropriate for her chronic symptoms.. 12/09 10:46 Order name: XRAY Shoulder RIGHT 2 view; Complete Time: 11:16 ld1 Administered Medications: 11:42 Drug: HYDROcodone-acetaminophen PO 5 mg-325 mg 2 tabs PO once {Note: pain 07/01, RASS ll1 0.} Route: PO; 11:47 Follow up: Response: No adverse reaction; RASS: Alert and Calm (0) ll1 Disposition Summary: 12/10/23 11:32 Discharge Ordered Notes: Location: Home sp3 Condition: Stable sp3 Diagnosis - Chronic pain, right shoulder pain sp3 Followup: sp3 - With: Private Physician - When: Upon discharge from the Emergency Department - Reason: Recheck today's complaints, Continuance of care Discharge Instructions: - Discharge Summary Sheet sp3 - Chronic Pain, Adult sp3 Forms: - Medication Reconciliation Form sp3 - Thank You Letter sp3 - Antibiotic Education sp3 - Prescription Opioid Use sp3 - Patient Portal Instructions sp3 - Leadership Thank You Letter sp3 Signatures: Dispatcher [employer] Otoniel Luna RN RN ll1 Regina Lombardi RN RN ld1 Thi Cohen MD MD sp3
[2023-12-10 12:20] VITALS: BP 115/72; TEMP 97.9; O2SAT 98
== END ==
LOC: ER 10:17
DX: G89.29 Other chronic pain (principal); Z88.1 Allergy status to other antibiotic agents; Z88.6 Allergy status to analgesic agent; Z88.8 Allergy status to other drugs, medicaments and biological substances

== ENCOUNTER 2023-12-31 17:45 | Emergency (ER) | payer OTHER ==
[2023-12-31] MEDS ORDERED: HYDROCODONE/APAP 5/325 MG TAB ONE (18:36)
[2023-12-31 18:59] LABS: Absolute Basophils 0.1 K/uL (0-0.5); Absolute Eosinophils 0.4 K/uL (0-0.5); Absolute Lymphocytes (CBC) 1.5 K/uL (0.7-4.9); Absolute Monocytes 0.7 K/uL (0.1-1.3); Absolute Neutrophil 4.8 K/uL (1.8-8.0); Basophils % 1.2 % (0-1.3); Eosinophils % 5.5 % (0-4.4); Hemoglobin 12.7 g/dL (12.0-15.0); Lymphocytes % 20.5 % (15.3-44.8); MCH 30.7 pg (27.0-35.0); MCHC 33.5 g/dL (32.0-36.0); MCV 91.7 fL (80-100); MPV 8.4 fL (7.6-11.3); Monocytes % 9.4 % (3.3-12.3); Neutrophils % 63.4 % (41.7-73.7); Nucleated Red Blood Cells % 0.1 % (0-0); Platelets 223 thou/uL (152-406); RBC Red Blood Cell Count 4.15 M/uL (3.86-4.86); Red Cell Distribution Width 14.9 % (12.1-15.2)
[2023-12-31 20:04] LABS: Anion Gap 6.8 mEq/L (5.0-15.0); Potassium 3.8 mEq/L (3.5-5.1)
--- NOTE | 2023-12-31 20:18 | RAD REPORT ---
EXAM DESCRIPTION: CTSpine Lumbar Wo Con12/31/2023 7:42 pm CLINICAL HISTORY: Right leg radiculopathy and numbness COMPARISON: None TECHNIQUE: Computed axial tomography lumbar spine was obtained with coronal and sagittal reconstruct ion. All CT scans are performed using dose optimization technique as appropriate and may include automated exposure control or mA/KV adjustment according to patient size. FINDINGS: Moderate scoliosis involves spine with postsurgical changes. No fracture or dislocation. No bony lesions seen. Spondylosis L2-3 results in moderate bilateral foraminal stenosis Small right posterolateral disc herniation L3-4. This in combination spondylosis result moderate to m arked narrowing of the right neural foramina L4-5 demonstrates a disc bulge, ligamentum flavum and facet hypertrophy and osteophytes. The thecal s ac measures 7.5 millimeters. Mild to moderate narrowing of the neural foramina. [id number] left lateral subluxation L4 on L5 IMPRESSION: Negative for a lumbar fracture. Vertebral metastasis is not seen Small right posterolateral disc herniation L3-4 in combination with spondylosis result in moderate to marked right foraminal stenosis Spondylosis most marked L4-5 resulting mild to moderate central spinal stenosis
--- NOTE | 2023-12-31 20:28 | RAD REPORT ---
EXAM DESCRIPTION: CTThoracic Spine W/o Cont12/31/2023 7:42 pm CLINICAL HISTORY: Radiculopathy/lung mass COMPARISON: None TECHNIQUE: Computed axial tomography of thoracic spine was obtained with coronal and sagittal recons truction. All CT scans are performed using dose optimization technique as appropriate and may include automated exposure control or mA/KV adjustment according to patient size. FINDINGS: 8.9 centimeter right upper lobe mass extends into the right neural foramina T2-3. Destruct ion of the medial second right rib and right transverse process T2 is present. Erosion of the right l ateral aspect of the T2 vertebral body is present. Erosion also involves the right lamina T2 Moderate scoliosis. Hay rods have been placed into thoracic spine No fracture or dislocation seen IMPRESSION: 8.9 centimeter right upper lobe mass extends into the right neural foramina at T2-3 Destruction of the medial second right rib, right transverse process T2 as well as erosion of the rig ht lateral aspect of T2 and right lamina T2 compatible with neoplastic involvement
--- NOTE | 2023-12-31 20:29 | RAD REPORT ---
EXAM DESCRIPTION: CT - Thorax Wo Con - 12/31/2023 7:42 pm CLINICAL HISTORY: sob COMPARISON: September 2023 TECHNIQUE: Computed axial tomography of the chest was obtained. Contrast was not requested. All CT scans are performed using dose optimization technique as appropriate and may include automated exposure control or mA/KV adjustment according to patient size. FINDINGS: The evaluation of mediastinum, theron and vessels is limited secondary to lack of IV contras t administration. 8.9 centimeter right upper lobe mass has increased in size. It previously measured 8.3 centimeters. Cortical irregularity involves the right lateral aspect of the T2 vertebral body. The right transvers e process of T2 is destroyed by the mass. The mass extends into the right neural foramina . Destructi on of the medial second right rib is present. Erosion involves the right lamina T2 1.9 centimeter round soft tissue mass probably a lymph node lies within the adjacent right chest wall abutting the pectoralis muscles COPD Middle mediastinal lymphadenopathy most marked in the sub- carinal region. A pleural effusion is not present. No pericardial effusion Prominent scoliosis IMPRESSION: A 0.9 centimeter right upper lobe mass consistent with neoplasm has enlarged since the p rior exam. There is extension into the right neural foramina as well as bony erosion and destruction. Mediastinal lymphadenopathy and 1.9 centimeter lymph node right chest wall
--- NOTE | 2023-12-31 21:51 | ER ---
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 States she has a mass that is compressing her spine, has fu appointment for imaging next week. 17:50 Coronavirus screen: Vaccine status: Patient reports receiving the 2nd dose of the covid nj1 vaccine. Ebola Screen: Patient denies travel to an Ebola-affected area in the 21 days before illness onset. Initial Sepsis Screen: Does the patient meet any 2 criteria? No. Patient's initial sepsis screen is negative. Does the patient have a suspected source of infection? No. Patient's initial sepsis screen is negative. Risk Assessment: Do you want to hurt yourself or someone else? Patient reports no desire to harm self or others. Onset of symptoms was December 31, 2023. 17:50 Method Of Arrival: Wheelchair nj 17:50 Acuity: LEONARDO 2 kb3 Historical: - Allergies: 18:01 Keflex; nj1 18:01 Mobic; nj1 18:01 Phenergan; nj1 - PMHx: 18:01 Arthritis; COPD; GERD; HEP C; Hypertension; Lupus; Osteoporosis; RIGHT LEG NERVE PAIN; nj1 scoliosis; - PSHx: 18:01 Nephrectomy; nj1 - Immunization history:: Client reports receiving the 2nd dose of the Covid vaccine. - Infectious Disease History:: Denies. - Social history:: Smoking status: Patient denies any tobacco usage or history of. - History obtained from: . Screenin:26 [facility] ED Fall Risk Assessment (Adult) History of falling in the last 3 months, cp4 including since admission No falls in past 3 months (0 pts) Confusion or Disorientation No (0 pts) Intoxicated or Sedated No (0 pts) Impaired Gait No (0 pts) Mobility Assist Device Used No (0 pt) Altered Elimination No (0 pt) Score/Fall Risk Level 0 - 2 = Low Risk Oriented to surroundings, Maintained a safe environment, Assessed \\T\\ reinforced patient's understanding of fall precautions, Hourly rounding (assess needs \\T\\ fall precautionary measures) done. Abuse screen: Denies threats or abuse. Nutritional screening: No deficits noted. Tuberculosis screening: No symptoms or risk factors identified. Assessment: 18:26 General: Appears uncomfortable, Behavior is calm, cooperative, appropriate for age. cp4 Pain: Denies pain. Musculoskeletal: Reports heaviness in the left lower leg. 19:22 General: Appears comfortable, Behavior is calm, cooperative. Pain: Complains of pain in ha1 left shoulder Pain does not radiate. Pain currently is 8 out of 10 on a pain scale. Quality of pain is described as throbbing. Neuro: Level of Consciousness is awake, alert, obeys commands, Oriented to person, place, time, situation. Cardiovascular: Capillary refill < 3 seconds Patient's skin is warm and dry. Respiratory: Airway is patent Respiratory effort is even, unlabored, Respiratory pattern is regular, symmetrical. : No signs and/or symptoms were reported regarding the genitourinary system. Musculoskeletal: Circulation, motion, and sensation intact. Range of motion: intact in all extremities. 19:32 Reassessment: going to CT. ha1 19:47 Reassessment: back from CT. ha1 20:49 Reassessment: Patient and/or family updated on plan of care and expected duration. Pain ha1 level reassessed. Patient is alert, oriented x 3, equal unlabored respirations, skin warm/dry/pink. 21:40 Reassessment: Patient and/or family updated on plan of care and expected duration. Pain ha1 level reassessed. Patient is alert, oriented x 3, equal unlabored respirations, skin warm/dry/pink. Vital Signs: 17:50 BP 159 / 100; Pulse 84; Resp 18; Temp 97.3(TE); Pulse Ox 97% on R/A; Weight 66.22 kg; nj1 Height 5 ft. 3 in. ; 19:24 BP 127 / 85; Pulse 69; Resp 17 S; Pulse Ox 97% on R/A; ha1 20:49 BP 121 / 84; Pulse 72; Resp 17 S; Pulse Ox 96% on R/A; ha1 21:40 BP 131 / 85; Pulse 71; Resp 17 S; Temp 98(O); Pulse Ox 96% ; ha1 17:50 Body Mass Index 25.86 (66.22 kg, 160.02 cm) de1 ED Course: 17:46 Patient arrived in ED. rg4 17:46 Yo Carrasco MD is Private Physician. rg4 17:50 [facility] kb 17:50 Leo Vallejo MD is Attending Physician. kb 17:50 Attending Physician role handed off by Leo Vallejo MD ci 17:50 Sharon Nicole is Attending Physician. ci 18:01 Triage completed. nj1 18:01 Arm band placed on. nj1 18:18 Chantal Crow is Primary Nurse. cp4 18:26 Bed in low position. Call light in reach. Side rails up X 1. cp4 18:26 Basic Metabolic Panel Sent. cp4 18:26 CBC with Diff Sent. cp4 18:26 No provider procedures requiring assistance completed. Initial lab(s) drawn, by ne, cp4 sent to lab. Inserted saline lock: 20 gauge in right antecubital area, using aseptic technique. Blood collected. 19:44 CT Thoracic Spine Wo Cont In Process Unspecified. EDMS 19:44 CT Lumbar Spine Wo Con In Process Unspecified. EDMS 19:44 CT Chest Wo Con In Process Unspecified. EDMS 20:06 Attending Physician role handed off by Sharon Nicole sp4 20:06 Rusty Awan MD is Attending Physician. sp4 21:48 Yo Carrasco MD is Referral Physician. sp4 21:51 Aysha Washington MD is Referral Physician. sp4 22:13 Tiarra Gray, LENARD is Primary Nurse. ha1 22:15 Provided Education on: follow ups . ha1 22:15 IV discontinued, intact, bleeding controlled, No redness/swelling at site. Pressure ha1 dressing applied. Administered Medications: 18:39 Drug: HYDROcodone-acetaminophen PO 5 mg-325 mg 1 tabs PO once Route: PO; cp4 19:30 Follow up: Response: No adverse reaction; Pain is decreased; RASS: Alert and Calm (0) ha1 Medication: 18:26 VIS not applicable for this client. cp4 Outcome: 21:50 Discharge ordered by . sp4 22:15 Discharged to home ambulatory, with family, ha1 22:15 Condition: stable 22:15 Discharge instructions given to patient, family, Instructed on discharge instructions, follow up and referral plans. Demonstrated understanding of instructions, follow-up care, 22:16 Patient left the ED. ha1 Signatures: Dispatcher [employer] EDMS Muriel Fowler, GARY-[employer]ATE DIRECTOR-Felipa Bautista rg4 Tiarra Gray, RN RN ha1 Margarita Ambrosio, RN RN kb3 Rusty Awan MD MD sp4 Agnes Rodríguez RN RN nj1 Chantal Crow 4 Sharon Nicole Corrections: (The following items were deleted from the chart) 12/31 10:06 04 17:50 Acuity: LEONARDO 3 nj1 kb3
--- NOTE | 2023-12-31 21:51 | EDPHYS ---
Physician Documentation [facility] Name: Brandy Perez Age: 68 yrs Sex: Female : 1955 Arrival Date: 12/31/2023 Time: 17:45 Bed 14 Private MD: Yo Carrasco V ED Physician Rusty Awan HPI: 12/30 19:12 This 68 yrs old Black Female presents to ER via Wheelchair with complaints of Leg Pain. ci 19:12 Patient is a 68-year-old female with PMH COPD, hypertension, lupus, osteoporosis, hep C ci who presents to the ED with chief complaint of right leg numbness. Patient's at bedside reports patient has been stumbling with ambulation. Patient states she has a 7 cm mass in the right lung that is compressing on her spine. Was told to monitor for numbness and tingling. She is scheduled to have a PET scan, MRI at [facility] on 01/08. Denies bowel/bladder dysfunction, no saddle anesthesia, no IVDU, fever.. Historical: - Allergies: 18:01 Keflex; nj1 18:01 Mobic; nj1 18:01 Phenergan; nj1 - PMHx: 18:01 Arthritis; COPD; GERD; HEP C; Hypertension; Lupus; Osteoporosis; RIGHT LEG NERVE PAIN; nj1 scoliosis; - PSHx: 18:01 Nephrectomy; nj1 - Immunization history:: Client reports receiving the 2nd dose of the Covid vaccine. - Infectious Disease History:: Denies. - Social history:: Smoking status: Patient denies any tobacco usage or history of. - History obtained from: . ROS: 19:12 Constitutional: Negative for fever, chills, and weight loss, ci 19:12 MS/extremity: Positive for decreased range of motion, pain, paresthesias, tingling, Exam: 19:12 Constitutional: This is a well developed, well nourished patient who is awake, alert, ci and in no acute distress. Head/Face: Normocephalic, atraumatic. Eyes: Pupils equal round and reactive to light, extra-ocular motions intact. Lids and lashes normal. Conjunctiva and sclera are non-icteric and not injected. Cornea within normal limits. Periorbital areas with no swelling, redness, or edema. ENT: Nares patent. No nasal discharge, no septal abnormalities noted. Tympanic membranes are normal and external auditory canals are clear. Oropharynx with no redness, swelling, or masses, exudates, or evidence of obstruction, uvula midline. Mucous membranes moist. Neck: Trachea midline, no thyromegaly or masses palpated, and no cervical lymphadenopathy. Supple, full range of motion without nuchal rigidity, or vertebral point tenderness. No Meningismus. Chest/axilla: Normal chest wall appearance and motion. Nontender with no deformity. No lesions are appreciated. Cardiovascular: Regular rate and rhythm with a normal S1 and S2. No gallops, murmurs, or rubs. Normal PMI, no JVD. No pulse deficits. Respiratory: Lungs have equal breath sounds bilaterally, clear to auscultation and percussion. No rales, rhonchi or wheezes noted. No increased work of breathing, no retractions or nasal flaring. Abdomen/GI: Soft, non-tender, with normal bowel sounds. No distension or tympany. No guarding or rebound. No evidence of tenderness throughout. Back: No spinal tenderness. No costovertebral tenderness. Full range of motion. Skin: Warm, dry with normal turgor. Normal color with no rashes, no lesions, and no evidence of cellulitis. MS/ Extremity: Pulses equal, no cyanosis. Neurovascular intact. Full, normal range of motion. Neuro: Awake and alert, GCS 15, oriented to person, place, time, and situation. Cranial nerves II-XII grossly intact. Motor strength 5/5 in all extremities. Sensory grossly intact. Cerebellar exam normal. Normal gait. Psych: Awake, alert, with orientation to person, place and time. Behavior, mood, and affect are within normal limits. Vital Signs: 17:50 BP 159 / 100; Pulse 84; Resp 18; Temp 97.3(TE); Pulse Ox 97% on R/A; Weight 66.22 kg; nj1 Height 5 ft. 3 in. ; 19:24 BP 127 / 85; Pulse 69; Resp 17 S; Pulse Ox 97% on R/A; ha1 20:49 BP 121 / 84; Pulse 72; Resp 17 S; Pulse Ox 96% on R/A; ha1 21:40 BP 131 / 85; Pulse 71; Resp 17 S; Temp 98(O); Pulse Ox 96% ; ha1 17:50 Body Mass Index 25.86 (66.22 kg, 160.02 cm) nj1 MDM: 17:50 Patient medically screened. ci 17:51 Patient medically screened. ci 19:12 Differential diagnosis: Lumbar radiculopathy, malignancy, fracture, dislocation, ci peripheral neuropathy. Data reviewed: vital signs, nurses notes. 21:47 ED course: EXAM DESCRIPTION: CT - Thorax Con - 12/31/2023 7:42 pm CLINICAL HISTORY: sp4 sob COMPARISON: September 2023 TECHNIQUE: Computed axial tomography of the chest was obtained. Contrast was not requested. All CT scans are performed using dose optimization technique as appropriate and may include automated exposure control or mA/KV adjustment according to patient size. FINDINGS: The evaluation of mediastinum, theron and vessels is limited secondary to lack of IV contrast administration. 8.9 centimeter right upper lobe mass has increased in size. It previously measured 8.3 centimeters. Cortical irregularity involves the right lateral aspect of the T2 vertebral body. The right transverse process of T2 is destroyed by the mass. The mass extends into the right neural foramina . Destruction of the medial second right rib is present. Erosion involves the right lamina T2 1.9 centimeter round soft tissue mass probably a lymph node lies within the adjacent right chest wall abutting the pectoralis muscles COPD Middle mediastinal lymphadenopathy most marked in the sub- carinal region. A pleural effusion is not present. No pericardial effusion Prominent scoliosis IMPRESSION: A 9 centimeter right upper lobe mass consistent with neoplasm has enlarged since the prior exam. There is extension into the right neural foramina as well as bony erosion and destruction. Mediastinal lymphadenopathy and 1.9 centimeter lymph node right chest wall . ED course: EXAM DESCRIPTION: CTSpine Lumbar Wo Con12/31/2023 7:42 pm CLINICAL HISTORY: Right leg radiculopathy and numbness COMPARISON: None TECHNIQUE: Computed axial tomography lumbar spine was obtained with coronal and sagittal reconstruction. All CT scans are performed using dose optimization technique as appropriate and may include automated exposure control or mA/KV adjustment according to patient size. FINDINGS: Moderate scoliosis involves spine with postsurgical changes. No fracture or dislocation. No bony lesions seen. Spondylosis L2-3 results in moderate bilateral foraminal stenosis Small right posterolateral disc herniation L3-4. This in combination spondylosis result moderate to marked narrowing of the right neural foramina L4-5 demonstrates a disc bulge, ligamentum flavum and facet hypertrophy and osteophytes. The thecal sac measures 7.5 millimeters. Mild to moderate narrowing of the neural foramina. [id number] left lateral subluxation L4 on L5 IMPRESSION: Negative for a lumbar fracture. Vertebral metastasis is not seen Small right posterolateral disc herniation L3-4 in combination with spondylosis result in moderate to marked right foraminal stenosis Spondylosis most marked L4-5 resulting mild to moderate central spinal stenosis. ED course: EXAM DESCRIPTION: CTThoracic Spine W/o Cont12/31/2023 7:42 pm CLINICAL HISTORY: Radiculopathy/lung mass COMPARISON: None TECHNIQUE: Computed axial tomography of thoracic spine was obtained with coronal and sagittal reconstruction. All CT scans are performed using dose optimization technique as appropriate and may include automated exposure control or mA/KV adjustment according to patient size. FINDINGS: 8.9 centimeter right upper lobe mass extends into the right neural foramina T2-3. Destruction of the medial second right rib and right transverse process T2 is present. Erosion of the right lateral aspect of the T2 vertebral body is present. Erosion also involves the right lamina T2 Moderate scoliosis. Hay rods have been placed into thoracic spine No fracture or dislocation seen IMPRESSION: 8.9 centimeter right upper lobe mass extends into the right neural foramina at T2-3 Destruction of the medial second right rib, right transverse process T2 as well as erosion of the right lateral aspect of T2 and right lamina T2 compatible with neoplastic involvement Signed By: Ricardo Westbrook MD. 12/30 18:07 Order name: Basic Metabolic Panel; Complete Time: 20:04 ci 12/30 18:07 Order name: CBC with Diff; Complete Time: 19:10 ci 12/30 18:07 Order name: CT Thoracic Spine Wo Cont; Complete Time: 21:15 ci 12/30 18:07 Order name: CT Lumbar Spine Wo Con; Complete Time: 21:15 ci 12/30 18:07 Order name: CT Chest Wo Con; Complete Time: 21:15 ci 12/30 18:07 Order name: Cardiac monitoring; Complete Time: 18:18 ci 12/30 18:07 Order name: IV Saline Lock; Complete Time: 18:26 ci 12/30 18:07 Order name: Labs collected and sent; Complete Time: 18:26 ci 12/30 18:07 Order name: O2 Per Protocol; Complete Time: 18:18 ci 12/30 18:07 Order name: O2 Sat Monitoring; Complete Time: 18:18 ci 12/30 19:02 Order name: Labs - recollect needed: recollect green top please; Complete Time: 19:22 em1 Administered Medications: 18:39 Drug: HYDROcodone-acetaminophen PO 5 mg-325 mg 1 tabs PO once Route: PO; cp4 19:30 Follow up: Response: No adverse reaction; Pain is decreased; RASS: Alert and Calm (0) ha1 Disposition Summary: 12/31/23 21:50 Discharge Ordered Notes: Location: Home sp4 Problem: new sp4 Symptoms: have improved sp4 Condition: Stable sp4 Diagnosis - Right upper lung mass, Destruction of the medial second right rib, Metastatic sp4 involvement of the right transverse process T2, Followup: sp4 - With: Yo Carrasco MD - When: 7 - 10 days - Reason: Recheck today's complaints Followup: sp4 - With: Private Physician - When: 2 - 3 days - Reason: Recheck today's complaints Followup: sp4 - With: Aysha Washington MD - When: 5 - 6 days - Reason: Recheck today's complaints Discharge Instructions: - Discharge Summary Sheet sp4 - Lung Mass sp4 Forms: - Patient Portal Instructions sp4 Signatures: Dispatcher [employer] Elliot Chen em1 Rusty Awan MD MD sp4 Agnes Rodríguez RN RN Chantal Lara 4 Sharon Nicole Heidy RN ha1 Corrections: (The following items were deleted from the chart) 18:08 18:08 BASIC METABOLIC PANEL+C.LAB.BRZ ordered. EDMS EDMS 18:08 18:08 CBC+H.LAB.BRZ ordered. EDMS EDMS
[2024-01-01 01:44] VITALS: BP 131/85; TEMP 98; O2SAT 96
== END 2023-12-31 22:16 | disposition home or self-care (01) ==
LOC: ER 17:45
DX: R91.8 Other nonspecific abnormal finding of lung field (principal); M89.8X8 Other specified disorders of bone, other site; I10 Essential (primary) hypertension; J44.9 Chronic obstructive pulmonary disease, unspecified; Z88.1 Allergy status to other antibiotic agents; Z88.8 Allergy status to other drugs, medicaments and biological substances
CPT/HCPCS: 36415; 71250; 72128; 72131; 80048; 85025

== ENCOUNTER 2024-01-01 05:38 | Emergency (ER) | payer OTHER ==
[2024-01-01] MEDS ORDERED: ONDANSETRON 4 MG/2 ML VIAL ONE ×2 (06:49→10:43)
[2024-01-01] MEDS ORDERED: HYDROMORPHONE HCL 1 MG/ML INJ ONE ×2 (06:50→10:43)
[2024-01-01] MEDS ORDERED: NA CHLORIDE 0.9% 1,000 ML ONE (06:50)
[2024-01-01 07:05] LABS: Absolute Basophils 0.1 K/uL (0-0.5); Absolute Eosinophils 0.4 K/uL (0-0.5); Absolute Lymphocytes (CBC) 1.3 K/uL (0.7-4.9); Absolute Monocytes 0.7 K/uL (0.1-1.3); Absolute Neutrophil 5.1 K/uL (1.8-8.0); Basophils % 1.2 % (0-1.3); Eosinophils % 4.9 % (0-4.4); Hematocrit 42.9 % (36.0-45.0); Hemoglobin 14.4 g/dL (12.0-15.0); Lymphocytes % 16.9 % (15.3-44.8); MCH 30.6 pg (27.0-35.0); MCHC 33.6 g/dL (32.0-36.0); MCV 91.1 fL (80-100); MPV 8.5 fL (7.6-11.3); Monocytes % 9.4 % (3.3-12.3); Neutrophils % 67.6 % (41.7-73.7); Nucleated Red Blood Cells % 0.1 % (0-0); Platelets 249 thou/uL (152-406); RBC Red Blood Cell Count 4.71 M/uL (3.86-4.86); Red Cell Distribution Width 14.7 % (12.1-15.2)
--- NOTE | 2024-01-01 07:09 | ER ---
Nurse's Notes [facility] Name: Brandy Perez Age: 68 yrs Sex: Female : 1955 Arrival Date: 01/01/2024 Time: 05:38 Bed 2 Private MD: Diagnosis: Malignant neoplasm of upper lobe, right bronchus or lung-PANCOAST, NUMBNESS, BONY EROSION;8.9 centimeter right upper lobe mass, Mass metastatic to second right rib, Mass metastatic to right transverse process T2 vertebra, diffuse generalized numbness, right lower extremity weakness, right lower extremity limp ;Hypomagnesemia Presentation: 12/31 05:48 Chief complaint: Patient states: generalized body numbness that radiates to mid pf1 thoracic region to feet,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 Patient stated was seen here yesterday for right leg numbness, with a history of a tumor that presses on the spine. 05:48 Coronavirus screen: Client denies travel out of the [place] in the last 14 days. At this pf1 time, the client does not indicate any symptoms associated with coronavirus-19. Ebola Screen: Patient negative for fever greater than or equal to 101.5 degrees Fahrenheit, and additional compatible Ebola Virus Disease symptoms No symptoms or risks identified at this time. Initial Sepsis Screen: Does the patient meet any 2 criteria? No. Patient's initial sepsis screen is negative. Does the patient have a suspected source of infection? No. Patient's initial sepsis screen is negative. Risk Assessment: Do you want to hurt yourself or someone else? Patient reports no desire to harm self or others. Onset of symptoms was December 31, 2023. 05:48 Method Of Arrival: Wheelchair pf1 05:48 Acuity: LEONARDO 3 pf1 Triage Assessment: 05:48 General: Appears in no apparent distress. comfortable, well groomed, well developed, pf1 Behavior is calm, cooperative, appropriate for age, quiet. 05:48 Pain: Complains of pain in back Pain currently is 10 out of 10 on a pain scale. Neuro: pf1 Reports numbness in generalized body numbness that radiates from mid thoracic region to feet. Cardiovascular: Capillary refill < 3 seconds Patient's skin is warm and dry. Historical: - Allergies: 06:11 Keflex; pf1 06:11 Mobic; pf1 06:11 Phenergan; pf1 - PMHx: 06:11 Arthritis; COPD; GERD; HEP C; Hypertension; Lupus; Osteoporosis; RIGHT LEG NERVE PAIN; pf1 scoliosis; - PSHx: 06:11 Nephrectomy; pf1 06:11 back; left knee replacement; Cholecystectomy; pf1 - Immunization history:: Adult Immunizations up to date, 3 doses of Moderna Last tetanus immunization: < 10 years ago Flu vaccine is not up to date. - Infectious Disease History:: Denies. - Social history:: Smoking status: Patient/guardian denies using tobacco, the patient reports quitting approximately 5 years ago, Patient uses alcohol, occasionally. Patient/guardian denies using street drugs. - Family history:: not pertinent. Screenin:50 [facility] ED Fall Risk Assessment (Adult) History of falling in the last 3 months, pf1 including since admission No falls in past 3 months (0 pts) Confusion or Disorientation No (0 pts) Intoxicated or Sedated No (0 pts) Impaired Gait Yes (1 pt) Mobility Assist Device Used No (0 pt) Altered Elimination No (0 pt) Score/Fall Risk Level 0 - 2 = Low Risk Oriented to surroundings, Maintained a safe environment, Educated pt \T\ family on fall prevention, incl call for assistance when getting out of bed, Assessed \T\ reinforced patient's understanding of fall precautions, Provided non-skid footwear, Hourly rounding (assess needs \T\ fall precautionary measures) done, Used ambulatory aids as needed (educated on \T\ assisted with), Used gait belt as appropriate. 05:50 Abuse screen: Denies threats or abuse. Nutritional screening: No deficits noted. pf1 Tuberculosis screening: No symptoms or risk factors identified. Assessment: 07:30 General: Appears in no apparent distress. comfortable, well groomed, Behavior is calm, ph cooperative, appropriate for age. Pain: Complains of pain in back. Neuro: Level of Consciousness is awake, alert, obeys commands, Oriented to person, place, time, situation. Cardiovascular: Capillary refill < 3 seconds in bilateral fingers Patient's skin is warm and dry. Respiratory: Airway is patent Respiratory effort is even, unlabored. Vital Signs: 05:48 BP 148 / 90; Pulse 80; Resp 16; Temp 99.3; Pulse Ox 95% on R/A; Weight 66.22 kg; Height pf1 5 ft. 3 in. ; Pain 10/10; 08:58 BP 130 / 86; Pulse 80; Resp 18; Temp 97.9; Pulse Ox 97% on R/A; ph 05:48 Body Mass Index 25.86 (66.22 kg, 160.02 cm) pf1 05:48 Pain Scale: Adult pf1 Allan Coma Score: 06:58 Eye Response: spontaneous(4). Motor Response: obeys commands(6). Verbal Response: sp4 oriented(5). Total: 15. NIH Stroke Scale Scores: 06:58 NIHSS Score: 0 sp4 ED Course: 05:42 Patient arrived in ED. gm2 05:48 Patient has correct armband on for positive identification. Bed in low position. Call pf1 light in reach. Side rails up X 1. Door closed. Noise minimized. Moved to private room. Warm blanket given. 06:07 Rusty Awan MD is Attending Physician. sp4 06:09 Brigido Weathers, LENARD is Primary Nurse. jb4 06:11 Triage completed. pf1 06:34 CT Head C Spine In Process Unspecified. EDMS 06:37 XRAY Chest (1 view) In Process Unspecified. EDMS 07:04 Attending Physician role handed off by Rusty Awan MD cesario 07:04 Papito Shah MD is Attending Physician. cesario 07:08 Troponin HS Sent. jb4 07:08 NT PRO-BNP Sent. jb4 07:08 PT-INR Sent. jb4 07:08 Magnesium Sent. jb4 07:08 LFT's Sent. jb4 07:08 CBC with Diff Sent. jb4 07:08 Basic Metabolic Panel Sent. jb4 07:55 Transfer initiated with [facility]. em1 08:30 transfer accepted to [facility], pt to be transported by [facility]. em1 Administered Medications: 07:16 Drug: HYDROmorphone IVP 1 mg IVP once Route: IVP; Site: right antecubital; ph 07:16 Drug: Ondansetron IVP 4 mg IVP once; over 2 minutes Route: IVP; Site: right antecubital;ph 07:16 Drug: NS 0.9% IV 1000 ml IV at 125 ml/hr continuous Route: IV; Rate: 125 ml/hr; Site: ph right antecubital; 08:58 Drug: Magnesium Sulfate IVPB 1 grams IVPB once over 1 hrs Route: IVPB; Infused Over: 1 ph hrs; Site: right antecubital; 10:51 Drug: Ondansetron IVP 4 mg IVP once; over 2 minutes Route: IVP; Site: right antecubital;ph 10:51 Drug: HYDROmorphone IVP 1 mg IVP once Route: IVP; Site: right antecubital; ph Outcome: 07:08 ER care complete, transfer ordered by MD. nassar 10:56 Patient left the ED. NIH Stroke Scale - NIH Stroke Score Date: 01/01/2024 Time: 06:58 Total Score = 0 10. Dysarthria (speech clarity - read or repeat words) - 0(Normal) 11. Extinction and Inattention (visual/tactile/auditory/spatial/personal) - 0(No abnormality) 1a. Level of Consciousness (LOC) - 0(Alert) 1b. Level of Consciousness (LOC) (Month \T\ Age) - 0(Both) 1c. LOC Commands (Open \T\ Closes Eyes/Senior Integration Architect) - 0(Both) 2. Best Gaze (Lateral Gaze Paresis) - 0(Normal) 3. Visual Field Loss - 0(No visual loss) 4. Facial Palsy - 0(Normal) 5a. Left Arm: Motor (10-second hold) - 0(No drift) 5b. Right Arm: Motor (10-second hold) - 0(No drift) 6a. Left Leg: Motor (5-second hold - always test supine) - 0(No drift) 6b. Right Leg: Motor (5-second hold - always test supine) - 0(No drift) 7. Limb Ataxia (finger/nose \T\ heel/cheng - test with eyes open) - 0(Absent) 8. Sensory Loss (pinprick arms/legs/face) - 0(Normal) 9. 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 Patient stated was seen here yesterday for right leg numbness, with a history of a tumor that presses on the spine. pf1
--- NOTE | 2024-01-01 07:09 | EDPHYS ---
Physician Documentation [facility] Name: Brandy Perez Age: 68 yrs Sex: Female : 1955 Arrival Date: 01/01/2024 Time: 05:38 Bed 2 Private MD: Papito Gomez HPI: 12/31 06:07 This 68 yrs old Black Female presents to ER via Unassigned with complaints of Numbness. sp4 06:55 68-year-old female with history of COPD secondary to prior smoking, hepatitis C, sp4 arthritis, lupus, osteoporosis, scoliosis, patient was diagnosed with right apical lung tumor on 12/08/2023, this is now invading T2 thoracic vertebra and also was not invasion and destruction of the right second rib. . Old Record. EXAM DESCRIPTION: CT - Thorax Wo Con - 12/08/2023 7:53 am CLINICAL HISTORY: R91.8 COMPARISON: Chest Abd Pelvis Wo Con dated 07/23/2021; Chest Angio dated 01/26/2019; Thoracic Spine Ap/Lat dated 09/23/2023 FINDINGS: Chest Wall: Enlarged right subpectoral lymph node measuring 1.9 cm. Lungs: Right apical lung mass measures approximately 8.3 x 7.9 cm. The mass extends erodes into the right T2 transverse process and right posterior second rib. Emphysema. Pleura: No significant effusions or pneumothorax. Mediastinum/theron: Mediastinal lymphadenopathy including a precarinal lymph node measuring 16 millimeters. Pulmonary arteries/Aorta: Limited evaluation without contrast. No aortic aneurysm. Heart: No significant pericardial effusion. Normal heart size. Coronary artery calcifications. Upper abdomen: No acute abnormality. Cholecystectomy. Bones: Right apical lung mass erodes into the right T2 transverse process in right posterior second rib. Scoliosis. Hay juan. All CT scans are performed using dose optimization technique as appropriate and may include automated exposure control or mA/KV adjustment according to patient size. IMPRESSION: Enlarging right apical lung mass with erosion into at least the right T2 transverse process and right posterior second rib. Evidence of both mediastinal spread and spread to a right subpectoral lymph node. The right subpectoral lymph node would be the easiest for biopsy (under ultrasound) for histologic confirmation. . 06:58 Patient was here yesterday for right leg weakness and numbness with some stumbling. sp4 Patient was discharged home with neurosurgery follow-up next Friday01/09/2024 at [facility]. Patient returns today stating that numbness and pain are too difficult to tolerate at home. Pain is 10 out of 10 and upper spine. Historical: - Allergies: 06:11 Keflex; pf1 06:11 Mobic; pf1 06:11 Phenergan; pf1 - PMHx: 06:11 Arthritis; COPD; GERD; HEP C; Hypertension; Lupus; Osteoporosis; RIGHT LEG NERVE PAIN; pf1 scoliosis; - PSHx: 06:11 Nephrectomy; pf1 06:11 back; left knee replacement; Cholecystectomy; pf1 - Immunization history:: Adult Immunizations up to date, 3 doses of Moderna Last tetanus immunization: < 10 years ago Flu vaccine is not up to date. - Infectious Disease History:: Denies. - Social history:: Smoking status: Patient/guardian denies using tobacco, the patient reports quitting approximately 5 years ago, Patient uses alcohol, occasionally. Patient/guardian denies using street drugs. - Family history:: not pertinent. ROS: 06:55 Constitutional: Negative for fever, chills, and weight loss, positive for numbness sp4 and moderate to severe upper thoracic pain. 06:55 All other systems are negative, Exam: 06:58 Radiologist reports: See report below sp4 06:58 Constitutional: This is a well developed, well nourished patient who is awake, alert, and in no acute distress. Head/Face: Normocephalic, atraumatic. Eyes: Pupils equal round and reactive to light, extra-ocular motions intact. Lids and lashes normal. Conjunctiva and sclera are not injected. Cornea within normal limits. Periorbital areas with no swelling, redness, or edema. ENT: Nares patent. No nasal discharge, no septal abnormalities noted. Tympanic membranes are normal and external auditory canals are clear. Oropharynx with no redness, swelling, or masses, exudates, or evidence of obstruction, uvula midline. Mucous membranes moist. Neck: Trachea midline, no thyromegaly or masses palpated, and no cervical lymphadenopathy. Supple, full range of motion without nuchal rigidity, or vertebral point tenderness. Chest/axilla: Normal chest wall appearance and motion. Nontender with no deformity. No lesions are appreciated. Cardiovascular: Regular rate and rhythm with a normal S1 and S2. No gallops, murmurs, or rubs. Normal PMI, no JVD. No pulse deficits. Respiratory: Lungs have equal breath sounds bilaterally, clear to auscultation and percussion. No rales, rhonchi or wheezes noted. No increased work of breathing, no retractions or nasal flaring. Abdomen/GI: Soft, with normal bowel sounds. No distension or tympany. No guarding or rebound. No evidence of tenderness throughout. Back: No spinal tenderness. No costovertebral tenderness. Skin: Warm, dry with normal turgor. Normal color with no rashes, no lesions, and no evidence of cellulitis. MS/ Extremity: Pulses equal, no cyanosis. Neurovascular intact. Full, normal range of motion. Neuro: Awake and alert, GCS 15, oriented to person, place, time, and situation. Cranial nerves II-XII grossly intact. Motor strength 5/5 in all extremities. Sensory grossly intact. Psych: Awake, alert, with orientation to person, place and time. Behavior, mood, and affect are within normal limits Vital Signs: 05:48 BP 148 / 90; Pulse 80; Resp 16; Temp 99.3; Pulse Ox 95% on R/A; Weight 66.22 kg; Height pf1 5 ft. 3 in. ; Pain 10/10; 08:58 BP 130 / 86; Pulse 80; Resp 18; Temp 97.9; Pulse Ox 97% on R/A; ph 05:48 Body Mass Index 25.86 (66.22 kg, 160.02 cm) pf1 05:48 Pain Scale: Adult pf1 NIH Stroke Scale Scores: 06:58 NIHSS Score: 0 sp4 [place] Coma Score: 06:58 Eye Response: spontaneous(4). Motor Response: obeys commands(6). Verbal Response: sp4 oriented(5). Total: 15. MDM: 06:09 Patient medically screened. sp4 07:08 ED course: IMPRESSION: 1. Large partially visualized soft tissue mass in the right lung sp4 apex with erosive changes demonstrated in the adjacent right T2 and, to a lesser extent, T3 pedicle, transverse process, and base of the rib, consistent with malignancy with direct pleural and osseous invasion. Right apical mass also appears to extend into the adjacent superior thoracic spinal canal, though exact extent is unable to the ascertained in the absence of intravenous contrast. 2. Partially visualized mediastinal, bilateral subpectoral, and paratracheal lymphadenopathy, with largest visualized extrapulmonary soft tissue mass measuring 2.5 x 3.1 cm in axial dimension in the right subpectoral space. 3. No acute intracranial or cervical spine abnormality. 4. "Empty sella" appearance of the sella turcica with thinning of the pituitary parenchyma. Nonspecific, but in the appropriate clinical setting, this could reflect intracranial hypertension (such as idiopathic intracranial hypertension). . ED course: EXAM DESCRIPTION: CTThoracic Spine W/o Cont12/31/2023 7:42 pm CLINICAL HISTORY: Radiculopathy/lung mass COMPARISON: None TECHNIQUE: Computed axial tomography of thoracic spine was obtained with coronal and sagittal reconstruction. All CT scans are performed using dose optimization technique as appropriate and may include automated exposure control or mA/KV adjustment according to patient size. FINDINGS: 8.9 centimeter right upper lobe mass extends into the right neural foramina T2-3. Destruction of the medial second right rib and right transverse process T2 is present. Erosion of the right lateral aspect of the T2 vertebral body is present. Erosion also involves the right lamina T2 Moderate scoliosis. Hay rods have been placed into thoracic spine No fracture or dislocation seen IMPRESSION: 8.9 centimeter right upper lobe mass extends into the right neural foramina at T2-3 Destruction of the medial second right rib, right transverse process T2 as well as erosion of the right lateral aspect of T2 and right lamina T2 compatible with neoplastic involvement. . ED course: EXAM DESCRIPTION: CTSpine Lumbar Wo Con12/31/2023 7:42 pm CLINICAL HISTORY: Right leg radiculopathy and numbness COMPARISON: None TECHNIQUE: Computed axial tomography lumbar spine was obtained with coronal and sagittal reconstruction. All CT scans are performed using dose optimization technique as appropriate and may include automated exposure control or mA/KV adjustment according to patient size. FINDINGS: Moderate scoliosis involves spine with postsurgical changes. No fracture or dislocation. No bony lesions seen. Spondylosis L2-3 results in moderate bilateral foraminal stenosis Small right posterolateral disc herniation L3-4. This in combination spondylosis result moderate to marked narrowing of the right neural foramina L4-5 demonstrates a disc bulge, ligamentum flavum and facet hypertrophy and osteophytes. The thecal sac measures 7.5 millimeters. Mild to moderate narrowing of the neural foramina. [id number] left lateral subluxation L4 on L5 IMPRESSION: Negative for a lumbar fracture. Vertebral metastasis is not seen Small right posterolateral disc herniation L3-4 in combination with spondylosis result in moderate to marked right foraminal stenosis Spondylosis most marked L4-5 resulting mild to moderate central spinal stenosis. ED course: EXAM DESCRIPTION: CTThoracic Spine W/o Cont12/31/2023 7:42 pm CLINICAL HISTORY: Radiculopathy/lung mass COMPARISON: None TECHNIQUE: Computed axial tomography of thoracic spine was obtained with coronal and sagittal reconstruction. All CT scans are performed using dose optimization technique as appropriate and may include automated exposure control or mA/KV adjustment according to patient size. FINDINGS: 8.9 centimeter right upper lobe mass extends into the right neural foramina T2-3. Destruction of the medial second right rib and right transverse process T2 is present. Erosion of the right lateral aspect of the T2 vertebral body is present. Erosion also involves the right lamina T2 Moderate scoliosis. Hay rods have been placed into thoracic spine No fracture or dislocation seen IMPRESSION: 8.9 centimeter right upper lobe mass extends into the right neural foramina at T2-3 Destruction of the medial second right rib, right transverse process T2 as well as erosion of the right lateral aspect of T2 and right lamina T2 compatible with neoplastic involvement . 07:08 Differential diagnosis: paralysis, Alzheimer disease, Parkinson disease, metabolic sp4 disorder, drug effects. Data reviewed: vital signs, nurses notes, old medical records, lab test result(s), radiologic studies, CT scan, plain films. Consideration of Admission/Observation Escalation of care including admission/observation considered. Transition of care: After a detail discussion of the patient's case, care is transferred to Papito Shah MD. ED course: Patient warrants transfer to the hospital with higher level of care, for neurosurgery consult. 12/31 06:08 Order name: Basic Metabolic Panel; Complete Time: 07:44 sp4 12/31 06:08 Order name: CBC with Diff; Complete Time: 07:44 sp4 12/31 06:08 Order name: LFT's; Complete Time: 07:44 sp4 12/31 06:08 Order name: Magnesium; Complete Time: 07:44 sp4 12/31 06:08 Order name: NT PRO-BNP; Complete Time: 07:44 sp4 12/31 06:08 Order name: PT-INR; Complete Time: 07:44 sp4 12/31 06:08 Order name: Troponin HS; Complete Time: 07:44 sp4 12/31 06:08 Order name: XRAY Chest (1 view) 4 12/31 06:08 Order name: CT Head C Spine sp4 12/31 06:08 Order name: Cardiac monitoring; Complete Time: 07:34 sp4 12/31 06:08 Order name: EKG - Nurse/Tech; Complete Time: 10:04 4 12/31 06:08 Order name: IV Saline Lock; Complete Time: 07:08 sp4 12/31 06:08 Order name: Labs collected and sent; Complete Time: 07:08 4 12/31 06:08 Order name: O2 Per Protocol; Complete Time: 07:08 4 12/31 06:08 Order name: O2 Sat Monitoring; Complete Time: 07:08 4 12/31 06:31 Order name: NPO; Complete Time: 06:40 sp4 Administered Medications: 07:16 Drug: HYDROmorphone IVP 1 mg IVP once Route: IVP; Site: right antecubital; ph 07:16 Drug: Ondansetron IVP 4 mg IVP once; over 2 minutes Route: IVP; Site: right antecubital;ph 07:16 Drug: NS 0.9% IV 1000 ml IV at 125 ml/hr continuous Route: IV; Rate: 125 ml/hr; Site: ph right antecubital; 08:58 Drug: Magnesium Sulfate IVPB 1 grams IVPB once over 1 hrs Route: IVPB; Infused Over: 1 ph hrs; Site: right antecubital; 10:51 Drug: Ondansetron IVP 4 mg IVP once; over 2 minutes Route: IVP; Site: right antecubital;ph 10:51 Drug: HYDROmorphone IVP 1 mg IVP once Route: IVP; Site: right antecubital; ph Disposition Summary: 01/01/24 07:08 Transfer Ordered Notes: Transfer Location: [facility] cesario Reason: Higher level of care cesario Condition: Stable cesario Problem: new cesario Symptoms: have improved cesario Accepting Physician: to [facility](01/01/24 10:56) iw Diagnosis - Malignant neoplasm of upper lobe, right bronchus or lung - PANCOAST, NUMBNESS, BONY cesario EROSION - 8.9 centimeter right upper lobe mass, Mass metastatic to second right rib, Mass sp4 metastatic to right transverse process T2 vertebra, diffuse generalized numbness, right lower extremity weakness, right lower extremity limp - Hypomagnesemia [facility] Forms: - Medication Reconciliation Form cesario - SBAR form cesario NIH Stroke Scale - NIH Stroke Score Date: 01/01/2024 Time: 06:58 Total Score = 0 10. Dysarthria (speech clarity - read or repeat words) - 0(Normal) 11. Extinction and Inattention (visual/tactile/auditory/spatial/personal) - 0(No abnormality) 1a. Level of Consciousness (LOC) - 0(Alert) 1b. Level of Consciousness (LOC) (Month \\T\\ Age) - 0(Both) 1c. LOC Commands (Open \\T\\ Closes Eyes/Drawing In Hand) - 0(Both) 2. Best Gaze (Lateral Gaze Paresis) - 0(Normal) 3. Visual Field Loss - 0(No visual loss) 4. Facial Palsy - 0(Normal) 5a. Left Arm: Motor (10-second hold) - 0(No drift) 5b. Right Arm: Motor (10-second hold) - 0(No drift) 6a. Left Leg: Motor (5-second hold - always test supine) - 0(No drift) 6b. Right Leg: Motor (5-second hold - always test supine) - 0(No drift) 7. Limb Ataxia (finger/nose \\T\\ heel/cheng - test with eyes open) - 0(Absent) 8. Sensory Loss (pinprick arms/legs/face) - 0(Normal) 9. Best Language: Aphasia (description/naming/reading) - 0(No aphasia) Initials: sp4 Signatures: Dispatcher [employer] EDMS Papito Shah MD MD cha Williams, Irene, RN RN iw Hall, Patricia, RN RN ph Finley, Pamala, RN RN pf1 Rusty Awan MD MD sp4 Corrections: (The following items were deleted from the chart) 06:08 06:08 BASIC METABOLIC PANEL+C.LAB.BRZ ordered. EDMS EDMS 06:08 06:08 CBC+H.LAB.BRZ ordered. EDMS EDMS 06:08 06:08 HEPATIC FUNCTION+C.LAB.BRZ ordered. EDMS EDMS 06:08 06:08 MAGNESIUM+C.LAB.BRZ ordered. EDMS EDMS 06:08 06:08 PROBNP+C.LAB.BRZ ordered. EDMS EDMS 06:08 06:08 PROTIME (+INR)+COAG.LAB.BRZ ordered. EDMS EDMS 06:08 06:08 Troponin High Sensitivity+C.LAB.BRZ ordered. EDMS EDMS 06:08 06:08 Chest Single View+RAD.RAD.BRZ ordered. EDMS EDMS 06:09 06:08 Head C Spine MPR Wo Con+CT.RAD.BRZ ordered. EDMS EDMS 07:13 07:08 to [facility] cesario sp4 07:45 07:13 to [facility] sp4 cesario 10:56 07:45 to [facility] cesario iw
[2024-01-01 07:10] LABS: PT Prothrombin Time 12.1 SECONDS (9.5-12.5); Protime INR 1.1
[2024-01-01 07:25] LABS: Albumin 3.2 g/dL (3.4-5.0); Albumin/Globulin Ratio 0.6 (1.1-1.8); Anion Gap 8.9 mEq/L (5.0-15.0); Bilirubin Direct 0.2 mg/dL (0-0.2); Bilirubin Indirect, Calculated 0.3 mg/dL (0.2-0.8); Bilirubin Total 0.5 mg/dL (0.2-1.0); Globulin 5.3 g/dL (2.3-3.5); Magnesium 1.4 mg/dL (1.6-2.4); Potassium 3.9 mEq/L (3.5-5.1); Protein, Total 8.5 g/dL (6.4-8.2); Troponin High Sensitivity 9.1 pg/mL (<58.9)
[2024-01-01] MEDS ORDERED: MAGNESIUM SULFATE 1 gm IVPB 1 GM/100 ML BAG IV ONE (08:56)
[2024-01-01 11:24] VITALS: BP 130/86; TEMP 97.9; O2SAT 97
--- NOTE | 2024-01-01 13:29 | RAD REPORT ---
EXAM DESCRIPTION: CT - Head C Spine Mpr Wo Con - 01/01/2024 7:09 am CLINICAL HISTORY: The patient is 68 years old and is Female; NUMBNESS Bed Name: 2 TECHNIQUE: Axial computed tomography images of the head/brain and cervical spine without intravenous contrast. Sagittal and coronal reformatted images were created and reviewed. This CT exam was pe rformed using one or more of the following dose reduction techniques: automated exposure control, a djustment of the mA and/or kV according to patient size, and/or use of iterative reconstruction techn ique. COMPARISON: 12/08/2023 CT chest without contrast FINDINGS: BRAIN: No extra-axial fluid collection. No intracranial hemorrhage. No focal hogan-white matter differentiation abnormality. MIDLINE SHIFT: No midline shift. VENTRICLES: Unremarkable No ventriculomegaly. SKULL: See below. SINUSES: Unremarkable as visualized. No acute sinusitis. MASTOID AIR CELLS: Unremarkable as visualized. No mastoid effusion. SELLA: "Empty sella" appearance of the sella turcica with thinning of the pituitary parenchyma. VERTEBRAE: Multilevel cervical spondylosis. Reversal of the of normal lordosis of the cervical spine at the C4 vertebral level as the pat ient is positioned. Appearance is nonspecific and could be positional or seen with muscular strain or spasm. Partially visualized left-sided thoracic spinal fixation juan and scoliotic curvature of the t horacic spine is redemonstrated. No acute vertebral fracture. Large partially visualized soft tissue mass in the right lung apex with erosive changes demonstrated in the adjacent right T2 and, to a lesser extent, T3 pedicle, transverse process, and base of the rib , consistent with malignancy with direct pleural and osseous invasion. Right apical mass also appears to extend into the adjacent superior thoracic spinal canal, though exact extent is unable to the asc ertained in the absence of intravenous contrast. DISCS/SPINAL CANAL/NEURAL FORAMINA: No transtentorial herniation. OTHER BONES/JOINTS: See above. No fracture of the calvarium or visualized facial bones. SOFT TISSUES: Unremarkable THYROID: 1.3 cm right thyroid lobe nodule. No dedicated imaging follow-up recommended. LUNG APICES: See above. Emphysema. MEDIASTINUM: Partially visualized mediastinal, bilateral subpectoral, and paratracheal lymphadenopa thy, with largest visualized extrapulmonary soft tissue mass measuring 2.5 x 3.1 cm in axial dimensio n in the right subpectoral space. IMPRESSION: 1. Large partially visualized soft tissue mass in the right lung apex with erosive cesario nges demonstrated in the adjacent right T2 and, to a lesser extent, T3 pedicle, transverse process, a nd base of the rib, consistent with malignancy with direct pleural and osseous invasion. Right apical mass also appears to extend into the adjacent superior thoracic spinal canal, though exact extent is unable to the ascertained in the absence of intravenous contrast. 2. Partially visualized mediastinal, bilateral subpectoral, and paratracheal lymphadenopathy, with largest visualized extrapulmonary soft tissue mass measuring 2.5 x 3.1 cm in axial dimension in the r ight subpectoral space. 3. No acute intracranial or cervical spine abnormality. 4. "Empty sella" appearance of the sella turcica with thinning of the pituitary parenchyma. Nonspec ific, but in the appropriate clinical setting, this could reflect intracranial hypertension (such as idiopathic intracranial hypertension). Electronically signed by: Amandeep Pompa MD 01/01/2024 06:59 AM CDT Due to temporary technical issues with the PACS/Fluency reporting system, reports are being signed by the in house radiologist without review as a courtesy to ensure prompt reporting. The interpreting r adiologist is fully responsible for the content of the report.
--- NOTE | 2024-01-01 13:38 | RAD REPORT ---
EXAM DESCRIPTION: RAD - Chest Single View - 01/01/2024 6:35 am CLINICAL HISTORY: CHEST PAIN COMPARISON: Chest Single View dated 07/23/2021; Chest Single View dated 01/25/2019; Chest Pa And Lat (2 Views) dated 12/10/2016; CHEST SINGLE VIEW dated 06/19/2015; Thorax Wo Con dated 12/31/2023 FINDINGS: Known right upper lobe lung mass is again identified. This was better visualized on the re cent CT from 12/31/2023. Hay juan in the spine. Background of emphysema. No pneumothorax or eff usion. IMPRESSION: Right upper lobe lung mass better evaluated on the chest CT from 12/31/2023 and suspicio us for neoplasm. No other acute process identified.
== END 2024-01-01 10:56 | disposition short-term general hospital (02) ==
LOC: ER 05:38
DX: C34.11 Malignant neoplasm of upper lobe, right bronchus or lung (principal); C79.51 Secondary malignant neoplasm of bone; R53.1 Weakness; E83.42 Hypomagnesemia; R26.89 Other abnormalities of gait and mobility; I10 Essential (primary) hypertension; Z96.652 Presence of left artificial knee joint; Z88.1 Allergy status to other antibiotic agents; Z88.5 Allergy status to narcotic agent; Z88.8 Allergy status to other drugs, medicaments and biological substances
CPT/HCPCS: 85025; 80048; 36415; 83735; 85610; 80076; 84484; 83880; 70450; 72125; 71045; 96375; 96374; 99284; J3475; J1170 ×2; J2405 ×2; J7030

== ENCOUNTER 2024-03-31 16:37 | Emergency (ER) | payer OTHER ==
--- NOTE | 2024-03-31 19:21 | RAD REPORT ---
EXAM DESCRIPTION: RAD - Chest Single View - 03/31/2024 7:05 pm CLINICAL HISTORY: CHEST PAIN COMPARISON: Chest Single View dated 01/01/2024; Chest Single View dated 07/23/2021; Chest Single View dated 01/25/2019; Chest Pa And Lat (2 Views) dated 12/10/2016; Thorax Wo Con dated 12/31/2023 FINDINGS: Lines: Left IJ approach Port-A-Cath with tip overlying the distal SVC. Lungs: Mild decrease in size of the mass at the right lung apex compared with 01/01/2024. The lungs a re otherwise clear. Emphysema. Pleural: No significant pleural effusions or pneumothorax. Cardiac: The heart size is within normal limits. Mediastinum: Within normal limits. Bones: No acute fractures. Fusion hardware in the spine. Other: None IMPRESSION: No acute cardiopulmonary disease.
[2024-03-31] MEDS ORDERED: HYDROMORPHONE HCL 2 MG/ML inj ONE ×2 (19:25→22:06)
[2024-03-31 19:26] LABS: Absolute Eosinophils 0.1 K/uL (0-0.5); Absolute Lymphocytes (CBC) 0.7 K/uL (0.7-4.9); Absolute Monocytes 1.3 K/uL (0.1-1.3); Absolute Neutrophil 7.2 K/uL (1.8-8.0); Basophils % 0.5 % (0-1.3); Eosinophils % 0.9 % (0-4.4); Hematocrit 29.4 % (36.0-45.0); Hemoglobin 9.9 g/dL (12.0-15.0); Lymphocytes % 7.5 % (15.3-44.8); MCH 31.1 pg (27.0-35.0); MCHC 33.6 g/dL (32.0-36.0); MCV 92.6 fL (80-100); MPV 7.4 fL (7.6-11.3); Monocytes % 13.6 % (3.3-12.3); Neutrophils % 77.5 % (41.7-73.7); Nucleated Red Blood Cells % 0.1 % (0-0); Platelets 159 thou/uL (152-406); RBC Red Blood Cell Count 3.17 M/uL (3.86-4.86); Red Cell Distribution Width 22.4 % (12.1-15.2)
[2024-03-31] MEDS ORDERED: ONDANSETRON 4 MG/2 ML VIAL ONE (19:27)
[2024-03-31] MEDS ORDERED: DIAZEPAM 5 MG TABLET ONE (19:27)
[2024-03-31] MEDS ORDERED: NA CHLORIDE 0.9% 1,000 ML ONE (19:27)
[2024-03-31 20:15] LABS: Potassium 3.2 mEq/L (3.5-5.1)
[2024-03-31 20:16] LABS: Albumin/Globulin Ratio 0.6 (1.1-1.8); Bilirubin Total 0.5 mg/dL (0.2-1.0); Globulin 5.3 g/dL (2.3-3.5); Protein, Total 8.3 g/dL (6.4-8.2)
[2024-03-31 20:17] LABS: Troponin High Sensitivity 12.3 (<58.9)
[2024-03-31 20:23] LABS: Anion Gap 14.2 mEq/L (5.0-15.0)
[2024-03-31 20:46] LABS: Anisocytosis 2+; Blood Morphology Comment NOTED (NOT SEEN); Platelet Estimate ADEQ; White Blood Cell Scan OK (OK)
--- NOTE | 2024-03-31 22:05 | ER ---
Nurse's Notes [facility] Name: Brandy Perez Age: 68 yrs Sex: Female : 1955 Arrival Date: 03/31/2024 Time: 16:37 Bed 5 Private MD: Diagnosis: Other muscle spasm-neck;Hypocalcemia Presentation: 03/31 17:48 Chief complaint: Patient states: Pt c/o neck muscle spasm since this morning. Pt states tl4 no relief with tramadol. Pt states only dilaudid helps the pain. Coronavirus screen: At this time, the client does not indicate any symptoms associated with coronavirus-19. Ebola Screen: No symptoms or risks identified at this time. Initial Sepsis Screen: Does the patient meet any 2 criteria? No. Patient's initial sepsis screen is negative. Does the patient have a suspected source of infection? No. Patient's initial sepsis screen is negative. Risk Assessment: Do you want to hurt yourself or someone else? Patient reports no desire to harm self or others. Onset of symptoms was March 31, 2024 at 08:00. 17:48 Method Of Arrival: Wheelchair tl4 17:48 Acuity: LEONARDO 3 tl4 Triage Assessment: 17:50 General: Appears uncomfortable, Behavior is calm, cooperative. Pain: Complains of pain tl4 in neck. EENT: No signs and/or symptoms were reported regarding the EENT system. Neuro: Level of Consciousness is awake, alert, obeys commands, Oriented to person, place, time, situation. Cardiovascular: Capillary refill < 3 seconds Patient's skin is warm and dry. Respiratory: Airway is patent Respiratory effort is even, unlabored, Respiratory pattern is regular, symmetrical. GI: No signs and/or symptoms were reported involving the gastrointestinal system. : No signs and/or symptoms were reported regarding the genitourinary system. Derm: No signs and/or symptoms reported regarding the dermatologic system. Musculoskeletal: Reports pain in neck. Historical: - Allergies: 17:50 Keflex; tl4 17:50 Mobic; tl4 17:50 Phenergan; tl4 - PMHx: 17:50 Arthritis; COPD; GERD; HEP C; Hypertension; Lupus; Osteoporosis; RIGHT LEG NERVE PAIN; tl4 scoliosis; - PSHx: 17:50 back; Cholecystectomy; Left knee replacement; Nephrectomy; tl4 - Immunization history:: Adult Immunizations unknown. - Infectious Disease History:: Denies. - Social history:: Smoking status: Patient denies any tobacco usage or history of. Screenin:10 [facility] ED Fall Risk Assessment (Adult). Abuse screen: Denies threats or abuse. Denies kd3 injuries from another. Nutritional screening: No deficits noted. Tuberculosis screening: No symptoms or risk factors identified. 22:44 [facility] ED Fall Risk Assessment (Adult) History of falling in the last 3 months, kd3 including since admission Altered Elimination. 22:44 [facility] ED Fall Risk Assessment (Adult) History of falling in the last 3 months, jb4 including since admission No falls in past 3 months (0 pts) Confusion or Disorientation No (0 pts) Intoxicated or Sedated No (0 pts) Impaired Gait No (0 pts) Mobility Assist Device Used No (0 pt) Score/Fall Risk Level 0 - 2 = Low Risk Oriented to surroundings, Maintained a safe environment. Assessment: 19:00 General: Appears in no apparent distress. uncomfortable. Pain: Complains of pain in jb4 generalized body aches Pain does not radiate. Pain currently is 10 out of 10 on a pain scale. Neuro: Level of Consciousness is awake, alert, obeys commands, Oriented to person, place, time, situation. Cardiovascular: Patient's skin is warm and dry. Respiratory: Airway is compromised Respiratory effort is even, unlabored, Respiratory pattern is regular, symmetrical. GI: No signs and/or symptoms were reported involving the gastrointestinal system. : No signs and/or symptoms were reported regarding the genitourinary system. EENT: No signs and/or symptoms were reported regarding the EENT system. Derm: Skin is intact, Skin is dry, Skin is normal, Skin temperature is warm. Musculoskeletal: Circulation, motion, and sensation intact. Range of motion: intact in all extremities. 20:00 Reassessment: Patient appears in no apparent distress at this time. Patient and/or jb4 family updated on plan of care and expected duration. Pain level reassessed. Patient is alert, oriented x 3, equal unlabored respirations, skin warm/dry/pink. 20:57 General: Pt assisted to the restroom via wheelchair. . kd3 21:04 Reassessment: Patient appears in no apparent distress at this time. Patient and/or jb4 family updated on plan of care and expected duration. Pain level reassessed. Patient is alert, oriented x 3, equal unlabored respirations, skin warm/dry/pink. 22:44 Reassessment: Patient appears in no apparent distress at this time. Patient and/or jb4 family updated on plan of care and expected duration. Pain level reassessed. Patient is alert, oriented x 3, equal unlabored respirations, skin warm/dry/pink. Patient states feeling better. 22:44 General: PT escorted out to her car via wheelchair by myself. . kd3 Vital Signs: 17:48 BP 147 / 88; Pulse 102; Resp 20; Temp 98.7(O); Pulse Ox 99% on R/A; Weight 64.86 kg; tl4 Height 5 ft. 3 in. ; Pain 10/10; 21:04 BP 156 / 98; Pulse 104; Resp 16; Pulse Ox 96% ; jb4 17:48 Body Mass Index 25.33 (64.86 kg, 160.02 cm) tl4 17:48 Pain Scale: Adult tl4 ED Course: 16:43 Patient arrived in ED. im 17:01 Papito Shah MD is Attending Physician. cesario 17:50 Triage completed. tl4 17:51 Arm band placed on right wrist. tl4 18:19 Lázaro Richey NP is PHCP. pm1 19:07 Chest Single View XRAY In Process Unspecified. EDMS 19:09 Kaylie Smallwood, LENARD is Primary Nurse. kd3 19:10 Inserted saline lock: 22 gauge in right antecubital area, using aseptic technique. kd3 Blood collected. 19:10 Initial lab(s) drawn, by ED staff, sent to lab. kd3 19:12 CBC with Diff Sent. jb4 19:12 Comprehensive Metabolic Panel Sent. jb4 19:12 Troponin HS Sent. jb4 19:12 CPK Sent. jb4 22:44 Patient has correct armband on for positive identification. Call light in reach. Side jb4 rails up X 1. Provided Education on: discharge instructions.. 22:44 No provider procedures requiring assistance completed. IV discontinued, intact, jb4 bleeding controlled, No redness/swelling at site. Pressure dressing applied. Administered Medications: 19:35 Drug: NS 0.9% IV 1000 ml IV at 1 bolus Per protocol; 1000 mL bolus Route: IV; Rate: 1 jb4 bolus; Site: right antecubital; 19:35 Drug: Diazepam PO 10 mg PO once Route: PO; jb4 19:36 Drug: HYDROmorphone IVP 1 mg IVP once Route: IVP; Site: right antecubital; jb4 19:36 Drug: Ondansetron IVP 4 mg IVP once; over 2 minutes Route: IVP; Site: right antecubital;jb4 22:10 Drug: HYDROmorphone IVP 1 mg IVP once Route: IVP; Site: right antecubital; jb4 Medication: 22:44 VIS not applicable for this client. jb4 Outcome: 22:04 Discharge ordered by . pm1 22:44 Discharged to home via wheelchair, with family, jb4 22:44 Condition: stable 22:44 Discharge instructions given to patient, Instructed on discharge instructions, follow up and referral plans. Demonstrated understanding of instructions, follow-up care, 22:45 Patient left the ED. jb4 Signatures: Dispatcher [employer] EDMS Papito Shah MD MD cha Marinas, Patrick, PROCESS SAFETY ENGINEER PROCESS SAFETY ENGINEER pm1 Brigido Weathers, RN RN jb4 Kaylie Smallwood RN RN kd3 Vinita Rosado Toni, RN RN tl4 Corrections: (The following items were deleted from the chart) 22:45 22:44 Discharged to home ambulatory, jb4 jb4
--- NOTE | 2024-03-31 22:05 | EDPHYS ---
Physician Documentation [facility] Name: Brandy Perez Age: 68 yrs Sex: Female : 1955 Arrival Date: 03/31/2024 Time: 16:37 Bed 5 Private MD: ED Physician Papito Shah HPI: 03/31 18:38 This 68 yrs old Black Female presents to ER via Wheelchair with complaints of Muscle pm1 spasms. 18:38 The patient or guardian complains of pain, that is chronic. The symptoms are located on pm1 the left trapezius and right trapezius. Onset: The symptoms/episode began/occurred 4 month(s) ago. Context: The neck injury/problem resulted from from unknown cause. Associated signs and symptoms: The patient has no apparent associated signs or symptoms. The pain does not radiate. Modifying factors: the symptoms are aggravated by movement, palpation. Severity of symptoms: in the emergency department the symptoms are actually worse. The patient has experienced similar episodes in the past, chronically. The patient has not recently seen a physician. Historical: - Allergies: 17:50 Keflex; tl4 17:50 Mobic; tl4 17:50 Phenergan; tl4 - PMHx: 17:50 Arthritis; COPD; GERD; HEP C; Hypertension; Lupus; Osteoporosis; RIGHT LEG NERVE PAIN; tl4 scoliosis; - PSHx: 17:50 back; Cholecystectomy; Left knee replacement; Nephrectomy; tl4 - Immunization history:: Adult Immunizations unknown. - Infectious Disease History:: Denies. - Social history:: Smoking status: Patient denies any tobacco usage or history of. ROS: 18:38 Constitutional: Negative for fever, chills, and weight loss, Cardiovascular: Negative pm1 for chest pain, palpitations, and edema, Respiratory: Negative for shortness of breath, cough, wheezing, and pleuritic chest pain, Abdomen/GI: Negative for abdominal pain, nausea, vomiting, diarrhea, and constipation, 18:38 MS/Extremity: Negative for injury and deformity, Skin: Negative for injury, rash, and discoloration, Neuro: Negative for headache, weakness, numbness, tingling, and seizure, 18:38 Back: Positive for of the left trapezius and right trapezius, pain, 18:38 All other systems are negative, Exam: 18:38 Constitutional: This is a well developed, well nourished patient who is awake, alert, pm1 and in no acute distress. Head/Face: Normocephalic, atraumatic. 18:38 Skin: Warm, dry with normal turgor. Normal color with no rashes, no lesions, and no evidence of cellulitis. MS/ Extremity: Pulses equal, no cyanosis. Neurovascular intact. Full, normal range of motion. 18:38 Cardiovascular: Exam negative for acute changes, Rate: normal, Rhythm: regular, Pulses: no pulse deficits are appreciated, Heart sounds: normal, normal S1and S2, 18:38 Respiratory: Exam negative for acute changes, respiratory distress, shortness of breath, Breath sounds: are clear throughout, 18:38 Abdomen/GI: Exam negative for acute changes, 18:38 Back: vertebral tenderness, is not appreciated, muscle spasm, is appreciated in the left trapezius and right trapezius, 18:38 Neuro: Exam negative for acute changes, 19:24 ECG was reviewed by the Attending Physician. pm1 Vital Signs: 17:48 BP 147 / 88; Pulse 102; Resp 20; Temp 98.7(O); Pulse Ox 99% on R/A; Weight 64.86 kg; tl4 Height 5 ft. 3 in. ; Pain 10/10; 21:04 BP 156 / 98; Pulse 104; Resp 16; Pulse Ox 96% ; jb4 17:48 Body Mass Index 25.33 (64.86 kg, 160.02 cm) tl4 17:48 Pain Scale: Adult tl4 MDM: 17:01 Patient medically screened. [facility] 18:39 Data reviewed: vital signs. pm1 21:59 ED course: Patient with history of hypocalcemia. She has a history of it and was pm1 treated by her PCP Dr Carrasco with calcium tablets. With her hospitalization in December she was not taking her calcium tablets during the 3 weeks she was there. She feels that is the reason she is a little low. Instructed her to take her calcium tablets daily and follow up with her PCP for reevaluation and lab work. She requested additional medications for her neck spasms. She wants additional dilaudid. 03/31 18:39 Order name: CBC with Diff; Complete Time: 20:48 [facility] 03/31 18:39 Order name: Comprehensive Metabolic Panel; Complete Time: 21:29 [facility] 03/31 18:39 Order name: Troponin HS; Complete Time: 21:29 [facility] 03/31 18:39 Order name: CPK; Complete Time: 21:29 [facility] 03/31 20:46 Order name: CBC Smear Scan; Complete Time: 20:48 EDMS 03/31 18:39 Order name: Chest Single View XRAY; Complete Time: 20:00 [facility] 03/31 18:39 Order name: EKG; Complete Time: 18:39 [facility] 03/31 18:38 Order name: IV Saline Lock; Complete Time: 19:11 pm1 03/31 18:39 Order name: EKG - Nurse/Tech; Complete Time: 19:36 [facility] EC:24 Rate is 104 beats/min. Rhythm is regular, Sinus tachycardia. QRS [place] is Normal. CT pm1 interval is normal. QRS interval is normal. QT interval is normal. No Q waves. T waves are Normal. No ST changes noted. Clinical impression: Sinus tachycardia. Administered Medications: 19:35 Drug: NS 0.9% IV 1000 ml IV at 1 bolus Per protocol; 1000 mL bolus Route: IV; Rate: 1 jb4 bolus; Site: right antecubital; 19:35 Drug: Diazepam PO 10 mg PO once Route: PO; jb4 19:36 Drug: HYDROmorphone IVP 1 mg IVP once Route: IVP; Site: right antecubital; jb4 19:36 Drug: Ondansetron IVP 4 mg IVP once; over 2 minutes Route: IVP; Site: right antecubital;jb4 22:10 Drug: HYDROmorphone IVP 1 mg IVP once Route: IVP; Site: right antecubital; jb4 Disposition Summary: 03/31/24 22:04 Discharge Ordered Notes: Location: Home pm1 Problem: new pm1 Symptoms: have improved pm1 Condition: Stable pm1 Diagnosis - Other muscle spasm - neck pm1 - Hypocalcemia pm1 Followup: pm1 - With: Emergency Department - When: As needed - Reason: Worsening of condition Followup: pm1 - With: Private Physician - When: 2 - 3 days - Reason: Recheck today's complaints, Continuance of care, Re-evaluation by your physician Discharge Instructions: - Discharge Summary Sheet pm1 - Muscle Cramps and Spasms pm1 - Hypocalcemia, Adult pm1 Forms: - Medication Reconciliation Form pm1 - Antibiotic Education pm1 - Prescription Opioid Use pm1 - Patient Portal Instructions pm1 - Leadership Thank You Letter pm1 Signatures: Dispatcher [employer] EDPapito Almeida MD MD cha Marinas, Patrick, NP SHREDDING MACHINE OPERATOR pm1 Brigido Weathers, RN RN jb4 Flo Campbell RN RN tl4 Corrections: (The following items were deleted from the chart) 22:04 21:59 ED course: Patient with history of hypocalcemia. She has a history of it and was pm1 treated by her PCP Dr Carrasco with calcium tablets. With her hospitalization in December she was not taking her calcium tablets during the 3 weeks she was there. She feels that is the reason she is a little low. Instructed her to take her calcium tablets daily and follow up with her PCP for reevaluation and lab work. pm1
[2024-04-01 05:41] VITALS: BP 156/98; TEMP 98.7; O2SAT 96
--- NOTE | 2024-04-01 10:54 | EKG ---
Test Date: 2024-03-31 Test Time: 19:17:26 Claims Consultant: SIMON MEASUREMENT RESULTS: Intervals: Rate: 104 NH: 114 QRSD: 66 QT: 350 QTc: 460 [place]: P: 67 NH: 114 QRS: 61 T: 74 INTERPRETIVE STATEMENTS: Sinus tachycardia Nonspecific ST and T wave abnormality Abnormal ECG Compared to ECG 07/24/2021 05:02:23 ST (T wave) deviation now present Sinus rhythm no longer present Atrial premature complex(es) no longer present Electronically Signed On 04-01-24 10:53:52 CDT by Edilberto Copeland
== END 2024-03-31 22:45 | disposition home or self-care (01) ==
LOC: ER 16:37
DX: M62.838 Other muscle spasm (principal); E83.51 Hypocalcemia
CPT/HCPCS: 93005; 85025; 36415; 82550; 84484; 80053; 71045; 96375; 96374; 99284; J1170 ×2; J2405; J7030

== ENCOUNTER 2024-08-24 08:17 | Inpatient (IN) | payer OTHER ==
[2024-08-24 09:48] LABS: Absolute Basophils 0.1 K/uL (0-0.5); Absolute Lymphocytes (CBC) 0.5 K/uL (0.7-4.9); Absolute Monocytes 1.4 K/uL (0.1-1.3); Absolute Neutrophil 15.6 K/uL (1.8-8.0); Basophils % 0.5 % (0-1.3); Eosinophils % 0.2 % (0-4.4); Hemoglobin 12.7 g/dL (12.0-15.0); Lymphocytes % 2.8 % (15.3-44.8); MCHC 32.6 g/dL (32.0-36.0); MCV 98.4 fL (80-100); MPV 7.9 fL (7.6-11.3); Monocytes % 8.1 % (3.3-12.3); Neutrophils % 88.4 % (41.7-73.7); Platelets 186 thou/uL (152-406); RBC Red Blood Cell Count 3.96 M/uL (3.86-4.86); Red Cell Distribution Width 15.5 % (12.1-15.2)
[2024-08-24 09:52] LABS: Sqamous Epithelial <5 /HPF (None Seen); Urine Bacteria None Seen /HPF (<20); Urine Bilirubin NEGATIVE (Negative); Urine Blood Negative (Negative); Urine Clarity Clear (Clear); Urine Color Yellow (Yellow); Urine Culture Reflex Order NOT NEEDED; Urine Glucose NEGATIVE (Negative); Urine Ketones NEGATIVE (Negative); Urine Microscopic Reflex YN ORDER UMIC; Urine Nitrite NEGATIVE (Negative); Urine Protein 1+ (Negative); Urine RBC <5 /HPF (None Seen); Urine Urobilinogen Normal (Normal); Urine WBC <5 /HPF (<5)
[2024-08-24 10:04] LABS: SARS-CoV-2 Antigen CONTROL BLUE LINE VIS/BG OK; SARS-CoV-2 Antigen Rapid Res Negative (Negative)
[2024-08-24] MEDS ORDERED: DIAZEPAM 10 MG/2 ML INJ SYRINGE ONE (10:08)
[2024-08-24] MEDS ORDERED: KETOROLAC 30 MG/ML INJ ONE (10:08)
[2024-08-24 10:09] LABS: Albumin 2.4 g/dL (3.4-5.0); Albumin/Globulin Ratio 0.5 (1.1-1.8); Anion Gap 9.9 mEq/L (5.0-15.0); Bilirubin Total 0.7 mg/dL (0.2-1.0); Globulin 5.1 g/dL (2.3-3.5); Potassium 4.9 mEq/L (3.5-5.1); Protein, Total 7.5 g/dL (6.4-8.2)
--- NOTE | 2024-08-24 10:09 | RAD REPORT ---
EXAM: Chest Single View HISTORY: COUGH COMPARISON: 03/31/2024 FINDINGS: LUNGS/PLEURA: Chronic scarring at the right lung apex. New patchy irregular airspace disease present in the left lung. MEDIASTINUM: The mediastinal silhouette is within normal limits. CARDIAC: The cardiac silhouette is within normal limits. UPPER ABDOMEN: No significant abnormality. BONES: No acute fracture. Hay rods in the thoracic spine. Fusion hardware in the upper thoraci c and lower cervical spine.. LINES/TUBES/OTHER: Left IJ approach Port-A-Cath with tip overlying the distal SVC. IMPRESSION: New ill-defined opacities in the left lung concerning for pneumonia. Recommend follow-up imaging to e nsure resolution.
--- NOTE | 2024-08-24 10:44 | EDPHYS ---
Physician Documentation [facility] Name: Brandy Perez Age: 69 yrs Sex: Female : 1955 Arrival Date: 08/24/2024 Time: 08:17 Bed 24 Private MD: ED Physician Leo Vallejo HPI: 08/24 09:30 This 69 yrs old Black Female presents to ER via Ambulatory with complaints of Pain All ec2 Over. 09:30 Patient with history of chronic pain arrives today for chronic pain. Patient reports ec2 that she has been having generalized myalgias ongoing for many years with worsening pain over the past several days. Reports that only Dilaudid helps her pain. Denies falls injuries or trauma. Denies any recent vomiting, denies fevers. Denies any cough and cold symptoms.. Historical: - Allergies: 08:27 Keflex; aa5 08:27 Mobic; aa5 08:27 Phenergan; aa5 - PMHx: 08:27 Arthritis; COPD; GERD; HEP C; Hypertension; Lupus; Osteoporosis; RIGHT LEG NERVE PAIN; aa5 scoliosis; - PSHx: 08:27 back; Cholecystectomy; Left knee replacement; Nephrectomy; right shoulder sx (Unknown); aa5 - Immunization history:: Flu vaccine is up to date. - Infectious Disease History:: Denies. - Social history:: Smoking status: Patient denies any tobacco usage or history of. ROS: 09:31 Constitutional: as per hpi ec2 Exam: 09:31 Constitutional: GEN: NAD Head: atraumatic Eyes: EOMI Ears: External ears are ec2 normal. CV: Tachycardia LUNGS: no respiratory distress ABD: non-distended SKIN: no evidence of rashes MSK: no evidence of trauma Vital Signs: 08:27 BP 106 / 68; Pulse 114; Resp 18 S; Temp 98.8(O); Pulse Ox 93% on R/A; Weight 61.23 kg aa5 (R); Height 5 ft. 3 in. (R); 10:17 BP 120 / 99; Pulse 102; Resp 18; Pulse Ox 95% on 2 lpm NC; MAP 108 mmHg; Pain 10/; tm6 08:27 Body Mass Index 23.91 (61.23 kg, 160.02 cm) aa5 10:17 Pain Scale: Adult tm6 MDM: 09:02 Medical Screening Exam initiated ec2 09:31 Data reviewed: vital signs, nurses notes. ED course: Patient arrives today for ec2 evaluation of myalgias. Examination is revealing for slightly tachycardic individuals otherwise in no acute distress with a reassuring examination. Will obtain lab work, viral swabs, urine studies, will give the patient Valium and Toradol for pain. Patient's goal is to have complete pain resolution, instructed her that this is an unrealistic expectation the emergency department for chronic pains, I instructed her we will use nonopiate medications to help with her pains but our goal is to ensure she is not in any emergent condition.. 10:43 ED course: On reassessment patient with improved tachycardia. ec2 13:16 ED course: EKG independently reviewed and interpreted by me, shows normal sinus rhythm, ec2 rate 92, no acute ST segment elevations, intervals are nonactionable.. 12 09:03 Order name: CBC with Diff; Complete Time: 13:16 ec2 08/24 09:03 Order name: CMP; Complete Time: 10:25 ec2 08/24 09:03 Order name: Lipase; Complete Time: 10:25 ec2 08/24 09:03 Order name: Urinalysis w/ reflexes; Complete Time: 09:57 ec2 08/24 09:03 Order name: Influenza Screen (a \T\ B); Complete Time: 10:08 ec2 08/24 09:03 Order name: SARS RAPID; Complete Time: 10:08 ec2 08/24 09:55 Order name: Manual Differential; Complete Time: 13:16 EDPA 08/24 10:27 Order name: Blood Culture Adult (2) ec2 08/24 10:27 Order name: Lactate w/ 2H reflex if indic. ec2 08/24 11:05 Order name: Sputum Culture EDMS 08/24 09:21 Order name: CXR XRAY; Complete Time: 10:25 ec2 08/24 10:48 Order name: Respiratory Therapy Consult EDPA 08/24 09:03 Order name: IV Saline Lock; Complete Time: 09:43 ec2 08/24 09:03 Order name: Labs collected and sent; Complete Time: 09:43 ec2 08/24 10:27 Order name: Accucheck; Complete Time: 13:12 ec2 08/24 10:27 Order name: Cardiac monitoring; Complete Time: 13:19 ec2 08/24 10:27 Order name: EKG - Nurse/Tech; Complete Time: 13:19 ec2 08/24 10:27 Order name: IV Saline Lock - Large Bore; Complete Time: 12:38 ec2 08/24 10:27 Order name: O2 Per Protocol; Complete Time: 12:38 ec2 08/24 10:27 Order name: O2 Sat Monitoring; Complete Time: 12:38 ec2 08/24 10:27 Order name: Vital Signs; Complete Time: 12:38 ec2 Administered Medications: 10:17 Drug: Diazepam IVP 5 mg IVP once Route: IVP; Site: right antecubital; tm6 12:38 Follow up: Response: No adverse reaction; Anxiety decreased me1 10:17 Drug: Ketorolac IVP 15 mg IVP once Route: IVP; Site: right antecubital; tm6 12:38 Follow up: Response: No adverse reaction; Pain is decreased me1 13:16 Drug: Rocephin IV 1 grams IV at bolus once; Given slow IV push per pharmacy me1 instructions Route: IV; Rate: bolus; Site: right antecubital; 13:18 Follow up: Response: No adverse reaction; IV Status: Completed infusion me1 13:16 Drug: AZITHromycin IVPB 500 mg IVPB once over 1 hrs; (mix in 250 mL NS) Route: IVPB; me1 Infused Over: 1 hrs; Site: right antecubital; 17:59 Follow up: Response: No adverse reaction; IV Status: Completed infusion; IV Intake: me1 1416ml 13:20 Drug: Methocarbamol PO 750 mg PO once Route: PO; me1 17:59 Follow up: Response: No adverse reaction; Pain is decreased me1 Disposition Summary: 08/24/24 10:43 Hospitalization Ordered Notes: Hospitalization Status: Inpatient Admission ec2 Provider: Yo Carrasco ec2 Condition: Stable ec2 Problem: new ec2 Symptoms: have improved ec2 Bed/Room Type: Standard ec2 Location: Telemetry/MedSurg (Inpatient)(08/24/24 20:19) rv1 Room Assignment: 221(08/24/24 20:19) rv1 Diagnosis - Sepsis, unspecified organism ec2 - Unspecified bacterial pneumonia ec2 Forms: - Medication Reconciliation Form ec2 - SBAR form ec2 - Leadership Thank You Letter ec2 Critical care time excluding procedures: 10:43 Critical care time: Bedside Care: 30 minutes, Consultation: 5 minutes. Total time: 35 ec2 minutes Signatures: Dispatcher [employer] EDMS Roseann Mar Yary Stephens, RN RN aa5 Reema Sorenson rv1 Ghislaine Warren RN RN me1 Leo Vallejo MD MD ec2 Merlin Schwartz RN RN tm6 Corrections: (The following items were deleted from the chart) 09:04 09:04 Influenza Screen (A \T\ B)+BA.LAB.BRZ ordered. EDMS EDMS 09:04 09:04 SARS-COV-2 Antigen Rapid+I.LAB.BRZ ordered. EDMS EDMS 09:21 09:21 Chest Single View+RAD.RAD.BRZ ordered. EDPA EDMS 13:33 10:43 Telemetry/MedSurg (Inpatient) ec2 bd 13:33 10:43 ec2 bd 20:19 13:33 [facility] ER HOLD bd rv1 20:19 13:33 ERHOLD- bd rv1
--- NOTE | 2024-08-24 10:44 | ER ---
Nurse's Notes [facility] Name: Brandy Perez Age: 69 yrs Sex: Female : 1955 Arrival Date: 08/24/2024 Time: 08:17 Bed 24 Private MD: Diagnosis: Sepsis, unspecified organism;Unspecified bacterial pneumonia Presentation: 08/24 08:27 Chief complaint: Patient states: "It started on Friday as a cold and today my whole aa5 body is just throbbing". Coronavirus screen: muscle pain. Ebola Screen: Patient denies travel to an Ebola-affected area in the 21 days before illness onset. Onset of symptoms was August 2024. 08:27 Method Of Arrival: Ambulatory aa5 08:27 Initial Sepsis Screen: Does the patient meet any 2 criteria? HR > 90 bpm. Does the aa5 patient have a suspected source of infection? No. Patient's initial sepsis screen is negative. Risk Assessment: Do you want to hurt yourself or someone else? Patient reports no desire to harm self or others. 08:27 Acuity: LEONARDO 3 aa5 Historical: - Allergies: 08:27 Keflex; aa5 08:27 Mobic; aa5 08:27 Phenergan; aa5 - PMHx: 08:27 Arthritis; COPD; GERD; HEP C; Hypertension; Lupus; Osteoporosis; RIGHT LEG NERVE PAIN; aa5 scoliosis; - PSHx: 08:27 back; Cholecystectomy; Left knee replacement; Nephrectomy; right shoulder sx (Unknown); aa5 - Immunization history:: Flu vaccine is up to date. - Infectious Disease History:: Denies. - Social history:: Smoking status: Patient denies any tobacco usage or history of. Screenin:17 [facility] ED Fall Risk Assessment (Adult) History of falling in the last 3 months, tm6 including since admission No falls in past 3 months (0 pts) Confusion or Disorientation No (0 pts) Intoxicated or Sedated No (0 pts) Impaired Gait No (0 pts) Mobility Assist Device Used No (0 pt) Altered Elimination No (0 pt) Score/Fall Risk Level 0 - 2 = Low Risk Oriented to surroundings, Maintained a safe environment, Educated pt \\T\\ family on fall prevention, incl call for assistance when getting out of bed. Abuse screen: Denies threats or abuse. Denies injuries from another. Nutritional screening: No deficits noted. Tuberculosis screening: No symptoms or risk factors identified. Assessment: 10:17 General: Appears in no apparent distress. uncomfortable, Behavior is calm, cooperative. tm6 Pain: Complains of pain in "all over" Pain currently is 10 out of 10 on a pain scale. Pain began 2-3 days ago. Neuro: Level of Consciousness is awake, alert, obeys commands, Oriented to person, place, time, situation. Cardiovascular: Patient's skin is warm and dry. Respiratory: Airway is patent Respiratory effort is even, unlabored, Respiratory pattern is regular, symmetrical. GI: No signs and/or symptoms were reported involving the gastrointestinal system. Abdomen is flat, non-distended. : No signs and/or symptoms were reported regarding the genitourinary system. EENT: No signs and/or symptoms were reported regarding the EENT system. Derm: No signs and/or symptoms reported regarding the dermatologic system. Musculoskeletal: Reports pain in "all over" Pain is 10 out of 10 on a pain scale. Vital Signs: 08:27 BP 106 / 68; Pulse 114; Resp 18 S; Temp 98.8(O); Pulse Ox 93% on R/A; Weight 61.23 kg aa5 (R); Height 5 ft. 3 in. (R); 10:17 BP 120 / 99; Pulse 102; Resp 18; Pulse Ox 95% on 2 lpm NC; MAP 108 mmHg; Pain 10/10; tm6 08:27 Body Mass Index 23.91 (61.23 kg, 160.02 cm) aa5 10:17 Pain Scale: Adult tm6 ED Course: 08:20 Patient arrived in ED. im 08:27 Arm band placed on. aa5 08:31 Triage completed. aa5 09:01 Leo Vallejo MD is Attending Physician. ec2 09:43 SARS RAPID Sent. bc6 09:43 Influenza Screen (a \\T\\ B) Sent. bc6 09:43 CBC with Diff Sent. bc6 09:43 CMP Sent. bc6 09:43 Lipase Sent. bc6 09:43 Urinalysis w/ reflexes Sent. bc6 09:43 Initial lab(s) drawn, by ne, sent to lab. Urine collected: clean catch specimen, COVID bc6 swab sent to lab. Flu and/or RSV swab sent to lab. Inserted saline lock: 20 gauge in right antecubital area, using aseptic technique. Blood collected. Flushed with 10 mL NS. 09:53 CXR XRAY In Process Unspecified. EDMS 10:03 Merlin Schwartz, RN is Primary Nurse. tm6 10:17 Patient has correct armband on for positive identification. Bed in low position. Call tm6 light in reach. Side rails up X 1. Provided Education on: use of call pinto. Client placed on continuous cardiac and pulse oximetry monitoring. NIBP monitoring applied. Pulse ox on. NIBP on. Door closed. Noise minimized. Lights dimmed. Warm blanket given. Pillow given. 10:43 Yo Carrasco MD is Hospitalizing Provider. ec2 12:06 First set of blood cultures drawn by me. me1 12:48 Second set of blood cultures drawn by me. me1 12:53 Urine collected:. me1 13:16 EKG done, by ED staff. tm3 20:47 No provider procedures requiring assistance completed. Patient admitted, IV remains in me1 place. Administered Medications: 10:17 Drug: Diazepam IVP 5 mg IVP once Route: IVP; Site: right antecubital; tm6 12:38 Follow up: Response: No adverse reaction; Anxiety decreased me1 10:17 Drug: Ketorolac IVP 15 mg IVP once Route: IVP; Site: right antecubital; tm6 12:38 Follow up: Response: No adverse reaction; Pain is decreased me1 13:16 Drug: Rocephin IV 1 grams IV at bolus once; Given slow IV push per pharmacy me1 instructions Route: IV; Rate: bolus; Site: right antecubital; 13:18 Follow up: Response: No adverse reaction; IV Status: Completed infusion me1 13:16 Drug: AZITHromycin IVPB 500 mg IVPB once over 1 hrs; (mix in 250 mL NS) Route: IVPB; me1 Infused Over: 1 hrs; Site: right antecubital; 17:59 Follow up: Response: No adverse reaction; IV Status: Completed infusion; IV Intake: me1 1416ml 13:20 Drug: Methocarbamol PO 750 mg PO once Route: PO; me1 17:59 Follow up: Response: No adverse reaction; Pain is decreased me1 Medication: 10:17 VIS not applicable for this client. tm6 Intake: 17:59 IV: 1416ml; Total: 1416ml. me1 Outcome: 10:43 Decision to Hospitalize by Provider. ec2 20:46 Admitted to Med/surg accompanied by tech, via wheelchair, room 221, with oxygen, with me1 chart, Report called to faxed, receipt confirmed with Hilda 20:46 Condition: stable 20:46 Instructed on the need for admit, 21:37 Patient left the ED. me1 Signatures: Dispatcher [employer] Flo Pearson tm3 Yary Harmon, RN RN aa5 Marie Chew bc6 Vinita Rosado Michelle RN RN me1 Leo Vallejo MD MD ec2 Merlin Schwartz, RN RN tm6 Corrections: (The following items were deleted from the chart) 12:53 12:48 First set of blood cultures drawn by ne, me1 me1
[2024-08-24] MEDS ORDERED: ALBUTEROL 2.5 MG/3 ML NEB SOL NEB PRN ×2 (10:45→18:26)
[2024-08-24 10:55] LABS: Band Neutrophils 2 % (0-1); Blood Morphology Comment NOT SEEN (NOT SEEN); Differential Total Cells Count 100; Lymphocytes 1 % (15-42); Monocytes 9 % (0-10); Myelocytes 1 % (0-0); Platelet Estimate ADEQ; Segmented Neutrophils 86 % (40-80)
[2024-08-24] MEDS ORDERED: NA CHLORIDE 0.9% 250 ML ONE (13:11)
[2024-08-24] MEDS ORDERED: CEFTRIAXONE 1000 MG/VIAL ONE (13:11)
[2024-08-24] MEDS ORDERED: AZITHROMYCIN 500 MG INJ IVPB ONE (13:11)
[2024-08-24] MEDS ORDERED: methocarbamoL 750 MG TAB ONE (13:18)
[2024-08-24] MEDS ORDERED: ONDANSETRON 4 MG/2 ML VIAL ONE (13:26)
[2024-08-24] MEDS: ONDANSETRON 4 MG/2 ML VIAL IV PRN (13:28)
[2024-08-24] MEDS: NACHLORIDE 0.45% 1,000 ML IV SCH (18:00)
--- NOTE | 2024-08-24 18:04 | P.HP ---
Patient History Date of Service: 08/24/24 Reason for admission: runny nose and aches History of Present Illness: MAGDY HAS ADVANCED LUNG CANCER WITH METS TO SPINE WHO HAS GONE THROUGH SURGERY, RADIATION AND CHEMO FOR IT. SHE IS STILL ON CHEMO. SHE HAD LAST PET CT A MONTH AGO AND NEXT ONE IS IN OCT. SHE COMES WITH RUNNY NOSE AND ACHES. ER DOCTOR DID LAB AND CXR. WBC IS HIGH BUT ALSO SHE IS ON STEROIDS. CXR SHOWS PNEUMONIA AND ER DOCTOR GAVE IV ABX. Allergies promethazine HCl [From Phenergan] Allergy (Mild, Verified 03/02/13 12:46) ITCH meloxicam [From Mobic] Adverse Reaction (Intermediate, Verified 03/02/13 12:46) NAUSEA cephalexin monohydrate [From Keflex] Adverse Reaction (Mild, Verified 03/02/13 12:46) DRY COUGH Home medications list reviewed: Yes Home Medications: Aspirin [Aspir-Low] 1 tab PO DAILY 01/26/19 Hydroxychloroquine [Plaquenil*] 1 tab PO DAILY 01/26/19 Pantoprazole [Protonix Tab*] 0.5 tab PO DAILY 01/26/19 carvediloL [Carvedilol] 1 tab PO BID 01/26/19 mycophenolate mofetiL [Mycophenolate Mofetil] 500 mg PO DAILY 01/26/19 Codeine/APAP [Tylenol #3*] 1 tab PO Q6HP PRN 04/01/24 Calcitrol [Rocaltrol*] 0.25 mcg PO DAILY cap 04/03/24 Calcium Carbonate/Vitamin D3 [Oscal 500 + Vit D 200 Iu Tab*] 1 tab PO QID tab 04/03/24 Methylprednisolone [Medrol dosepack] 4 mg PO DIRECTED #1 toi 04/03/24 Capmatinib Hydrochloride [Tabrecta] 400 mg PO BID 08/24/24 - Past Medical/Surgical History Diabetic: No -: HTN -: Scoliosis -: Lupus -: Osteoporosis -: kidney cancer -: Arthritis -: COPD -: Gerd -: R leg nerve pain -: back spasms -: radiation on rt side back tumor -: Back -Barbara Adolfo -: R Kidney removal -: Bone spur R foot -: january 07, 2024 bones removed and adolfo to stop pressing on nerves - Family History Mother -: Heart disease, Kidney disease - Social History Smoking Status: Never smoker Alcohol use: No CD- Drugs: No Caffeine use: Yes Place of Residence: Home Review of Systems 10-point ROS is otherwise unremarkable General: Weakness, Malaise, As per HPI Physical Examination - Vital Signs Temperature: 98.5 F Blood Pressure: 93/54 Pulse: 88 Respirations: 19 Pulse Ox (%): 100 - Physical Exam General: Moderate distress HEENT: Atraumatic, PERRLA, Mucous membr. moist/pink, EOMI, Sclerae nonicteric Neck: Supple, 2+ carotid pulse no bruit, No LAD, Without JVD or thyroid abnormality Respiratory: Clear to auscultation bilaterally, Normal air movement Cardiovascular: Regular rate/rhythm, Normal S1 S2 Gastrointestinal: Normal bowel sounds, No tenderness Musculoskeletal: No tenderness Integumentary: No rashes Neurological: Normal gait, Normal speech, Normal strength at 5/5 x4 extr, Normal tone, Normal affect Lymphatics: No axilla or inguinal lymphadenopathy - Studies Laboratory Data (last 24 hrs) 08/24/24 08/24/24 09:40 09:40 WBC 17.70 H Hgb 12.7 Hct 39.0 Plt Count 186 Sodium 140 Potassium 4.9 BUN 22 H Creatinine 2.06 H Glucose 97 Total Bilirubin 0.7 AST 16 ALT 18 Alkaline Phosphatase 100 Lipase 17 Microbiology Data (last 24 hrs): 08/24/24 09:43 Nasopharnyx Influenza Type A Antigen Screen - Final 08/24/24 09:43 Nasopharnyx Influenza Type B Antigen Screen - Final Assessment and Plan - Problems (Diagnosis) (1) Leukocytosis Current Visit: Yes Status: Acute Plan: THIS CANBE FROM HER MEDS. NOBLE HAS NO PNEUMONIA SS. NO COUGH, NO DYSPNEA, NO FEVER. WILL REDO CT SCAN WHEN CREAT IS DOWN. (2) Myalgia Current Visit: Yes Status: Chronic Plan: SHE HAS BEEN NORCO AND TYL 3 OFF AND ON BY HER OTHER DOCTORS. (3) Dehydration Current Visit: Yes Status: Acute Plan: IV FLUIDS CREAT SHOULD COME DOWN. - Advance Directives Does patient have a Living Will: No Does patient have a Durable POA for Healthcare: No
[2024-08-24] MEDS: CODEINE 30MG/APAP 300MG TAB PO PRN (18:09)
[2024-08-24] MEDS: CAPMATINIB HYDROCHLORIDE 200 MG PO SCH (21:00)
[2024-08-24 22:00] VITALS: BMI 24.1
[2024-08-25 08:21] LABS: Absolute Eosinophils 0.1 K/uL (0-0.5); Absolute Lymphocytes (CBC) 0.3 K/uL (0.7-4.9); Absolute Monocytes 1.6 K/uL (0.1-1.3); Absolute Neutrophil 9.6 K/uL (1.8-8.0); Basophils % 0.3 % (0-1.3); Eosinophils % 0.5 % (0-4.4); Hemoglobin 10.2 g/dL (12.0-15.0); Lymphocytes % 2.9 % (15.3-44.8); MCH 31.3 pg (27.0-35.0); MCV 97.9 fL (80-100); MPV 7.9 fL (7.6-11.3); Neutrophils % 82.3 % (41.7-73.7); Platelets 145 thou/uL (152-406); RBC Red Blood Cell Count 3.27 M/uL (3.86-4.86); Red Cell Distribution Width 15.4 % (12.1-15.2)
[2024-08-25 08:32] LABS: Anion Gap 9.1 mEq/L (5.0-15.0); Potassium 4.1 mEq/L (3.5-5.1)
[2024-08-25] MEDS: MYCOPHENOLATE MOFETIL 500 MG PO SCH (08:34)
[2024-08-25] MEDS: levoFLOXacin 500 MG TAB PO SCH (08:35)
[2024-08-25] MEDS: ASPIRIN EC 81 MG TAB PO SCH (08:35)
[2024-08-25] MEDS: PANTOPRAZOLE 40MG TABLET PO SCH (08:35)
[2024-08-25] MEDS: CALCITROL 0.25 MCG CAP PO SCH (08:35)
[2024-08-25] MEDS: HYDROXYCHLOROQUINE 200MG TAB PO SCH (08:36)
[2024-08-25 12:10] VITALS: O2SAT 95
[2024-08-25 21:56] VITALS: BP 146/76; TEMP 97.7
--- NOTE | 2024-09-03 16:32 | EKG ---
Test Date: 2024-08-24 Test Time: 13:13:02 Sld Educational Aide: NIKOLE MEASUREMENT RESULTS: Intervals: Rate: 92 MD: 118 QRSD: 70 QT: 338 QTc: 417 Cushing: P: 77 MD: 118 QRS: 66 T: 70 INTERPRETIVE STATEMENTS: Normal sinus rhythm Normal ECG Compared to ECG 03/31/2024 19:17:26 Sinus tachycardia no longer present ST (T wave) deviation no longer present Electronically Signed On 09-03-24 16:12:24 WIRE STITCHER by Edilberto Copeland
== END 2024-08-25 20:43 | disposition home or self-care (01) | DRG 815 ==
LOC: ER 08:17 → ERHOLD 10:46 → 2ND 16:49 → ERHOLD 16:49 → 2ND 21:24
PROVIDERS: ADMIT Internal Medicine; ATTEND Internal Medicine
DX: D72.829 Elevated white blood cell count, unspecified (principal); C34.90 Malignant neoplasm of unspecified part of unspecified bronchus or lung; N17.9 Acute kidney failure, unspecified; C79.51 Secondary malignant neoplasm of bone; I12.9 Hypertensive chronic kidney disease with stage 1 through stage 4 chronic kidney disease, or unspecified chronic kidney disease; N18.30 Chronic kidney disease, stage 3 unspecified; E86.0 Dehydration; M79.10 Myalgia, unspecified site; M32.9 Systemic lupus erythematosus, unspecified; M41.9 Scoliosis, unspecified; J44.9 Chronic obstructive pulmonary disease, unspecified; K21.9 Gastro-esophageal reflux disease without esophagitis; T50.905A Adverse effect of unspecified drugs, medicaments and biological substances, initial encounter; Z90.5 Acquired absence of kidney; Z88.1 Allergy status to other antibiotic agents; Z88.8 Allergy status to other drugs, medicaments and biological substances; Z79.82 Long term (current) use of aspirin; Z11.52 Encounter for screening for COVID-19; Z90.49 Acquired absence of other specified parts of digestive tract; Z79.02 Long term (current) use of antithrombotics/antiplatelets; Z96.652 Presence of left artificial knee joint; Z79.899 Other long term (current) drug therapy
CPT/HCPCS: 36415; 71045; 80048; 80053; 81001; 83605; 83690; 85025; 87040; 87070; 87077; 87186; 87205; 87804; 87811; 93005; 96365; 96366; 96375; 99285; J0696; J2405; J3360; J7050

== ENCOUNTER 2024-09-18 12:06 | Emergency (ER) | payer OTHER ==
--- NOTE | 2024-09-18 13:54 | RAD REPORT ---
EXAM: Bilateral upper extremity venous ultrasound HISTORY: Bilateral upper extremity pain and edema COMPARISON: None TECHNIQUE: Multiplanar grayscale and color Doppler images were obtained in a bilateral upper extremit y venous ultrasound. Spectral analysis of the Doppler waveforms were performed. FINDINGS: The internal jugular vein demonstrates normal compression and flow without evidence of thrombus. The subclavian vein demonstrates normal flow and augmentation without evidence of thrombus. The axillary and brachial veins demonstrate normal compression, flow, and augmentation without eviden ce of thrombus. The venous structures distal to the elbow are patent without thrombus. The cephalic and basilic veins are patent. IMPRESSION: No evidence of DVT within the bilateral upper extremities.
--- NOTE | 2024-09-18 15:39 | RAD REPORT ---
EXAM: Chest Single View HISTORY: COUGH COMPARISON: 08/24/2024 FINDINGS: LUNGS/PLEURA: Increased consolidation/density in the left upper lobe. Similar right apical scarring. MEDIASTINUM: Leftward shift of the mediastinum. CARDIAC: Within normal limits. UPPER ABDOMEN: No significant abnormality. BONES: No acute fracture. Fusion hardware in the spine. LINES/TUBES/OTHER: Left IJ approach Port-A-Cath. The tip is obscured by the spinal juan. IMPRESSION: New leftward shift of the mediastinum and increasing left upper lobe consolidation could be due to br onchial occlusion as a result of a malignant obstruction. A component of postobstructive pneumonia or pneumonitis is difficult to exclude. Consider chest CT for further evaluation.
[2024-09-18] MEDS ORDERED: ONDANSETRON 4 MG/2 ML VIAL ONE (16:02)
[2024-09-18] MEDS ORDERED: HYDROMORPHONE HCL 1 MG/ML INJ ONE ×2 (16:03→19:14)
[2024-09-18] MEDS ORDERED: NA CHLORIDE 0.9% 500 ML ONE (16:03)
[2024-09-18 16:11] LABS: Absolute Eosinophils 0.1 K/uL (0-0.5); Absolute Lymphocytes (CBC) 0.9 K/uL (0.7-4.9); Absolute Monocytes 0.6 K/uL (0.1-1.3); Absolute Neutrophil 2.5 K/uL (1.8-8.0); Basophils % 0.9 % (0-1.3); Eosinophils % 3.4 % (0-4.4); Hematocrit 31.9 % (36.0-45.0); Hemoglobin 10.2 g/dL (12.0-15.0); Lymphocytes % 21.1 % (15.3-44.8); MCH 30.6 pg (27.0-35.0); MCHC 31.8 g/dL (32.0-36.0); MCV 96.2 fL (80-100); Monocytes % 13.7 % (3.3-12.3); Neutrophils % 60.9 % (41.7-73.7); Platelets 230 thou/uL (152-406); RBC Red Blood Cell Count 3.32 M/uL (3.86-4.86)
[2024-09-18 16:21] LABS: PT Prothrombin Time 12.9 SECONDS (9.4-12.5); Protime INR 1.16
--- NOTE | 2024-09-18 17:55 | RAD REPORT ---
EXAMINATION: CT CHEST WITHOUT CONTRAST CLINICAL INDICATION: Female, 69 years old. CHEST PAIN TECHNIQUE: Routine CT scan of the chest without intravenous contrast. One or more of the following do se reduction techniques were used: Automated exposure control, adjustment of the mA and/or kV according to patient size, and/or iterative reconstruction. Unless otherwise specified, incidental fi ndings do not require dedicated imaging follow-up. [id number]. COMPARISON: 12/31/23 FINDINGS: LOWER NECK: Left upper chest wall Port-A-Cath tip at the superior cavoatrial junction. LUNGS AND AIRWAYS: Increased left upper lobe consolidative airspace disease with air bronchograms. Ba ckground emphysema. Right soft tissue is likely treatment related. PLEURA: Trace right pleural effusion. There is a cavity along the lateral left upper lobe with small fluid level. It is uncertain if this is a bulla with fluid versus pleural-based air containing cavity with small air-fluid level. MEDIASTINUM AND LYMPH NODES: No mediastinal mass or fluid collection. Normal size mediastinal, hilar, and axillary lymph nodes. THORACIC AORTA: Normal caliber and configuration. PULMONARY ARTERIES: Enlargement main pulmonary artery. HEART: Normal heart size. Coronary arterial calcifications are present.No pericardial effusion. OSSEOUS STRUCTURES AND CHEST WALL: No acute fracture. Fusion hardware in the spine. UPPER ABDOMEN: Cholecystectomy IMPRESSION: Increased consolidation with air bronchograms in the left upper lobe favored to represent pneumonia t heidi treatment related changes could appear similar. Right apical soft tissue is presumably treatment related.
[2024-09-18 18:16] LABS: Albumin 1.8 g/dL (3.4-5.0); Albumin/Globulin Ratio 0.4 (1.1-1.8); Alkaline Phosphatase 101 U/L (45-117); Anion Gap 8.5 mEq/L (5.0-15.0); BUN Blood Urea Nitrogen 14 mg/dL (7-18); Bicarbonate 22 mEq/L (21-32); Bilirubin Total 0.2 mg/dL (0.2-1.0); Globulin 4.5 g/dL (2.3-3.5); Glomerular Filtration Rate 40 ml/min (=/>90); Glucose Level 95 mg/dL (74-106); NT PRO-BNP 231 pg/mL (<125); Protein, Total 6.3 g/dL (6.4-8.2); Sodium Level 144 mEq/L (136-145); Troponin High Sensitivity 5.3 pg/mL (<58.9)
[2024-09-18 18:17] LABS: ALT/SGPT < 14 U/L (13-56); AST/SGOT 18 U/L (15-37); Bilirubin Direct < 0.2 mg/dL (0-0.2); Magnesium 1.5 mg/dL (1.6-2.4); Potassium 3.5 mEq/L (3.5-5.1)
--- NOTE | 2024-09-18 18:20 | ER ---
Nurse's Notes [facility] Name: Brandy Perez Age: 69 yrs Sex: Female : 1955 Arrival Date: 09/18/2024 Time: 12:06 Bed 9 Private MD: Diagnosis: Lymphedema, not elsewhere classified-left arm;Abnormal findings on diagnostic imaging of other specified body structures-left leftward mediastinum,and increasing left upper lobe consolisation, bronchial occlusion, maligant obstruction;Pneumonia, unspecified organism-LEFT UPPER LOBE;Hypomagnesemia Presentation: 09/18 12:36 Chief complaint: Left hand swelling and pain that radiates to left elbow x 10 days. hb Coronavirus screen: At this time, the client does not indicate any symptoms associated with coronavirus-19. Ebola Screen: No symptoms or risks identified at this time. Initial Sepsis Screen: Does the patient meet any 2 criteria? No. Patient's initial sepsis screen is negative. Does the patient have a suspected source of infection? No. Patient's initial sepsis screen is negative. Risk Assessment: Do you want to hurt yourself or someone else? Patient reports no desire to harm self or others. Onset of symptoms was September 08, 2024. 12:36 Method Of Arrival: Ambulatory hb 12:36 Acuity: LEONARDO 3 hb Historical: - Allergies: 12:37 Keflex; hb 12:37 Mobic; hb 12:37 Phenergan; hb - PMHx: 12:37 Arthritis; COPD; GERD; HEP C; Hypertension; Lupus; Osteoporosis; RIGHT LEG NERVE PAIN; hb scoliosis; - PSHx: 12:37 back; Cholecystectomy; Left knee replacement; Nephrectomy; Right shoulder sx; hb - Immunization history:: Adult Immunizations up to date. - Infectious Disease History:: Denies. - Social history:: Smoking status: Patient denies any tobacco usage or history of. - Family history:: not pertinent. Screenin:40 [facility] ED Fall Risk Assessment (Adult) History of falling in the last 3 months, rs5 including since admission No falls in past 3 months (0 pts) Confusion or Disorientation No (0 pts) Intoxicated or Sedated No (0 pts) Impaired Gait No (0 pts) Mobility Assist Device Used No (0 pt) Altered Elimination No (0 pt) Score/Fall Risk Level 0 - 2 = Low Risk Oriented to surroundings, Maintained a safe environment. 12:40 Abuse screen: Denies threats or abuse. Nutritional screening: No deficits noted. rs5 Tuberculosis screening: No symptoms or risk factors identified. Assessment: 12:40 General: Appears in no apparent distress. uncomfortable, Behavior is calm, cooperative. rs5 12:41 Pain: Complains of pain in left arm Pain currently is 8 out of 10 on a pain scale. rs5 Quality of pain is described as aching, Is continuous. Neuro: Level of Consciousness is awake, alert, obeys commands, Oriented to person, place, time, situation. Cardiovascular: Patient's skin is warm and dry. Respiratory: Airway is patent Respiratory effort is even, unlabored, Respiratory pattern is regular, symmetrical. GI: Abdomen is round non-distended, Abd is soft and non tender X 4 quads. : No signs and/or symptoms were reported regarding the genitourinary system. 12:41 EENT: No signs and/or symptoms were reported regarding the EENT system. Derm: Skin is rs5 intact, Skin is pink, warm \T\ dry. Musculoskeletal: Range of motion: limited in left arm. 14:29 Reassessment: Patient and/or family updated on plan of care and expected duration. Pain rs5 level reassessed. Patient is alert, oriented x 3, equal unlabored respirations, skin warm/dry/pink. 15:59 Reassessment: Patient and/or family updated on plan of care and expected duration. Pain rs5 level reassessed. Patient is alert, oriented x 3, equal unlabored respirations, skin warm/dry/pink. 17:15 Reassessment: Patient and/or family updated on plan of care and expected duration. Pain rs5 level reassessed. Patient is alert, oriented x 3, equal unlabored respirations, skin warm/dry/pink. 18:33 Reassessment: Patient and/or family updated on plan of care and expected duration. Pain rs5 level reassessed. Patient is alert, oriented x 3, equal unlabored respirations, skin warm/dry/pink. 19:21 Reassessment: Patient appears in no apparent distress at this time. No changes from vc1 previously documented assessment. Patient and/or family updated on plan of care and expected duration. Pain level reassessed. Patient is alert, oriented x 3, equal unlabored respirations, skin warm/dry/pink. Vital Signs: 12:36 BP 135 / 92; Pulse 103; Resp 16; Temp 97.1(TE); Pulse Ox 100% on R/A; Weight 61.23 kg; hb Height 5 ft. 3 in. ; Pain 8/10; 14:01 BP 128 / 88; Pulse 80; Resp 17; Pulse Ox 99% on R/A; rs5 17:27 BP 145 / 91; Pulse 83; Resp 17; Pulse Ox 99% ; rs5 18:25 BP 137 / 84; Pulse 79; Resp 16; Pulse Ox 99% on R/A; rs5 19:20 BP 154 / 90 (/reg); Pulse 84 MON; Resp 16 S; Pulse Ox 96% on R/A; vc1 12:36 Body Mass Index 23.91 (61.23 kg, 160.02 cm) hb 12:36 Pain Scale: Adult hb ED Course: 12:10 Patient arrived in ED. mr 12:37 Triage completed. hb 12:38 Arm band placed on. hb 12:40 Patient has correct armband on for positive identification. Placed in gown. Bed in low rs5 position. Call light in reach. Side rails up X2. 12:40 No provider procedures requiring assistance completed. rs5 12:42 Papito Shah MD is Attending Physician. cesario 13:50 UPPER EXTREMITY VENOUS BILAT In Process Unspecified. EDMS 15:33 XRAY Chest (1 view) In Process Unspecified. EDMS 16:19 Jamil Strong, RN is Primary Nurse. rs5 17:34 Thorax Wo Con In Process Unspecified. EDMS 18:19 Keenan Boo MD is Referral Physician. cesario 19:39 Provided Education on: f/u with PCP. vc1 19:39 IV discontinued, intact, bleeding controlled, No redness/swelling at site. Pressure vc1 dressing applied. Administered Medications: 15:55 Drug: NS 0.9% IV 500 ml 500 ml IV at 1 bolus once; to be given as a bolus over 30 rs5 minutes Volume: 500 ml; Route: IV; Rate: 1 bolus; Site: right antecubital; 16:33 Follow up: Response: No adverse reaction; IV Status: Completed infusion; IV Intake: rs5 500ml 16:19 Drug: Ondansetron IVP 4 mg IVP once; over 2 minutes Route: IVP; Site: right antecubital;rs5 16:41 Follow up: Response: No adverse reaction rs5 16:20 Drug: HYDROmorphone IVP 1 mg IVP once Route: IVP; Site: right antecubital; rs5 16:40 Follow up: Response: No adverse reaction; Pain is decreased rs5 18:35 Drug: LevOfloxacin PO 500 mg PO once Route: PO; hb 19:09 Follow up: Response: No adverse reaction rs5 18:35 Drug: Magnesium Sulfate IVPB 2 grams IVPB once over 1 hrs Route: IVPB; Infused Over: 1 hb hrs; Site: right antecubital; 19:09 Follow up: Response: No adverse reaction rs5 19:39 Follow up: IV Status: Completed infusion; IV Intake: 100ml vc1 19:20 Drug: HYDROmorphone IVP 1 mg IVP once Route: IVP; Site: right antecubital; vc1 19:40 Follow up: Response: No adverse reaction; Marked relief of symptoms; Pain is decreased vc1 Medication: 17:29 VIS not applicable for this client. rs5 Intake: 16:33 IV: 500ml; Total: 500ml. rs5 19:39 IV: 100ml; Total: 600ml. vc1 Outcome: 18:19 Discharge ordered by MD. nassar 19:35 Discharged to home ambulatory, vc1 19:35 Condition: good 19:35 Discharge instructions given to Instructed on Demonstrated understanding of medications, Prescriptions given X 2, 19:39 Patient left the ED. vc1 Signatures: Dispatcher [employer] EDWA Papito Shah MD MD cha Rivera, Mary, Reg Reg Raissa Maharaj, LENARD RN Yeys Mak RN RN vc1 Jamil Strong RN RN rs5 Corrections: (The following items were deleted from the chart) 17:26 12:40 General: Appears in no apparent distress. uncomfortable, Behavior is calm, rs5 cooperative, rs5
--- NOTE | 2024-09-18 18:20 | EDPHYS ---
Physician Documentation [facility] Name: Brandy Perez Age: 69 yrs Sex: Female : 1955 Arrival Date: 09/18/2024 Time: 12:06 Bed 9 Private MD: NANCY Physician Papito Shah HPI: 09/18 15:59 This 69 yrs old Black Female presents to ER via Ambulatory with complaints of Arm cesario swelling. 15:59 The patient or guardian complains of decreased range of motion, pain, swelling. The cesario complaints affect the left bicep, dorsal aspect of left forearm, left tricep and palmar aspect of left forearm. Context: The problem was sustained at an unknown location, resulted from unknown cause. Onset: The symptoms/episode began/occurred 3 day(s) ago. Treatment prior to arrival includes: no previous treatment. Modifying factors: The symptoms are alleviated by remaining still, the symptoms are aggravated by nothing. Associated signs and symptoms: The patient has no apparent associated signs or symptoms. Severity of symptoms: At their worst the symptoms were moderate. The patient has experienced similar episodes in the past, a few times. Historical: - Allergies: 12:37 Keflex; hb 12:37 Mobic; hb 12:37 Phenergan; hb - PMHx: 12:37 Arthritis; COPD; GERD; HEP C; Hypertension; Lupus; Osteoporosis; RIGHT LEG NERVE PAIN; hb scoliosis; - PSHx: 12:37 back; Cholecystectomy; Left knee replacement; Nephrectomy; Right shoulder sx; hb - Immunization history:: Adult Immunizations up to date. - Infectious Disease History:: Denies. - Social history:: Smoking status: Patient denies any tobacco usage or history of. - Family history:: not pertinent. ROS: 15:59 Constitutional: Negative for fever, chills, and weight loss, Eyes: Negative for injury, cesario pain, redness, and discharge, ENT: Negative for injury, pain, and discharge, Neck: Negative for injury, pain, and swelling, Cardiovascular: Negative for chest pain, palpitations, and edema, Respiratory: Negative for shortness of breath, cough, wheezing, and pleuritic chest pain, Abdomen/GI: Negative for abdominal pain, nausea, vomiting, diarrhea, and constipation, Back: Negative for injury and pain, : Negative for injury, bleeding, discharge, and swelling, Skin: Negative for injury, rash, and discoloration, Neuro: Negative for headache, weakness, numbness, tingling, and seizure, Psych: Negative for depression, anxiety, suicide ideation, homicidal ideation, and hallucinations, Allergy/Immunology: Negative for hives, rash, and allergies, Endocrine: Negative for neck swelling, polydipsia, polyuria, polyphagia, and marked weight changes, Hematologic/Lymphatic: Negative for swollen nodes, abnormal bleeding, and unusual bruising, 15:59 MS/extremity: Positive for pain, swelling, tenderness, of the left arm, Exam: 15:59 Constitutional: This is a well developed, well nourished patient who is awake, alert, cesario and in no acute distress. Head/Face: Normocephalic, atraumatic. Eyes: Pupils equal round and reactive to light, extra-ocular motions intact. Lids and lashes normal. Conjunctiva and sclera are non-icteric and not injected. Cornea within normal limits. Periorbital areas with no swelling, redness, or edema. ENT: Nares patent. No nasal discharge, no septal abnormalities noted. Tympanic membranes are normal and external auditory canals are clear. Oropharynx with no redness, swelling, or masses, exudates, or evidence of obstruction, uvula midline. Mucous membranes moist. Neck: Trachea midline, no thyromegaly or masses palpated, and no cervical lymphadenopathy. Supple, full range of motion without nuchal rigidity, or vertebral point tenderness. No Meningismus. Chest/axilla: Normal chest wall appearance and motion. Nontender with no deformity. No lesions are appreciated. Cardiovascular: Regular rate and rhythm with a normal S1 and S2. No gallops, murmurs, or rubs. Normal PMI, no JVD. No pulse deficits. Respiratory: Lungs have equal breath sounds bilaterally, clear to auscultation and percussion. No rales, rhonchi or wheezes noted. No increased work of breathing, no retractions or nasal flaring. Abdomen/GI: Soft, non-tender, with normal bowel sounds. No distension or tympany. No guarding or rebound. No evidence of tenderness throughout. Back: No spinal tenderness. No costovertebral tenderness. Full range of motion. Skin: Warm, dry with normal turgor. Normal color with no rashes, no lesions, and no evidence of cellulitis. Neuro: Awake and alert, GCS 15, oriented to person, place, time, and situation. Cranial nerves II-XII grossly intact. Motor strength 5/5 in all extremities. Sensory grossly intact. Cerebellar exam normal. Normal gait. Psych: Awake, alert, with orientation to person, place and time. Behavior, mood, and affect are within normal limits. 15:59 Musculoskeletal/extremity: Extremities: grossly normal except: noted in the left arm: swelling, ROM: intact in all extremities, full active range of motion, full passive range of motion, Circulation is intact in all extremities. Sensation intact. Compartment Syndrome exam of affected extremity: is normal. no pain, no numbness, no tingling, no sensation deficit, no palor, no weak pulses, DVT Exam: swelling, of the left arm, 17:53 ECG was reviewed by the Attending Physician. [facility] Vital Signs: 12:36 BP 135 / 92; Pulse 103; Resp 16; Temp 97.1(TE); Pulse Ox 100% on R/A; Weight 61.23 kg; hb Height 5 ft. 3 in. ; Pain 8/10; 14:01 BP 128 / 88; Pulse 80; Resp 17; Pulse Ox 99% on R/A; rs5 17:27 BP 145 / 91; Pulse 83; Resp 17; Pulse Ox 99% ; rs5 18:25 BP 137 / 84; Pulse 79; Resp 16; Pulse Ox 99% on R/A; rs5 19:20 BP 154 / 90 (/reg); Pulse 84 MON; Resp 16 S; Pulse Ox 96% on R/A; vc1 12:36 Body Mass Index 23.91 (61.23 kg, 160.02 cm) hb 12:36 Pain Scale: Adult hb MDM: 12:42 Medical Screening Exam initiated cesario 12:43 Medical Screening Exam initiated cesario 17:53 Differential diagnosis: contusion, tendonitis. Data reviewed: vital signs, nurses [facility] notes, lab test result(s), EKG, radiologic studies, CT scan, doppler, plain films. Consideration of Admission/Observation Escalation of care including admission/observation considered. I considered the following discharge prescriptions or medication management in the emergency department Medications were administered in the Emergency Department. See MAR. Independent interpretation of the following test(s) in the Emergency Department EKG: See my EKG interpretation above. Test considered but Not performed: MRI: NO MRI. Care significantly affected by the following chronic conditions: Hypertension, Chronic Obstructive Pulmonary Disease, Cancer, HEP C, GERD, LUPUS, OSTEOPORSIS. 09/18 12:44 Order name: Basic Metabolic Panel; Complete Time: 18:17 [facility] 09/18 12:44 Order name: CBC with Diff; Complete Time: 17:07 [facility] 09/18 12:44 Order name: LFT's; Complete Time: 18:17 [facility] 09/18 12:44 Order name: Magnesium; Complete Time: 18:17 [facility] 09/18 12:44 Order name: NT PRO-BNP; Complete Time: 18:17 [facility] 09/18 12:44 Order name: PT-INR; Complete Time: 17:07 [facility] 09/18 12:44 Order name: Troponin HS; Complete Time: 18:17 [facility] 09/18 15:49 Order name: Blood Culture Adult (2) [facility] 09/18 15:49 Order name: Lactate w/ 2H reflex if indic.; Complete Time: 17:07 [facility] 09/18 12:44 Order name: XRAY Chest (1 view); Complete Time: 15:47 [facility] 09/18 12:57 Order name: UPPER EXTREMITY VENOUS BILAT; Complete Time: 15:47 EDMS 09/18 17:22 Order name: Thorax Wo Con; Complete Time: 18:12 EDMS 09/18 18:16 Order name: INCENTIVE SPIROMETRY [facility] 09/18 12:44 Order name: Cardiac monitoring; Complete Time: 16:20 [facility] 09/18 12:44 Order name: EKG - Nurse/Tech; Complete Time: 16:20 [facility] 09/18 12:44 Order name: IV Saline Lock; Complete Time: 16:20 [facility] 09/18 12:44 Order name: Labs collected and sent; Complete Time: 16:20 [facility] 09/18 12:44 Order name: O2 Per Protocol; Complete Time: 16:20 [facility] 09/18 12:44 Order name: O2 Sat Monitoring; Complete Time: 16:20 [facility] 09/18 16:19 Order name: Labs - recollect needed: recollect green top per Royer hemolyzed; Complete eb Time: 17:50 EC:53 Rate is 79 beats/min. Rhythm is regular. QRS [place] is Normal. CA interval is normal. QRS cesario interval is normal. QT interval is normal. No Q waves. T waves are Normal. No ST changes noted. Clinical impression: Normal ECG and No evidence of ischemia. Interpreted by me. Reviewed by me. Administered Medications: 15:55 Drug: NS 0.9% IV 500 ml 500 ml IV at 1 bolus once; to be given as a bolus over 30 rs5 minutes Volume: 500 ml; Route: IV; Rate: 1 bolus; Site: right antecubital; 16:33 Follow up: Response: No adverse reaction; IV Status: Completed infusion; IV Intake: rs5 500ml 16:19 Drug: Ondansetron IVP 4 mg IVP once; over 2 minutes Route: IVP; Site: right antecubital;rs5 16:41 Follow up: Response: No adverse reaction rs5 16:20 Drug: HYDROmorphone IVP 1 mg IVP once Route: IVP; Site: right antecubital; rs5 16:40 Follow up: Response: No adverse reaction; Pain is decreased rs5 18:35 Drug: LevOfloxacin PO 500 mg PO once Route: PO; hb 19:09 Follow up: Response: No adverse reaction rs5 18:35 Drug: Magnesium Sulfate IVPB 2 grams IVPB once over 1 hrs Route: IVPB; Infused Over: 1 hb hrs; Site: right antecubital; 19:09 Follow up: Response: No adverse reaction rs5 19:39 Follow up: IV Status: Completed infusion; IV Intake: 100ml vc1 19:20 Drug: HYDROmorphone IVP 1 mg IVP once Route: IVP; Site: right antecubital; vc1 19:40 Follow up: Response: No adverse reaction; Marked relief of symptoms; Pain is decreased vc1 Disposition Summary: 09/18/24 18:19 Discharge Ordered Notes: Location: Home cesario Problem: new cesario Symptoms: have improved cesario Condition: Fair cesario Diagnosis - Lymphedema, not elsewhere classified - left arm cesario - Abnormal findings on diagnostic imaging of other specified body structures - left cesario leftward mediastinum,and increasing left upper lobe consolisation, bronchial occlusion, maligant obstruction - Pneumonia, unspecified organism - LEFT UPPER LOBE cesario - Hypomagnesemia cesario Followup: cesario - With: Private Physician - When: 2 - 3 days - Reason: Recheck today's complaints, Continuance of care, Re-evaluation by your physician Followup: cesario - With: Keenan Boo MD - When: 2 - 3 days - Reason: Recheck today's complaints, Re-evaluation by your physician Discharge Instructions: - Discharge Summary Sheet cesario - Hypomagnesemia cesario - How to Use an Incentive Spirometer cesario - Lymphedema cesario - Community-Acquired Pneumonia, Adult, [id number] cesario - Incidental Abnormal Radiological Finding cesario - Cancer-Related Lymphedema cesario Forms: - Medication Reconciliation Form cesario - Antibiotic Education cesario - Prescription Opioid Use cesario - Patient Portal Instructions cesario - Leadership Thank You Letter cesario Prescriptions: - MagOx 400 mg (241.3 mg magnesium) Oral tablet - take 1 tablet ORAL route every 12 hours; 20 tablet; Refills: 0, Product cesario Selection Permitted - levofloxacin 500 mg Oral tablet - take 1 tablet ORAL route once daily for 7 days; 9 tablet; Refills: 0, Product cesario Selection Permitted Signatures: Dispatcher [employer] EDPapito Almeida MD MD cha Baxter, Heather, RN RN Inga Mcneal Vanessa, RN RN vc1 Jamil Strong RN RN rs5 Corrections: (The following items were deleted from the chart) 12:45 12:45 BASIC METABOLIC PANEL+C.LAB.BRZ ordered. EDMS EDMS 12:45 12:45 CBC+H.LAB.BRZ ordered. EDMS EDMS 12:45 12:45 HEPATIC FUNCTION+C.LAB.BRZ ordered. EDMS EDMS 12:45 12:45 MAGNESIUM+C.LAB.BRZ ordered. EDMS EDMS 12:45 12:45 PROBNP+C.LAB.BRZ ordered. EDMS EDMS 12:45 12:45 PROTIME (+INR)+COAG.LAB.BRZ ordered. EDMS EDMS 12:45 12:45 Troponin High Sensitivity+C.LAB.BRZ ordered. EDMS EDMS 12:45 12:45 Chest Single View+RAD.RAD.BRZ ordered. EDMS EDMS 12:45 12:45 Extrem Venous W Compression Alberto+US.RAD.BRZ ordered. EDMS EDMS 17:22 15:48 Chest For PE Angio+CT.RAD.BRZ ordered. EDMS EDMS
[2024-09-18] MEDS ORDERED: levoFLOXacin 250 MG TAB ONE (18:29)
[2024-09-18] MEDS ORDERED: Magnesium Sulfate 2gm IVPB 2 G/50 ML BAG IV ONE (18:30)
[2024-09-18 21:09] VITALS: TEMP 97.1
[2024-09-18 21:13] VITALS: BP 154/90; O2SAT 96
--- NOTE | 2024-09-20 11:13 | EKG ---
Test Date: 2024-09-18 Test Time: 15:40:20 Linen Tech: JD MEASUREMENT RESULTS: Intervals: Rate: 79 SC: 126 QRSD: 76 QT: 394 QTc: 451 [place]: P: 90 SC: 126 QRS: 80 T: 66 INTERPRETIVE STATEMENTS: Normal sinus rhythm Normal ECG Compared to ECG 08/24/2024 13:13:02 No significant changes Electronically Signed On 09-20-24 11:09:54 [employer] SPECIALIST by Edilberto Copeland
== END 2024-09-18 19:39 | disposition home or self-care (01) ==
LOC: ER 12:06
DX: I89.0 Lymphedema, not elsewhere classified (principal); J18.9 Pneumonia, unspecified organism; E83.42 Hypomagnesemia; J44.9 Chronic obstructive pulmonary disease, unspecified; I10 Essential (primary) hypertension
CPT/HCPCS: 96365; 96361; 93005; 87040 ×2; 85025; 80048; 36415; 83735; 85610; 80076; 83605; 84484; 83880; 71250; 71045; 93970; 96375; 99284; J3475; J1171 ×2; J2405; J7040

== ENCOUNTER 2024-10-28 00:34 | Emergency (ER) | payer OTHER ==
[2024-10-28 01:45] LABS: SARS-CoV-2 Antigen CONTROL BLUE LINE VIS/BG OK; SARS-CoV-2 Antigen Rapid Res Negative (Negative)
[2024-10-28] MEDS ORDERED: ONDANSETRON 4 MG/2 ML VIAL ONE (02:33)
[2024-10-28] MEDS ORDERED: HYDROMORPHONE HCL 0.5 MG/0.5 ML INJ ONE ×2 (02:33→05:16)
[2024-10-28 02:45] LABS: Absolute Eosinophils 0.1 K/uL (0-0.5); Absolute Monocytes 0.7 K/uL (0.1-1.3); Absolute Neutrophil 3.7 K/uL (1.8-8.0); Basophils % 0.5 % (0-1.3); Eosinophils % 2.7 % (0-4.4); Hematocrit 33.3 % (36.0-45.0); Hemoglobin 11.2 g/dL (12.0-15.0); Lymphocytes % 17.5 % (15.3-44.8); MCH 32.1 pg (27.0-35.0); MCHC 33.6 g/dL (32.0-36.0); MCV 95.5 fL (80-100); MPV 8.1 fL (7.6-11.3); Monocytes % 12.4 % (3.3-12.3); Neutrophils % 66.9 % (41.7-73.7); Nucleated Red Blood Cells % 0.1 % (0-0); Platelets 205 thou/uL (152-406); RBC Red Blood Cell Count 3.48 M/uL (3.86-4.86); Red Cell Distribution Width 17.3 % (12.1-15.2)
[2024-10-28 02:51] LABS: Albumin 2.3 g/dL (3.4-5.0); Albumin/Globulin Ratio 0.5 (1.1-1.8); Anion Gap 7.7 mEq/L (5.0-15.0); Bilirubin Total 0.3 mg/dL (0.2-1.0); Globulin 4.7 g/dL (2.3-3.5); Potassium 4.7 mEq/L (3.5-5.1); Troponin High Sensitivity 7.4 pg/mL (<58.9)
[2024-10-28 03:03] LABS: PT Prothrombin Time 10.7 SECONDS (9.4-12.5); PTT, Activated Partial Thromb 25.2 SECONDS (24.3-36.9); Protime INR 1.02
[2024-10-28] MEDS ORDERED: LEVALBUTEROL 1.25 MG/3 ML NEB ONE (04:23)
--- NOTE | 2024-10-28 05:40 | RAD REPORT ---
EXAM: XR Chest, 1 View CLINICAL HISTORY: The patient is 69 years old and is Female; Cough;Dyspnea TECHNIQUE: Frontal view of the chest. COMPARISON: Chest radiograph December 23, 2023 FINDINGS: LUNGS: Opacity in the left upper lobe is noted. Emphysematous change of the lungs are present. PLEURAL SPACE: Blunting of the right costophrenic angle is present. Biapical pleural thickening /scarring is present. No pneumothorax. HEART: Unremarkable. No cardiomegaly. MEDIASTINUM: Unremarkable. Normal mediastinal contour. BONES/JOINTS: Postsurgical changes cervical spine is present. An intramedullary juan within the th oracic spine is noted. No acute fracture. TUBES, LINES AND DEVICES: Left-sided chest chest port is present with the tip in the SVC. UPPER ABDOMEN: Unremarkable as visualized. IMPRESSION: 1. Biapical pleural thickening with opacity in the left upper lobe. While findings could be seconda ry to loculated pleural effusion, underlying consolidation/masses within the differential. Further evaluation is recommended. 2. Right pleural effusion. Electronically signed by: Arely Boswell MD 10/28/2024 02:28 AM [facility] Due to temporary technical issues with the PACS/[employer] reporting system, reports are being jun d by the in-house radiologist without review as a courtesy to ensure prompt reporting the interpreting radiologist is fully responsible for the content of the report. Transcribed Date/Time: 10/28/2024 5:40 AM
--- NOTE | 2024-10-28 07:16 | RAD REPORT ---
EXAMINATION: CT CHEST WITHOUT CONTRAST CLINICAL INDICATION: Female, 69 years old. dyspnea, hx of lung cancer TECHNIQUE: Routine CT scan of the chest without intravenous contrast. One or more of the following do se reduction techniques were used: Automated exposure control, adjustment of the mA and/or kV according to patient size, and/or iterative reconstruction. Unless otherwise specified, incidental fi ndings do not require dedicated imaging follow-up. [id number]. COMPARISON: FINDINGS: LOWER NECK: Visualized thyroid gland and soft tissues are normal. Left upper chest wall Port-A-Cath. LUNGS AND AIRWAYS: Confluent area of consolidation in the left upper lobe with air bronchograms. This is similar to 09/10/2024.Right apical scarring. PLEURA: Small right pleural effusion which is unchanged. MEDIASTINUM AND LYMPH NODES: No mediastinal mass or fluid collection. Normal size mediastinal, hilar, and axillary lymph nodes. THORACIC AORTA: No thoracic aortic aneurysm. PULMONARY ARTERIES: Caliber is within normal limits. HEART: Normal heart size. No coronary calcifications.No significant pericardial effusion. OSSEOUS STRUCTURES AND CHEST WALL: Multilevel degenerative changes. No acute fracture. Fusion hardwar e in the spine. UPPER ABDOMEN: No acute abnormalities. IMPRESSION: Left upper lobe consolidation with air bronchograms similar to . This could represent the co ntinued presence of pneumonia. Referencing prior CTs, the patient's lung neoplasm was at the right upper lobe so this should not be related to post-radiation changes. Given the persistence, neoplasm i s a consideration as well but less favored. Continued attention on follow-up is recommended. Bronchoscopy and/or PET/CT may also be of benefit.
--- NOTE | 2024-10-28 07:23 | EDPHYS ---
Physician Documentation [facility] Name: Brandy Perez Age: 69 yrs Sex: Female : 1955 Arrival Date: 10/28/2024 Time: 00:34 Bed DX4 Private MD: ED Physician Castillo Pastrana HPI: 10/28 02:09 This 69 yrs old Black Female presents to ER via Ambulatory with complaints of BODY rn ACHES, Shortness Of Breath. 02:16 The patient has shortness of breath at rest, with light activity. Onset: The rn symptoms/episode began/occurred yesterday. The patient's shortness of breath is aggravated by light activity. Severity of symptoms: At their worst the symptoms were mild in the emergency department the symptoms are unchanged. The patient has experienced similar episodes in the past. Patient reports several days of swelling, bilateral lower extremities, associated with mild shortness of breath that is worse with exertion and talking. Patient has history of lung cancer, states in remission. No fever or chills. Reports her oncologist gives her medication for the swelling as she has had this before. Negative for DVT or PE in the past. No trauma.. Historical: - Allergies: 01:13 Keflex; lg3 01:13 Mobic; lg3 01:13 Phenergan; lg3 - Home Meds: 01:13 Unable to obtain [Active]; lg3 - PMHx: 01:13 Arthritis; COPD; GERD; HEP C; Hypertension; Lupus; Osteoporosis; RIGHT LEG NERVE PAIN; lg3 scoliosis; - PSHx: 01:13 back; Cholecystectomy; Left knee replacement; Nephrectomy; Right shoulder sx; lung lg3 cancer (Right shoulder sx); - Immunization history:: Adult Immunizations up to date. - Infectious Disease History:: Denies. - Social history:: Smoking status: Patient denies any tobacco usage or history of. Patient/guardian denies using alcohol, street drugs. - Family history:: not pertinent. - Hospitalizations: : No recent hospitalization is reported. ROS: 02:16 Constitutional: Negative for fever, chills, and weight loss, Cardiovascular: Negative rn for chest pain, palpitations, and edema, Respiratory: Negative for cough, wheezing, and pleuritic chest pain, Abdomen/GI: Negative for abdominal pain, nausea, vomiting, diarrhea, and constipation, MS/Extremity: Positive for lower extremity swelling Skin: Negative for injury, rash, and discoloration, Neuro: Positive for generalized weakness Exam: 02:16 Constitutional: This is a well developed, well nourished patient who is awake, alert, rn and in no acute distress. Cardiovascular: Regular rate and rhythm. No pulse deficits. Respiratory: Mild tachypnea, clear bilateral breath sounds Abdomen/GI: Soft, nontender MS/ Extremity: Pulses equal, no cyanosis. 1+ edema bilateral lower extremities and left upper extremity Neuro: Awake and alert, GCS 15 04:34 ECG was reviewed by the Attending Physician. rn Vital Signs: 01:10 BP 143 / 89; Pulse 76; Resp 17 S; Temp 97.9(TE); Pulse Ox 100% on R/A; Weight 61.23 kg lg3 (R); Height 5 ft. 3 in. (R); Pain 8/10; 03:34 BP 127 / 82; Pulse 70; Resp 18; Pulse Ox 100% on R/A; vk 05:00 BP 160 / 87; Pulse 65; Resp 18; Pulse Ox 100% on R/A; rv1 01:10 Body Mass Index 23.91 (61.23 kg, 160.02 cm) lg3 01:10 Pain Scale: Adult lg3 MDM: 00:42 Medical Screening Exam initiated rn 07:21 Differential diagnosis: pneumonia, Pneumothorax pulmonary edema. Data reviewed: vital rn signs, nurses notes, lab test result(s), radiologic studies, CT scan, plain films, and as a result, I will admit patient. Counseling: I had a detailed discussion with the patient and/or guardian regarding the historical points, exam findings, and any diagnostic results supporting the discharge/admit diagnosis, lab results, radiology results. ED course: CT shows possible pneumonia versus persistent malignancy, no gross changes compared to last time. No oxygen requirement. Patient states here more for pain. Will discharge home with antibiotics and given return precautions.. 02 00:42 Order name: Flu; Complete Time: 03:09 rn 10/28 00:42 Order name: SARS RAPID; Complete Time: 03:09 rn 10/28 01:20 Order name: Blood Culture Adult (2) lg3 10/28 01:20 Order name: CBC with Diff; Complete Time: 03:09 lg3 10/28 01:20 Order name: CMP; Complete Time: 03:09 3 10/28 01:20 Order name: Lactate w/ 2H reflex if indic.; Complete Time: 03:09 3 10/28 01:20 Order name: Protime (+inr); Complete Time: 03:09 lg3 10/28 01:20 Order name: Ptt, Activated; Complete Time: 03:09 3 10/28 01:20 Order name: Troponin High Sensitivity; Complete Time: 03:09 3 10/28 01:20 Order name: BNP; Complete Time: 03:09 lg3 10/28 02:43 Order name: Glucose, Ancillary Testing; Complete Time: 03:09 EDMS 10/28 03:11 Order name: Ghost Lactate-NO COLLECT Timer; Complete Time: 05:10 EDMS 10/28 06:30 Order name: Lactate Sepsis 2 HR Follow-up; Complete Time: 06:32 EDMS 10/28 00:42 Order name: XRAY Chest (1 view); Complete Time: 06:19 rn 10/28 03:58 Order name: CT Chest Wo Con; Complete Time: 07:20 rn 06 01:20 Order name: EKG; Complete Time: 01:20 lg3 10/28 01:20 Order name: Accucheck; Complete Time: 02:45 lg3 10/28 01:20 Order name: EKG - Nurse/Tech; Complete Time: 02:27 lg3 10/28 01:20 Order name: IV Saline Lock - Large Bore; Complete Time: 02:27 3 10/28 01:20 Order name: Labs collected and sent; Complete Time: 02: 3 10/28 01:20 Order name: O2 Per Protocol; Complete Time: 02: lg3 10/28 01:20 Order name: O2 Sat Monitoring; Complete Time: 02: lg3 10/28 01:20 Order name: Vital Signs; Complete Time: 02: lg3 EC:34 Rate is 71 beats/min. Rhythm is regular. QRS [place] is Normal. GA interval is normal. QRS rn interval is normal. QT interval is normal. No Q waves. T waves are Normal. No ST changes noted. Clinical impression: Normal ECG. Interpreted by me. Reviewed by me. Administered Medications: 02:45 Drug: HYDROmorphone IVP 0.5 mg IVP once Route: IVP; Site: right antecubital; kb3 04:54 Follow up: Response: No adverse reaction lg3 02:45 Drug: Ondansetron IVP 4 mg IVP once; over 2 minutes Route: IVP; Site: right antecubital;kb3 04:54 Follow up: Response: No adverse reaction lg3 04:28 Drug: Levalbuterol Inhalation 1.25 mg Inhalation once Route: Inhalation; kl 04:54 Follow up: Response: No adverse reaction lg3 05:29 Drug: HYDROmorphone IVP 0.5 mg IVP once Route: IVP; Site: right antecubital; lg3 07:37 Follow up: Response: No adverse reaction; Pain is decreased ap3 Disposition Summary: 10/28/24 07:23 Discharge Ordered Notes: Location: Home rn Problem: an ongoing problem rn Symptoms: have improved rn Condition: Stable rn Diagnosis - Pneumonia, unspecified organism rn Followup: rn - With: Private Physician - When: As needed - Reason: Recheck today's complaints, Re-evaluation by your physician Discharge Instructions: - Discharge Summary Sheet rn - Community-Acquired Pneumonia, Adult rn Forms: - Medication Reconciliation Form rn - 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 - Prescription Opioid Use rn - Patient Portal Instructions rn - Leadership Thank You Letter rn Prescriptions: - Prednisone 20 mg Oral Tablet - take 3 tablets ORAL route once daily for 5 days; 15 tablet; Refills: 0, Product rn Selection Permitted - levofloxacin 500 mg Oral tablet - take 1 tablet ORAL route once daily for 7 days; 7 tablet; Refills: 0, Product rn Selection Permitted Signatures: Dispatcher [employer] EDPR Mary Beth Sinha RN Castillo Prince MD MD rn Able, Lacie, RN RN lg3 Margarita Ambrosio RN RN kb3 Brenda Pedraza RN ap3 Corrections: (The following items were deleted from the chart) 00:43 00:43 Chest Single View+RAD.RAD.BRZ ordered. EDPR EDMS 00:43 00:43 Influenza Screen (A \T\ B)+BA.LAB.BRZ ordered. EDPR EDMS 00:43 00:43 SARS-COV-2 Antigen Rapid+I.LAB.BRZ ordered. EDPR EDMS 01:20 01:20 BLOOD CULTURE*+BA.LAB.BRZ ordered. EDMS EDMS 01:20 01:20 CBC+H.LAB.BRZ ordered. EDMS EDMS 01:20 01:20 COMPREHENSIVE METABOLIC PANEL+C.LAB.BRZ ordered. EDMS EDMS 01:20 01:20 LACTATE+C.LAB.BRZ ordered. EDMS EDMS 01:20 01:20 PROTIME (+INR)+COAG.LAB.BRZ ordered. EDMS EDMS 01:20 01:20 PTT, ACTIVATED+COAG.LAB.BRZ ordered. EDMS EDMS 01:20 01:20 Troponin High Sensitivity+C.LAB.BRZ ordered. EDMS EDMS 01:20 01:20 PROBNP+C.LAB.BRZ ordered. EDMS EDMS
--- NOTE | 2024-10-28 07:23 | ER ---
Nurse's Notes [facility] Name: Brandy Perez Age: 69 yrs Sex: Female : 1955 Arrival Date: 10/28/2024 Time: 00:34 Bed DX4 Private MD: Diagnosis: Pneumonia, unspecified organism Presentation: 10/28 01:10 Chief complaint: Patient states: im a current cancer patient and my doctor had me on a lg3 medicine to help keep me from swelling but the swelling has started again in my hands and feet and i feel short of breath. Coronavirus screen: Client denies travel out of the [place] in the last 14 days. At this time, the client does not indicate any symptoms associated with coronavirus-19. Ebola Screen: No symptoms or risks identified at this time. Initial Sepsis Screen: Does the patient meet any 2 criteria? No. Patient's initial sepsis screen is negative. Does the patient have a suspected source of infection? No. Patient's initial sepsis screen is negative. Risk Assessment: Do you want to hurt yourself or someone else? Patient reports no desire to harm self or others. Onset of symptoms was October 27, 2024. 01:10 Method Of Arrival: Ambulatory lg3 01:10 Acuity: LEONARDO 3 lg3 Triage Assessment: 01:13 General: Appears in no apparent distress. uncomfortable, Behavior is calm, cooperative. lg3 Pain: Complains of pain in right hand, left hand, right foot and left foot. EENT: No deficits noted. No signs and/or symptoms were reported regarding the EENT system. Neuro: No deficits noted. Kerr Agitation-Sedation Scale (RASS): 0 - Alert and Calm Level of Consciousness is awake, alert, obeys commands, Oriented to person, place, time, situation. Cardiovascular: No deficits noted. Denies chest pain, Capillary refill < 3 seconds Clubbing of nail beds is absent JVD is absent Patient's skin is warm and dry. Respiratory: Reports shortness of breath at rest Airway is patent Respiratory effort is even, unlabored, Respiratory pattern is regular, symmetrical, Onset: The symptoms/episode began/occurred yesterday, the patient has mild shortness of breath. GI: No deficits noted. No signs and/or symptoms were reported involving the gastrointestinal system. : No signs and/or symptoms were reported regarding the genitourinary system. Derm: No deficits noted. Skin is intact, is healthy with good turgor, Skin is dry, Skin is normal, Skin temperature is warm. Musculoskeletal: Circulation, motion, and sensation intact. Range of motion: intact in all extremities, Swelling present in right hand, left hand, right foot and left foot. Historical: - Allergies: 01:13 Keflex; lg3 01:13 Mobic; lg3 01:13 Phenergan; lg3 - Home Meds: 01:13 Unable to obtain [Active]; lg3 - PMHx: 01:13 Arthritis; COPD; GERD; HEP C; Hypertension; Lupus; Osteoporosis; RIGHT LEG NERVE PAIN; lg3 scoliosis; - PSHx: 01:13 back; Cholecystectomy; Left knee replacement; Nephrectomy; Right shoulder sx; lung lg3 cancer (Right shoulder sx); - Immunization history:: Adult Immunizations up to date. - Infectious Disease History:: Denies. - Social history:: Smoking status: Patient denies any tobacco usage or history of. Patient/guardian denies using alcohol, street drugs. - Family history:: not pertinent. - Hospitalizations: : No recent hospitalization is reported. Screenin:15 [facility] ED Fall Risk Assessment (Adult) History of falling in the last 3 months, lg3 including since admission No falls in past 3 months (0 pts) Confusion or Disorientation No (0 pts) Intoxicated or Sedated No (0 pts) Impaired Gait No (0 pts) Mobility Assist Device Used No (0 pt) Altered Elimination No (0 pt) Score/Fall Risk Level 0 - 2 = Low Risk Oriented to surroundings, Maintained a safe environment, Educated pt \T\ family on fall prevention, incl call for assistance when getting out of bed, Assessed \T\ reinforced patient's understanding of fall precautions. Abuse screen: Denies threats or abuse. Denies injuries from another. Nutritional screening: No deficits noted. Tuberculosis screening: No symptoms or risk factors identified. Assessment: 01:15 General: see triage assessment. Respiratory: Reports shortness of breath at rest Airway lg3 is patent Respiratory effort is even, unlabored, Respiratory pattern is regular, symmetrical, Breath sounds are clear bilaterally. 03:30 Reassessment: Patient appears in no apparent distress at this time. No changes from lg3 previously documented assessment. Patient and/or family updated on plan of care and expected duration. Pain level reassessed. Patient is alert, oriented x 3, equal unlabored respirations, skin warm/dry/pink. 07:38 Cardiovascular: Rhythm is. ap3 Vital Signs: 01:10 BP 143 / 89; Pulse 76; Resp 17 S; Temp 97.9(TE); Pulse Ox 100% on R/A; Weight 61.23 kg lg3 (R); Height 5 ft. 3 in. (R); Pain 8/10; 03:34 BP 127 / 82; Pulse 70; Resp 18; Pulse Ox 100% on R/A; vk 05:00 BP 160 / 87; Pulse 65; Resp 18; Pulse Ox 100% on R/A; rv1 01:10 Body Mass Index 23.91 (61.23 kg, 160.02 cm) lg3 01:10 Pain Scale: Adult lg3 ED Course: 00:37 Patient arrived in ED. jj6 00:41 Castillo Pastrana MD is Attending Physician. rn 01:13 Triage completed. lg3 01:13 Arm band placed on right wrist. lg3 01:15 Patient has correct armband on for positive identification. lg3 01:17 SARS RAPID Sent. vk 01:17 Flu Sent. vk 01:17 COVID swab sent to lab. Flu and/or RSV swab sent to lab. vk 01:19 XRAY Chest (1 view) In Process Unspecified. EDMS 02:27 BNP Sent. lg3 02:27 Troponin High Sensitivity Sent. lg3 02:27 Blood Culture Adult (2) Sent. lg3 02:27 CBC with Diff Sent. lg3 02:27 CMP Sent. lg3 02:28 Protime (+inr) Sent. lg3 02:28 Ptt, Activated Sent. lg3 02:28 Lactate w/ 2H reflex if indic. Sent. lg3 02:46 EKG done, by ED staff. vk 04:07 Maureen Aguilar, RN is Primary Nurse. lg3 05:15 CT Chest Wo Con In Process Unspecified. EDMS 07:38 Provided Education on: discharge instructions . ap3 07:38 No provider procedures requiring assistance completed. IV discontinued, intact, ap3 bleeding controlled, No redness/swelling at site. Pressure dressing applied. Administered Medications: 02:45 Drug: HYDROmorphone IVP 0.5 mg IVP once Route: IVP; Site: right antecubital; kb3 04:54 Follow up: Response: No adverse reaction lg3 02:45 Drug: Ondansetron IVP 4 mg IVP once; over 2 minutes Route: IVP; Site: right antecubital;kb3 04:54 Follow up: Response: No adverse reaction lg3 04:28 Drug: Levalbuterol Inhalation 1.25 mg Inhalation once Route: Inhalation; kl 04:54 Follow up: Response: No adverse reaction lg3 05:29 Drug: HYDROmorphone IVP 0.5 mg IVP once Route: IVP; Site: right antecubital; lg3 07:37 Follow up: Response: No adverse reaction; Pain is decreased ap3 Medication: 01:15 VIS not applicable for this client. lg3 Outcome: 07:23 Discharge ordered by . rn 07:38 Discharged to home via wheelchair, ap3 07:38 Condition: good 07:38 Discharge instructions given to patient, Instructed on discharge instructions, follow up and referral plans. medication usage, Demonstrated understanding of instructions, follow-up care, medications, Prescriptions given X 2, 07:39 Patient left the ED. ap3 Signatures: Dispatcher [employer] EDMS Mary Beth Sinha RN RN kl Nieto, Roman, MD MD rn Prokisch, Amanda, RN RN ap3 Maureen Aguilar RN RN lg3 Josefina Pineda6 Margarita Ambrosio RN RN kb3 Reema Sorenson1 Lisa Gasca
[2024-10-28 07:42] VITALS: TEMP 97.9; O2SAT 100
[2024-10-28 07:45] VITALS: BP 160/87
--- NOTE | 2024-10-28 11:25 | EKG ---
Test Date: 2024-10-28 Test Time: 02:40:03 Commercial Real Estate Agent: PATITO MEASUREMENT RESULTS: Intervals: Rate: 71 RI: 132 QRSD: 64 QT: 380 QTc: 412 [place]: P: 63 RI: 132 QRS: 70 T: 74 INTERPRETIVE STATEMENTS: Normal sinus rhythm with sinus arrhythmia Normal ECG Compared to ECG 09/18/2024 15:40:20 No significant changes Electronically Signed On 10-28-24 11:24:12 SAMPLE STEAMER by Edilberto Copeland
== END 2024-10-28 07:39 | disposition home or self-care (01) ==
LOC: ER 00:34
DX: J18.9 Pneumonia, unspecified organism (principal); J44.9 Chronic obstructive pulmonary disease, unspecified; Z85.118 Personal history of other malignant neoplasm of bronchus and lung; Z11.52 Encounter for screening for COVID-19
CPT/HCPCS: 93005; 87040 ×2; 85025; 36415; 85610; 82947; 83605 ×2; 85730; 84484; 80053; 83880; 87804 ×2; 71250; 71045; 96375; 96374; 99285; 87811; J7614; J1171 ×2; J2405

== ENCOUNTER 2025-05-12 11:42 | Emergency (ER) | payer OTHER ==
--- NOTE | 2025-05-12 12:35 | RAD REPORT ---
EXAMINATION: CT PELVIS WITHOUT CONTRAST CLINICAL INDICATION: Left hip pain TECHNIQUE: CT pelvis was performed, without IV contrast, as per department protocol. Axial, sagittal and coronal reconstructions were obtained. One or more of the following dose reduction techniques were used: Automated exposure control, adjustment of the mA and/or kV according to patient size, and/ or iterative reconstruction. Unless otherwise specified, incidental findings do not require dedicated imaging follow-up. COMPARISON: No prior exam. FINDINGS: No fracture seen. No dislocation No bony lesions visualized. A significant left hip joint effusion not present. Left hip musculature normal size and density. Subcutaneous tissues are unremarkable. Small moderate left inguinal hernia Mild osteoarthritis left hip spondylosis lumbar spine results in spinal stenosis. IMPRESSION: No acute abnormality is displayed
[2025-05-12] MEDS ORDERED: HYDROMORPHONE HCL 1 MG/ML INJ ONE (14:19)
[2025-05-12] MEDS ORDERED: ONDANSETRON 4 MG/2 ML VIAL ONE (14:19)
--- NOTE | 2025-05-12 14:45 | EDPHYS ---
Physician Documentation [facility] Name: Brandy Perez Age: 70 yrs Sex: Female : 1955 Arrival Date: 05/12/2025 Time: 11:42 Bed 2 Private MD: ED Physician Papito Shah HPI: 05/12 12:01 This 70 yrs old Black Female presents to ER via Ambulatory with complaints of Hip Pain. sb4 12:01 Patient reports left low back/hip pain for about 3 days now. Cannot take sb4 anti-inflammatories due to her cancer medications and states Tylenol 3 is not helping. Denies any radiation of the pain. Denies any numbness or tingling. Historical: - Allergies: 11:58 Keflex; me1 11:58 Mobic; me1 11:58 Phenergan; me1 - PMHx: 11:58 Arthritis; COPD; GERD; HEP C; Hypertension; Lupus; Osteoporosis; RIGHT LEG NERVE PAIN; me1 scoliosis; - PSHx: 11:58 lung cancer (Unknown); back; Cholecystectomy; Left knee replacement; Nephrectomy; Right me1 shoulder sx; - Immunization history:: Adult Immunizations up to date. - Infectious Disease History:: Denies. - Social history:: Smoking status: Patient/guardian denies using tobacco, but has a distant history of tobacco abuse. ROS: 12:01 Constitutional: Negative for fever, chills, and weight loss, sb4 12:01 MS/extremity: Positive for pain, of the Left low back/hip, 12:01 All other systems are negative, Exam: 12:02 Constitutional: This is a well developed, well nourished patient who is awake, alert, sb4 and in no acute distress. Head/Face: Normocephalic, atraumatic. Eyes: Extra-ocular motions intact. Periorbital areas with no swelling, redness, or edema. ENT: Mucous membranes moist. Respiratory: No increased work of breathing, no retractions or nasal flaring. Skin: Warm, dry with normal turgor. Normal color with no rashes, no lesions, and no evidence of cellulitis. Neuro: Awake and alert, GCS 15, oriented to person, place, time, and situation. Motor strength 5/5 in all extremities. Sensory grossly intact. Vital Signs: 11:55 BP 179 / 95; Pulse 65; Resp 18; Temp 97.9; Pulse Ox 100% ; Weight 75.3 kg; Height 5 ft. me1 3 in. ; Pain 10/10; 15:20 BP 151 / 89; Pulse 79; Resp 16; Pulse Ox 97% ; bp 11:55 Body Mass Index 29.41 (75.30 kg, 160.02 cm) me1 11:55 Pain Scale: Adult me1 MDM: 11:48 Medical Screening Exam initiated sb4 12:02 Differential diagnosis: bursitis, arthritis, strain. sb4 15:57 Data reviewed: vital signs, nurses notes, radiologic studies, and as a result, I will sb4 discharge patient. Counseling: I had a detailed discussion with the patient and/or guardian regarding the historical points, exam findings, and any diagnostic results supporting the discharge/admit diagnosis, radiology results, the need for outpatient follow up, a spray ii painter, to return to the emergency department if symptoms worsen or persist or if there are any questions or concerns that arise at home. 05/12 11:58 Order name: Pelvis Wo Cont CT; Complete Time: 12:37 sb4 05/12 11:57 Order name: IV Start; Complete Time: 14:28 sb4 Administered Medications: 14:28 Drug: Decadron - Dexamethasone IVP 10 mg IVP once Route: IVP; Site: right antecubital; bp 15:21 Follow up: Response: No adverse reaction bp 14:28 Drug: HYDROmorphone IVP 1 mg IVP once Route: IVP; Site: right antecubital; bp 15:21 Follow up: Response: No adverse reaction bp 14:28 Drug: Ondansetron IVP 4 mg IVP once; over 2 minutes Route: IVP; Site: right antecubital;bp 15:21 Follow up: Response: No adverse reaction bp Disposition: 05/13 09:06 Co-signature as Attending Physician, Papito Shah MD I agree with the assessment and cesario plan of care. Disposition Summary: 05/12/25 14:44 Discharge Ordered Notes: Location: Home sb4 Problem: an acute exacerbation sb4 Symptoms: have improved sb4 Condition: Stable sb4 Diagnosis - Low back pain sb4 Followup: sb4 - With: Drake Boo MD - When: As needed - Reason: Recheck today's complaints, Re-evaluation by your physician Discharge Instructions: - Discharge Summary Sheet sb4 - Chronic Back Pain sb4 - Musculoskeletal Pain sb4 - Back Exercises sb4 Forms: - Patient Portal Instructions sb4 - Leadership Thank You Letter sb4 Signatures: Dispatcher [employer] Papito Noel MD MD cha Peltier, Brian, Bridgette Campbell RN, PARenataC PARenataC sb4 Ghislaine Warren RN RN me1
--- NOTE | 2025-05-12 14:45 | ER ---
Nurse's Notes [facility] Name: Brandy Perez Age: 70 yrs Sex: Female : 1955 Arrival Date: 05/12/2025 Time: 11:42 Bed 2 Private MD: Diagnosis: Low back pain Presentation: 05/12 11:55 Chief complaint: Patient states: left hip pain that is 10/10 "throbbing". Reports that me1 she has stage 4 lung cancer and just gets pain from time to time. Denies injury. Coronavirus screen: At this time, the client does not indicate any symptoms associated with coronavirus-19. Ebola Screen: No symptoms or risks identified at this time. Initial Sepsis Screen: Does the patient meet any 2 criteria? No. Patient's initial sepsis screen is negative. Does the patient have a suspected source of infection? No. Patient's initial sepsis screen is negative. Risk Assessment: Do you want to hurt yourself or someone else? Patient reports no desire to harm self or others. Onset of symptoms was May 10, 2025. 11:55 Method Of [place] [facility] Acuity: LEONARDO 4 me1 Triage Assessment: 14:10 General: Appears in no apparent distress. uncomfortable, Behavior is cooperative, bp appropriate for age, anxious. Pain: Complains of pain in pelvis. EENT: No deficits noted. Neuro: No deficits noted. Cardiovascular: No deficits noted. Respiratory: No deficits noted. GI: No signs and/or symptoms were reported involving the gastrointestinal system. : No signs and/or symptoms were reported regarding the genitourinary system. Derm: No deficits noted. Musculoskeletal: No deficits noted. Historical: - Allergies: 11:58 Keflex; me1 11:58 Mobic; me1 11:58 Phenergan; me1 - PMHx: 11:58 Arthritis; COPD; GERD; HEP C; Hypertension; Lupus; Osteoporosis; RIGHT LEG NERVE PAIN; me1 scoliosis; - PSHx: 11:58 lung cancer (Unknown); back; Cholecystectomy; Left knee replacement; Nephrectomy; Right me1 shoulder sx; - Immunization history:: Adult Immunizations up to date. - Infectious Disease History:: Denies. - Social history:: Smoking status: Patient/guardian denies using tobacco, but has a distant history of tobacco abuse. Screenin:20 [facility] ED Fall Risk Assessment (Adult) History of falling in the last 3 months, bp including since admission No falls in past 3 months (0 pts) Confusion or Disorientation No (0 pts) Intoxicated or Sedated No (0 pts) Impaired Gait No (0 pts) Mobility Assist Device Used No (0 pt) Altered Elimination No (0 pt) Score/Fall Risk Level 0 - 2 = Low Risk Oriented to surroundings. Abuse screen: Denies threats or abuse. Denies injuries from another. Nutritional screening: No deficits noted. Tuberculosis screening: No symptoms or risk factors identified. Assessment: 15:20 Reassessment: Patient is alert, oriented x 3, equal unlabored respirations, skin bp warm/dry/pink. Patient states symptoms have improved. Vital Signs: 11:55 BP 179 / 95; Pulse 65; Resp 18; Temp 97.9; Pulse Ox 100% ; Weight 75.3 kg; Height 5 ft. me1 3 in. ; Pain 10/10; 15:20 BP 151 / 89; Pulse 79; Resp 16; Pulse Ox 97% ; bp 11:55 Body Mass Index 29.41 (75.30 kg, 160.02 cm) me1 11:55 Pain Scale: Adult me1 ED Course: 11:45 Patient arrived in ED. mr 11:47 Bridgette Yu PA-C is PHCP. sb4 11:47 Papito Shah MD is Attending Physician. sb4 11:57 Triage completed. me1 11:58 Arm band placed on Patient placed in waiting room. me1 12:[address] In Process Unspecified. EDMS 14:09 Arsalan Potter, LENARD is Primary Nurse. bp 14:29 Inserted saline lock: 22 gauge in right antecubital area, using aseptic technique. bp Flushed with 10 mL NS. 14:44 Drake Boo MD is Referral Physician. sb4 15:20 Patient has correct armband on for positive identification. bp 15:20 No provider procedures requiring assistance completed. IV discontinued, intact, bp bleeding controlled, No redness/swelling at site. Pressure dressing applied. Administered Medications: 14:28 Drug: Decadron - Dexamethasone IVP 10 mg IVP once Route: IVP; Site: right antecubital; bp 15:21 Follow up: Response: No adverse reaction bp 14:28 Drug: HYDROmorphone IVP 1 mg IVP once Route: IVP; Site: right antecubital; bp 15:21 Follow up: Response: No adverse reaction bp 14:28 Drug: Ondansetron IVP 4 mg IVP once; over 2 minutes Route: IVP; Site: right antecubital;bp 15:21 Follow up: Response: No adverse reaction bp Medication: 15:20 VIS not applicable for this client. bp Outcome: 14:44 Discharge ordered by MD. mcgill 15:20 Discharged to home via wheelchair, with family, bp 15:20 Condition: stable 15:20 Discharge instructions given to patient, family, Instructed on discharge instructions, follow up and referral plans. Demonstrated understanding of instructions, follow-up care, 15:21 Patient left the ED. bp Signatures: Dispatcher [employer] EDMI Emily Robert, Reg Reg mr Arsalan Potter, RN RN Bridgette Moulton, PA-C PA-C sb4 Ghislaine Warren RN RN me1 Corrections: (The following items were deleted from the chart) 14:29 14:29 Inserted saline lock: 22 gauge in right antecubital area, using aseptic bp technique. Blood collected. Flushed with 10 mL NS bp
[2025-05-12 17:01] VITALS: TEMP 97.9
[2025-05-12 17:03] VITALS: BP 151/89; O2SAT 97
== END 2025-05-12 15:21 | disposition home or self-care (01) ==
LOC: ER 11:42
DX: M54.50 Low back pain, unspecified (principal); M32.9 Systemic lupus erythematosus, unspecified; I10 Essential (primary) hypertension; Z88.1 Allergy status to other antibiotic agents; Z88.8 Allergy status to other drugs, medicaments and biological substances
CPT/HCPCS: 72192; 96375; 96374; 99284; J1100; J1171; J2405

== ENCOUNTER 2025-06-30 11:44 | Emergency (ER) | payer OTHER ==
--- NOTE | 2025-06-30 12:38 | EDPHYS ---
Physician Documentation [facility] Name: Brandy Perez Age: 70 yrs Sex: Female : 1955 Arrival Date: 06/30/2025 Time: 11:44 Bed 26 Private MD: ED Physician Saw Lombardi HPI: 06/30 12:32 This 70 yrs old Black Female presents to ER via Wheelchair with complaints of Pain All cr8 Over. 12:32 Patient is a 70-year-old female with a history of arthritis, COPD, GERD, hep C, lupus, cr8 radiculopathy and reported cancer no comes in emergency room complaining of pain all over. Reports that she is also having left trapezius pain that radiates down her arm. She states this is not new pain for her. States this is the same as previous episodes of pain. Reports that she usually comes to the emergency room and gets a shot of Dilaudid and goes home. There is no new changes to her pain. She takes Tylenol 3 at home but says is not helping. Denies having a pain management doctor. She is not having any shortness of breath chest pain nausea vomiting or fever. During interview she is alert and oriented in no acute distress.. Historical: - Allergies: 12:00 Keflex; dd2 12:00 Mobic; dd2 12:00 Phenergan; dd2 - PMHx: 12:00 Arthritis; COPD; GERD; HEP C; Hypertension; Lupus; Osteoporosis; RIGHT LEG NERVE PAIN; dd2 scoliosis; STAGE 4 LUNG CANCER (scoliosis); 1 KIDNEY (scoliosis); - PSHx: 12:00 back; Cholecystectomy; Left knee replacement; Nephrectomy; Right shoulder sx; dd2 - Immunization history:: Adult Immunizations up to date. - Infectious Disease History:: Denies. - Social history:: Smoking status: Patient denies any tobacco usage or history of. ROS: 12:32 Constitutional: as per HPI cr8 Exam: 12:32 Constitutional: This is a well developed, well nourished patient who is awake, alert, cr8 and in no acute distress. Head/Face: Normocephalic, atraumatic. Skin: Warm, dry with normal turgor. Normal color with no rashes, no lesions, and no evidence of cellulitis. MS/ Extremity: Pulses equal, no cyanosis. Neurovascular intact. Full, normal range of motion. Neuro: Awake and alert, GCS 15, oriented to person, place, time, and situation. Cranial nerves II-XII grossly intact. 12:32 Special observations: There is some mild tenderness and edema to the left trapezius without any surrounding ecchymosis erythema warmth crepitus., Vital Signs: 12:00 BP 138 / 79; Pulse 80; Resp 16; Temp 98.2; Pulse Ox 96% on R/A; Weight 78.47 kg; Pain dd2 9/10; 12:00 Pain Scale: Adult dd2 MDM: 11:59 Medical Screening Exam initiated cr8 12:32 Data reviewed: vital signs, nurses notes, old medical records, I have discussed the cr8 patient's presentation/case with the attending Emergency Department Physician;. ED course: Patient comes emergency room complaining of generalized body pain. She reports this is chronic for her and unchanged from previous episodes. I did considered rhabdomyolysis but patient is had no recent injury trauma. Did consider possible flu or viral infection but she states that she has had this pain off and on for a while, she has had no fever cough congestion so do not suspect viral syndrome. Considered polymyalgia related to trauma but again she has had no traumatic experience. Her presentation is most consistent with chronic pain drug-seeking behavior. She reported that the pain is unchanged is similar to past episodes and there is no new complaints. She has no emergent complaint like chest pain dyspnea strokelike symptoms. She tells me that she usually comes to the emergency room to give her a shot of Dilaudid and she feels better. Will discussed with the patient the need to follow-up with a pain management doctor is coming to the emergency room for opioids is not the appropriate treatment for chronic pain. No emergent condition identified.. Administered Medications: 12:55 Not Given (Patient Refused): hydrocodone-acetaminophen5 mg-325 mg 1 tabs PO once iw 12:55 Not Given (Patient Refused): dexamethasone8 mg PO once iw Disposition: 20:19 I was immediately available on-site in the Emergency Department for consultation in the ut3 care of the patient. Disposition Summary: 06/30/25 12:37 Discharge Ordered Notes: Location: Home cr Condition: Stable cr8 Diagnosis - Chronic pain syndrome cr8 Followup: cr8 - With: Private Physician - When: 2 - 3 days - Reason: Recheck today's complaints, Continuance of care Followup: cr8 - With: Emergency Department - When: As needed - Reason: Trouble breathing, Worsening of condition Discharge Instructions: - Discharge Summary Sheet cr8 - Chronic Pain, Adult cr8 - Managing Pain Without Opioids cr8 Forms: - Medication Reconciliation Form cr8 - Prescription Opioid Use cr8 - Patient Portal Instructions cr8 - Leadership Thank You Letter cr8 Signatures: Saw Lombardi DO DO ms3 DULCE MARIA LAINEZ RN RN dd2 Rohit Brown NP TRAILER [employer] cr8 Tootie Stuart RN iw Corrections: (The following items were deleted from the chart) 12: 12:00 PSHx: lung cancer; dd2 dd2 12: 12:00 PSHx: lung cancer; dd2 dd2
--- NOTE | 2025-06-30 12:38 | ER ---
Nurse's Notes [facility] Name: Brandy Perez Age: 70 yrs Sex: Female : 1955 Arrival Date: 06/30/2025 Time: 11:44 Bed 26 Private MD: Diagnosis: Chronic pain syndrome Presentation: 06/30 12:00 Chief complaint: Patient states: CHRONIC PAIN TO LT SHOULDER THAT HAS BEEN WORSE FOR 2 dd2 DAYS. Coronavirus screen: At this time, the client does not indicate any symptoms associated with coronavirus-19. Ebola Screen: No symptoms or risks identified at this time. Initial Sepsis Screen: Does the patient meet any 2 criteria? No. Patient's initial sepsis screen is negative. Does the patient have a suspected source of infection? No. Patient's initial sepsis screen is negative. Risk Assessment: Do you want to hurt yourself or someone else? Patient reports no desire to harm self or others. Onset of symptoms was June 28, 2025. 12:00 Method Of Arrival: Wheelchair dd2 12:00 Acuity: LEONARDO 4 dd2 Triage Assessment: 12:00 General: Appears in no apparent distress. uncomfortable, Behavior is calm, cooperative, dd2 appropriate for age. Pain: Complains of pain in left trapezius and left scapular area. Musculoskeletal: Circulation, motion, and sensation intact. Range of motion: intact in all extremities, Tenderness present in left trapezius. Historical: - Allergies: 12:00 Keflex; dd2 12:00 Mobic; dd2 12:00 Phenergan; dd2 - PMHx: 12:00 Arthritis; COPD; GERD; HEP C; Hypertension; Lupus; Osteoporosis; RIGHT LEG NERVE PAIN; dd2 scoliosis; STAGE 4 LUNG CANCER (scoliosis); 1 KIDNEY (scoliosis); - PSHx: 12:00 back; Cholecystectomy; Left knee replacement; Nephrectomy; Right shoulder sx; dd2 - Immunization history:: Adult Immunizations up to date. - Infectious Disease History:: Denies. - Social history:: Smoking status: Patient denies any tobacco usage or history of. Screenin:55 [facility] ED Fall Risk Assessment (Adult) History of falling in the last 3 months, iw including since admission No falls in past 3 months (0 pts) Confusion or Disorientation No (0 pts) Intoxicated or Sedated No (0 pts) Impaired Gait No (0 pts) Mobility Assist Device Used No (0 pt) Altered Elimination No (0 pt) Score/Fall Risk Level 0 - 2 = Low Risk Oriented to surroundings, Maintained a safe environment. Abuse screen: Denies threats or abuse. Denies injuries from another. Nutritional screening: No deficits noted. Tuberculosis screening: No symptoms or risk factors identified. Assessment: 12:55 Reassessment: No changes from previously documented assessment. Patient and/or family iw updated on plan of care and expected duration. Pain level reassessed. Patient is alert, oriented x 3, equal unlabored respirations, skin warm/dry/pink. Vital Signs: 12:00 BP 138 / 79; Pulse 80; Resp 16; Temp 98.2; Pulse Ox 96% on R/A; Weight 78.47 kg; Pain dd2 06/01; 12:00 Pain Scale: Adult dd2 ED Course: 11:47 Patient arrived in ED. al6 11:51 Rohit Brown NP is PHCP. cr8 11:51 Saw Lombardi DO is Attending Physician. cr8 12:00 Arm band placed on left wrist. dd2 12:04 Triage completed. dd2 12:34 Tootie Stuart RN is Primary Nurse. iw 12:55 Patient has correct armband on for positive identification. iw 12:55 No provider procedures requiring assistance completed. Patient did not have IV access iw during this emergency room visit. Administered Medications: 12:55 Not Given (Patient Refused): hydrocodone-acetaminophen5 mg-325 mg 1 tabs PO once iw 12:55 Not Given (Patient Refused): dexamethasone8 mg PO once iw Medication: 12:55 VIS not applicable for this client. iw Outcome: 12:37 Discharge ordered by . cr8 12:55 Discharged to home via wheelchair, iw 12:55 Condition: stable 12:55 Discharge instructions given to patient, 12:56 Patient left the ED. iw Signatures: Tootie Stuart RN RN iw DULCE MARIA LAINEZ RN RN dd2 Aixa Carmona al6 Rohit Brown NP GM VIDEO cr8 Corrections: (The following items were deleted from the chart) 12:01 12:00 PSHx: lung cancer; dd2 dd2 12:01 12:00 PSHx: lung cancer; dd2 dd2
[2025-06-30] MEDS ORDERED: HYDROCODONE/APAP 5/325 MG TAB ONE (12:44)
[2025-06-30 13:06] VITALS: BP 138/79; TEMP 98.2; O2SAT 96
== END 2025-06-30 12:56 | disposition home or self-care (01) ==
LOC: ER 11:44
DX: G89.4 Chronic pain syndrome (principal)
CPT/HCPCS: 99282; J8540